=== PATIENT | female | born 1950 | race Hispanic/Latino ===

== ENCOUNTER 2020-03-22 08:12 | Outpatient (CLI) | payer OTHER, MEDICAID, SELFPAY ==
[2020-03-22 09:02] LABS: Hemoglobin A1C 8.2 % (<5.7)
[2020-03-22 09:06] LABS: Alanine Aminotransferase 18 U/L (4-35); Albumin Level 3.9 g/dL (3.5-5.1); Alkaline Phosphatase 81 U/L (38-126); Aspartate Amino Transferase 25 U/L (14-36); Bilirubin,Total 0.3 mg/dL (0.2-1.3); Blood Urea Nitrogen 9 mg/dL (7-17); Calcium 8.8 mg/dL (8.4-10.2); Carbon Dioxide 24 mmol/L (22-30); Chloride 108 mmol/L (98-107); Cholesterol 118 mg/dL (0-200); Estimated Glomerular Filt Rate > 60; Glucose 117 mg/dL (65-105); HDL Direct 48 mg/dL; Sodium 141 mmol/L (137-145); Triglycerides 69 mg/dL (<150)
[2020-03-22 09:17] LABS: LDL Cholesterol Direct 53 mg/dL
== END 2020-03-22 08:13 | disposition home or self-care (01) ==
PROVIDERS: PCP Emergency Medicine; Visit Provider Emergency Medicine
DX: E78.5 Hyperlipidemia, unspecified (principal); E11.9 Type 2 diabetes mellitus without complications
CPT/HCPCS: 36415; 80053; 80061; 83036

== ENCOUNTER 2020-07-01 09:06 | Outpatient (CLI) | payer OTHER, MEDICAID, SELFPAY ==
[2020-07-01 09:33] LABS: Alanine Aminotransferase 19 U/L (4-35); Alkaline Phosphatase 77 U/L (38-126); Anion Gap 5 mmol/L (8-16); Aspartate Amino Transferase 29 U/L (14-36); Bilirubin,Total 0.5 mg/dL (0.2-1.3); Blood Urea Nitrogen 14 mg/dL (7-17); Calcium 9.2 mg/dL (8.4-10.2); Carbon Dioxide 27 mmol/L (22-30); Chloride 107 mmol/L (98-107); Cholesterol 148 mg/dL (0-200); Estimated Glomerular Filt Rate > 60; Glucose 167 mg/dL (65-105); HDL Direct 56 mg/dL; Potassium 4.5 mmol/L (3.4-5.0); Sodium 139 mmol/L (137-145); Triglycerides 112 mg/dL (<150)
[2020-07-01 09:36] LABS: Hemoglobin A1C 7.4 % (<5.7)
[2020-07-01 09:44] LABS: LDL Cholesterol Direct 73 mg/dL
== END 2020-07-01 09:07 | disposition home or self-care (01) ==
LOC: ANHLAB 09:07
PROVIDERS: PCP Emergency Medicine; Visit Provider Emergency Medicine
DX: E11.9 Type 2 diabetes mellitus without complications (principal); E78.5 Hyperlipidemia, unspecified
CPT/HCPCS: 36415; 80053; 80061; 83036

== ENCOUNTER 2020-09-14 10:05 | Outpatient (CLI) | payer OTHER, MEDICAID, SELFPAY ==
--- NOTE | ~2020-09-14 | MM_ITS ---
EXAMINATION: MM screening [facility] BI w michelle HISTORY: Screening mammogram TECHNIQUE: Craniocaudal and mediolateral oblique 3-D tomosynthesis images were obtained and synthetic 2-D images were generated. Bilateral rotated lateral CC views. CAD analysis was submitted and interp reted. COMPARISON: 09/22/2019, 09/12/2018, 09/09/2017 bilateral digital screening mammogram examinations BREAST PARENCHYMAL COMPOSITION: There are scattered areas of fibroglandular density. FINDINGS: There is no evidence of suspicious mass, calcification, or architectural distortion to sugg est malignancy in either breast. There has been no suspicious interval change. IMPRESSION: 1. No mammographic evidence of malignancy. 2. Recommend routine screening mammography in one year. BI-RADS Category 1: Negative Reviewed, dictated and finalized at location A. CH REBUILDER
== END 2020-09-14 10:06 | disposition home or self-care (01) ==
LOC: ANHIMG 10:09
PROVIDERS: PCP Emergency Medicine; Visit Provider Emergency Medicine
DX: Z12.31 Encounter for screening mammogram for malignant neoplasm of breast (principal)
CPT/HCPCS: 77063; 77067

== ENCOUNTER 2020-10-11 08:44 | Outpatient (CLI) | payer OTHER, MEDICAID, SELFPAY ==
[2020-10-11 09:28] LABS: Alanine Aminotransferase 16 U/L (4-35); Alkaline Phosphatase 80 U/L (38-126); Anion Gap 7 mmol/L (8-16); Aspartate Amino Transferase 28 U/L (14-36); Bilirubin,Total 0.7 mg/dL (0.2-1.3); Blood Urea Nitrogen 12 mg/dL (7-17); Carbon Dioxide 26 mmol/L (22-30); Chloride 109 mmol/L (98-107); Cholesterol 152 mg/dL (0-200); Estimated Glomerular Filt Rate > 60; Glucose 106 mg/dL (65-105); HDL Direct 54 mg/dL; Potassium 3.9 mmol/L (3.4-5.0); Sodium 142 mmol/L (137-145); Triglycerides 117 mg/dL (<150)
[2020-10-11 09:39] LABS: LDL Cholesterol Direct 71 mg/dL
[2020-10-11 09:40] LABS: Hemoglobin A1C 7.7 % (<5.7)
[2020-10-11 09:50] LABS: Creatinine Urine 195.8 mg/dL
[2020-10-11 09:54] LABS: MALB Creatinine Ratio 10.2 mg/g (0-30)
== END 2020-10-11 08:45 | disposition home or self-care (01) ==
PROVIDERS: PCP Emergency Medicine; Visit Provider Emergency Medicine
DX: E78.5 Hyperlipidemia, unspecified (principal); E11.40 Type 2 diabetes mellitus with diabetic neuropathy, unspecified; Z79.4 Long term (current) use of insulin
CPT/HCPCS: 36415; 80053; 80061; 82043; 83036

== ENCOUNTER 2020-12-07 11:49 | Emergency (ER) | payer OTHER, MEDICAID, SELFPAY ==
--- NOTE | ~2020-12-07 | XR_ITS ---
XR chest 1V DATE: 12/07/2020 13:15 INDICATION: Chest pain TECHNIQUE: AP view COMPARISON: 03/23/2019 AP and lateral chest FINDINGS: Cardiomegaly. Mild aortic unfolding. No hilar or mediastinal enlargement is evident. No pulmonary infiltrate or consolidation, pleural effusion or pulmonary vascular congestion or pneumo thorax. Diffuse osteopenia. There is mild scoliosis of the thoracic spine as well as degenerative spurring. IMPRESSION: Cardiomegaly No active pulmonary disease Reviewed, dictated and finalized at location A. CTOR OF GOLF
--- NOTE | ~2020-12-07 | US_ITS ---
US right upper quadrant DATE: 12/07/2020 15:36 INDICATION: Right upper quadrant abdominal pain TECHNIQUE: Real-time imaging of liver, pancreas, gallbladder areas COMPARISON: 06/20/2012 CT abdomen pelvis FINDINGS: No gallstones or gallbladder wall thickening or pericholecystic fluid collection. Negative sonographic Kyle's sign. Normal hepatopedal portal venous flow direction. No hepatic space-occupying mass lesion is evident. The pancreas is partially obscured. IMPRESSION: Limited visualization of the pancreas Negative gallbladder Reviewed, dictated and finalized at Location A. Reviewed, dictated and finalized at location A. HER OF THE VISUALLY IMPAIRED
--- NOTE | ~2020-12-07 | XR_ITS ---
EXAMINATION: XR thoracic spine 3V DATE: 12/07/2020 13:15 INDICATION: Right-sided back pain TECHNIQUE: AP, lateral and lateral swimmer's views of the thoracic spine were obtained. COMPARISON: None. FINDINGS: Bone alignment is normal. There is no fracture. There is moderate loss of intervertebral di sc space height throughout the thoracic spine. Small degenerative osteophytes project from the anteri or endplates of multiple vertebral bodies. The vertebral body heights are maintained. IMPRESSION: 1. Moderate thoracic spondylosis without acute findings. Reviewed, dictated and finalized at location A. D WELFARE SPECIALIST
[2020-12-07 11:56] VITALS: BP 140/64; PULSE 62; RESP 18; TEMP 37.1; O2SAT 98
[2020-12-07 12:14] LABS: Basophils Percent Auto 0.4 % (0.2-1.2); Eosinophils Absolute Auto 0.1 K/mm3 (0-0.3); Eosinophils Percent Auto 0.8 % (0-4.4); Hematocrit 39.2 % (37.0-47.0); Hemoglobin 12.9 g/dL (12.0-15.0); Immature Granulocyte Absolute 0.03 K/mm3 (0.00-0.031); Immature Granulocyte Percent A 0.3 % (0-0.5); Lymphocytes Absolute Auto 2.88 K/mm3 (0.9-3.2); Lymphocytes Percent Auto 27.6 % (18.3-44.2); Mean Corpuscular HGB Conc 32.9 g/dl (32-36); Mean Corpuscular Hemoglobin 28.7 pg (26-34); Mean Corpuscular Volume 87.3 fl (80-100); Mean Platelet Volume 12.3 fl (7.4-10.4); Monocytes Absolute Auto 0.8 K/mm3 (0.1-0.6); Neutrophils Absolute Auto 6.6 K/mm3 (1.3-6.7); Neutrophils Percent Auto 62.9 % (45.5-73.1); Platelet Count Result 225 k/mm3 (150-375); Red Blood Count 4.49 M/mm3 (4.2-5.4); Red Cell Distribution Width 13.2 % (11.5-14.5); White Blood Count 10.4 K/mm3 (4.5-10.0)
[2020-12-07 12:26] LABS: Alanine Aminotransferase 18 U/L (4-35); Albumin Level 4.2 g/dL (3.5-5.1); Alkaline Phosphatase 85 U/L (38-126); Anion Gap 5 mmol/L (8-16); Aspartate Amino Transferase 28 U/L (14-36); Bilirubin,Total 0.8 mg/dL (0.2-1.3); Blood Urea Nitrogen 9 mg/dL (7-17); Carbon Dioxide 29 mmol/L (22-30); Chloride 102 mmol/L (98-107); Estimated Glomerular Filt Rate > 60; Glucose 186 mg/dL (65-105); Lipase 27 U/L (23-300); Potassium 3.9 mmol/L (3.4-5.0); Sodium 136 mmol/L (137-145)
--- NOTE | 2020-12-07 12:48 | ECG_ITS ---
Measurements Intervals [place] Rate: 48 P: 60 [place]: 148 QRS: 13 QRSD: 83 T: 198 QT: 506 QTc: 456 Interpretive Statements SINUS BRADYCARDIA RSR' IN V1 OR V2, CONSIDER RIGHT VENTRICULAR HYPERTROPHY OR RIGHT VCD LEFT VENTRICULAR HYPERTROPHY AND ST-T CHANGE T WAVE ABNORMALITY IN DIFFUSE LEADS- CONSIDER ISCHEMIA BASELINE ARTIFACT- I, III, AVR, AVL, V2 ABNORMAL ECG Electronically Signed On 12-07-2020 13:35:16 AUDIOPROSTHOLOGIST by Clem Peters D.O.
--- NOTE | 2020-12-07 13:03 | PC.NURSE ---
1303 - Patient to imaging.
[2020-12-07 13:04] LABS: Add Urine Microscopic? YES; Appearance Urine Cloudy (Clear); Bacteria Urine Trace /hpf; Bilirubin Urine Negative (Negative); Blood Urine 1+ (Negative); Color Urine Yellow (Yellow); Glucose Urine UA Negative (Negative); Ketones Urine Negative (Negative); Leukocyte Esterase Ur Trace LEU/UL (Negative); Mucus Urine Few /lpf; Nitrate Urine Negative (Negative); Protein Urine 1+ mg/dL (Negative); Specific Grav Ur 1.011 (1.001-1.035); Squamous Epithelial Cell Urine Many /hpf (Few); Urobilinogen Urine Negative mg/dL (<2.0)
[2020-12-07 13:15] VITALS: BP 142/63; PULSE 51; RESP 16; O2SAT 94
--- NOTE | 2020-12-07 14:10 | ED.ABDPAIN ---
HPI - Abdominal Pain General Chief Complaint: Abdominal Pain Stated Complaint: Right Rib Pain Time Seen by Provider: 12/07/20 12:12 Source: patient and family Mode of arrival: ambulatory Limitations: no limitations History of Present Illness HPI narrative: 70-year-old female She has a history of diabetes and a remote history of stent placement She complains of pain in the area of the right upper quadrant/right flank/right lower chest/right back since yesterday afternoon She reports that yesterday after a started she vomited once and it felt a little bit better but never fully resolved, kept her up most of the night, and got worse again today She cannot really say anything that makes it feel better or worse, she does not think that eating makes it worse, it seems that the bedside like moving around may aggravate it and it may possibly be more painful when she is supine She denies cough or shortness of breath, diarrhea or constipation, or any urinary symptoms She has chronic back pain, takes ibuprofen prn, not every day MD elicited complaint: abdominal pain and flank pain Related Data Home Medications Medication Instructions Recorded Confirmed insulin glargine 100 unit/mL See Rx Instructions .ROUTE 10/18/20 10/18/20 subcutaneous solution .COMPLEX ml Allergies Allergy/AdvReac Type Severity Reaction Status Date / Time No Known Drug Allergies Allergy Unknown Verified 03/16/18 18:50 Review of Systems Review of Systems: All systems reviewed & are unremarkable except as noted in HPI and below Constitutional: Constitutional: Denies chills, Denies fatigue, Denies fever(s), Denies headache(s) and Denies weakness Eyes: Eyes: Reports no additional eye complaints and Denies change in vision ENT: Denies headache(s), Denies epistaxis, Denies nasal congestion and Denies sore throat Cardiovascular: Cardiovascular: Reports chest pain, Denies leg edema, Denies radiating jaw, neck or arm pain, Denies palpitations and Denies dyspnea Respiratory: Respiratory: Denies cough, Denies dyspnea and Denies wheezing Gastrointestinal: Gastrointestinal: Reports abdominal pain, Denies bloating, Denies diarrhea, Reports nausea and Reports vomiting Genitourinary: Genitourinary: Denies hematuria, Denies urinary frequency and Denies dysuria Musculoskeletal: Musculoskeletal: Denies deformity, Denies arthralgias, Denies joint swelling, Denies muscle weakness and Denies numbness Integumentary/Breasts: Skin/Breast: Denies rash and Denies wounds Neurologic: Denies headache(s), Denies focal weakness, Denies numbness and Denies weakness Psychiatric: Psychiatric: Reports no additional psychiatric complaints Endocrine: Endocrine: Denies fatigue and Denies palpitations Hematologic/Lymphatic: Hematologic/Lymphatic: Denies easy bleeding and Denies easy bruising Allergic/Immunologic: Allergic/Immunologic: Denies wheezing PMFSH Past Medical History Medical History (Updated 12/07/20 @ 16:53 by Kervin Song MD) HLD (hyperlipidemia) HTN (hypertension) Other screening mammogram Family History Family History Sibling Diabetes mellitus Father Cerebrovascular accident, Onset Age: 72 Social History Social History Smoking status: Former smoker Smoking end date: 10/14/15 Alcohol intake: never Exam Const: General: no acute distress, well developed and awake Nutritional Appearance: well nourished Orientation/consciousness: patient oriented x3 (alert) HENMT: Head: normocephalic and atraumatic Ears: external ears normal General nose exam: No nasal discharge present and no epistaxis Face and sinus: face symmetric Eyes: Conjunctivae: conjunctivae normal Sclera: sclerae normal EOM: EOMs intact bilaterally Neck: Neck: normal visual inspection, supple and no JVD Chest: Chest palpation & inspection: deferred a
[2020-12-07 15:41] LABS: Troponin I 0.017 ng/mL (0.000-0.034)
--- NOTE | 2020-12-07 15:42 | PC.NURSE ---
1542 - Lab adding baseline troponin level to initial blood work done at noon today.
[2020-12-07 16:04] LABS: Troponin I 0.017 ng/mL (0.000-0.034)
== END 2020-12-07 17:42 | disposition home or self-care (01) ==
PROVIDERS: Emergency Provider Emergency Medicine; PCP Emergency Medicine
DX: S29.019A Strain of muscle and tendon of unspecified wall of thorax, initial encounter (principal); E78.5 Hyperlipidemia, unspecified; I10 Essential (primary) hypertension; X58.XXXA Exposure to other specified factors, initial encounter
CPT/HCPCS: 36415; 71045; 72072; 76705; 80053; 81001; 83690; 84484; 85025; 93005; 99284

== ENCOUNTER 2020-12-29 10:12 | Outpatient (CLI) | payer OTHER, MEDICARE, MEDICAID, SELFPAY | END 2020-12-29 10:13 | disposition home or self-care (01) | LOC: ANHCOVIDVC 10:12 | PROVIDERS: PCP Emergency Medicine | DX: Z23 Encounter for immunization (principal) | CPT/HCPCS: 0001A; 91300 ==

== ENCOUNTER 2021-01-10 10:42 | Outpatient (CLI) | payer OTHER, MEDICAID, SELFPAY ==
[2021-01-10 11:47] LABS: Alanine Aminotransferase 15 U/L (4-35); Albumin Level 3.9 g/dL (3.5-5.1); Alkaline Phosphatase 84 U/L (38-126); Anion Gap 5 mmol/L (8-16); Aspartate Amino Transferase 25 U/L (14-36); Bilirubin,Total 0.3 mg/dL (0.2-1.3); Blood Urea Nitrogen 12 mg/dL (7-17); Calcium 8.8 mg/dL (8.4-10.2); Carbon Dioxide 26 mmol/L (22-30); Chloride 110 mmol/L (98-107); Cholesterol 149 mg/dL (0-200); Estimated Glomerular Filt Rate > 60; Glucose 124 mg/dL (65-105); HDL Direct 50 mg/dL; Potassium 4.2 mmol/L (3.4-5.0); Sodium 141 mmol/L (137-145); Triglycerides 97 mg/dL (<150)
[2021-01-10 11:59] LABS: LDL Cholesterol Direct 76 mg/dL
[2021-01-10 12:04] LABS: Creatinine Urine 186.2 mg/dL
[2021-01-10 12:08] LABS: Hemoglobin A1C 7.1 % (<5.7)
== END 2021-01-10 10:43 | disposition home or self-care (01) ==
PROVIDERS: PCP Emergency Medicine; Visit Provider Emergency Medicine
DX: E11.40 Type 2 diabetes mellitus with diabetic neuropathy, unspecified (principal); E78.5 Hyperlipidemia, unspecified; Z79.4 Long term (current) use of insulin
CPT/HCPCS: 36415; 80053; 80061; 82043; 83036

== ENCOUNTER 2021-01-19 10:17 | Outpatient (CLI) | payer OTHER, MEDICARE, MEDICAID, SELFPAY | END 2021-01-19 10:18 | disposition home or self-care (01) | LOC: ANHCOVIDVC 10:17 | PROVIDERS: PCP Emergency Medicine | DX: Z23 Encounter for immunization (principal) | CPT/HCPCS: 0002A; 91300 ==

== ENCOUNTER 2021-05-31 08:56 | Outpatient (CLI) | payer OTHER, SELFPAY ==
[2021-05-31 09:42] LABS: Alanine Aminotransferase 19 U/L (4-35); Albumin Level 4.1 g/dL (3.5-5.1); Alkaline Phosphatase 83 U/L (38-126); Anion Gap 4 mmol/L (8-16); Aspartate Amino Transferase 28 U/L (14-36); Bilirubin,Total 0.6 mg/dL (0.2-1.3); Blood Urea Nitrogen 9 mg/dL (7-17); Calcium 9.2 mg/dL (8.4-10.2); Carbon Dioxide 26 mmol/L (22-30); Chloride 110 mmol/L (98-107); Cholesterol 161 mg/dL (0-200); Estimated Glomerular Filt Rate > 60; Glucose 114 mg/dL (65-110); HDL Direct 54 mg/dL; Potassium 4.2 mmol/L (3.4-5.0); Sodium 140 mmol/L (137-145); Triglycerides 99 mg/dL (<150)
[2021-05-31 09:54] LABS: LDL Cholesterol Direct 73 mg/dL
[2021-05-31 10:35] LABS: Hemoglobin A1C 7.9 % (<5.7)
== END 2021-05-31 08:57 | disposition home or self-care (01) ==
LOC: ANHLAB 09:01
PROVIDERS: PCP Emergency Medicine; Visit Provider Emergency Medicine
DX: E78.2 Mixed hyperlipidemia (principal); I10 Essential (primary) hypertension; E11.40 Type 2 diabetes mellitus with diabetic neuropathy, unspecified; Z79.4 Long term (current) use of insulin
CPT/HCPCS: 36415; 80053; 80061; 83036

== ENCOUNTER 2021-08-31 08:21 | Outpatient (CLI) | payer OTHER, SELFPAY ==
[2021-08-31 08:59] LABS: Alanine Aminotransferase 16 U/L (4-35); Albumin Level 4.1 g/dL (3.5-5.1); Alkaline Phosphatase 84 U/L (38-126); Anion Gap 7 mmol/L (8-16); Aspartate Amino Transferase 22 U/L (14-36); Bilirubin,Total 0.5 mg/dL (0.2-1.3); Blood Urea Nitrogen 6 mg/dL (7-17); Calcium 9.1 mg/dL (8.4-10.2); Carbon Dioxide 25 mmol/L (22-30); Chloride 106 mmol/L (98-107); Cholesterol 133 mg/dL (0-200); Estimated Glomerular Filt Rate > 60; Glucose 151 mg/dL (65-110); HDL Direct 48 mg/dL; Hemoglobin A1C 7.1 % (<5.7); Potassium 4.2 mmol/L (3.4-5.0); Sodium 138 mmol/L (137-145); Triglycerides 92 mg/dL (<150)
[2021-08-31 09:10] LABS: LDL Cholesterol Direct 62 mg/dL
== END 2021-08-31 08:22 | disposition home or self-care (01) ==
PROVIDERS: PCP Emergency Medicine; Visit Provider Emergency Medicine
DX: E11.40 Type 2 diabetes mellitus with diabetic neuropathy, unspecified (principal); Z51.81 Encounter for therapeutic drug level monitoring; Z79.4 Long term (current) use of insulin; E78.2 Mixed hyperlipidemia; I10 Essential (primary) hypertension
CPT/HCPCS: 36415; 80053; 80061; 83036

== ENCOUNTER 2021-10-23 08:45 | Outpatient (CLI) | payer OTHER, SELFPAY ==
--- NOTE | ~2021-10-23 | MM_ITS ---
EXAMINATION: MM screening [facility] BI w michelle HISTORY: Screening TECHNIQUE: Craniocaudal and mediolateral oblique 3-D tomosynthesis images were obtained and synthetic 2-D images were generated. CAD analysis was submitted and interpreted. COMPARISON: Comparison to multiple prior studies sequentially, with oldest reviewed study dated 08/14. BREAST PARENCHYMAL COMPOSITION: Breast composed of scattered areas of fibroglandular density. FINDINGS: There is no evidence of suspicious mass, calcification, or architectural distortion to sugg est malignancy in either breast. There has been no suspicious interval change. IMPRESSION: 1. No mammographic evidence of malignancy. 2. Recommend routine screening mammography in one year. BI-RADS Category 1: Negative Reviewed, dictated and finalized at location A. ING STRATEGIST
== END 2021-10-23 08:46 | disposition home or self-care (01) ==
LOC: ANHIMG 08:46
PROVIDERS: PCP Emergency Medicine; Visit Provider Emergency Medicine
DX: Z12.31 Encounter for screening mammogram for malignant neoplasm of breast (principal)
CPT/HCPCS: 77063; 77067

== ENCOUNTER 2021-11-28 09:09 | Outpatient (CLI) | payer OTHER, SELFPAY ==
[2021-11-28 09:51] LABS: Alanine Aminotransferase 16 U/L (4-35); Albumin Level 4.2 g/dL (3.5-5.1); Alkaline Phosphatase 99 U/L (38-126); Anion Gap 7 mmol/L (8-16); Aspartate Amino Transferase 27 U/L (14-36); Bilirubin,Total 0.7 mg/dL (0.2-1.3); Blood Urea Nitrogen 13 mg/dL (7-17); Calcium 8.7 mg/dL (8.4-10.2); Carbon Dioxide 25 mmol/L (22-30); Chloride 107 mmol/L (98-107); Cholesterol 149 mg/dL (0-200); Estimated Glomerular Filt Rate > 60; Glucose 129 mg/dL (65-110); HDL Direct 48 mg/dL; Potassium 4.3 mmol/L (3.4-5.0); Sodium 139 mmol/L (137-145); Triglycerides 105 mg/dL (<150)
[2021-11-28 10:01] LABS: LDL Cholesterol Direct 78 mg/dL
[2021-11-28 10:13] LABS: Hemoglobin A1C 7.1 % (<5.7)
[2021-11-28 10:37] LABS: Creatinine Urine 208.6 mg/dL
[2021-11-28 10:42] LABS: MALB Creatinine Ratio 14.4 mg/g (0-30); Microalbumin Urine Random 30.1 mg/L (0-16.7)
== END 2021-11-28 09:10 | disposition home or self-care (01) ==
PROVIDERS: PCP Emergency Medicine; Visit Provider Emergency Medicine
DX: E11.40 Type 2 diabetes mellitus with diabetic neuropathy, unspecified (principal); Z79.4 Long term (current) use of insulin; E78.2 Mixed hyperlipidemia
CPT/HCPCS: 36415; 80053; 80061; 82043; 83036

== ENCOUNTER 2022-03-01 08:11 | Outpatient (CLI) | payer OTHER, MEDICAID, SELFPAY ==
[2022-03-01 09:24] LABS: Alanine Aminotransferase 15 U/L (6-35); Albumin Level 3.9 g/dL (3.5-5.1); Alkaline Phosphatase 80 U/L (38-126); Anion Gap 9 mmol/L (8-16); Aspartate Amino Transferase 26 U/L (14-36); Bilirubin,Total 0.4 mg/dL (0.2-1.3); Blood Urea Nitrogen 7 mg/dL (7-17); Calcium 8.8 mg/dL (8.4-10.2); Carbon Dioxide 27 mmol/L (22-30); Chloride 107 mmol/L (98-107); Cholesterol 139 mg/dL (0-200); Estimated Glomerular Filt Rate > 60; Glucose 110 mg/dL (65-110); HDL Direct 47 mg/dL; Sodium 143 mmol/L (137-145); Triglycerides 73 mg/dL (<150)
[2022-03-01 09:36] LABS: LDL Cholesterol Direct 61 mg/dL
[2022-03-01 10:03] LABS: Hemoglobin A1C 6.9 % (<5.7)
[2022-03-01 20:35] LABS: Creatinine Urine 150.5 mg/dL
[2022-03-01 20:41] LABS: MALB Creatinine Ratio 10.4 mg/g (0-30); Microalbumin Urine Random 15.6 mg/L (0-16.7)
== END 2022-03-01 08:12 | disposition home or self-care (01) ==
LOC: ANHLAB 08:14
PROVIDERS: PCP Emergency Medicine; Visit Provider Emergency Medicine
DX: E11.40 Type 2 diabetes mellitus with diabetic neuropathy, unspecified (principal); Z79.4 Long term (current) use of insulin; I10 Essential (primary) hypertension; E78.2 Mixed hyperlipidemia
CPT/HCPCS: 36415; 80053; 80061; 82043; 83036

== ENCOUNTER 2022-03-10 20:33 | Emergency (ER) | payer OTHER, MEDICAID, SELFPAY ==
--- NOTE | ~2022-03-10 | XR_ITS ---
XR shoulder LT min 2V DATE: 03/10/2022 22:30 INDICATION: Left shoulder pain for 3 days. No injury. TECHNIQUE: 5 views COMPARISON: 08/02/2016 left shoulder FINDINGS: There is some soft tissue calcifications adjacent to the greater tuberosity of the proximal left humerus which may be due to calcific tendinitis. Osteopenia. There is mild degenerative change of the left acromioclavicular joint. No fracture, dislocation, periosteal reaction or bone destruction. IMPRESSION: Soft tissue calcification near greater tuberosity, possibly related to calcific tendiniti s Osteopenia Mild degenerative change at left acromioclavicular joint Reviewed, dictated and finalized at location A. IMPRESSION: Soft tissue calcification near greater tuberosity, possibly related to calcific tendinitis Osteopenia Mild degenerative change at left acromioclavicular joint
[2022-03-10 20:53] VITALS: BP 141/59; PULSE 69; RESP 16; TEMP 36.6; O2SAT 98
[2022-03-10 22:04] VITALS: BP 143/74; PULSE 66; RESP 17; O2SAT 98
--- NOTE | 2022-03-10 22:08 | ECG_ITS ---
Measurements Intervals [place] Rate: 61 P: 69 [place]: 166 QRS: -6 QRSD: 78 T: 174 QT: 431 QTc: 436 Interpretive Statements SINUS RHYTHM LEFT VENTRICULAR HYPERTROPHY AND ST-T CHANGE T WAVE ABNORMALITY IN ANTEROLAT/HIGH LAT LEADS- CONSIDER ISCHEMIA ABNORMAL ECG Electronically Signed On 03-11-2022 7:12:05 CDT by Clem Peters D.O.
--- NOTE | 2022-03-10 22:13 | ED.UPPEXIN ---
HPI - Extremity Injury (Upper) General Chief Complaint: Extremity Injury, Upper Stated Complaint: cant move left arm Time Seen by Provider: 03/10/22 21:58 History of Present Illness HPI narrative: 72-year-old female presents to the emergency room for evaluation of a cute onset of left shoulder pain. Patient states the pain abruptly began 3 days ago upon awakening. Patient states that she has limited range of motion in the left shoulder joint. Patient denies any radicular pain, injury or trauma. Patient states that she took tramadol, Flexeril and ibuprofen without any relief of symptoms. Patient denies any radiating pain, shortness of breath. Related Data Allergies Allergy/AdvReac Type Severity Reaction Status Date / Time No Known Drug Allergies Allergy Unknown unknown Verified 03/10/22 22:06 Review of Systems Review of Systems: CONSTITUTIONAL: Denies fever, chills, or sweats. EYES: Denies visual changes, redness, or discharge. ENT: Denies rhinorrhea, congestion, sore throat, or otalgia. CARDIOVASCULAR: Denies chest pain, palpitations, or edema. RESPIRATORY: Denies cough or dyspnea. GASTROINTESTINAL: Denies abdominal pain, nausea, vomiting, or diarrhea. GENITOURINARY: Denies dysuria or hematuria. SKIN: Denies rash or itching. MUSCULOSKELETAL: Reports left shoulder pain NEUROLOGIC: Denies headache, numbness, dizziness, or weakness. PSYCHIATRIC: Denies anxiety or depression. [facility] Past Medical History Medical History Acute left-sided low back pain with left-sided sciatica Age-related osteoporosis without current pathological fracture ASHD (arteriosclerotic heart disease) Back pain at L4-L5 level Body mass index [BMI] 25.0-25.9, adult (09/27/15) Body mass index [BMI] 26.0-26.9, adult (03/21/17) Chronic left shoulder pain History of colon polyps HLD (hyperlipidemia) HTN (hypertension) Left hip pain Other screening mammogram Vertigo Family History Family History Sibling Diabetes mellitus Father Cerebrovascular accident, Onset Age: 72 Social History Social History Smoking status: Former smoker Smoking end date: 10/14/15 Alcohol intake: never Exam Narrative: GENERAL: Well-appearing, well-nourished, and in no acute distress. HEAD: Normocephalic, atraumatic. EYES: PERRLA and EOMI. CHEST: Clear to auscultation. No respiratory distress. No wheezes rales or rhonchi HEART: Regular rate and rhythm. No murmur heard. Normal peripheral pulses. EXTREMITIES: Left shoulder: Tenderness to the glenohumeral joint, no bony abnormality, significant reduction in active and passive range of motion due to pain, neurovascular is distally intact SKIN: Warm, dry, no rash. NEURO: No focal deficits. Alert and oriented x3. PSYCH: Normal mood and affect. Course Vital Signs Vital signs: Vital Signs Temperature 36.6 C 03/10/22 20:53 Pulse Rate 69 03/10/22 20:53 Respiratory Rate 16 03/10/22 20:53 Blood Pressure 141/59 H 03/10/22 20:53 Pulse Oximetry 98 03/10/22 20:53 Oxygen Delivery Room Air 03/10/22 20:53 Temperature 36.6 C 03/10/22 20:53 Pulse Rate 66 03/10/22 22:04 Respiratory Rate 17 03/10/22 22:04 Blood Pressure 143/74 H 03/10/22 22:04 Pulse Oximetry 98 03/10/22 22:04 Oxygen Delivery Room Air 03/10/22 20:53 MDM - Extremity Injury (Upper) MDM Narrative Medical decision making narrative: 72-year-old female presented to the emergency room for evaluation of a cute onset of left shoulder pain. Patient states that pain is worse when she attempted to move it. States the pain is in the glenohumeral joint. Patient reports limited active and passive range of motion. Patient denied any injury or trauma. EKG showed no acute changes. Left shoulder x-ray showed some degenerative changes otherwise no acute bony abnor
--- NOTE | 2022-03-10 22:17 | PC.NURSE ---
Patient in xray at this time.
== END 2022-03-10 22:56 | disposition home or self-care (01) ==
PROVIDERS: Emergency Provider Nurse Practitioner Family; PCP Emergency Medicine
DX: M75.02 Adhesive capsulitis of left shoulder (principal); I25.10 Atherosclerotic heart disease of native coronary artery without angina pectoris; E78.5 Hyperlipidemia, unspecified; I10 Essential (primary) hypertension; M81.0 Age-related osteoporosis without current pathological fracture; Z86.010 Personal history of colon polyps; Z87.891 Personal history of nicotine dependence; R94.31 Abnormal electrocardiogram [ECG] [EKG]; I51.7 Cardiomegaly
CPT/HCPCS: 73030; 93005; 99283

== ENCOUNTER 2022-03-15 11:17 | Outpatient (CLI) | payer OTHER, MEDICAID, SELFPAY ==
--- NOTE | ~2022-03-15 | XR_ITS ---
XR_CERV2-3V_CR DATE: 03/15/2022 11:33 INDICATION: Right shoulder pain radiating to neck for one week. No injury. TECHNIQUE: AP, open-mouth, lateral views COMPARISON: None FINDINGS: There is dextroscoliosis of the cervical spine. C1 and C2 are normally aligned and the odontoid process is intact. There is moderately severe degenerative disc disease and prominent uncovertebral joint spurring with posterior spurring at C4-5, C5-6 and C6-7. There is approximately 2 mm anterolisthesis at C7-T1. IMPRESSION: Prominent cervical spondylosis; no fracture or dislocation Reviewed, dictated and finalized at Location A. Reviewed, dictated and finalized at location A.
--- NOTE | ~2022-03-15 | XR_ITS ---
EXAMINATION: XR shoulder RT min 2V DATE: 03/15/2022 11:33 INDICATION: Right shoulder pain radiating into the neck TECHNIQUE: AP internally and externally rotated, AP oblique externally rotated and transscapular Y vi ews of the right shoulder were obtained. COMPARISON: None FINDINGS: Normal alignment. No fracture. Glenohumeral joint is normal. Mild acromioclavicular osteoarthritis. Mild hypertrophic change along the superior facet of the greater tuberosity. Visualized portions of t he lungs are clear. Soft tissues are unremarkable. IMPRESSION: Mild right acromioclavicular osteoarthritis and mild hypertrophic change along the greater tuberosity which can be seen with chronic rotator cuff disease. Reviewed, dictated and finalized at location B.
== END 2022-03-15 11:18 | disposition home or self-care (01) ==
LOC: ANHIMG 11:21
PROVIDERS: PCP Emergency Medicine; Visit Provider Emergency Medicine
DX: M47.812 Spondylosis without myelopathy or radiculopathy, cervical region (principal); M19.011 Primary osteoarthritis, right shoulder
CPT/HCPCS: 72040; 73030

== ENCOUNTER 2022-04-25 11:00 | Outpatient (RCR) | payer OTHER, MEDICAID, SELFPAY ==
[2022-03-30 13:15] VITALS: BP_SYST 150
--- NOTE | 2022-03-30 14:20 | PTOPEVAL ---
PHYSICAL THERAPY EVALUATION AND PLAN OF CARE 03-30-22 Thank you for referring Mayte Mercado to [facility], for the diagnosis of shoulder pain. She is scheduled to be seen for therapy? 2 x/week for 4 weeks. Her treatment plan includes treatment to her cervical area. Please review, sign, date and return this plan of care LETHA. I agree with and certify that the following plan of care is medically necessary. Referring Physician Date Attending Provider: Pernell Pratt MD Past Medical History Source of Past Medical History Patient Neurological History Hx Other Neurological Disorders Yes: vertigo Cardiovascular History Hx Hypertension Yes: meds Respiratory History Hx Respiratory Disorders No Significant History Gastrointestinal History Hx Gastrointestinal Disorders No Significant History Musculoskeletal History Hx Back Pain Yes: chronic back pain Hx Orthopedic Surgery Yes: B carpal tunnel surgery Hx Other Musculoskeletal Disorders Yes: neck pain; B shoulder pain Endocrine History Hx Diabetes Yes: meds-- blood sugar varies HEENT History Hx Ear Surgery Yes: surgery on both ears- 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; Evaluation Information Diagnosis pain in shoulder Onset Mid February 2022 Subjective Information to ER March 10 due to L shoulder Query Text:As Reported By Patient/ pain; had xrays and steroid Family pills- helped pain; Diagnostic Tests X-Rays For This Problem Yes: R sh:mild A-C OA; hypertrophic changes greater tuberosity Other Tests For This Problem Yes: cervical xray:mod-severe DDD, spur C 4-5-6-7' anteriolisthesis C7-T1 Prior Level of Function Activity Level (Last 3 Months) Occupation retired Hand Dominance Right Activity of Daily Living Ability Independent Indoor/Home Mobility Independent Community Mobility Independent Stairs Ability Independent Functional Cognition (Planning, Shopping Independent , Taking Medications) Cooking Yes Cleaning Yes Laundry Yes Shopping Yes Driving Yes Home Setting Living Situation Alone Comments Additional Prior Level of Function does all home and self care Comments tasks, slower and more pain in shoulders; also have back pain that limits her movements; Pain Assessment Pain Scale Pain Scale Used Numeric (1 - 10) Self Report Pain Assessment Right Shoulder(s) Report
--- NOTE | 2022-04-25 11:42 | PTOPEVAL ---
PHYSICAL THERAPY DISCHARGE 04-25-22 Refer to the clinical summary below, for her status today, compared to the initial evaluation. The goals were partially achieved---her ROM and strength improved, but continues to have pain. Thank you for referring Mayte Mercado to [facility].? Please review, sign, date and return this Discharge report LETHA. I agree with and certify that the following plan of care is medically necessary. Referring Physician Date Attending Provider: Pernell Pratt MD Subjective Information Mayte reports: can use arm Query Text:As Reported By Patient/ better now and not hurt as Family much; can get dressed and hook bra behind my back now; shoulder is better; Pain Assessment Pain Scale Pain Scale Used Numeric (1 - 10) Self Report Pain Assessment Right Shoulder(s) Reported Pain Level 0 Pain Description Aching,Soreness Pain Frequency Chronic,Intermittent Lowest Pain Intensity 0 Greatest Pain Intensity 6 Pain Aggravating Factors Exercise/Activity Other Pain Aggravating Factors cleaning side of house and scrubbing 1 hour Left Shoulder(s) Reported Pain Level 0 Interventions Used Interventions Used By Clinicians Education,Exercise Cervical ROM Comments sitting: cervical rotation R 55'/ L 50'; side bend to L 30 '- no pain with cervical ROM Upper Extremity Range of Motion Right Shoulder Flexion - Active 140 Shoulder Abduction - Active 140 Shoulder Medial Rotation - Active fingers to distal edge scapula Query Text:Reach Behind the Back Scapular/Shoulder Range of Motion stand with back to wall: Comments distance mid GH joint to wall: R 5 and L 5 ; to back of head 2.5 Gross Upper Extremity Strength Comments functional strength testing R UE: in standing R shoulder - flexion to 140' x 20 reps; - abduction to 140' x 10 reps; -IR reach behind back, fingers to lower edge scapula x 10 reps verbal review of HEP and importance of balance activity /rest; added doorway IR stretch and upper traps stretch with arm behind body Rehab Teaching Teaching Topic Rehab Teaching Topic Components Body Mechanics,Exercise,Pain Management,Positioning As
== END 2022-04-26 09:15 | disposition home or self-care (01) ==
LOC: ANHPT 11:00
PROVIDERS: PCP Emergency Medicine; Visit Provider Emergency Medicine
DX: M25.511 Pain in right shoulder (principal)
CPT/HCPCS: 97110; 97112; 97140; 97161

== ENCOUNTER 2022-06-06 08:02 | Outpatient (CLI) | payer OTHER, MEDICAID, SELFPAY ==
[2022-06-06 09:46] LABS: LDL Cholesterol Direct 61 mg/dL
[2022-06-06 09:59] LABS: Creatinine Urine 191.7 mg/dL
[2022-06-06 10:00] LABS: Hemoglobin A1C 7.3 % (<5.7)
[2022-06-06 10:02] LABS: Alanine Aminotransferase 18 U/L (6-35); Alkaline Phosphatase 75 U/L (38-126); Anion Gap 9 mmol/L (8-16); Aspartate Amino Transferase 28 U/L (14-36); Bilirubin,Total 0.5 mg/dL (0.2-1.3); Blood Urea Nitrogen 11 mg/dL (7-17); Calcium 9.2 mg/dL (8.4-10.2); Carbon Dioxide 27 mmol/L (22-30); Chloride 104 mmol/L (98-107); Cholesterol 137 mg/dL (0-200); Estimated Glomerular Filt Rate > 60; Glucose 46 mg/dL (65-110); HDL Direct 46 mg/dL; Potassium 3.8 mmol/L (3.4-5.0); Sodium 140 mmol/L (137-145); Triglycerides 98 mg/dL (<150)
[2022-06-06 10:03] LABS: MALB Creatinine Ratio 11.7 mg/g (0-30); Microalbumin Urine Random 22.5 mg/L (0-16.7)
== END 2022-06-06 08:03 | disposition home or self-care (01) ==
LOC: ANHLAB 08:05
PROVIDERS: PCP Emergency Medicine; Visit Provider Emergency Medicine
DX: E11.40 Type 2 diabetes mellitus with diabetic neuropathy, unspecified (principal); E78.5 Hyperlipidemia, unspecified; I10 Essential (primary) hypertension
CPT/HCPCS: 36415; 80053; 80061; 82043; 83036

== ENCOUNTER 2022-06-27 14:19 | Emergency (ER) | payer OTHER, MEDICAID, SELFPAY ==
[2022-06-27 14:39] VITALS: BP 149/74; PULSE 59; RESP 16; TEMP 36.7; O2SAT 100
--- NOTE | 2022-06-27 18:53 | PC.NURSE ---
pt to desk stating, cancel my registration. I don't want to be seen . pt amb with steady gait out of ED.
== END 2022-06-27 18:53 | disposition left against medical advice (07) ==
LOC: ANHED 19:06
PROVIDERS: PCP Emergency Medicine
DX: M25.512 Pain in left shoulder (principal)
CPT/HCPCS: 99199

== ENCOUNTER 2022-06-28 10:34 | Emergency (ER) | payer OTHER, MEDICAID, SELFPAY ==
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
[2022-06-28 10:45] VITALS: BP 154/82; PULSE 71; RESP 16; TEMP 36.2; O2SAT 99
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
== END 2022-06-28 12:00 | disposition home or self-care (01) ==
PROVIDERS: Emergency Provider Nurse Practitioner Family; PCP Emergency Medicine
DX: M79.622 Pain in left upper arm (principal); Z04.1 Encounter for examination and observation following transport accident; E78.5 Hyperlipidemia, unspecified; I10 Essential (primary) hypertension; I25.10 Atherosclerotic heart disease of native coronary artery without angina pectoris; M81.0 Age-related osteoporosis without current pathological fracture
CPT/HCPCS: 73060; 99213; G0463

== ENCOUNTER 2022-07-09 11:36 | Outpatient (CLI) | payer OTHER, SELFPAY ==
--- NOTE | ~2022-07-09 | XR_ITS ---
EXAMINATION: XR hip LT min 2V DATE: 07/09/2022 12:12 INDICATION: Left hip pain. TECHNIQUE: 2 views of left hip were obtained. COMPARISON: Left hip radiographs 08/02/2016 FINDINGS: Bone alignment is normal. No fracture. There is mild left hip osteoarthritis. IMPRESSION: 1. Mild left hip osteoarthritis. Reviewed, dictated and finalized at location A.
== END 2022-07-09 11:37 | disposition home or self-care (01) ==
PROVIDERS: PCP Emergency Medicine; Visit Provider Emergency Medicine
DX: M16.12 Unilateral primary osteoarthritis, left hip (principal)
CPT/HCPCS: 73502

== ENCOUNTER 2022-08-15 11:00 | Outpatient (RCR) | payer OTHER, MEDICAID, SELFPAY ==
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
--- NOTE | 2022-08-21 10:41 | PCPTNOTE ---
pt called and canceled all appointments remaining, due to having to go to [place] for family emergency. She will call when returns to country.
--- NOTE | 2022-10-01 10:53 | PCPTNOTE ---
PHYSICAL THERAPY DISCHARGE 10-01-22 Attending Provider: Pernell Pratt MD Patient:Mayte Mercado Date of :1950 Ms. Mercado has received 4 PT sessions, from July 31 to August 15, for the diagnosis of L hip pain. She called and canceled her appointments on August 21, due to having to return to [place] for an emergency. No further contact has been made from pt. Therefore, she will be discharged from PT services. The goals were not addressed. Thank you for referring this patient to [facility].
== END 2022-10-01 13:29 | disposition home or self-care (01) ==
LOC: ANHPT 11:00
PROVIDERS: PCP Emergency Medicine; Visit Provider Emergency Medicine
DX: M25.552 Pain in left hip (principal)
CPT/HCPCS: 97014; 97110; 97140; 97161; 97530; G0283

== ENCOUNTER 2022-11-27 09:02 | Outpatient (CLI) | payer OTHER, MEDICAID, SELFPAY ==
[2022-11-27 09:57] LABS: Alanine Aminotransferase 20 U/L (6-35); Alkaline Phosphatase 81 U/L (38-126); Anion Gap 4 mmol/L (8-16); Aspartate Amino Transferase 29 U/L (14-36); Bilirubin,Total 0.6 mg/dL (0.2-1.3); Blood Urea Nitrogen 16 mg/dL (7-17); Calcium 8.6 mg/dL (8.4-10.2); Carbon Dioxide 28 mmol/L (22-30); Chloride 105 mmol/L (98-107); Cholesterol 138 mg/dL (0-200); Estimated Glomerular Filt Rate > 60; Glucose 125 mg/dL (65-110); HDL Direct 44 mg/dL; Potassium 4.2 mmol/L (3.4-5.0); Sodium 137 mmol/L (137-145); Triglycerides 85 mg/dL (<150)
[2022-11-27 09:58] LABS: Hemoglobin A1C 7.3 % (<5.7)
[2022-11-27 10:08] LABS: LDL Cholesterol Direct 64 mg/dL
== END 2022-11-27 09:03 | disposition home or self-care (01) ==
PROVIDERS: PCP Emergency Medicine; Visit Provider Emergency Medicine
DX: E78.5 Hyperlipidemia, unspecified (principal); E11.40 Type 2 diabetes mellitus with diabetic neuropathy, unspecified; Z79.4 Long term (current) use of insulin
CPT/HCPCS: 36415; 80053; 80061; 83036

== ENCOUNTER 2023-01-22 08:14 | Outpatient (CLI) | payer OTHER, MEDICAID, SELFPAY ==
--- NOTE | ~2023-01-22 | MM_ITS ---
EXAMINATION: MM screening cuate BI w michelle HISTORY: Screening mammogram TECHNIQUE: Craniocaudal and mediolateral oblique 3-D tomosynthesis images were obtained and synthetic 2-D images were generated. CAD analysis was submitted and interpreted. COMPARISON: 10/23/2021, 09/14/2020, 09/22/2019 BREAST PARENCHYMAL COMPOSITION:There are scattered areas of fibroglandular density. FINDINGS: No suspicious mass, calcification, or architectural distortion are identified in either puma ast to suggest malignancy. There has been no suspicious interval change. IMPRESSION: No mammographic evidence of malignancy. Recommend routine screening mammography in one year. BI-RADS Category 1: Negative Reviewed, dictated and finalized at location .
== END 2023-01-22 08:15 | disposition home or self-care (01) ==
PROVIDERS: PCP Emergency Medicine; Visit Provider Emergency Medicine
DX: Z12.31 Encounter for screening mammogram for malignant neoplasm of breast (principal)
CPT/HCPCS: 77063; 77067

== ENCOUNTER 2023-02-11 08:44 | Outpatient (CLI) | payer OTHER, MEDICAID, SELFPAY ==
[2023-02-11 09:46] LABS: Creatinine Urine 208.6 mg/dL
[2023-02-11 09:50] LABS: MALB Creatinine Ratio 40.7 mg/g (0-30)
== END 2023-02-11 08:45 | disposition home or self-care (01) ==
PROVIDERS: PCP Emergency Medicine; Visit Provider Emergency Medicine
DX: E11.40 Type 2 diabetes mellitus with diabetic neuropathy, unspecified (principal); Z79.4 Long term (current) use of insulin
CPT/HCPCS: 82043

== ENCOUNTER 2023-03-20 12:56 | Outpatient (CLI) | payer OTHER, MEDICAID, SELFPAY ==
--- NOTE | ~2023-03-20 | XR_ITS ---
Left foot Technique: AP and lateral views were obtained. Clinical History: Pain Findings: No acute fracture or dislocation is seen. Osseous alignment is anatomic. Joint spaces are p reserved without erosive or degenerative change. Soft tissues are unremarkable. Impression: Unremarkable left foot radiographs. Reviewed, dictated and finalized at [facility]. Impression: Unremarkable left foot radiographs.
[2023-03-20 13:27] LABS: Hematocrit 39.4 % (37.0-47.0); Hemoglobin 12.8 g/dL (12.0-15.0); Mean Corpuscular HGB Conc 32.5 g/dl (32-36); Mean Corpuscular Hemoglobin 28.5 pg (26-34); Mean Corpuscular Volume 87.8 fl (80-100); Mean Platelet Volume 11.6 fl (7.4-10.4); Platelet Count Result 228 k/mm3 (150-375); Red Blood Count 4.49 M/mm3 (4.2-5.4); Red Cell Distribution Width 13.8 % (11.5-14.5); White Blood Count 7.2 K/mm3 (4.5-10.0)
--- NOTE | 2023-03-20 13:51 | ECG_ITS ---
Measurements Intervals [place] Rate: 57 P: 62 ID: 166 QRS: 0 QRSD: 85 T: 192 QT: 465 QTc: 455 Interpretive Statements SINUS BRADYCARDIA WITH OCCASIONAL SUPRAVENTRICULAR PREMATURE COMPLEXES LEFT VENTRICULAR HYPERTROPHY AND ST-T CHANGE [VOLTAGE CRITERIA PLUS ST/T ABNORMALITY] COMPARED TO ECG 03/10/2022 22:15:12 SINUS BRADYCARDIA NOW PRESENT Electronically Signed On 03-21-2023 10:39:29 CDT by Ginny Negron M.D.
[2023-03-20 14:00] LABS: Alanine Aminotransferase 23 U/L (6-35); Albumin Level 4.1 g/dL (3.5-5.1); Alkaline Phosphatase 85 U/L (38-126); Anion Gap 6 mmol/L (8-16); Aspartate Amino Transferase 31 U/L (14-36); Bilirubin,Total 0.7 mg/dL (0.2-1.3); Blood Urea Nitrogen 13 mg/dL (7-17); Calcium 8.6 mg/dL (8.4-10.2); Carbon Dioxide 28 mmol/L (22-30); Chloride 105 mmol/L (98-107); Estimated Glomerular Filt Rate > 60; Glucose 156 mg/dL (65-110); Sodium 139 mmol/L (137-145)
== END 2023-03-20 12:57 | disposition home or self-care (01) ==
PROVIDERS: PCP Emergency Medicine; Visit Provider Emergency Medicine
DX: E78.5 Hyperlipidemia, unspecified (principal); R55 Syncope and collapse; M79.672 Pain in left foot; R94.31 Abnormal electrocardiogram [ECG] [EKG]
CPT/HCPCS: 36415; 73620; 80053; 85027; 93005

== ENCOUNTER 2023-03-25 16:20 | Outpatient (CLI) | payer OTHER, MEDICAID, SELFPAY ==
--- NOTE | ~2023-03-25 | CT_ITS ---
EXAMINATION: CT BRAIN W/O DATE: 03/25/2023 16:37 INDICATION: Syncope. TECHNIQUE: Computed tomography (CT) of the head was performed without intravenous contrast. The dose- length product was 605.33 mGy-cm. Automated exposure control and iterative reconstruction technique w ere employed. COMPARISON: CT dated 03/23/2019 FINDINGS: Normal brain parenchymal volume for age. Normal childress-white differentiation. No acute intrac ranial hemorrhage, infarction, mass or mass effect. No ventriculomegaly or midline shift. Midline sagittal images demonstrate a normal corpus callosum, c raniovertebral junction and sella turcica. Basilar cisterns are patent. Paranasal sinuses are pneumatized. No depressed skull fractures. There are changes of bilateral masto idectomy. IMPRESSION: 1. No acute intracranial abnormality. Reviewed, dictated and finalized at location []
--- NOTE | ~2023-03-25 | US_ITS ---
EXAMINATION: US carotid duplex BI DATE: 03/25/2023 16:53 INDICATION: Carotid stenosis. Loss of consciousness. TECHNIQUE: Grayscale, color Doppler, and pulsed Doppler images of the cervical carotid arteries were obtained. The degree of vessel stenosis is placed in one of the following categories: normal, <50%, 5 0-69%, >=70% but less than near-occlusion, near-occlusion, or total occlusion. Note that percent sten osis relative to normal distal artery lumen diameter is indirectly measured from velocity measurement s as described by Cong, et al. Radiology 2003; 229:340-346. Notes: Normal: Peak systolic velocity <125 centimeters/sec and no plaque <50%. Peak systolic velocity <125 ( EDV <40; ICA/CCA PSV ratio <2.0; used these factors only a tandem lesions or low cardiac output or co ntralateral disease) 50-69 %: PSV 125-230 (EDV 40-100; ratio 2-4) >= 70% but less than near occlusion: PSV greater than 230 (EDV > 100; ratio> 4.0) Near Occlusion: PSV that is variable; markedly narrowed lumen Occlusion: Absent flow on color/spectral Doppler and no lumen on childress scale. COMPARISON: None. FINDINGS: RIGHT: The right common carotid artery (CCA) peak systolic velocity (PSV) is 53 cm/s. The right internal car otid artery (ICA) PSV is 53 cm/s. The right ICA end-diastolic velocity (EDV) is 14 cm/s. The right IC A/CCA PSV ratio is 1.0. The external carotid artery (ECA) PSV is 45 cm/s. There is antegrade flow in the right vertebral artery. LEFT: The left CCA PSV is 64 cm/s. The left ICA PSV is 55 cm/s. The left ICA EDV is 15 cm/s. The left ICA/C CA PSV ratio is 0.9. The ECA PSV is 62 cm/s. There is antegrade flow in the left vertebral artery. IMPRESSION: 1. Less than 50% stenosis in the right internal carotid artery by sonographic criteria. 2. Less than 50% stenosis in the left internal carotid artery by sonographic criteria. Reviewed, dictated and finalized at location L. IMPRESSION: 1. Less than 50% stenosis in the right internal carotid artery by sonographic c jasmeeteria. 2. Less than 50% stenosis in the left internal carotid artery by sonographic cr randa.
== END 2023-03-25 16:21 | disposition home or self-care (01) ==
LOC: ANHIMG 16:22
PROVIDERS: PCP Emergency Medicine; Visit Provider Emergency Medicine
DX: R09.89 Other specified symptoms and signs involving the circulatory and respiratory systems (principal); R55 Syncope and collapse; I65.23 Occlusion and stenosis of bilateral carotid arteries
CPT/HCPCS: 70450; 93880

== ENCOUNTER 2023-05-27 09:40 | Outpatient (CLI) | payer OTHER, MEDICAID, SELFPAY ==
[2023-05-27 10:19] LABS: Alanine Aminotransferase 20 U/L (6-35); Albumin Level 3.8 g/dL (3.5-5.1); Alkaline Phosphatase 79 U/L (38-126); Anion Gap 4 mmol/L (8-16); Aspartate Amino Transferase 28 U/L (14-36); Bilirubin,Total 0.7 mg/dL (0.2-1.3); Blood Urea Nitrogen 9 mg/dL (7-17); Calcium 8.8 mg/dL (8.4-10.2); Carbon Dioxide 27 mmol/L (22-30); Chloride 106 mmol/L (98-107); Cholesterol 152 mg/dL (0-200); Estimated Glomerular Filt Rate > 60; Glucose 88 mg/dL (65-110); HDL Direct 50 mg/dL; Potassium 3.8 mmol/L (3.4-5.0); Sodium 137 mmol/L (137-145); Triglycerides 101 mg/dL (<150)
[2023-05-27 10:30] LABS: LDL Cholesterol Direct 78 mg/dL
[2023-05-27 10:48] LABS: Creatinine Urine 87.7 mg/dL
[2023-05-27 10:50] LABS: Hemoglobin A1C 7.1 % (<5.7)
[2023-05-27 10:52] LABS: MALB Creatinine Ratio 9.5 mg/g (0-30); Microalbumin Urine Random 8.3 mg/L (0-16.7)
[2023-05-30 09:54] LABS: Vitamin D 1,25 (OH)2 Total 38 pg/mL (18-72); Vitamin D2 1,25 (OH)2 <8 pg/mL; Vitamin D3 1,25 (OH)2 38 pg/mL
== END 2023-05-27 09:41 | disposition home or self-care (01) ==
PROVIDERS: PCP Emergency Medicine; Visit Provider Emergency Medicine
DX: E11.9 Type 2 diabetes mellitus without complications (principal); E78.5 Hyperlipidemia, unspecified; E55.9 Vitamin D deficiency, unspecified
CPT/HCPCS: 36415; 80053; 80061; 82043; 82652; 83036

== ENCOUNTER 2023-08-21 09:08 | Outpatient (CLI) | payer OTHER, MEDICAID, SELFPAY ==
[2023-08-21 10:05] LABS: Alanine Aminotransferase 19 U/L (6-35); Albumin Level 3.9 g/dL (3.5-5.1); Alkaline Phosphatase 73 U/L (38-126); Anion Gap 5 mmol/L (8-16); Aspartate Amino Transferase 29 U/L (14-36); Bilirubin,Total 0.6 mg/dL (0.2-1.3); Blood Urea Nitrogen 11 mg/dL (7-17); Carbon Dioxide 26 mmol/L (22-30); Chloride 108 mmol/L (98-107); Cholesterol 151 mg/dL (0-200); Estimated Glomerular Filt Rate > 60; Glucose 82 mg/dL (65-110); HDL Direct 52 mg/dL; Potassium 4.1 mmol/L (3.4-5.0); Sodium 139 mmol/L (137-145); Triglycerides 70 mg/dL (<150)
[2023-08-21 10:06] LABS: Hemoglobin A1C 7.2 % (<5.7)
[2023-08-21 10:16] LABS: LDL Cholesterol Direct 76 mg/dL
[2023-08-21 10:32] LABS: Vitamin D 25 Hydroxy 42.4 ng/mL
== END 2023-08-21 09:09 | disposition home or self-care (01) ==
PROVIDERS: PCP Emergency Medicine; Visit Provider Emergency Medicine
DX: E78.5 Hyperlipidemia, unspecified (principal); E11.40 Type 2 diabetes mellitus with diabetic neuropathy, unspecified; E55.9 Vitamin D deficiency, unspecified; I10 Essential (primary) hypertension
CPT/HCPCS: 36415; 80053; 80061; 82306; 83036

== ENCOUNTER 2023-12-02 09:02 | Outpatient (CLI) | payer OTHER, MEDICAID, SELFPAY ==
[2023-12-02 09:41] LABS: Alanine Aminotransferase 20 U/L (6-35); Alkaline Phosphatase 76 U/L (38-126); Anion Gap 1 mmol/L (8-16); Aspartate Amino Transferase 30 U/L (14-36); Bilirubin,Total 0.8 mg/dL (0.2-1.3); Blood Urea Nitrogen 10 mg/dL (7-17); Calcium 9.2 mg/dL (8.4-10.2); Carbon Dioxide 30 mmol/L (22-30); Chloride 107 mmol/L (98-107); Cholesterol 154 mg/dL (0-200); Estimated Glomerular Filt Rate > 60; Glucose 110 mg/dL (65-110); HDL Direct 51 mg/dL; Sodium 138 mmol/L (137-145); Triglycerides 111 mg/dL (<150)
[2023-12-02 09:42] LABS: Hemoglobin A1C 7.6 % (<5.7)
[2023-12-02 10:08] LABS: Creatinine Urine 187.1 mg/dL
[2023-12-02 10:09] LABS: LDL Cholesterol Direct 84 mg/dL
[2023-12-02 10:10] LABS: MALB Creatinine Ratio 17.3 mg/g (0-30); Microalbumin Urine Random 32.3 mg/L (0-16.7)
[2023-12-02 10:22] LABS: Vitamin D 25 Hydroxy 57.6 ng/mL
== END 2023-12-02 09:03 | disposition home or self-care (01) ==
LOC: ANHLAB 09:07
PROVIDERS: PCP Emergency Medicine; Visit Provider Emergency Medicine
DX: E11.40 Type 2 diabetes mellitus with diabetic neuropathy, unspecified (principal); E78.5 Hyperlipidemia, unspecified; E55.9 Vitamin D deficiency, unspecified
CPT/HCPCS: 36415; 80053; 80061; 82043; 82306; 83036

== ENCOUNTER 2023-12-24 19:16 | Inpatient (IN) | payer OTHER, MEDICAID, SELFPAY ==
[2023-12-24] VITALS (17 sets, daily range): BP systolic 116–138; BP diastolic 67–74; PULSE 62–73; RESP 14–19; TEMP 36.3; O2SAT 95–99
--- NOTE | ~2023-12-24 | XR_ITS ---
EXAMINATION: XR chest 2V Exam Date/Time: 12/24/2023 19:41 CDT HISTORY: chest pain Comparison: X-ray chest and thoracic spine 12/07/2020, x-ray chest 03/23/2019. RESULT: Lines, tubes, and devices: None. Lungs and pleura: Mild diffuse reticular opacities. No focal consolidation, pleural effusion, or pne umothorax. Cardiomediastinal silhouette: Stable. Other: No acute upper abdominal finding. Multilevel grade 1 listheses at the thoracolumbar junction likely on a degenerative basis IMPRESSION: Mild interstitial edema. Reviewed, dictated and finalized at location K. IMPRESSION: Mild interstitial edema.
--- NOTE | 2023-12-24 19:27 | ECG_ITS ---
Measurements Intervals [place] Rate: 71 P: 66 [place]: 162 QRS: -4 QRSD: 84 T: 170 QT: 436 QTc: 475 Interpretive Statements SINUS RHYTHM ATRIAL PREMATURE COMPLEXES LEFT VENTRICULAR HYPERTROPHY AND ST-T CHANGE T WAVE ABNORMALITY IN ANTERIOR LEADS- CONSIDER ISCHEMIA BASELINE ARTIFACT- I, II, AVR, AVL, AVF ABNORMAL ECG COMPARED TO ECG 03/20/2023 13:57:50 SINUS RHYTHM NOW PRESENT Electronically Signed On 12-24-2023 20:29:03 CDT by Clem Peters D.O.
--- NOTE | 2023-12-24 19:32 | ECG_ITS ---
Measurements Intervals [place] Rate: 69 P: 64 [place]: 159 QRS: -3 QRSD: 88 T: 172 QT: 441 QTc: 473 Interpretive Statements SINUS RHYTHM ATRIAL PREMATURE COMPLEXES LEFT VENTRICULAR HYPERTROPHY AND ST-T CHANGE T WAVE ABNORMALITY IN ANTERIOR LEADS- CONSIDER ISCHEMIA ABNORMAL ECG COMPARED TO ECG 12/24/2023 19:30:28 NO SIGNIFICANT CHANGES Electronically Signed On 12-24-2023 20:30:16 CDT by Clem Peters D.O.
[2023-12-24 19:40] LABS: Basophils Absolute Auto 0.1 K/mm3 (0.0-0.1); Basophils Percent Auto 0.6 % (0.2-1.2); Eosinophils Absolute Auto 0.2 K/mm3 (0-0.3); Hematocrit 39.7 % (37.0-47.0); Hemoglobin 13.2 g/dL (12.0-15.0); Immature Granulocyte Absolute 0.01 K/mm3 (0.00-0.031); Immature Granulocyte Percent A 0.1 % (0-0.5); Lymphocytes Absolute Auto 2.21 K/mm3 (0.9-3.2); Lymphocytes Percent Auto 28.2 % (18.3-44.2); Mean Corpuscular HGB Conc 33.2 g/dl (32-36); Mean Corpuscular Hemoglobin 28.8 pg (26-34); Mean Corpuscular Volume 86.5 fl (80-100); Mean Platelet Volume 11.1 fl (7.4-10.4); Monocytes Absolute Auto 0.8 K/mm3 (0.1-0.6); Monocytes Percent Auto 9.7 % (2.6-8.5); Neutrophils Absolute Auto 4.7 K/mm3 (1.3-6.7); Neutrophils Percent Auto 59.4 % (45.5-73.1); Platelet Count Result 250 k/mm3 (150-375); Red Blood Count 4.59 M/mm3 (4.2-5.4); Red Cell Distribution Width 13.6 % (11.5-14.5); White Blood Count 7.8 K/mm3 (4.5-10.0)
[2023-12-24 19:53] LABS: Partial Thromboplastin Time 28.6 Seconds (22.3-36.8)
[2023-12-24 19:57] LABS: Alanine Aminotransferase 20 U/L (6-35); Alkaline Phosphatase 92 U/L (38-126); Anion Gap 10 mmol/L (8-16); Aspartate Amino Transferase 30 U/L (14-36); Bilirubin,Total 0.7 mg/dL (0.2-1.3); Blood Urea Nitrogen 16 mg/dL (7-17); Calcium 9.3 mg/dL (8.4-10.2); Carbon Dioxide 22 mmol/L (22-30); Chloride 105 mmol/L (98-107); Estimated CRCL calculation 52 ml/min; Estimated Glomerular Filt Rate > 60; Glucose 210 mg/dL (65-110); Lipase 32 U/L (23-300); Potassium 3.9 mmol/L (3.4-5.0); Sodium 137 mmol/L (137-145)
[2023-12-24 20:09] LABS: Troponin I 0.028 ng/mL (0.000-0.034)
--- NOTE | 2023-12-24 22:01 | ECG_ITS ---
Measurements Intervals [place] Rate: 62 P: 59 [place]: 156 QRS: -4 QRSD: 87 T: 163 QT: 462 QTc: 473 Interpretive Statements SINUS RHYTHM WITH MARKED SINUS ARRHYTHMIA ATRIAL PREMATURE COMPLEXES LEFT VENTRICULAR HYPERTROPHY AND ST-T CHANGE T WAVE ABNORMALITY IN ANTEROLATERAL LEADS- CONSIDER ISCHEMIA ABNORMAL ECG COMPARED TO ECG 12/24/2023 19:36:50 SINUS ARRHYTHMIA NOW PRESENT Electronically Signed On 12-25-2023 6:30:58 CDT by Clem Peters D.O.
[2023-12-24 22:41] LABS: Troponin I 0.087 ng/mL (0.000-0.034)
--- NOTE | 2023-12-24 22:41 | ED.GENADULT ---
HPI - General Adult General Chief complaint: Chest Pain Stated complaint: chest pain Time Seen by Provider: 12/24/23 19:35 History of Present Illness HPI narrative: Patient 73-year-old female who presents emergency department with chief complaint of chest pain. Patient reports that she has some substernal chest pain that radiated to her left shoulder and felt short of breath. The patient received a sublingual nitro prior to arrival and reports that her pain is now currently resolved. Related Data Home Medications Medication Instructions Recorded Confirmed multivitamin 1 tablet PO DAILY 06/03/23 12/04/23 Allergies Allergy/AdvReac Type Severity Reaction Status Date / Time No Known Allergies Allergy Verified 12/04/23 10:02 Review of Systems Review of Systems: A 10 system review of systems was completed on the patient and is negative except for what is stated in the HPI. Nursing and ancillary documentation was reviewed. [facility] Past Medical History Medical History Acute left-sided low back pain with left-sided sciatica Age-related osteoporosis without current pathological fracture ASHD (arteriosclerotic heart disease) Back pain at L4-L5 level Body mass index [BMI] 25.0-25.9, adult (09/27/15) Body mass index [BMI] 26.0-26.9, adult (03/21/17) Chronic left shoulder pain History of colon polyps HLD (hyperlipidemia) HTN (hypertension) Left hip pain Other screening mammogram Vertigo Family History Family History Sibling Diabetes mellitus Father Cerebrovascular accident, Onset Age: 72 Social History Social History Smoking status: Former smoker Smoking end date: 10/14/15 Alcohol intake: never Current Housing: Decline to Answer Concerned About Future Housing: Decline to Answer Difficulty Paying Gas/Electric Bills: Decline to Answer Difficulty Paying for Meds: Decline to Answer Currently Unemployed: Decline to Answer Education: Decline to Answer Difficulty w/ Childcare or Family Care: Decline to Answer Exam Narrative: GENERAL: Well-appearing, well-nourished, and in no acute distress. HEAD: Normocephalic, atraumatic. EYES: PERRLA and EOMI. ENT: Nares clear, no rhinorrhea or epistaxis. Mucous membranes moist. NECK: Supple. CHEST: Clear to auscultation. No respiratory distress. HEART: Regular rate and rhythm. No murmur heard. Normal peripheral pulses. ABDOMEN: Soft, nontender, nondistended, normal active bowel sounds. EXTREMITIES: Normal range of motion. No edema. SKIN: Warm, dry, no rash. NEURO: No focal deficits. Alert and oriented x3. PSYCH: Normal mood and affect. Course Vital Signs Vital signs: Vital Signs Temperature 36.3 C L 12/24/23 19:19 Pulse Rate 73 12/24/23 19:19 Respiratory Rate 18 12/24/23 19:19 Blood Pressure 126/67 12/24/23 19:19 Pulse Oximetry 98 12/24/23 19:19 Oxygen Delivery Room Air 12/24/23 19:19 Temperature 36.3 C L 12/24/23 19:19 Pulse Rate 62 12/24/23 21:47 Respiratory Rate 16 12/24/23 21:47 Blood Pressure 116/69 12/24/23 20:47 Pulse Oximetry 96 12/24/23 21:47 Oxygen Delivery Room Air 12/24/23 19:19 Medical Decision Making MDM Narrative Medical decision making narrative: Differential diagnosis includes ACS, atypical chest pain, noncardiac chest pain, Laboratory studies were obtained on the patient initial troponin was negative at 0.028. Repeat troponin is 0.087. EKG showed no acute ischemic changes Renal function is normal chest x-ray showed no focal infiltrates. This was discussed with the hospitalist the patient be admitted for further care. Vital Signs Vital Signs: Vital Signs Temperature 36.3 C L 12/24/23 19:19 Pulse Rate 73 12/24/23 19:19 Respiratory Rate 18 12/24/23 19:19
[2023-12-24] MEDS: HEPARIN SODIUM 5,000 UNITS/ML VIAL 3500 UNITS IV PUSH (23:06)
[2023-12-24] MEDS: HEPARIN SOD/D5W 100 UNITS/ML 25,000 UNITS/250 ML BAG 7 UNITS IV CONT (23:07)
[2023-12-25] VITALS (42 sets, daily range): BP systolic 110–150; BP diastolic 48–92; PULSE 58–73; RESP 12–20; TEMP 35.8–36.4; O2SAT 91–98; BMI 27.3
[2023-12-25 00:15] LABS: Basophils Absolute Auto 0.1 K/mm3 (0.0-0.1); Basophils Percent Auto 0.7 % (0.2-1.2); Eosinophils Absolute Auto 0.2 K/mm3 (0-0.3); Eosinophils Percent Auto 2.7 % (0-4.4); Hematocrit 40.1 % (37.0-47.0); Hemoglobin 13.1 g/dL (12.0-15.0); Immature Granulocyte Absolute 0.02 K/mm3 (0.00-0.031); Immature Granulocyte Percent A 0.2 % (0-0.5); Lymphocytes Percent Auto 29.7 % (18.3-44.2); Mean Corpuscular HGB Conc 32.7 g/dl (32-36); Mean Corpuscular Hemoglobin 28.5 pg (26-34); Mean Corpuscular Volume 87.2 fl (80-100); Mean Platelet Volume 11.6 fl (7.4-10.4); Monocytes Absolute Auto 0.9 K/mm3 (0.1-0.6); Monocytes Percent Auto 11.6 % (2.6-8.5); Neutrophils Absolute Auto 4.5 K/mm3 (1.3-6.7); Neutrophils Percent Auto 55.1 % (45.5-73.1); Platelet Count Result 237 k/mm3 (150-375); Red Cell Distribution Width 13.8 % (11.5-14.5); White Blood Count 8.1 K/mm3 (4.5-10.0)
[2023-12-25 00:18] LABS: Glucose Point of Care 130 mg/dl (65-105)
[2023-12-25 00:26] LABS: Prothrombin Time 13.7 Seconds (11.1-14.7)
[2023-12-25 00:27] LABS: Partial Thromboplastin Time 24.7 Seconds (22.3-36.8)
--- NOTE | 2023-12-25 00:35 | ECG_ITS ---
Measurements Intervals [place] Rate: 59 P: 60 [place]: 145 QRS: -7 QRSD: 83 T: 162 QT: 472 QTc: 470 Interpretive Statements SINUS BRADYCARDIA ATRIAL PREMATURE COMPLEXES LEFT VENTRICULAR HYPERTROPHY AND ST-T CHANGE T WAVE ABNORMALITY IN ANTEROLATERAL LEADS- CONSIDER ISCHEMIA ABNORMAL ECG COMPARED TO ECG 12/24/2023 22:10:20 SINUS BRADYCARDIA NOW PRESENT Electronically Signed On 12-25-2023 6:35:42 CDT by Clem Peters D.O.
[2023-12-25 00:45] LABS: Anion Gap 7 mmol/L (8-16); Blood Urea Nitrogen 17 mg/dL (7-17); Calcium 9.3 mg/dL (8.4-10.2); Carbon Dioxide 23 mmol/L (22-30); Chloride 107 mmol/L (98-107); Estimated CRCL calculation 52 ml/min; Estimated Glomerular Filt Rate > 60; Glucose 129 mg/dL (65-110); Sodium 137 mmol/L (137-145)
--- NOTE | 2023-12-25 01:36 | PM.IMHP ---
H&P: HPI History of Present Illness Date/Time: 12/25/23 01:36 Chief Complaint: Chest pain. This is a 73-year-old female patient with a past medical history of hypertension hyperlipidemia chronic left shoulder pain atherosclerotic heart disease who came to the emergency room complaining of chest pain. Patient reported the pain was substernal and radiated to her left shoulder and she also felt shortness of breath. Patient received a sublingual nitroglycerin prior to arrival and reported that the pain is currently resolved. Patient is awake alert not in acute distress. Denies any fever chills dizziness lightheadedness no blurry vision no chest pain shortness for breath no cough no nausea no vomiting no diarrhea no dysuria no muscle and joint pains. Vital signs in the emergency room was stable. Cbc and CMP were mainly in range. Troponin 1st set was 0.028. Repeat troponin was 0.087. Lipase was 32. Chest x-ray showed mild interstitial edema. EKG showed sinus rhythm. Atrial premature complexes. Next ventricular hypertrophy. Patient was started on IV heparin in the emergency room. Cardiology consultation was called from the emergency room. Review of Systems Review of Systems: A 12 point review of system is done and is only positive what is dictated in the history of present illness. [facility] Past Medical History Medical History Acute left-sided low back pain with left-sided sciatica Age-related osteoporosis without current pathological fracture ASHD (arteriosclerotic heart disease) Back pain at L4-L5 level Body mass index [BMI] 25.0-25.9, adult (09/27/15) Body mass index [BMI] 26.0-26.9, adult (03/21/17) Chronic left shoulder pain History of colon polyps HLD (hyperlipidemia) HTN (hypertension) Left hip pain Other screening mammogram Vertigo Family History Family History Sibling Diabetes mellitus Father Cerebrovascular accident, Onset Age: 72 Social History Social History Smoking status: Former smoker Smoking end date: 10/14/15 Alcohol intake: never Current Housing: Decline to Answer Concerned About Future Housing: Decline to Answer Difficulty Paying Gas/Electric Bills: Decline to Answer Difficulty Paying for Meds: Decline to Answer Currently Unemployed: Decline to Answer Education: Decline to Answer Difficulty w/ Childcare or Family Care: Decline to Answer Meds Home Medications and Allergies Home Medications Medication Instructions Recorded Confirmed Type aspirin 81 mg chewable tablet 81 mg PO DAILY #90 tabs 04/01/20 12/25/23 Rx cholecalciferol (vitamin D3) 25 1,000 unit PO .Every week #4 tabs 04/01/20 12/04/23 Rx mcg (1,000 unit) tablet (Vitamin D3) ibuprofen 800 mg tablet 800 mg PO .TID with Food #270 tabs 07/10/21 12/04/23 Rx diclofenac sodium 1 % topical gel 4 g topical QID #100 grams 02/23/22 12/04/23 Rx pen needle, diabetic 31 gauge x #100 ea 12/06/22 12/04/23 Rx 5/16 (BD Ultra-Fine Short Pen Needle) insulin regular human 100 unit/mL See Rx Instructions .Route 02/18/23 12/04/23 Rx injection solution (Novolin R .COMPLEX #30 mL Regular U-100 Insulin) alendronate 70 mg tablet See Rx Instructions .Route 03/19/23 12/04/23 Rx .COMPLEX #12 tabs insulin syringe-needle U-100 0.3 #400 ea 03/25/23 12/04/23 Rx mL 31 gauge x 1/4 (UltiCare Insulin Syringe) lancets (Microlet Lancet) #300 ea 05/06/23 12/04/23 Rx albuterol sulfate 90 mcg/actuation 1 puff inhalation Q4-6H PRN 06/03/23 12/04/23 Rx aerosol inhaler shortness of breath or wheezing #8.5 grams multivitamin 1 tablet PO DAILY 06/03/23 12/04/23 History blood sugar diagnostic (Contour #300 strips 10/28/23 12/04/23 Rx Next Test Strips) insulin glargine U-300 conc 300 32 unit (0.1067 mL) subcut QAM #30
[2023-12-25] MEDS: FUROSEMIDE INJ 40 MG/4 ML VIAL IV PUSH (02:00)
[2023-12-25] MEDS: ACETAMINOPHEN 325 MG TABLET 650 MG PO (02:01)
[2023-12-25 03:43] LABS: Troponin I 0.176 ng/mL (0.000-0.034)
[2023-12-25 03:53] LABS: Glucose Point of Care 126 mg/dl (65-105)
--- NOTE | 2023-12-25 03:59 | ECG_ITS ---
Measurements Intervals [place] Rate: 66 P: [place]: 0 QRS: 15 QRSD: 80 T: 189 QT: 464 QTc: 489 Interpretive Statements SINUS RHYTHM ATRIAL COUPLET AND ATRIAL PREMATURE COMPLEXES LEFT VENTRICULAR HYPERTROPHY WITH ST-T CHANGE T WAVE ABNORMALITY IN ANTEROLAT/INF LEADS- CONSIDER ISCHEMIA ABNORMAL ECG COMPARED TO ECG 12/25/2023 00:40:03 SINUS RHYTHM NOW PRESENT Electronically Signed On 12-25-2023 6:42:10 CDT by Clem Peters D.O.
--- NOTE | 2023-12-25 04:02 | PC.NURSE ---
Pt diaphoretic and reports new onset of dizziness. Order for new EKG put in at this time. Hospitalist made aware of pts condition
[2023-12-25 04:41] LABS: Glucose Point of Care 131 mg/dl (65-105)
--- NOTE | 2023-12-25 04:42 | ADMGEN ---
This patient, Mayte Mercado, was admitted to IMU Room 205-02. Patient/family oriented to hospital policies and general routines including ID bracelet, bed and alarms, visiting hours, pain management, procedures, bathroom and other care routines, personal items, smoking policy, room service/diet, and visiting hours. Information on how to activate the Rapid Response Team has been discussed. Patient/Family are encouraged to report perceived risks to care and to ask questions if they do not understand what they are told or what they should do.
--- NOTE | 2023-12-25 04:42 | PC.NURSE ---
ASCVD not done due to Lipids needing to be drawn. Added to morning labs per protocol.
[2023-12-25 04:57] LABS: Basophils Absolute Auto 0.1 K/mm3 (0.0-0.1); Basophils Percent Auto 0.8 % (0.2-1.2); Eosinophils Absolute Auto 0.2 K/mm3 (0-0.3); Eosinophils Percent Auto 2.9 % (0-4.4); Hematocrit 40.9 % (37.0-47.0); Hemoglobin 13.3 g/dL (12.0-15.0); Immature Granulocyte Absolute 0.02 K/mm3 (0.00-0.031); Immature Granulocyte Percent A 0.3 % (0-0.5); Lymphocytes Absolute Auto 2.77 K/mm3 (0.9-3.2); Lymphocytes Percent Auto 35.3 % (18.3-44.2); Mean Corpuscular HGB Conc 32.5 g/dl (32-36); Mean Corpuscular Hemoglobin 28.4 pg (26-34); Mean Corpuscular Volume 87.2 fl (80-100); Mean Platelet Volume 11.1 fl (7.4-10.4); Monocytes Absolute Auto 0.8 K/mm3 (0.1-0.6); Monocytes Percent Auto 10.3 % (2.6-8.5); Neutrophils Percent Auto 50.4 % (45.5-73.1); Platelet Count Result 244 k/mm3 (150-375); Red Blood Count 4.69 M/mm3 (4.2-5.4); Red Cell Distribution Width 13.8 % (11.5-14.5); White Blood Count 7.8 K/mm3 (4.5-10.0)
[2023-12-25 05:09] LABS: Partial Thromboplastin Time 91.8 Seconds (22.3-36.8)
[2023-12-25 08:26] LABS: Glucose Point of Care 126 mg/dl (65-105)
[2023-12-25 08:49] LABS: Cholesterol 167 mg/dL (0-200); HDL Direct 50 mg/dL; Triglycerides 96 mg/dL (<150)
[2023-12-25 09:00] LABS: LDL Cholesterol Direct 95 mg/dL
[2023-12-25] MEDS: METOPROLOL SUCCINATE EXT REL 50 MG TABCR 100 MG PO (09:13)
[2023-12-25] MEDS: MULTIVITAMINS THERAPEUTIC TAB (*BKC) 1 TABLET PO (09:14)
[2023-12-25] MEDS: LOSARTAN POTASSIUM 50 MG TABLET PO (09:14)
[2023-12-25] MEDS: ASPIRIN 81 MG CHEWABLE TABLET PO (09:14)
[2023-12-25 11:44] LABS: Partial Thromboplastin Time 75.9 Seconds (22.3-36.8)
[2023-12-25 12:40] LABS: Glucose Point of Care 125 mg/dl (65-105)
--- NOTE | 2023-12-25 12:52 | PM.CNCAR ---
Assessment and Plan Assessment and plan (1) NSTEMI (non-ST elevated myocardial infarction): Code(s): I21.4 - Non-ST elevation (NSTEMI) myocardial infarction Status: Acute Assessment and Plan: Recommended cardiac catheterization. Discussed the procedure with the patient, including indication for procedure, procedure details, risks vs benefits, alternative management options. Patient agreeable to proceed. Will plan for cath this afternoon. Further recommendations and plan pending results of cardiac catheterization. (2) Hypertrophic cardiomyopathy: Code(s): I42.2 - Other hypertrophic cardiomyopathy Status: Acute Assessment and Plan: Has known apical hypertrophy variant of hypertrophic cardiomyopathy. Continue Metoprolol. (3) HTN (hypertension): Qualifiers: Hypertension type: essential hypertension Qualified Code(s): I10 - Essential (primary) hypertension Code(s): I10 - Essential (primary) hypertension Status: Acute Assessment and Plan: Stable. Continue home antihypertensive regimen. (4) HLD (hyperlipidemia): Qualifiers: Hyperlipidemia type: mixed hyperlipidemia Qualified Code(s): E78.2 - Mixed hyperlipidemia Code(s): E78.5 - Hyperlipidemia, unspecified Status: Acute Assessment and Plan: Continue statin (5) Type 2 diabetes mellitus with diabetic neuropathy, unspecified: Qualifiers: Diabetes mellitus ad terminal makeup operator insulin use: with ad terminal makeup operator use Qualified Code(s): E11.40 - Type 2 diabetes mellitus with diabetic neuropathy, unspecified; Z79.4 - terminal clerk (current) use of insulin Code(s): E11.40 - Type 2 diabetes mellitus with diabetic neuropathy, unspecified Status: Acute Assessment and Plan: Management as per primary team. History of Present Illness History of Present Illness Consult date/time: 12/25/23 12:52 Requesting physician: Jean Sheets MD Consult reason: chest pain Reason For Visit: Chest pain, Elevated troponin Narrative: We are consulted for chest pain, elevated troponin. This is a 73 year old patient of Dr. Durant's with the apical hypertrophy variant of hypertrophic cardiomyopathy who presented to [place] [facility] for chest pain. Has substernal chest pressure that radiated to her left chest that lasted for about 3-3.5 hours. Occurred while she was driving. She had a similar episode about a month ago. She is currently chest pain free now. Her initial troponin was negative, however, repeat was positive at 0.087 and the third troponin al to 0.176. CXR with mild interstitial edema. EKGs with sinus rhythm, PACs, LVH with secondary repolarization changes. EKGs are similar to her previous ones. She was started on Heparin drip for NSTEMI. Review of Systems Review of Systems: All systems reviewed & are unremarkable except as noted in HPI and below (HPI) [facility] Past Medical History Medical History Acute left-sided low back pain with left-sided sciatica Age-related osteoporosis without current pathological fracture ASHD (arteriosclerotic heart disease) Back pain at L4-L5 level Body mass index [BMI] 25.0-25.9, adult (09/27/15) Body mass index [BMI] 26.0-26.9, adult (03/21/17) Chronic left shoulder pain History of colon polyps HLD (hyperlipidemia) HTN (hypertension) Left hip pain Other screening mammogram Vertigo Family History Family History Sibling Diabetes mellitus Father Cerebrovascular accident, Onset Age: 72 Diabetes mellitus Social History Social History Smoking packs per day: 0.25 Smoking cigarettes per day: 5.0 Years smoked: 50 Smoking pack-years: 12.50 Smoking status: Former smoker Tobacco type: cigarettes Smoking end date: 10/14/15 Alcohol intake: never Substance use: never Do You Feel Safe
--- NOTE | 2023-12-25 13:00 | WPDMODSED ---
Moderate Sedation Note-Pt Data Patient Data Diagnosis: NSTEMI Present Complaint: NSTEMI Procedure to be performed/Plan: Coronary angiography, left heart cath, +/- PCI Allergies Allergy/AdvReac Type Severity Reaction Status Date / Time No Known Allergies Allergy Verified 12/04/23 10:02 Home Medications Medication Instructions Recorded Confirmed Type aspirin 81 mg chewable tablet 81 mg PO DAILY #90 tabs 04/01/20 12/25/23 Rx albuterol sulfate 90 mcg/actuation 1 puff inhalation Q4-6H PRN 06/03/23 12/25/23 Rx aerosol inhaler shortness of breath or wheezing #8.5 grams multivitamin 1 tablet PO DAILY 06/03/23 12/25/23 History insulin glargine U-300 conc 300 32 unit (0.1067 mL) subcut QAM #30 12/05/23 12/25/23 Rx unit/mL (3 mL) subcutaneous pen mL (Toujeo Max U-300 SoloStar) alendronate 70 mg tablet 70 mg PO WEEKLY 12/25/23 12/25/23 History atorvastatin 40 mg tablet 40 mg PO HS 12/25/23 12/25/23 History cholecalciferol (vitamin D3) 25 1,000 unit PO HS 12/25/23 12/25/23 History mcg (1,000 unit) tablet (Vitamin D3) diclofenac sodium 1 % topical gel 4 g topical QID PRN Back or 12/25/23 12/25/23 History shoulder Pain ibuprofen 800 mg tablet 800 mg PO TIDWMEAL PRN Back Pain 12/25/23 12/25/23 History insulin regular human 100 unit/mL 1 sliding scale dose subcut TIDWM 12/25/23 12/25/23 History injection solution (Novolin R Regular U-100 Insulin) losartan 50 mg tablet 50 mg PO DAILY 12/25/23 12/25/23 History metoprolol succinate 50 mg 100 mg PO DAILY 12/25/23 12/25/23 History tablet,extended release 24 hr Current Medications: Active Medications Acetaminophen (Acetaminophen 325 Mg Tablet) 650 mg PO Q4H PRN PRN Reason: Mild Pain (1-3) or Fever Last Admin: 12/25/23 02:01 Dose: 650 mg Albuterol (Albuterol Sulfate (*Sp) Aerosol 1 Puff) 1 puff INHALATION Q4-6H PRN PRN Reason: shortness of breath or wheezing Aspirin (Aspirin 81 Mg Chewable Tablet) 81 mg PO DAILY [facility] Last Admin: 12/25/23 09:14 Dose: 81 mg Atorvastatin Calcium (Atorvastatin 40 Mg Tablet) 40 mg PO HS RA Bisacodyl (Bisacodyl 5 Mg Tablet Ec) 5 mg PO DAILY PRN PRN Reason: Constipation Dextrose (Dextrose 50% 25 Gm/50 Ml Syringe) 12.5 gm IV PUSH PRN PRN; Protocol PRN Reason: Hypoglycemia Glucagon (Glucagon For Inj 1 Mg Vial) 1 mg IM PRN PRN; Protocol PRN Reason: Hypoglycemia Glucose (Glucose Oral Gel 15 Gm Of Glucse In 37.5 Gm Tube) 15 gm PO PRN PRN; Protocol PRN Reason: Hypoglycemia Heparin Sodium (Porcine) (Heparin Sodium 5,000 Units/Ml Vial) 4,000 units IV PUSH PRN PRN PRN Reason: aPTT less than 55 seconds Heparin Sodium (Porcine) (Heparin Sodium 5,000 Units/Ml Vial) 2,500 units IV PUSH PRN PRN PRN Reason: aPTT 55 - 70 seconds Heparin Sodium/Dextrose (Heparin Sodium/D5w 100 Units/Ml) 25,000 units in 250 mls @ 7 mls/hr IV CONT .Q24H RA; Protocol Last Titration: 12/25/23 05:14 Dose: 700 units/hr, 7 mls/hr Dextrose (Dextrose 5% 1,000 Ml) 1,000 mls @ 100 mls/hr IVPB PRN PRN; Protocol PRN Reason: Hypoglycemia Insulin Aspart (Insulin Aspart (*Bkc) 100 Units/Ml) 2 - 5 units SUB-Q TIDWM RA; Protocol Last Admin: 12/25/23 08:54 Dose: Not Given Insulin Aspart (Insulin Aspart (*Bkc) 100 Units/Ml) 1 - 2 units SUB-Q HS RA; Protocol Losartan Potassium (Losartan Potassium 50 Mg Tablet) 50 mg PO DAILY [facility] Last Admin: 12/25/23 09:14 Dose: 50 mg Metoprolol Succinate (Metoprolol Succinate Ext Rel 50 Mg Tabcr) 100 mg PO DAILY [facility] Last Admin: 12/25/23 09:13 Dose: 100 mg Multivitamins Therapeutic (Multivitamins Therapeutic Tab (*Bkc)) 1 tablet PO DAILY [facility] Last Admin: 12/25/23 09:14 Dose: 1 tablet Ondansetron HCl (Ondansetron Inj 4 Mg/2 Ml Vial) 4 mg IV PUSH Q6H PRN PRN Reason: Nausea And Vomiting Vitamin D (Cholecalciferol 1,000 Units Tablet) 1,000 units PO HS [facility] Sedation/Anesthesia: No previous sedation/anesthesia problems (including family history). PMFSH Past Medical History Medical History
--- NOTE | 2023-12-25 14:03 | PC.NURSE ---
Patient left at 1327 to go to label printer.
--- NOTE | 2023-12-25 14:11 | WPDCARDPROC ---
Cardiac Cath Procedure Note Date of procedure:: 12/25/23 Performing physician:: CATHETERIZATION LABORATORY REPORT Procedure Date: 12/24/2022 Slab Tripper: Ginny Negron M.D., [facility]? Referring Physician: Ginny Negron M.D. ? Anesthesia: Versed and Fentanyl were ordered and given in my presence at 13:42, procedure ended at 14:04. Supervision of nurse monitored moderate sedation with Versed and Fentanyl was provided for 22 minutes. Total of Versed 1mg and Fentanyl 25mcg were administered by the Conflict Resolution Professional RN Colleen Collins. Pre-op Diagnosis: NSTEMI Post-op Diagnosis: 1. Non-obstructive coronary arteries, angiographically normal appearing coronary arteries 2. Left ventricular end-diastolic pressure of 10mmHg Procedure(s): 1. Moderate sedation 2. Ultrasound-guided access of the right common femoral artery 3. Coronary angiography 4. Left heart catheterization 5. Left ventricular angiogram 6. Angioseal closure of the right common femoral artery Access Site: Right common femoral artery Brief History and Clinical Indications: Patient is a 73 year old female with the apical hypertrophy variant of hypertrophic cardiomyopathy, hypertension, hyperlipidemia who is referred for [facility] for NSTEMI. All risks, benefits and alternatives to left heart catheterization with or without percutaneous coronary intervention was discussed at length with the patient. Risk of complications including but not limited to bleeding, infection, arrhythmia, stroke, worsening kidney function, blood loss, groin hematoma, limb loss, emergency coronary artery bypass grafting, and even were discussed with the patient and all questions were answered. The patient understood and wished to proceed. Time out called, patient name, date of , medical record number, allergies, procedure performed, identify Slab Tripper, patient and staff member concurred with accurate data, procedure carried on. Findings: LEFT HEART CATHETERIZATION FINDINGS: 1. Left main: The left main coronary artery is widely patent without any significant obstructive disease. 2. Left anterior descending: The LAD and the diagonal branches have mild luminal irregularities without any significant obstructive angiographic disease. 3. Left circumflex: The left circumflex artery and the main marginal branches have mild luminal irregularities without any significant obstructive angiographic disease. 4. Right coronary artery: The RCA has mild luminal irregularities without any significant obstructive angiographic disease. The RCA is the dominant vessel. 5. Left ventricle: A. End-diastolic pressure 10 mmHg. B. LV gram: LV angiogram shows normal motion of the basal ruffin, however, the mid LV ruffin and the apex are not well visualized. C. No significant gradient across aortic valve on catheter pullback. Description of Procedure: Informed consent signed and placed in the chart. Patient transferred to earth science laboratory technician room. Prepped and draped in usual sterile fashion. 2% lidocaine in right groin area. Micropuncture needle used to access right common femoral artery with Seldinger technique under fluoroscopic and ultrasound guidance. J wire advanced, micropuncture cannula placed. Right iliofemoral angiogram performed, access confirmed and micropuncture cannula exchanged for 5-FR sheath. 5F FL 4 diagnostic catheter engaged Left Main Coronary Artery. 5F FR 4 diagnostic catheter engaged Right Coronary Artery. Multiple orthogonal angiogram obtained and reviewed 5F Pigtail diagnostic catheter crossed aortic valve to obtain LVEDP, LV angiogram obtained. Hemostasis was achieved by 6F Angioseal. Post Operative Condition: Stable No significant blood loss Disposition: Floor Plan: Continue aggressive medical therapy and risk factor modification. See consult note for additional recommendations and plan. ? Ginny Negron M.D. Interventional Cardiology
--- NOTE | 2023-12-25 14:17 | ECHO_ITS ---
Patient Info Name: Mayte Mercado Age: 73 years : 1950 Gender: Female Ht: 58 in Wt: 130 lbs BSA: 1.57 m2 HR: 78 bpm BP: 150 / 70 mmHg Heart Rhythm: Sinus Rhythm Technical Quality: Fair Exam Date: 12/25/2023 3:56 PM Exam Location: Echo Lab Exam Room: [facility] Patient Status: Inpatient Admit Date: 12/25/2023 Staff Ordering Physician: Ginny Negron MD (maria luz/juliette) Dry Wall Finisher: Nadira Villarreal RDCS Attending Provider: Zander Butt MD Referring Physician: Jamil ASIF; Exam Type: CA echo dop color flow w con Study Info Indications - HYPERTROPHIC CARDIOMYOPATHY Complete two-dimensional, color flow and Doppler transthoracic echocardiogram is performed with contrast to opacify the left ventricle and to improve the deliniation of the left ventricle endocardial borders. Contrast/Agitated Saline Contrast/Ag. Saline: Definity Amount: --- ml Administered By: Nadira Villarreal RUST Existing IV Access: Yes IV Access Condition: patent with no signs of infiltration Summary 1. Left ventricular chamber dimension is normal. 2. Left ventricular systolic function is normal, estimated at 60-65%. 3. There is moderately increased left ventricular wall thickness. 4. Known history of apical variant of hypertrophic cardiomyopathy. LVOT gradient of 50mmHg. The apex appears aneurysmal. 5. The left ventricular diastolic function is grade I diastolic dysfunction. 6. Right ventricular systolic function is normal. 7. Left atrial chamber dimension is severely enlarged. 8. There is mild mitral valve regurgitation. 9. There is mild tricuspid valve regurgitation. Left Ventricle Known history of apical variant of hypertrophic cardiomyopathy. LVOT gradient of 50mmHg. The apex appears aneurysmal. Left ventricular chamber dimension is normal. Left ventricular systolic function is normal, estimated at 60-65%. There is moderately increased left ventricular wall thickness. The left ventricular diastolic function is grade I diastolic dysfunction. Right Ventricle Right ventricular chamber dimension is normal. Right ventricular systolic function is normal. Left Atria Left atrial chamber dimension is severely enlarged. Right Atria Right atrial chamber dimension is normal. Atrial Septum Intact interatrial septum visualized by color flow imaging. Aortic Valve The aortic valve is probable trileaflet. There is no aortic valve stenosis. There is no aortic valve regurgitation. There is mild aortic valve calcification. Pulmonic Valve The pulmonic valve is not well visualized. There is trace pulmonic regurgitation. Mitral Valve There is mild mitral valve regurgitation. Tricuspid Valve There is mild tricuspid valve regurgitation. Pericardium/Pleural There is trivial anterior pericardial effusion. Inferior Vena Cava Normal inferior vena cava with >50% collapse upon inspiration consistent with normal right atrial pressure, 3 mmHg. Aorta The aortic root size at the sinus of Valsalva is normal. Left Ventricular Outflow Tract Name Value Normal LVOT 2D LVOT Diameter 1.97 cm LVOT Doppler LVOT Peak Gradient 4 mmHg LVOT Mean Gradient
[2023-12-25] MEDS: SODIUM CHLORIDE 0.9% IV 1,000 ML 125 ML IV CONT (15:43)
[2023-12-25] MEDS: PERFLUTREN LIPID MICROSPHERES 1.5 ML VIAL DILUTED TO 10 ML TOTAL VOLUME IV PUSH (16:20)
--- NOTE | 2023-12-25 16:49 | IVDEFINITY ---
Prior to administration of IV Definity the patient was educated on the risks and benefits of the imaging enhancing agent including potential adverse side effects. The patient verbalized understanding. Allergies were verified. No exclusion criteria were identified and at least one of the following inclusion criteria were met: 1) physician request, 2) patient technically difficult to image (per the [place] [employer] guidelines of two or more segments not discernable within the apical view), or 3) questionable left ventricular function. ?
--- NOTE | 2023-12-25 16:58 | PM.IMPN ---
Progress Note: A&P Assessment and Plan (1) Hypertrophic cardiomyopathy: Code(s): I42.2 - Other hypertrophic cardiomyopathy Status: Acute (2) NSTEMI (non-ST elevated myocardial infarction): Code(s): I21.4 - Non-ST elevation (NSTEMI) myocardial infarction Status: Acute (3) Chest pain: Code(s): R07.9 - Chest pain, unspecified Status: Acute (4) Elevated troponin: Code(s): R79.89 - Other specified abnormal findings of blood chemistry Status: Acute (5) Osteoarthritis of acromioclavicular joint: Code(s): M19.019 - Primary osteoarthritis, unspecified shoulder Status: Acute (6) Neck pain: Code(s): M54.2 - Cervicalgia Status: Acute (7) Long-term insulin use: Code(s): Z79.4 - rn long term care (current) use of insulin Status: Acute (8) Depression: Code(s): F32.9 - Major depressive disorder, single episode, unspecified Status: Acute (9) Vitamin D deficiency disease: Code(s): E55.9 - Vitamin D deficiency, unspecified Status: Acute (10) Type 2 diabetes mellitus with diabetic neuropathy, unspecified: Qualifiers: Diabetes mellitus rn long term care insulin use: with snf use Qualified Code(s): E11.40 - Type 2 diabetes mellitus with diabetic neuropathy, unspecified; Z79.4 - rn long term care (current) use of insulin Code(s): E11.40 - Type 2 diabetes mellitus with diabetic neuropathy, unspecified Status: Acute (11) HLD (hyperlipidemia): Qualifiers: Hyperlipidemia type: mixed hyperlipidemia Qualified Code(s): E78.2 - Mixed hyperlipidemia Code(s): E78.5 - Hyperlipidemia, unspecified Status: Acute (12) HTN (hypertension): Qualifiers: Hypertension type: essential hypertension Qualified Code(s): I10 - Essential (primary) hypertension Code(s): I10 - Essential (primary) hypertension Status: Acute Plan Admit patient to IMU under full inpatient status Continuous cardiac tele-monitoring Patient given Aspirin in the ER Initial EKG was done which nonspecific ST-T wave changes 1st set of cardiac enzymes was normal the later two were elevated at 0.087 and 0.176 Cardiology consulted by ED provider for evaluation, further treatment recommendations and work up Cardiology advised patient to be started on IV heparin drip as per ACS protocol Patient will cardiac catheterization today Full 2-D echo with color-flow and doppler ordered to evaluate cardiac structure and function Further management recommendations and DC planning as per Cardiology ? Patient seen and examined at bedside during my morning rounds ? Collaborated with patient's nurse at the bedside in detail and addressed all concerns ? Labs, electrolytes, radiology, investigations and test results reviewed ? Consult/Nursing/Ancilliary notes on the chart reviewed and appreciated ? Spoke with patient/family at the bedside and answered all the questions that they had Repeat labs in a.m. Electrolyte replacement as per protocol. Patient will be monitored very closely on the floor. Further recommendations as per the hospital course. Time Spent With Patient Time with patient: 15 - 25 minutes Subjective Date/time seen: 12/25/23 16:58 Interval history: Patient feeling better today. Chest Pain is controlled on meds. Currently on IV heparin drip during my morning rounds awaiting cardiac catheterization. Review of Systems Review of Systems: 14 systems were reviewed with pertinent positives and negatives per HPI. Except as documented in the HPI/progress notes, all other systems were reviewed and are negative. All systems reviewed & are unremarkable except as noted in HPI and below Exam Narrative: PHYSICAL EXAMINATION: Vital signs: Please see the chart General physical exam: Patient lying in bed, pleasant and cooperative physical, appears in no acute distress Head/eyes: Atraumatic, EOMI, PERRLA ENT: Moist mucous membr
[2023-12-25 18:44] LABS: Glucose Point of Care 89 mg/dl (65-105)
[2023-12-25 20:43] LABS: Glucose Point of Care 213 mg/dl (65-105)
[2023-12-25] MEDS: INSULIN ASPART (*BKC) 100 UNITS/ML SUB-Q (20:45)
[2023-12-25] MEDS: ATORVASTATIN 40 MG TABLET PO (20:47)
[2023-12-25] MEDS: CHOLECALCIFEROL 1,000 UNITS TABLET 1000 UNITS PO (20:48)
[2023-12-26] VITALS (8 sets, daily range): BP systolic 129–146; BP diastolic 78–86; PULSE 62–81; RESP 16–18; TEMP 36.1–36.6; O2SAT 93
[2023-12-26 08:00] LABS: Glucose Point of Care 122 mg/dl (65-105)
[2023-12-26] MEDS: ASPIRIN 81 MG CHEWABLE TABLET PO (09:02)
[2023-12-26] MEDS: METOPROLOL SUCCINATE EXT REL 50 MG TABCR 100 MG PO (09:02)
[2023-12-26] MEDS: LOSARTAN POTASSIUM 50 MG TABLET PO (09:02)
[2023-12-26] MEDS: MULTIVITAMINS THERAPEUTIC TAB (*BKC) 1 TABLET PO (09:02)
--- NOTE | 2023-12-26 10:43 | PM.PNCARD ---
Progress Note: A&P Assessment and Plan (1) NSTEMI (non-ST elevated myocardial infarction): Code(s): I21.4 - Non-ST elevation (NSTEMI) myocardial infarction Status: Acute Assessment and Plan: Presented with chest pain and elevated troponins of peak of 0.176. Cardiac catheterization shows no obstructive coronary artery disease, the coronary arteries appear angiographically normal. LVEDP is 10mmHg. Her chest pain and elevated troponins could be from coronary spasm vs microvascular disease, etc. Continue ASA, statin, Metoprolol. Okay to discharge patient home, will arrange for follow up with Dr. Durant. (2) Hypertrophic cardiomyopathy: Code(s): I42.2 - Other hypertrophic cardiomyopathy Status: Acute Assessment and Plan: Has known apical hypertrophy variant of hypertrophic cardiomyopathy. Continue Metoprolol. Echocardiogram 12/24 shows LVEF 60-65%, moderately increased LV wall thickness, LVOT gradient of 50mmHg, the apex appears aneurysmal. Outpatient follow up with Dr. Durant. (3) HTN (hypertension): Qualifiers: Hypertension type: essential hypertension Qualified Code(s): I10 - Essential (primary) hypertension Code(s): I10 - Essential (primary) hypertension Status: Acute Assessment and Plan: Stable. Continue home antihypertensive regimen. (4) HLD (hyperlipidemia): Qualifiers: Hyperlipidemia type: mixed hyperlipidemia Qualified Code(s): E78.2 - Mixed hyperlipidemia Code(s): E78.5 - Hyperlipidemia, unspecified Status: Acute Assessment and Plan: Continue statin (5) Type 2 diabetes mellitus with diabetic neuropathy, unspecified: Qualifiers: Diabetes mellitus fdc insulin use: with fdc use Qualified Code(s): E11.40 - Type 2 diabetes mellitus with diabetic neuropathy, unspecified; Z79.4 - senior living (current) use of insulin Code(s): E11.40 - Type 2 diabetes mellitus with diabetic neuropathy, unspecified Status: Acute Assessment and Plan: Management as per primary team. Subjective Date/time seen: 12/26/23 10:43 Interval history: Reason for visit: NSTEMI HPI: We are consulted for chest pain, elevated troponin. This is a 73 year old patient of Dr. Durant's with the apical hypertrophy variant of hypertrophic cardiomyopathy who presented to [place] ER for chest pain. Has substernal chest pressure that radiated to her left chest that lasted for about 3-3.5 hours. Occurred while she was driving. She had a similar episode about a month ago. She is currently chest pain free now. Her initial troponin was negative, however, repeat was positive at 0.087 and the third troponin al to 0.176. CXR with mild interstitial edema. EKGs with sinus rhythm, PACs, LVH with secondary repolarization changes. EKGs are similar to her previous ones. She was started on Heparin drip for NSTEMI. Date of service 12/25: Feeling well today. Review of Systems Review of Systems: All systems reviewed & are unremarkable except as noted in HPI and below (HPI) Exam Const: General: comfortable and no acute distress HENMT: Mouth: Yes moist mucous membranes Eyes: General: appearance normal, both eyes and all related structures Sclera: sclerae normal Resp: Effort & Inspection: normal respiratory effort Cardio: Rate: regular rate Rhythm: regular rhythm Skin: General skin exam: normal color Neuro: Speech: normal speech Psych: Mental Status: mental status grossly normal Affect: normal affect Objective Data Vital Signs Vital Signs: Vital Signs - 24 hr 12/25/23 12:06 12/25/23 12:00 12/25/23 12:00 Temperature 36.4 C Pulse Rate 63 63 Respiratory Rate 16 Blood Pressure 150/70 H Pulse Oximetry 94 Oxygen Delivery Room Air 12/25/23 14:30 12/25/23 14:45 12/25/23 15:00 Temperature Pulse Rate 62 58 L 58 L Respiratory Rate 16 14 16 Blood Pressure 117/65 131/74 131/59 L Pulse Oximet
--- NOTE | 2023-12-26 11:28 | PM.DS ---
DS: Admitting Diagnosis Discharge Date 12/26/2023: Admitting Diagnosis (1) Chest pain: ?Code(s): R07.9 - Chest pain, unspecified ?Status:?Acute ?Assessment and Plan: Non STEMI.? Continue IV heparin drip.? Cardiology consultation was called from the emergency room.? Continue aspirin. Hyperlipidemia.? Continue statins. Type 2 diabetes mellitus.? Sliding scale insulin correction. Chronic hypertension.? Resume home medications. DS: Discharge Diagnosis Discharge Diagnosis (1) Hypertrophic cardiomyopathy: Code(s): I42.2 - Other hypertrophic cardiomyopathy Status: Acute (2) NSTEMI (non-ST elevated myocardial infarction): Code(s): I21.4 - Non-ST elevation (NSTEMI) myocardial infarction Status: Acute (3) Chest pain: Code(s): R07.9 - Chest pain, unspecified Status: Acute (4) Elevated troponin: Code(s): R79.89 - Other specified abnormal findings of blood chemistry Status: Acute (5) Syncope and collapse: Code(s): R55 - Syncope and collapse Status: Acute (6) Osteoarthritis of acromioclavicular joint: Code(s): M19.019 - Primary osteoarthritis, unspecified shoulder Status: Acute (7) Long-term insulin use: Code(s): Z79.4 - terminal operator (current) use of insulin Status: Acute (8) Other chronic pain: Code(s): G89.29 - Other chronic pain Status: Acute (9) Postmenopausal: Code(s): Z78.0 - Asymptomatic menopausal state Status: Acute (10) Osteoarthritis of lumbar spine: Code(s): M47.816 - Spondylosis without myelopathy or radiculopathy, lumbar region Status: Acute (11) Depression: Code(s): F32.9 - Major depressive disorder, single episode, unspecified Status: Acute (12) Vitamin D deficiency disease: Code(s): E55.9 - Vitamin D deficiency, unspecified Status: Acute (13) Type 2 diabetes mellitus with diabetic neuropathy, unspecified: Qualifiers: Diabetes mellitus watermelon inspector insulin use: with watermelon inspector use Qualified Code(s): E11.40 - Type 2 diabetes mellitus with diabetic neuropathy, unspecified; Z79.4 - terminal operator (current) use of insulin Code(s): E11.40 - Type 2 diabetes mellitus with diabetic neuropathy, unspecified Status: Acute (14) HLD (hyperlipidemia): Qualifiers: Hyperlipidemia type: mixed hyperlipidemia Qualified Code(s): E78.2 - Mixed hyperlipidemia Code(s): E78.5 - Hyperlipidemia, unspecified Status: Acute (15) HTN (hypertension): Qualifiers: Hypertension type: essential hypertension Qualified Code(s): I10 - Essential (primary) hypertension Code(s): I10 - Essential (primary) hypertension Status: Acute DS: Summary Hospital Course Reason for hospitalization: Patient admitted with chest pain Hospital Course: H&P: HPI History of Present Illness Date/Time: 12/25/23? 01:36 Chief Complaint: Chest pain. This is a 73-year-old female patient with a past medical history of hypertension hyperlipidemia chronic left shoulder pain atherosclerotic heart disease who came to the emergency room complaining of chest pain.? Patient reported the pain was substernal and radiated to her left shoulder and she also felt shortness of breath.? Patient received a sublingual nitroglycerin prior to arrival and reported that the pain is currently resolved.? Patient is awake alert not in acute distress.? Denies any fever chills dizziness lightheadedness no blurry vision no chest pain shortness for breath no cough no nausea no vomiting no diarrhea no dysuria no muscle and joint pains.? Vital signs in the emergency room was stable.? Cbc and CMP were mainly in range.? Troponin 1st set was 0.028.? Repeat troponin was 0.087.? Lipase was 32.? Chest x-ray showed mild interstitial edema.? EKG showed sinus rhythm.? Atrial premature complexes.? Next ventricular hypertrophy.? Patient was started on IV heparin in the emergency room.?
--- NOTE | 2023-12-27 12:18 | PCCDE ---
12/27/23 Courtesy call placed post discharge. Patient denies any current questions re: DM. Is still interested in Outpatient DSMT/MNT. I will follow up regarding status. Pt has number to call if she doesn't hear regarding outpatient in a week. FJ
== END 2023-12-26 13:07 | disposition home or self-care (01) | DRG 287 ==
LOC: ANHED 22:44 → ANHIMU 23:24
PROVIDERS: Internal Medicine; Admitting Provider Internal Medicine Infectious Disease; Emergency Provider Emergency Medicine; PCP Emergency Medicine; Visit Provider Family Medicine
PROC: 4A023N7 Measurement of Cardiac Sampling and Pressure, Left Heart, Percutaneous Approach (ICD-10-PCS; CPT 93452; principal; 2023-12-25 13:00)
PROC: 4A023N7 Measurement of Cardiac Sampling and Pressure, Left Heart, Percutaneous Approach (ICD-10-PCS; 2023-12-25 13:00)
DX: I20.1 Angina pectoris with documented spasm (principal); I42.2 Other hypertrophic cardiomyopathy; I20.81 Angina pectoris with coronary microvascular dysfunction; I10 Essential (primary) hypertension; E55.9 Vitamin D deficiency, unspecified; E11.40 Type 2 diabetes mellitus with diabetic neuropathy, unspecified; E78.5 Hyperlipidemia, unspecified; M81.0 Age-related osteoporosis without current pathological fracture; M47.816 Spondylosis without myelopathy or radiculopathy, lumbar region; M19.019 Primary osteoarthritis, unspecified shoulder; F32.9 Major depressive disorder, single episode, unspecified; Z79.82 Long term (current) use of aspirin; Z79.4 Long term (current) use of insulin
CPT/HCPCS: 36415; 71046; 80048; 80053; 80061; 82948; 83690; 84484; 85025; 85610; 85730; 93005; 93458; 96365; 96375; 99285; A9270; C1760; C1887; C1894; C8929; G0269; G0378; J1644; J1815; J1940; J2250; J3010; J7030; J7040; Q9957

== ENCOUNTER 2024-01-07 12:11 | Observation (INO) | payer OTHER, MEDICAID, SELFPAY ==
[2024-01-07] VITALS (16 sets, daily range): BP systolic 116–157; BP diastolic 46–92; PULSE 47–138; RESP 13–20; TEMP 36.4–36.6; O2SAT 95–98; BMI 27.1
--- NOTE | ~2024-01-07 | XR_ITS ---
XR chest 2V 01/07/2024 12:36 Indication: Chest pain and shortness of breath Procedure: 2 view chest Comparison: Comparison to multiple prior studies sequentially, with oldest reviewed study dated 12/2017. Findings: Heart size normal. No focal air space disease, pulmonary edema, pleural effusion or suspect ed pneumothorax. There are calcified pleural plaques on the right. No acute osseous abnormality. Impression: 1: No acute cardiopulmonary disease. Reviewed, dictated and finalized at location L. Impression: 1: No acute cardiopulmonary disease.
--- NOTE | 2024-01-07 12:17 | ECG_ITS ---
Measurements Intervals [place] Rate: 137 P: PA: 0 QRS: 1 QRSD: 85 T: 169 QT: 341 QTc: 515 Interpretive Statements ATRIAL FIBRILLATION WITH RAPID VENTRICULAR RESPONSE LEFT VENTRICULAR HYPERTROPHY WITH ST-T CHANGE T WAVE ABNORMALITY IN ANTEROLATERAL LEADS- CONSIDER ISCHEMIA BASELINE ARTIFACT- I, II ABNORMAL ECG COMPARED TO ECG 12/25/2023 04:02:53 ATRIAL FIBRILLATION NOW PRESENT Electronically Signed On 01-07-2024 16:04:50 CDT by Clem Peters D.O.
[2024-01-07 12:28] LABS: Basophils Percent Auto 0.6 % (0.2-1.2); Eosinophils Absolute Auto 0.2 K/mm3 (0-0.3); Hematocrit 41.8 % (37.0-47.0); Hemoglobin 13.6 g/dL (12.0-15.0); Immature Granulocyte Absolute 0.02 K/mm3 (0.00-0.031); Immature Granulocyte Percent A 0.3 % (0-0.5); Lymphocytes Absolute Auto 1.85 K/mm3 (0.9-3.2); Lymphocytes Percent Auto 29.1 % (18.3-44.2); Mean Corpuscular HGB Conc 32.5 g/dl (32-36); Mean Corpuscular Hemoglobin 28.4 pg (26-34); Mean Corpuscular Volume 87.3 fl (80-100); Mean Platelet Volume 11.5 fl (7.4-10.4); Monocytes Absolute Auto 0.5 K/mm3 (0.1-0.6); Neutrophils Absolute Auto 3.7 K/mm3 (1.3-6.7); Platelet Count Result 229 k/mm3 (150-375); Red Blood Count 4.79 M/mm3 (4.2-5.4); Red Cell Distribution Width 13.4 % (11.5-14.5); White Blood Count 6.4 K/mm3 (4.5-10.0)
[2024-01-07 12:34] LABS: Alanine Aminotransferase 21 U/L (6-35); Albumin Level 4.1 g/dL (3.5-5.1); Alkaline Phosphatase 106 U/L (38-126); Anion Gap 9 mmol/L (4-12); Aspartate Amino Transferase 32 U/L (14-36); Bilirubin,Total 0.8 mg/dL (0.2-1.3); Blood Urea Nitrogen 12 mg/dL (7-17); Calcium 9.4 mg/dL (8.4-10.2); Carbon Dioxide 23 mmol/L (22-30); Chloride 106 mmol/L (98-107); Estimated Glomerular Filt Rate > 60; Glucose 244 mg/dL (65-110); Lipase 38 U/L (23-300); Potassium 3.9 mmol/L (3.4-5.0); Sodium 138 mmol/L (137-145)
[2024-01-07 12:35] LABS: Prothrombin Time 13.4 Seconds (11.1-14.7)
[2024-01-07 12:36] LABS: Partial Thromboplastin Time 29.8 Seconds (22.3-36.8)
[2024-01-07 12:45] LABS: Troponin I 0.022 ng/mL (0.000-0.034)
--- NOTE | 2024-01-07 13:37 | ED.CHESTPAIN ---
HPI - Chest Pain General Chief Complaint: Chest Pain Stated Complaint: CP Time Seen by Provider: 01/07/24 12:32 History of Present Illness HPI narrative: 73-year-old female present to the emergency department for evaluation of left-sided chest pain. Patient was seen in the emergency department last week for similar chest pain and patient did have a cardiac catheterization that was negative. Patient did have an elevated troponin that time was thought to be due to potential vaso spasm. Patient states that she did have low blood pressure sugar yesterday and have follow-up with her primary care physician and her blood pressure medications were decreased. Patient woke up this morning with a headache and the left-sided chest pain that radiates to the neck. Patient states this is similar to her chest pain that she had last week. Related Data Home Medications Medication Instructions Recorded Confirmed multivitamin 1 tablet PO DAILY 06/03/23 01/07/24 alendronate 70 mg tablet 70 mg PO WEEKLY 12/25/23 01/07/24 atorvastatin 40 mg tablet 40 mg PO HS 12/25/23 01/07/24 cholecalciferol (vitamin D3) 25 1,000 unit PO DAILY 12/25/23 01/07/24 mcg (1,000 unit) tablet (Vitamin D3) diclofenac sodium 1 % topical gel 4 g topical QID PRN Back or 12/25/23 01/07/24 shoulder Pain ibuprofen 800 mg tablet 800 mg PO TIDWMEAL PRN Back Pain 12/25/23 01/07/24 losartan 50 mg tablet 50 mg PO DAILY 12/25/23 01/07/24 metoprolol succinate 50 mg 25 mg PO DAILY 01/06/24 01/07/24 tablet,extended release 24 hr Allergies Allergy/AdvReac Type Severity Reaction Status Date / Time No Known Allergies Allergy Verified 01/07/24 12:15 Review of Systems Review of Systems: All systems reviewed & are unremarkable except as noted in HPI and below PMFSH Past Medical History Medical History (Updated 01/07/24 @ 18:11 by Mckayla Vitale PA-C) Age-related osteoporosis without current pathological fracture Apical variant hypertrophic cardiomyopathy Chronic left shoulder pain History of colon polyps Hyperlipidemia Hypertension Insulin dependent type 2 diabetes mellitus Non-ST elevation myocardial infarction (NSTEMI) Osteoporosis Surgical History Surgical History (Updated 01/07/24 @ 18:15 by Mckayla G Gerling, PA-C) History of bilateral carpal tunnel release History of cardiac catheterization (12/25/23) No obstructive coronary disease. History of colonoscopy with polypectomy Family History Family History Sibling Diabetes mellitus Father Cerebrovascular accident, Onset Age: 72 Diabetes mellitus Social History Social History (Updated 01/07/24 @ 18:16 by Mckayla Vitale PA-C) Social History: Surrogate medical decision maker: Shu Mercado, daughter. Code status: Full code. Smoking packs per day: 6 Smoking cigarettes per day: 120.0 Years smoked: 50 Smoking pack-years: 300.00 Smoking status: Former smoker Tobacco type: cigarettes Additional smoking assessment comments: quit May 2023 Alcohol intake: never Substance use: never Do You Feel Safe in your Home?: Yes Lack of Transportation: No Lack of Food: Never True Current Housing: I Have Housing Concerned About Future Housing: No Difficulty Paying Gas/Electric Bills: No Difficulty Paying for Meds: No Currently Unemployed: No Education: High School Diploma/GED Difficulty w/ Childcare or Family Care: No Spiritual care concerns: No Exam Narrative: APPEARANCE: Well appearing, no pain, no distress, well-nourished. HEAD: normocephalic, atraumatic. EYES: PERRLA/EOMI, conjunctivae clear. NOSE: Normal no drainage EARS:TMS clear with good light reflex. THROAT: Pharynx clear, no exudate. NECK: Supple. No adenopathy, no masses. RESPIRATORY: Airway patent, respirations nonlabored. Clear to auscultation bilaterally, no rales, rhonchi, wheezing. CARDIOVASCULAR: left-sided chest wal
--- NOTE | 2024-01-07 15:19 | ECG_ITS ---
Measurements Intervals [place] Rate: 60 P: 63 ID: 161 QRS: -6 QRSD: 89 T: 177 QT: 463 QTc: 465 Interpretive Statements SINUS RHYTHM ATRIAL PREMATURE COMPLEX LEFT VENTRICULAR HYPERTROPHY AND ST-T CHANGE T WAVE ABNORMALIT IN ANTEROLATERAL LEADS- CONSIDER ISCHEMIA ABNORMAL ECG COMPARED TO ECG 01/07/2024 12:12:54 SINUS RHYTHM NOW PRESENT Electronically Signed On 01-07-2024 16:10:01 CDT by Clem Peters D.O.
[2024-01-07] MEDS: METOPROLOL SUCCINATE EXT REL 25 MG TABCR PO (17:30)
--- NOTE | 2024-01-07 17:58 | ECG_ITS ---
Measurements Intervals [place] Rate: 61 P: 66 OR: 158 QRS: -9 QRSD: 85 T: 162 QT: 462 QTc: 466 Interpretive Statements SINUS RHYTHM WITH ATRIAL PREMATURE COMPLEXES LEFT VENTRICULAR HYPERTROPHY AND ST-T CHANGE T WAVE ABNORMALITY IN ANTEROLATERAL LEADS- CONSIDER ISCHEMIA ABNORMAL ECG COMPARED TO ECG 01/07/2024 15:26:13 NO SIGNIFICANT CHANGES Electronically Signed On 01-08-2024 6:22:41 CDT by Clem Peters D.O.
--- NOTE | 2024-01-07 18:04 | ADMGEN ---
This patient, Mayte Mercado, was admitted to IMU Room 214-01. Patient/family oriented to hospital policies and general routines including ID bracelet, bed and alarms, visiting hours, pain management, procedures, bathroom and other care routines, personal items, smoking policy, room service/diet, and visiting hours. Information on how to activate the Rapid Response Team has been discussed. Patient/Family are encouraged to report perceived risks to care and to ask questions if they do not understand what they are told or what they should do.
--- NOTE | 2024-01-07 18:07 | PM.IMHP ---
H&P: HPI History of Present Illness Date/Time: 01/07/24 18:30 Chief Complaint: Chest pain. Narrative: This is a 73-year-old female with history of apical hypertrophy variant of hypertrophic cardiomyopathy, hypertension, hyperlipidemia, insulin-dependent type 2 diabetes mellitus, and recent cardiac catheterization for evaluation of chest pain in the setting of elevated troponins which showed nonobstructive disease with concerns for coronary vasospasm versus microvascular disease who presented to the emergency department via private vehicle for evaluation of chest pain. The patient provides the following history. She had a follow-up appointment with her doctor yesterday at which time her metoprolol dose was cut in half as she was having symptomatic, soft blood pressures. This morning she awoke with a headache and left-sided chest pain radiating through to the neck associated with shortness of breath and some nausea. She also reports feeling her heart racing for brief period of time but goes on to say that has been happening intermittently for quite some time. She denies syncope, near syncope, pleuritic pain, cough, vomiting, lower extremity edema, and calf pain. In the ED: She was afebrile on arrival with stable blood pressures. Initial heart rate was 138 she was in atrial fibrillation with rapid ventricular response though she converted to a normal sinus rhythm without intervention shortly thereafter. Baseline troponin was 0.0 to 2 however her 3 hour troponin jumped to 0.170. She was given aspirin 324 mg, metoprolol tartrate 25 mg, sublingual nitroglycerin, and a therapeutic dose of enoxaparin and she is being admitted for further evaluation and Cardiology consultation. Review of Systems Review of Systems: Twelve systems were reviewed and are negative except for as per HPI. [facility] Past Medical History Medical History (Updated 01/07/24 @ 18:11 by Mckayla Vitale PA-C) Age-related osteoporosis without current pathological fracture Apical variant hypertrophic cardiomyopathy Chronic left shoulder pain History of colon polyps Hyperlipidemia Hypertension Insulin dependent type 2 diabetes mellitus Non-ST elevation myocardial infarction (NSTEMI) Osteoporosis Surgical History Surgical History (Updated 01/07/24 @ 18:15 by Mckayla Vitale PA-C) History of bilateral carpal tunnel release History of cardiac catheterization (12/25/23) No obstructive coronary disease. History of colonoscopy with polypectomy Family History Family History Sibling Diabetes mellitus Father Cerebrovascular accident, Onset Age: 72 Diabetes mellitus Social History Social History (Updated 01/07/24 @ 18:16 by Mckayla Vitale PA-C) Social History: Surrogate medical decision maker: Shu Mercado, daughter. Code status: Full code. Smoking packs per day: 6 Smoking cigarettes per day: 120.0 Years smoked: 50 Smoking pack-years: 300.00 Smoking status: Former smoker Tobacco type: cigarettes Additional smoking assessment comments: quit May 2023 Alcohol intake: never Substance use: never Do You Feel Safe in your Home?: Yes Lack of Transportation: No Lack of Food: Never True Current Housing: I Have Housing Concerned About Future Housing: No Difficulty Paying Gas/Electric Bills: No Difficulty Paying for Meds: No Currently Unemployed: No Education: High School Diploma/GED Difficulty w/ Childcare or Family Care: No Spiritual care concerns: No Meds Home Medications and Allergies Home Medications Medication Instructions Recorded Confirmed Type aspirin 81 mg chewable tablet 81 mg PO DAILY #90 tabs 04/01/20 01/07/24 Rx albuterol sulfate 90 mcg/actuation 1 puff inhalation Q4-6H PRN 06/03/23 01/07/24 Rx aerosol inhaler shortness of breath or wheezing #8.5 grams multivitamin 1 tablet PO DAILY 06/03/23 01/07/24 History alendronate
[2024-01-07 20:03] LABS: Thyroid Stimulating Hormone Reflex 0.905 uIU/mL (0.465-4.68)
[2024-01-07 20:33] LABS: Glucose Point of Care 210 mg/dl (65-105)
[2024-01-07] MEDS: ATORVASTATIN 40 MG TABLET PO (21:04)
[2024-01-07] MEDS: ENOXAPARIN 80 MG/0.8 ML SYRINGE 62 MG SUB-Q (21:05)
[2024-01-07] MEDS: INSULIN ASPART (*BKC) 100 UNITS/ML SUB-Q (21:05)
[2024-01-08] VITALS (11 sets, daily range): BP systolic 129–132; BP diastolic 45–57; PULSE 48–94; RESP 16–18; TEMP 36.2–36.5; O2SAT 95–98
[2024-01-08 05:12] LABS: Anion Gap 3 mmol/L (4-12); Blood Urea Nitrogen 13 mg/dL (7-17); Calcium 8.8 mg/dL (8.4-10.2); Carbon Dioxide 27 mmol/L (22-30); Chloride 107 mmol/L (98-107); Estimated Glomerular Filt Rate > 60; Glucose 94 mg/dL (65-110); Magnesium 1.9 mg/dL (1.6-2.3); Potassium 3.7 mmol/L (3.4-5.0); Sodium 137 mmol/L (137-145)
[2024-01-08 07:40] LABS: Glucose Point of Care 98 mg/dl (65-105)
[2024-01-08] MEDS: INSULIN GLARGINE (*BKC) 100 UNITS/ML 28 UNITS SUB-Q (08:44)
[2024-01-08] MEDS: ASPIRIN 81 MG CHEWABLE TABLET PO (08:44)
[2024-01-08] MEDS: METOPROLOL SUCCINATE EXT REL 25 MG TABCR PO (08:44)
[2024-01-08] MEDS: LOSARTAN POTASSIUM 50 MG TABLET PO (08:44)
[2024-01-08] MEDS: MULTIVITAMINS THERAPEUTIC TAB (*BKC) 1 TABLET PO (08:44)
[2024-01-08] MEDS: ENOXAPARIN 80 MG/0.8 ML SYRINGE 62 MG SUB-Q (08:45)
[2024-01-08] MEDS: CHOLECALCIFEROL 1,000 UNITS TABLET 1000 UNITS PO (08:45)
--- NOTE | 2024-01-08 09:35 | PM.CNCAR ---
Assessment and Plan Assessment and plan (1) Atrial fibrillation with rapid ventricular response: Code(s): I48.91 - Unspecified atrial fibrillation Status: Acute Assessment and Plan: New diagnosis of atrial fibrillation. Recent TSH level was normal. Recent echocardiogram with preserved LVEF. Patient now back in sinus rhythm, continue Toprol. She has been started on therapeutic Lovenox. [id number] VASC is 4, therefore, recommend long-term anticoagulation for stroke prophylaxis. Discussed the indications for anticoagulation with the patient, risks vs benefits, etc. Patient states she would prefer to defer this decision to her daughter. I tried to call the daughter this morning, but no answer. Will try again later. If daughter is agreeable for patient to be on anticoagulation, will stop the Lovenox and start NOAC. (2) Elevated troponin: Code(s): R79.89 - Other specified abnormal findings of blood chemistry Status: Acute Assessment and Plan: Recent cardiac cath with no significant CAD. Elevated troponin likely from demand ischemia from AFIB with RVR. (3) Apical variant hypertrophic cardiomyopathy: Code(s): I42.2 - Other hypertrophic cardiomyopathy Status: Acute Assessment and Plan: Continue Toprol. (4) Insulin dependent type 2 diabetes mellitus: Code(s): E11.9 - Type 2 diabetes mellitus without complications; Z79.4 - [facility] (current) use of insulin Status: Acute Assessment and Plan: Management as per primary team. (5) Hypertension: Code(s): I10 - Essential (primary) hypertension Status: Acute Assessment and Plan: Continue Losartan, Metoprolol. (6) Hyperlipidemia: Code(s): E78.5 - Hyperlipidemia, unspecified Status: Acute Assessment and Plan: Continue statin. History of Present Illness History of Present Illness Consult date/time: 01/08/24 09:35 Requesting physician: Mckayla Vitale PA-C Consult reason: chest pain and atrial fibrillation Reason For Visit: proximal afib with rvr,elevated troponin Narrative: We are consulted for AFIB, chest pain, elevated troponin. This is a 73 year old patient of Dr. Durant's with the apical hypertrophy variant of hypertrophic cardiomyopathy who was recently admitted here 2 weeks ago for chest pain and elevated troponins. Cardiac catheterization done 12/24 showed no obstructive coronary artery disease, the coronary arteries appear angiographically normal. LVEDP is 10mmHg. Her chest pain and elevated troponins could be from coronary spasm vs microvascular disease, etc. She was treated medically and did well and was discharged home on 12/25. Patient had followed up with her PCP on 01/05. Her heart rate was on the lower side of the 50s, therefore, her Metoprolol was reduced to 25mg once daily. She reports that yesterday she had chest pain and palpitations. In the ER, EKG showed atrial fibrillation with RVR. Patient converted spontaneously back into normal rhythm. Her troponin levels are 0.022 / 0.170 / 0.390. She is currently feeling well this morning. Remains in sinus rhythm. Review of Systems Review of Systems: All systems reviewed & are unremarkable except as noted in HPI and below (HPI) [facility] Past Medical History Medical History Age-related osteoporosis without current pathological fracture Apical variant hypertrophic cardiomyopathy Chronic left shoulder pain History of colon polyps Hyperlipidemia Hypertension Insulin dependent type 2 diabetes mellitus Non-ST elevation myocardial infarction (NSTEMI) Osteoporosis Surgical History Surgical History History of bilateral carpal tunnel release History of cardiac catheterization (12/25/23) No obstructive coronary disease. History of colonoscopy with polypectomy Family History Family History (Reviewed 01/08/24 @ 09:39 by Ailin
[2024-01-08 11:39] LABS: Glucose Point of Care 114 mg/dl (65-105)
--- NOTE | 2024-01-08 15:47 | PM.DS ---
DS: Admitting Diagnosis Discharge Date 01/08/2024 Admitting Diagnosis Atrial fibrillation with rapid ventricular response, elevated troponin, hypertension, hyperlipidemia, insulin-dependent type 2 diabetes mellitus, chest pain DS: Discharge Diagnosis Discharge Diagnosis (1) Atrial fibrillation with rapid ventricular response: Code(s): I48.91 - Unspecified atrial fibrillation Status: Acute (2) Elevated troponin: Code(s): R79.89 - Other specified abnormal findings of blood chemistry Status: Acute (3) Hypertension: Code(s): I10 - Essential (primary) hypertension Status: Acute (4) Hyperlipidemia: Code(s): E78.5 - Hyperlipidemia, unspecified Status: Acute (5) Insulin dependent type 2 diabetes mellitus: Code(s): E11.9 - Type 2 diabetes mellitus without complications; Z79.4 - ocean transportation intermediary (current) use of insulin Status: Acute (6) Chest pain: Code(s): R07.9 - Chest pain, unspecified Status: Acute DS: Summary Hospital Course Reason for hospitalization: Patient was admitted with chest pain found to be in atrial fibrillation RVR that improved with metoprolol. Troponins rising. Hospital Course: Patient developed chest pain at found to be in atrial fibrillation RVR which improved after metoprolol. It is patient had spontaneous conversion to sinus rhythm. Today she was seen by Cardiology who recommended NOAC the patient did not want to agree to this until speaking with her daughter. Patient has been symptom free since admission. Cardiology saw the patient and felt like the rising troponin was due to demand ischemia related to RVR. Patient recently had a clean cardiac catheterization. Patient has also had lower blood pressures at home and was recently told to decrease her metoprolol from 50 mg daily to 25 mg daily. Patient was on 25 mg here the and heart rate has maintain in the 50s. Stable pressure. Sinus rhythm. Discussed the risks verses benefits of NOAC therapy. Cautioned about bleeding potential. Discussed with Cardiology and patient can discontinue aspirin and only take Eliquis. Patient will receive a 30 day free prescription coupon and further prescriptions should be $4.60 per care coordination. Patient has follow-up with Cardiology scheduled in February. Eliquis prescription sent to preferred pharmacy with 1 refill to get through until cardiology appointment. Status at Discharge Cognitive/behavioral status at discharge: Awake alert oriented and pleasant Functional status at discharge: independent ambulation Overall status at discharge: patient is back to baseline Time Spent with Patient Time attestation: Total time spent providing and/or coordinating discharge services: 40 minutes Time spent: Greater than 30 minutes Exam Narrative: General: Well-developed, nontoxic-appearing female sitting up in bed in no distress. HEENT: Normocephalic, atraumatic. PERRL, EOMI. Sclera anicteric. Oral mucosa moist. Oropharynx clear. Neck: Supple. No JVD. Respiratory: Respirations are nonlabored and lungs are clear to auscultation. Cardiovascular: Regular rate and rhythm with S1-S2. Gastrointestinal: Abdomen is soft, nontender, and nondistended with positive bowel sounds. Skin: Warm and dry. No rash or lesions on limited exam. Extremities: No cyanosis, clubbing, or edema. Radial and pedal pulses intact. Neurological: Alert. Cranial nerves 2-12 are grossly intact. No gross focal deficits to casual conversation. Psychiatric: Pleasant and cooperative with normal mood and affect. Judgment and insight intact. DS: Data Data Completed and Pending Labs on day of discharge: Labs from last 24 hours 01/08/24 01/08/24 01/08/24 11:32 07:35 04:23 Sodium 137 Potassium 3.7 Chloride 107 Carbon Dioxide 27 Anion Gap 3 L BUN 13 Creatinine 0.60 L Estim Creat Clear Calc Not Reportable Estimated GFR > 60 Glucose 94 POC Capillary Glucose
[2024-01-08 15:57] LABS: Glucose Point of Care 154 mg/dl (65-105)
== END 2024-01-08 17:57 | disposition home or self-care (01) ==
LOC: ANHED 16:15 → ANHIMU 17:18
PROVIDERS: Family Medicine; Physician Assistant; Admitting Provider Family Medicine; Emergency Provider Emergency Medicine; PCP Emergency Medicine; Visit Provider Family Medicine
DX: I48.91 Unspecified atrial fibrillation (principal); I42.2 Other hypertrophic cardiomyopathy; R79.89 Other specified abnormal findings of blood chemistry; I10 Essential (primary) hypertension; R94.31 Abnormal electrocardiogram [ECG] [EKG]; M81.0 Age-related osteoporosis without current pathological fracture; E78.5 Hyperlipidemia, unspecified; I25.2 Old myocardial infarction; E11.9 Type 2 diabetes mellitus without complications; Z87.891 Personal history of nicotine dependence; Z79.4 Long term (current) use of insulin; Z79.1 Long term (current) use of non-steroidal anti-inflammatories (NSAID); Z79.82 Long term (current) use of aspirin; Z79.51 Long term (current) use of inhaled steroids; Z79.899 Other long term (current) drug therapy
CPT/HCPCS: 36415; 71046; 80048; 80053; 82948; 83690; 83735; 84443; 84484; 85025; 85610; 85730; 93005; 96372; 99285; A9270; G0378; J1650; J1815

== ENCOUNTER 2024-01-11 10:59 | Emergency (ER) | payer OTHER, MEDICAID, SELFPAY ==
--- NOTE | ~2024-01-11 | XR_ITS ---
XR chest 2V DATE: 01/11/2024 11:35 INDICATION: Chest pain TECHNIQUE: AP and lateral views COMPARISON: 01/07/2024 AP and lateral chest FINDINGS: Borderline heart size. Aortic calcification and mild unfolding. No hilar or mediastinal enl argement. No pulmonary infiltrate or consolidation, pleural effusion or pulmonary vascular congestion or pneumo thorax is detected. Osteopenia. Mild thoracolumbar levoscoliosis and degenerative spurring IMPRESSION: No active pulmonary disease Borderline heart size Aortic atherosclerosis Osteopenia Reviewed, dictated and finalized at location A.
--- NOTE | 2024-01-11 11:00 | ECG_ITS ---
Measurements Intervals [place] Rate: 65 P: 60 CT: 151 QRS: -5 QRSD: 92 T: 168 QT: 460 QTc: 478 Interpretive Statements SINUS RHYTHM LEFT VENTRICULAR HYPERTROPHY AND ST-T CHANGE T WAVE ABNORMALITY IN ANTEROLATERAL LEADS- CONSIDER ISCHEMIA BASELINE ARTIFACT- I, II, AVR, AVL, AVF, V1-V6 ABNORMAL ECG COMPARED TO ECG 01/07/2024 18:14:19 NO SIGNIFICANT CHANGES Electronically Signed On 01-11-2024 16:44:00 CDT by Clem Peters D.O.
[2024-01-11 11:16] VITALS: BP 120/46; PULSE 67; RESP 18; TEMP 36.6; O2SAT 97
--- NOTE | 2024-01-11 11:18 | ED.CHESTPAIN ---
HPI - Chest Pain General Chief Complaint: Chest Pain Stated Complaint: chest pain Time Seen by Provider: 01/11/24 11:18 History of Present Illness HPI narrative: Patient presents with chest pain while she was in the kitchen, started below her throat and went down to her left chest. She had had this chest pain a few days ago also when she was admitted to the hospital, today was not as bad, and it did resolve completely by the time he arrived here. She no longer has any complaints or symptoms. No focal numbness or weakness. Related Data Home Medications Medication Instructions Recorded Confirmed multivitamin 1 tablet PO DAILY 06/03/23 01/07/24 alendronate 70 mg tablet 70 mg PO WEEKLY 12/25/23 01/07/24 atorvastatin 40 mg tablet 40 mg PO HS 12/25/23 01/07/24 cholecalciferol (vitamin D3) 25 1,000 unit PO DAILY 12/25/23 01/07/24 mcg (1,000 unit) tablet (Vitamin D3) diclofenac sodium 1 % topical gel 4 g topical QID PRN Back or 12/25/23 01/07/24 shoulder Pain losartan 50 mg tablet 50 mg PO DAILY 12/25/23 01/07/24 metoprolol succinate 50 mg 25 mg PO DAILY 01/06/24 01/07/24 tablet,extended release 24 hr Allergies Allergy/AdvReac Type Severity Reaction Status Date / Time No Known Allergies Allergy Verified 01/10/24 11:04 Review of Systems Review of Systems: All systems reviewed & are unremarkable except as noted in HPI and below PMFSH Past Medical History Medical History Age-related osteoporosis without current pathological fracture Apical variant hypertrophic cardiomyopathy Chronic left shoulder pain History of colon polyps Hyperlipidemia Hypertension Insulin dependent type 2 diabetes mellitus Non-ST elevation myocardial infarction (NSTEMI) Osteoporosis Surgical History Surgical History History of bilateral carpal tunnel release History of cardiac catheterization (12/25/23) No obstructive coronary disease. History of colonoscopy with polypectomy Family History Family History Sibling Diabetes mellitus Father Cerebrovascular accident, Onset Age: 72 Diabetes mellitus Social History Social History Social History: Surrogate medical decision maker: Shu Mercado, daughter. Code status: Full code. Smoking packs per day: 6 Smoking cigarettes per day: 120.0 Years smoked: 50 Smoking pack-years: 300.00 Smoking status: Former smoker Tobacco type: cigarettes Additional smoking assessment comments: quit May 2023 Alcohol intake: never Substance use: never Do You Feel Safe in your Home?: Yes Lack of Transportation: No Lack of Food: Never True Current Housing: I Have Housing Concerned About Future Housing: No Difficulty Paying Gas/Electric Bills: No Difficulty Paying for Meds: No Currently Unemployed: No Education: High School Diploma/GED Difficulty w/ Childcare or Family Care: No Spiritual care concerns: No Exam Narrative: EXAMINATION OF ORGAN SYSTEMS/BODY AREAS: Constitutional: Vital signs per nursing GENERAL:[No acute distress, non-toxic appearing.] HEAD: Normal with no signs of head trauma. EYES: EOMI, conjunctiva normal ENT: Hearing grossly intact LUNGS: Nonlabored breathing. HEART: [Regular rate and rhythm] ABD: [Soft], [nontender to palpation] EXT: Normal range of motion SKIN: [No rashes or lesions.] NEURO: [Alert and oriented x 3. No gross focal sensory or strength deficits.] PSYCH: Normal affect Course Vital Signs Vital signs: Vital Signs Temperature 98 F 01/11/24 11:16 Pulse Rate 67 01/11/24 11:16 Respiratory Rate 18 01/11/24 11:16 Blood Pressure 120/46 L 01/11/24 11:16 Pulse Oximetry 97 01/11/24 11:16 Oxygen Delivery Room Air 01/11/24 11:16 Temperature 98 F 01/11/24 14:02 Puls
[2024-01-11 11:20] VITALS: O2SAT 96
[2024-01-11 11:29] LABS: Basophils Percent Auto 0.6 % (0.2-1.2); Eosinophils Absolute Auto 0.2 K/mm3 (0-0.3); Eosinophils Percent Auto 3.3 % (0-4.4); Hemoglobin 12.7 g/dL (12.0-15.0); Immature Granulocyte Absolute 0.01 K/mm3 (0.00-0.031); Immature Granulocyte Percent A 0.2 % (0-0.5); Lymphocytes Absolute Auto 2.36 K/mm3 (0.9-3.2); Lymphocytes Percent Auto 35.8 % (18.3-44.2); Mean Corpuscular HGB Conc 32.6 g/dl (32-36); Mean Corpuscular Hemoglobin 28.3 pg (26-34); Mean Corpuscular Volume 86.9 fl (80-100); Mean Platelet Volume 11.5 fl (7.4-10.4); Monocytes Absolute Auto 0.7 K/mm3 (0.1-0.6); Monocytes Percent Auto 10.9 % (2.6-8.5); Neutrophils Absolute Auto 3.2 K/mm3 (1.3-6.7); Neutrophils Percent Auto 49.2 % (45.5-73.1); Platelet Count Result 226 k/mm3 (150-375); Red Blood Count 4.49 M/mm3 (4.2-5.4); Red Cell Distribution Width 13.9 % (11.5-14.5); White Blood Count 6.6 K/mm3 (4.5-10.0)
[2024-01-11 11:41] LABS: Alanine Aminotransferase 26 U/L (6-35); Alkaline Phosphatase 99 U/L (38-126); Anion Gap 9 mmol/L (4-12); Aspartate Amino Transferase 38 U/L (14-36); Blood Urea Nitrogen 13 mg/dL (7-17); Calcium 9.2 mg/dL (8.4-10.2); Carbon Dioxide 21 mmol/L (22-30); Chloride 107 mmol/L (98-107); Estimated Glomerular Filt Rate > 60; Glucose 164 mg/dL (65-110); Lipase 35 U/L (23-300); Potassium 3.9 mmol/L (3.4-5.0); Sodium 137 mmol/L (137-145)
[2024-01-11 11:43] LABS: INR 1.3; Prothrombin Time 16.8 Seconds (11.1-14.7)
[2024-01-11 11:44] LABS: Partial Thromboplastin Time 36.9 Seconds (22.3-36.8)
[2024-01-11 11:55] LABS: Troponin I 0.059 ng/mL (0.000-0.034)
--- NOTE | 2024-01-11 13:48 | ECG_ITS ---
Measurements Intervals [place] Rate: 62 P: 66 ND: 152 QRS: -9 QRSD: 93 T: 173 QT: 454 QTc: 465 Interpretive Statements SINUS RHYTHM ATRIAL PREMATURE COMPLEX LEFT VENTRICULAR HYPERTROPHY AND ST-T CHANGE T WAVE ABNORMALITY IN ANTEROLATERAL LEADS- CONSIDER ISCHEMIA ABNORMAL ECG COMPARED TO ECG 01/11/2024 11:11:30 NO SIGNIFICANT CHANGES Electronically Signed On 01-11-2024 17:01:29 CDT by Clem Peters D.O.
[2024-01-11 14:02] VITALS: BP 121/44; PULSE 61; RESP 17; TEMP 36.6; O2SAT 94
[2024-01-11 14:33] LABS: Troponin I 0.058 ng/mL (0.000-0.034)
[2024-01-11 14:44] VITALS: BP 120/54; PULSE 69; RESP 19; TEMP 36.6; O2SAT 94
== END 2024-01-11 14:50 | disposition home or self-care (01) ==
PROVIDERS: Emergency Provider Emergency Medicine; PCP Emergency Medicine
DX: R07.9 Chest pain, unspecified (principal); I10 Essential (primary) hypertension; E11.9 Type 2 diabetes mellitus without complications; E78.5 Hyperlipidemia, unspecified; I25.10 Atherosclerotic heart disease of native coronary artery without angina pectoris; I25.2 Old myocardial infarction; M81.0 Age-related osteoporosis without current pathological fracture; Z87.891 Personal history of nicotine dependence; Z79.51 Long term (current) use of inhaled steroids; Z79.1 Long term (current) use of non-steroidal anti-inflammatories (NSAID); Z79.01 Long term (current) use of anticoagulants
CPT/HCPCS: 36415; 71046; 80053; 83690; 84484; 85025; 85610; 85730; 93005; 99284

== ENCOUNTER 2024-01-15 12:45 | Emergency (ER) | payer OTHER, MEDICAID, SELFPAY ==
[2024-01-15] VITALS (18 sets, daily range): BP systolic 103–142; BP diastolic 62–87; PULSE 95–107; RESP 7–21; TEMP 36.6; O2SAT 94–100
--- NOTE | ~2024-01-15 | XR_ITS ---
EXAMINATION: XR chest 2V DATE: 01/15/2024 13:29 INDICATION: Chest pain. TECHNIQUE: Frontal and lateral views of the chest were obtained. COMPARISON: Chest 2 views 01/11/2024 FINDINGS: There is mild atelectasis in right middle lower lung zones. No pleural effusion or pneumoth orax. The heart size is normal. IMPRESSION: 1. Mild atelectasis in right middle lower lung zones. Reviewed, dictated and finalized at location A.
--- NOTE | 2024-01-15 12:54 | ECG_ITS ---
Measurements Intervals [place] Rate: 96 P: 247 MO: 173 QRS: -13 QRSD: 88 T: 176 QT: 377 QTc: 478 Interpretive Statements SINUS RHYTHM LEFT VENTRICULAR HYPERTROPHY AND ST-T CHANGE [VOLTAGE CRITERIA PLUS ST/T ABNORMALITY] CONSIDER MYOCARDIAL ISCHEMIA OR REPOLARIZATION ABNORMALITY ABNORMAL ECG COMPARED TO ECG 01/11/2024 13:59:59 NO SIGNIFICANT CHANGES Electronically Signed On 01-15-2024 14:51:51 CDT by Ean Lopez M.D.
[2024-01-15 13:21] LABS: INR 1.4; Prothrombin Time 17.7 Seconds (11.1-14.7)
[2024-01-15 13:21] LABS: Alanine Aminotransferase 20 U/L (6-35); Albumin Level 3.9 g/dL (3.5-5.1); Alkaline Phosphatase 92 U/L (38-126); Anion Gap 6 mmol/L (4-12); Aspartate Amino Transferase 32 U/L (14-36); Bilirubin,Total 0.8 mg/dL (0.2-1.3); Blood Urea Nitrogen 10 mg/dL (7-17); Calcium 9.5 mg/dL (8.4-10.2); Carbon Dioxide 23 mmol/L (22-30); Chloride 109 mmol/L (98-107); Estimated Glomerular Filt Rate > 60; Glucose 126 mg/dL (65-110); Lipase 22 U/L (23-300); Potassium 3.8 mmol/L (3.4-5.0); Sodium 138 mmol/L (137-145)
[2024-01-15 13:25] LABS: Basophils Absolute Auto 0.1 K/mm3 (0.0-0.1); Basophils Percent Auto 0.8 % (0.2-1.2); Eosinophils Absolute Auto 0.1 K/mm3 (0-0.3); Hematocrit 39.4 % (37.0-47.0); Immature Granulocyte Absolute 0.01 K/mm3 (0.00-0.031); Immature Granulocyte Percent A 0.2 % (0-0.5); Lymphocytes Absolute Auto 1.84 K/mm3 (0.9-3.2); Lymphocytes Percent Auto 27.8 % (18.3-44.2); Mean Corpuscular Hemoglobin 28.7 pg (26-34); Mean Platelet Volume 11.6 fl (7.4-10.4); Monocytes Absolute Auto 0.6 K/mm3 (0.1-0.6); Monocytes Percent Auto 8.9 % (2.6-8.5); Neutrophils Percent Auto 60.3 % (45.5-73.1); Platelet Count Result 243 k/mm3 (150-375); Red Blood Count 4.53 M/mm3 (4.2-5.4); Red Cell Distribution Width 13.8 % (11.5-14.5); White Blood Count 6.6 K/mm3 (4.5-10.0)
[2024-01-15 13:33] LABS: Troponin I 0.025 ng/mL (0.000-0.034)
--- NOTE | 2024-01-15 13:48 | ED.ARRPALP ---
HPI - Arrhythmia/Palpitations General Chief Complaint: Arrhythmia/Palpitations Stated Complaint: CP Time Seen by Provider: 01/15/24 12:47 History of Present Illness HPI narrative: patient is a 74-year-old female who presents ER with some discomfort to her left jaw on chest. Sudden onset today around 10:00 a.m.. It lasted for approximately 15 minutes and resolved when EMS arrived. Patient recently had a non ST elevation [place] in the last month. She underwent a cardiac catheterization that showed no disease. Patient does have atrial fibrillation. She is on Eliquis. Patient did have some palpitations today as well. She is scheduled for follow-up with Cardiology on 01/30/2024. She reports compliance with home medications. Related Data Home Medications Medication Instructions Recorded Confirmed multivitamin 1 tablet PO DAILY 06/03/23 01/07/24 alendronate 70 mg tablet 70 mg PO WEEKLY 12/25/23 01/07/24 atorvastatin 40 mg tablet 40 mg PO HS 12/25/23 01/07/24 cholecalciferol (vitamin D3) 25 1,000 unit PO DAILY 12/25/23 01/07/24 mcg (1,000 unit) tablet (Vitamin D3) diclofenac sodium 1 % topical gel 4 g topical QID PRN Back or 12/25/23 01/07/24 shoulder Pain losartan 50 mg tablet 50 mg PO DAILY 12/25/23 01/07/24 metoprolol succinate 50 mg 25 mg PO DAILY 01/06/24 01/07/24 tablet,extended release 24 hr Allergies Allergy/AdvReac Type Severity Reaction Status Date / Time No Known Allergies Allergy Verified 01/10/24 11:04 Review of Systems Review of Systems: All systems reviewed & are unremarkable except as noted in HPI and below Constitutional: Constitutional: Reports no additional constitutional complaints ENT: Reports system reviewed and no additional complaints, except as documented Cardiovascular: Cardiovascular: Reports chest pain, Reports rapid heart rate, Reports radiating jaw, neck or arm pain and Denies slow heart rate Respiratory: Respiratory: Reports no additional respiratory complaints Gastrointestinal: Gastrointestinal: Reports no additional gastrointestinal complaints Musculoskeletal: Musculoskeletal: Reports no additional musculoskeletal complaints [facility] Past Medical History Medical History Age-related osteoporosis without current pathological fracture Apical variant hypertrophic cardiomyopathy Chronic left shoulder pain History of colon polyps Hyperlipidemia Hypertension Insulin dependent type 2 diabetes mellitus Non-ST elevation myocardial infarction (NSTEMI) Osteoporosis Surgical History Surgical History History of bilateral carpal tunnel release History of cardiac catheterization (12/25/23) No obstructive coronary disease. History of colonoscopy with polypectomy Family History Family History Sibling Diabetes mellitus Father Cerebrovascular accident, Onset Age: 72 Diabetes mellitus Social History Social History Social History: Surrogate medical decision maker: Shu Mercado, daughter. Code status: Full code. Smoking packs per day: 6 Smoking cigarettes per day: 120.0 Years smoked: 50 Smoking pack-years: 300.00 Smoking status: Former smoker Tobacco type: cigarettes Additional smoking assessment comments: quit May 2023 Alcohol intake: never Substance use: never Do You Feel Safe in your Home?: Yes Lack of Transportation: No Lack of Food: Never True Current Housing: I Have Housing Concerned About Future Housing: No Difficulty Paying Gas/Electric Bills: No Difficulty Paying for Meds: No Currently Unemployed: No Education: High School Diploma/GED Difficulty w/ Childcare or Family Care: No Spiritual care concerns: No Exam Narrative: GENERAL: Well-appearing, well-nourished, and in no acute distress. HEAD: Normoc
--- NOTE | 2024-01-15 16:19 | PC.NURSE ---
heart healthy dinner tray ordered
[2024-01-15 16:39] LABS: Troponin I 0.031 ng/mL (0.000-0.034)
== END 2024-01-15 17:35 | disposition home or self-care (01) ==
PROVIDERS: Emergency Provider Emergency Medicine; PCP Emergency Medicine
DX: R07.9 Chest pain, unspecified (principal); I48.91 Unspecified atrial fibrillation; E78.5 Hyperlipidemia, unspecified; I10 Essential (primary) hypertension; E11.9 Type 2 diabetes mellitus without complications; Z79.4 Long term (current) use of insulin; Z87.891 Personal history of nicotine dependence
CPT/HCPCS: 36415; 71046; 80053; 83690; 84484; 85025; 85610; 85730; 93005; 99284

== ENCOUNTER 2024-02-27 07:10 | Outpatient (CLI) | payer OTHER, MEDICAID, SELFPAY ==
[2024-02-27 09:26] LABS: Alanine Aminotransferase 16 U/L (6-35); Alkaline Phosphatase 69 U/L (38-126); Anion Gap 4 mmol/L (4-12); Aspartate Amino Transferase 26 U/L (14-36); Bilirubin,Total 0.6 mg/dL (0.2-1.3); Blood Urea Nitrogen 11 mg/dL (7-17); Calcium 9.1 mg/dL (8.4-10.2); Carbon Dioxide 26 mmol/L (22-30); Chloride 110 mmol/L (98-107); Cholesterol 168 mg/dL (0-200); Estimated Glomerular Filt Rate > 60; Glucose 111 mg/dL (65-110); HDL Direct 51 mg/dL; Potassium 3.9 mmol/L (3.4-5.0); Sodium 140 mmol/L (137-145); Triglycerides 105 mg/dL (<150)
[2024-02-27 09:37] LABS: LDL Cholesterol Direct 97 mg/dL
[2024-02-27 09:43] LABS: Creatinine Urine 65.4 mg/dL
[2024-02-27 09:48] LABS: MALB Creatinine Ratio 16.5 mg/g (0-30); Microalbumin Urine Random 10.8 mg/L (0-16.7)
[2024-02-27 09:51] LABS: Hemoglobin A1C 7.1 % (<5.7); Vitamin D 25 Hydroxy 56.9 ng/mL
== END 2024-02-27 07:11 | disposition home or self-care (01) ==
PROVIDERS: PCP Emergency Medicine; Visit Provider Emergency Medicine
DX: E78.5 Hyperlipidemia, unspecified (principal); E11.9 Type 2 diabetes mellitus without complications; E55.9 Vitamin D deficiency, unspecified
CPT/HCPCS: 36415; 80053; 80061; 82043; 82306; 83036

== ENCOUNTER 2024-03-31 10:30 | Outpatient (RCR) | payer OTHER, MEDICAID, SELFPAY ==
[2024-01-14 10:34] VITALS: BMI 27.8
[2024-03-17 10:33] VITALS: BMI 27.8
[2024-03-17 14:35] VITALS: BMI 27.8
== END 2024-03-31 14:06 | disposition home or self-care (01) ==
LOC: ANHDMC 10:30
PROVIDERS: PCP Emergency Medicine; Visit Provider Emergency Medicine
DX: E11.40 Type 2 diabetes mellitus with diabetic neuropathy, unspecified (principal); Z79.4 Long term (current) use of insulin; Z71.89 Other specified counseling; Z71.3 Dietary counseling and surveillance
CPT/HCPCS: 95249; 97802; 97803; G0108

== ENCOUNTER 2024-05-06 07:40 | Observation (INO) | payer OTHER, MEDICAID, SELFPAY ==
[2024-05-06] VITALS (17 sets, daily range): BP systolic 103–132; BP diastolic 56–85; PULSE 43–156; RESP 15–21; TEMP 36.4–36.6; O2SAT 96–99; BMI 27.1
--- NOTE | ~2024-05-06 | CT_ITS ---
CTA chest PE protocol Ordering provider: Lori Townsend III, DO History: 74 years Female with . cp/sob . Comparison: August 15, 2018 Technique: CT angiogram chest was performed following timed intravenous injection of contrast. Thin s lice axial images and reformatted coronal images were obtained. Three dimensional reformatted images of the chest were also obtained using a [employer] workstation. . Automated exposure control and iterati ve reconstruction technique were employed. The dose-length product was 456.73 mGy-cm. 100 ML Omnipaqu e 350 was given IV. Findings: PULMONARY ARTERIES: No pulmonary embolus. VISUALIZED THORACIC INLET: Normal. MEDIASTINUM: Aorta/coronary arteries: Mild atheromatous disease. Heart/other: The heart is not enlarged. Lymph nodes: No mediastinal or hilar adenopathy. LUNGS: Bilateral lung groundglass appearing areas which may indicate atypical infection. Edema cannot be exc luded although less likely. No pulmonary nodules or masses. No effusions. No pneumothorax. VISUALIZED UPPER ABDOMEN: the visualized upper abdomen is normal. MUSCULOSKELETAL: Soft tissues: The superficial soft tissues are normal. Bones: Age appropriate degenerative changes of the spine. IMPRESSION: 1. No pulmonary embolism. 2. Bilateral groundglass appearing areas in both upper and lower lobe suggestive of atypical or seun l pneumonia. Pulmonary edema cannot be excluded. Clinical correlation advised. Reviewed, dictated and finalized at location A. IMPRESSION: 1. No pulmonary embolism. 2. Bilateral groundglass appearing areas in both upper and lower lobe suggesti ve of atypical or viral pneumonia. Pulmonary edema cannot be excluded. Clinical correlation advised.
--- NOTE | ~2024-05-06 | XR_ITS ---
XR wrist LT min 3V Ordering provider: Lori Townsend III, DO History: . pain and swelling x 3 days, NKI . Comparison: None. FINDINGS: BONES: No acute fracture or dislocation. No definite scaphoid fracture. JOINT SPACES: Cystic changes seen in the scaphoid and lunate which may indicate osteoarthritic change s. SOFT TISSUES: Normal. IMPRESSION: No acute osseous abnormality left wrist. Reviewed, dictated and finalized at location A.
--- NOTE | 2024-05-06 07:42 | ECG_ITS ---
Test Date: 2024-05-06 07:42:28 Measurements Intervals [place] Rate: 152 P: -12 AL: 122 QRS: -1 QRSD: 83 T: 177 QT: 323 QTc: 515 Interpretive Statements ATRIAL FLUTTER/TACHYCARDIA WITH RAPID VENTRICULAR RESPONSE LEFT VENTRICULAR HYPERTROPHY AND ST-T CHANGE ST-T WAVE ABNORMALITY IN ANTEROLATERAL LEADS- CONSIDER ISCHEMIA BASELINE ARTIFACT- II, III, AVR, AVF, V1 ABNORMAL ECG No previous ECG available for comparison Electronically Signed On 05-06-2024 08:12:09 CDT by Clem Peters D.O.
--- NOTE | 2024-05-06 07:47 | ED.CHESTPAIN ---
HPI - Chest Pain General Chief Complaint: Chest Pain Stated Complaint: chest pain History of Present Illness HPI narrative: Pt awoke two hours ago with anterior CP and SOB. Pt says it did not go away. Pt denies injury. Pt has been seen before for CP and has had a cardiac cath unsure of results. Pt denies calf pain. Pt denies recent surgery or trips. Pt is on a blood thinner. Rates pain 8-9/10. Related Data Home Medications Medication Instructions Recorded Confirmed atorvastatin 40 mg tablet 40 mg PO HS 12/25/23 05/06/24 diclofenac sodium 1 % topical gel 4 g topical QID PRN Back or 12/25/23 05/06/24 shoulder Pain cholecalciferol (vitamin D3) 125 125 mcg PO DAILY 05/06/24 05/06/24 mcg (5,000 unit) tablet (Vitamin D3) insulin glargine U-300 conc 300 28 unit subcut DAILY 05/06/24 05/06/24 unit/mL (3 mL) subcutaneous pen (Toujeo Max U-300 SoloStar) sotalol 80 mg tablet 40 mg PO Q12H 05/06/24 05/06/24 Allergies Allergy/AdvReac Type Severity Reaction Status Date / Time No Known Allergies Allergy Verified 05/06/24 07:43 Review of Systems Review of Systems: All systems reviewed & are unremarkable except as noted in HPI and below PMFSH Past Medical History Medical History (Updated 05/06/24 @ 14:12 by Mckayla Vitale PA-C) Apical variant hypertrophic cardiomyopathy Colon polyps Hyperlipidemia Hypertension Insulin dependent type 2 diabetes mellitus Non-ST elevation myocardial infarction (NSTEMI) Osteoporosis Surgical History Surgical History History of bilateral carpal tunnel release History of cardiac catheterization (12/25/23) No obstructive coronary disease. History of colonoscopy with polypectomy Family History Family History Sibling Diabetes mellitus Father Cerebrovascular accident, Onset Age: 72 Diabetes mellitus Social History Social History Social History: Surrogate medical decision maker: Shu Mercado, daughter. Code status: Full code. Smoking packs per day: 10 Smoking cigarettes per day: 200.0 Years smoked: 50 Smoking pack-years: 500.00 Smoking status: Former smoker Tobacco type: cigarettes Smoking end date: 05/17/23 Additional smoking assessment comments: quit May 2023 Alcohol intake: never Substance use: never Substance use type: does not use Do You Feel Safe in your Home?: Yes Lack of Transportation: No Lack of Food: Never True Current Housing: I Have Housing Concerned About Future Housing: No Difficulty Paying Gas/Electric Bills: No Difficulty Paying for Meds: No Currently Unemployed: No Education: High School Diploma/GED Difficulty w/ Childcare or Family Care: No Spiritual care concerns: No Exam Const: General: healthy appearing and no acute distress Nutritional Appearance: well nourished Orientation/consciousness: patient oriented x3 Limitations: no limitations Chest: Chest palpation & inspection: normal inspection of the chest Resp: Effort & Inspection: normal respiratory effort Auscultation: clear to auscultation bilaterally Cardio: Rate: tachycardic Rhythm: regular rhythm GI: GI Palp: Yes Soft to palpation and No Tenderness to palpation present (GI) Auscultation: normal bowel sounds Skin: General skin exam: normal color Rashes: no rashes Wounds: no wounds Neuro: General: patient oriented x3, moves all extremities, no meningeal signs and no focal motor deficits Cranial nerves: Yes Nystagmus not present Speech: normal speech Extrem: General: normal to inspection and no clubbing, cyanosis or edema Other: no calf tenderness Psych: Mental Status: mental status grossly normal Affect: normal affect Attitude: cooperative Course Vital Signs Vital signs: Vital Signs Temperature 97.9 F 05/06/ 0
[2024-05-06] MEDS: MORPHINE SULFATE (*CRX) 2 MG/ML INJ IV PUSH (08:06)
[2024-05-06 08:10] LABS: Alanine Aminotransferase 17 U/L (6-35); Albumin Level 3.7 g/dL (3.5-5.1); Alkaline Phosphatase 71 U/L (38-126); Anion Gap 12 mmol/L (4-12); Aspartate Amino Transferase 26 U/L (14-36); Bilirubin,Total 0.4 mg/dL (0.2-1.3); Blood Urea Nitrogen 14 mg/dL (7-17); Calcium 8.6 mg/dL (8.4-10.2); Carbon Dioxide 18 mmol/L (22-30); Chloride 108 mmol/L (98-107); Estimated Glomerular Filt Rate > 60; Glucose 147 mg/dL (65-110); Lipase 56 U/L (23-300); Sodium 138 mmol/L (137-145)
--- NOTE | 2024-05-06 08:13 | ECG_ITS ---
Test Date: 2024-05-06 08:14:39 Measurements Intervals [place] Rate: 62 P: 65 GA: 165 QRS: -6 QRSD: 92 T: 167 QT: 494 QTc: 502 Interpretive Statements SINUS RHYTHM WITH OCCASIONAL SUPRAVENTRICULAR PREMATURE COMPLEXES LEFT VENTRICULAR HYPERTROPHY AND ST-T CHANGE ST-T WAVE ABNORMALITY IN ANTEROLATERAL LEADS- CONSIDER ISCHEMIA BASELINE ARTIFACT- I, II, III, AVR, AVL, AVF ABNORMAL ECG Compared to ECG 05/06/2024 07:42:28 Atrial flutter no longer present Electronically Signed On 05-06-2024 09:02:01 CDT by Clem Peters D.O.
[2024-05-06 08:18] LABS: Basophils Absolute Auto 0.1 K/mm3 (0.0-0.1); Basophils Percent Auto 0.8 % (0.2-1.2); Eosinophils Absolute Auto 0.2 K/mm3 (0-0.3); Eosinophils Percent Auto 2.8 % (0-4.4); Hematocrit 39.6 % (37.0-47.0); Immature Granulocyte Absolute 0.01 K/mm3 (0.00-0.031); Immature Granulocyte Percent A 0.2 % (0-0.5); Lymphocytes Percent Auto 41.5 % (18.3-44.2); Mean Corpuscular HGB Conc 32.8 g/dl (32-36); Mean Corpuscular Hemoglobin 28.6 pg (26-34); Mean Platelet Volume 11.7 fl (7.4-10.4); Monocytes Absolute Auto 0.7 K/mm3 (0.1-0.6); Monocytes Percent Auto 11.1 % (2.6-8.5); Neutrophils Absolute Auto 2.6 K/mm3 (1.3-6.7); Neutrophils Percent Auto 43.6 % (45.5-73.1); Platelet Count Result 234 k/mm3 (150-375); Red Blood Count 4.55 M/mm3 (4.2-5.4); Red Cell Distribution Width 13.9 % (11.5-14.5)
[2024-05-06 08:21] LABS: Troponin I 0.022 ng/mL (0.000-0.034)
[2024-05-06 08:24] LABS: INR 1.3; Prothrombin Time 16.3 Seconds (11.1-14.7)
[2024-05-06 08:25] LABS: Partial Thromboplastin Time 32.3 Seconds (22.3-36.8)
[2024-05-06 08:37] LABS: D Dimer 3.22 ug/mL (<0.48)
[2024-05-06] MEDS: ASPIRIN 81 MG CHEWABLE TABLET 324 MG PO (08:52)
--- NOTE | 2024-05-06 12:36 | ADMGEN ---
This patient, Mayte Mercado, was admitted to IMU Room 206-01 @ 1209. Patient oriented to hospital policies and general routines including ID bracelet, bed and alarms, visiting hours, pain management, procedures, bathroom and other care routines, personal items, smoking policy, room service/diet, and visiting hours. Information on how to activate the Rapid Response Team has been discussed. Patient/Family are encouraged to report perceived risks to care and to ask questions if they do not understand what they are told or what they should do.
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
[2024-05-06] MEDS: SOTALOL HCL 80 MG TABLET PO ×2 (13:37→20:07)
[2024-05-06] MEDS: APIXABAN 5 MG TABLET PO ×2 (13:37→20:07)
--- NOTE | 2024-05-06 14:02 | PM.IMHP ---
H&P: HPI History of Present Illness Date/Time: 05/06/24 14:00 Chief Complaint: Chest pain. Narrative: This is a 73-year-old female with history of apical hypertrophy variant of hypertrophic cardiomyopathy, hypertension, hyperlipidemia, insulin-dependent type 2 diabetes mellitus, and recent cardiac catheterization for evaluation of chest pain in the setting of elevated troponins which showed nonobstructive disease with concerns for coronary vasospasm versus microvascular disease who presented to the emergency department via EMS from home for evaluation of chest pain. The patient provides the following history. She went to bed in her usual state of health and was awakened from sleep at about 05:30 with palpitations, mild shortness of breath, and mid chest discomfort. Her discontinued throughout in the morning and she eventually came in for evaluation. She denies syncope, near syncope, pleuritic pain, orthopnea, lower extremity edema, paroxysmal nocturnal dyspnea, nausea, and vomiting. At the time my evaluation the patient feels fine and has no complaints. In the ED: She was in atrial flutter with rapid ventricular response with rates in the 150s on arrival. She spontaneously converted to a normal sinus rhythm. Blood pressures have been stable. Chest CTA was negative for pulmonary embolism. Troponins trend thus far: 0.022 --> 3.550 --> 6.070. Cardiology was consulted and they recommend increasing her sotalol dose from 40 mg b.i.d. to 80 mg b.i.d. and she is being admitted in this setting for close monitoring. Review of Systems Review of Systems: 12 systems were reviewed and are negative except for as per HPI. [facility] Past Medical History Medical History Apical variant hypertrophic cardiomyopathy Colon polyps Hyperlipidemia Hypertension Insulin dependent type 2 diabetes mellitus Non-ST elevation myocardial infarction (NSTEMI) Osteoporosis Surgical History Surgical History History of bilateral carpal tunnel release History of cardiac catheterization (12/25/23) No obstructive coronary disease. History of colonoscopy with polypectomy Family History Family History Sibling Diabetes mellitus Father Cerebrovascular accident, Onset Age: 72 Diabetes mellitus Social History Social History Social History: Surrogate medical decision maker: Shu Mercado, daughter. Code status: Full code. Smoking packs per day: 10 Smoking cigarettes per day: 200.0 Years smoked: 50 Smoking pack-years: 500.00 Smoking status: Former smoker Tobacco type: cigarettes Smoking end date: 05/17/23 Additional smoking assessment comments: quit May 2023 Alcohol intake: never Substance use: never Substance use type: does not use Do You Feel Safe in your Home?: Yes Lack of Transportation: No Lack of Food: Never True Current Housing: I Have Housing Concerned About Future Housing: No Difficulty Paying Gas/Electric Bills: No Difficulty Paying for Meds: No Currently Unemployed: No Education: High School Diploma/GED Difficulty w/ Childcare or Family Care: No Spiritual care concerns: No Meds Home Medications and Allergies Home Medications Medication Instructions Recorded Confirmed Type atorvastatin 40 mg tablet 40 mg PO HS 12/25/23 05/06/24 History diclofenac sodium 1 % topical gel 4 g topical QID PRN Back or 12/25/23 05/06/24 History shoulder Pain blood-glucose meter,continuous #1 ea 01/06/24 05/06/24 Rx ([employer] 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
[2024-05-06] MEDS: EMPAGLIFLOZIN 10 MG TABLET PO (15:41)
[2024-05-06] MEDS: CHOLECALCIFEROL 1,000 UNITS TABLET 5000 UNITS PO (15:41)
[2024-05-06] MEDS: LOSARTAN POTASSIUM 50 MG TABLET PO (15:41)
[2024-05-06] MEDS: DICLOFENAC SODIUM 1% 100 GM GEL (*BKC) 1 APPLIC TOPICAL (15:46)
[2024-05-06 16:30] LABS: Glucose Point of Care 186 mg/dl (65-105)
[2024-05-06] MEDS: ATORVASTATIN 40 MG TABLET PO (20:07)
[2024-05-06 20:10] LABS: Glucose Point of Care 175 mg/dl (65-105)
[2024-05-07] VITALS (12 sets, daily range): BP systolic 119–134; BP diastolic 52–66; PULSE 48–96; RESP 16–18; TEMP 36.1–36.6; O2SAT 93–97
[2024-05-07 05:07] LABS: Hematocrit 38.9 % (37.0-47.0); Hemoglobin 12.6 g/dL (12.0-15.0); Mean Corpuscular HGB Conc 32.4 g/dl (32-36); Mean Corpuscular Hemoglobin 28.8 pg (26-34); Mean Platelet Volume 11.4 fl (7.4-10.4); Platelet Count Result 209 k/mm3 (150-375); Red Blood Count 4.37 M/mm3 (4.2-5.4); White Blood Count 6.4 K/mm3 (4.5-10.0)
[2024-05-07 05:16] LABS: Anion Gap 6 mmol/L (4-12); Blood Urea Nitrogen 18 mg/dL (7-17); Calcium 8.9 mg/dL (8.4-10.2); Carbon Dioxide 27 mmol/L (22-30); Chloride 105 mmol/L (98-107); Estimated Glomerular Filt Rate > 60; Glucose 152 mg/dL (65-110); Magnesium 2.1 mg/dL (1.6-2.3); Potassium 4.5 mmol/L (3.4-5.0); Sodium 138 mmol/L (137-145)
[2024-05-07 05:27] LABS: Glucose Point of Care 167 mg/dl (65-105)
[2024-05-07] MEDS: INSULIN GLARGINE (*BKC) 100 UNITS/ML 23 UNITS SUB-Q (08:04)
[2024-05-07] MEDS: LOSARTAN POTASSIUM 50 MG TABLET PO (08:07)
[2024-05-07] MEDS: EMPAGLIFLOZIN 10 MG TABLET PO (08:08)
[2024-05-07] MEDS: APIXABAN 5 MG TABLET PO (08:08)
[2024-05-07] MEDS: CHOLECALCIFEROL 1,000 UNITS TABLET 5000 UNITS PO (08:08)
[2024-05-07] MEDS: SOTALOL HCL 80 MG TABLET PO (08:08)
--- NOTE | 2024-05-07 09:17 | PM.PNCARD ---
Progress Note: A&P Assessment and Plan (1) Atrial flutter with rapid ventricular response: Code(s): I48.92 - Unspecified atrial flutter Status: Acute Assessment and Plan: Increased her Sotalol dose from 40mg BID to 80mg BID. Continue to monitor on tele. Continue home Eliquis 5mg BID. (2) Elevated troponin: Code(s): R79.89 - Other specified abnormal findings of blood chemistry Status: Acute Assessment and Plan: Likely due to demand ischemia for atrial flutter with RVR. Cardiac catheterization in December 2023 showed angiographically normal appearing coronary arteries. Does not need repeat ischemic evaluation at this time. 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 (4) Hypertension: Code(s): I10 - Essential (primary) hypertension Status: Acute Assessment and Plan: Stable. Continue home Losartan. (5) Hyperlipidemia: Code(s): E78.5 - Hyperlipidemia, unspecified Status: Acute Assessment and Plan: Continue statin (6) Apical variant hypertrophic cardiomyopathy: Code(s): I42.2 - Other hypertrophic cardiomyopathy Status: Acute Assessment and Plan: Outpatient follow up with Dr. Durant. Plan Okay for discharge home. Will arrange outpatient follow up in our office. Recommendations and plan discussed with Hospitalist. Subjective Date/time seen: 05/07/24 09:17 Interval history: Reason for visit: Atrial flutter with RVR HPI: We are consulted for atrial flutter with RVR. This is a 74 year old female with apical hypertrophic cardiomyopathy, hypertension, hyperlipidemia, type 2 diabetes mellitus who presented to [place] [facility] with chest pain, palpitations, shortness of breath. Began at 5:30 AM. In the ER, EKG showed atrial flutter with RVR with heart rates in the 150s. She spontaneously converted on her own in the ED. ER workup showed elevated D-dimer. CTA was obtained, which was negative for PE. Initial troponin negative, however, repeat at 3.550. Her symptoms resolved when she returned to normal sinus rhythm. Remains in sinus rhythm upon my evaluation. Reports lightheadedness from not eating anything all day, but is otherwise feeling well. Date of service 05/07: Feeling well today. Tele with sinus rhythm. Episode of NSVT noted overnight. Review of Systems Review of Systems: All systems reviewed & are unremarkable except as noted in HPI and below (HPI) Exam Const: General: comfortable and no acute distress HENMT: Mouth: Yes moist mucous membranes Eyes: General: appearance normal, both eyes and all related structures Sclera: sclerae normal Resp: Effort & Inspection: normal respiratory effort Cardio: Rate: regular rate Rhythm: regular rhythm Skin: General skin exam: normal color Neuro: Speech: normal speech Psych: Mental Status: mental status grossly normal Affect: normal affect Objective Data Vital Signs Vital Signs: Vital Signs - 24 hr 05/06/24 09:55 05/06/24 10:26 05/06/24 10:32 Temperature Pulse Rate 54 L 55 L 63 Respiratory Rate 15 18 21 H Blood Pressure 114/85 120/66 116/80 Pulse Oximetry 97 97 97 Oxygen Delivery 05/06/24 11:15 05/06/24 12:05 05/06/24 13:37 Temperature 36.4 C Pulse Rate 52 L 50 L 57 L Respiratory Rate 16 16 Blood Pressure 119/69 130/64 Pulse Oximetry 98 96 Oxygen Delivery 05/06/24 16:00 05/06/24 14:25 05/06/24 12:30 Temperature 36.4 C L Pulse Rate 43 L 65 60 Respiratory Rate 16 Blood Pressure 107/66 Pulse Oximetry 96 Oxygen Delivery 05/06/24 16:00 05/06/24 18:00 05/06/24 20:07 Temperature Pulse Rate 53 L 52 L 58 L Respiratory Rate Blood Pressure Pulse Oximetry Oxygen Delivery 05/06/24 20:00 05/06/24 20:00 05/06/24 20:00
[2024-05-07 11:40] LABS: Glucose Point of Care 140 mg/dl (65-105)
--- NOTE | 2024-05-07 13:21 | PM.DS ---
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 Labs, imaging, EKG, and all reports were personally reviewed. She was in rapid atrial flutter with rates in the 150s on arrival but self converted to a sinus rhythm. Her symptoms resolved thereafter and it is likely that her chest pain and shortness of breath were related to the rapid heart rate. Troponins have progressively increased though that is felt to be related to demand ischemia from the rapid heart rate as cardiac catheterization in December 2023 showed angiographically normal appearing coronary arteries. No plans to repeat ischemic evaluation at this time. Sotalol is being increased to 80 mg b.i.d. and she will be monitored closely overnight. Blood pressures were reviewed and they are stable. Continue basal insulin. Initiate sliding scale insulin, Accu-Cheks, and hypoglycemic protocol. Her home medications will be reviewed and resumed as appropriate. Findings and treatment plan were discussed with the patient and 2 daughters at bedside. Questions were solicited and answered to satisfaction. The patient's medical management will be taken over by the hospitalist team in a.m. DS: Summary Hospital Course Hospital Course: Patient is a 73-year-old female with a past medical history of cardiomyopathy, hypertension, hyperlipidemia, insulin diabetes, cardiac catheterization, chest pain you presented to the ED with complaints of AFib RVR. Troponin was elevated to 2, 3.550, 6.070. Cardiology was consulted and her sotalol was increased to 80 mg twice a day. CTA of the chest was negative for PE. On arrival heart rate was in the 150s however is better at 50s. Patient did convert to normal sinus rhythm spontaneously. Currently patient is doing well. She denies any chest pain, shortness a breath common nausea, vomiting, diarrhea constipation. Status at Discharge Functional status at discharge: independent ambulation Overall status at discharge: patient is progressing back to baseline Time Spent with Patient Time attestation: Total time spent providing and/or coordinating discharge services: 41 minutes Time spent: Greater than 30 minutes Specific discharge activities: Diagnostic testing, chart review, developing a treatment plan, education, care coordination documentation, physical exam, result review Exam Narrative: General: Well-developed female sitting up in bed in no distress. Weight: 58.8 kg. BMI: 27.1. HEENT: PERRL, EOMI. Sclera anicteric. Oral mucosa moist. Neck: Supple. No JVD. Respiratory: Lungs are clear to auscultation bilaterally. Cardiovascular: Regular rate and rhythm with S1-S2. Gastrointestinal: Abdomen is soft, nontender, and nondistended with positive bowel sounds. Skin: Warm and dry. No rash or lesions on limited exam. Extremities: No cyanosis, clubbing, or edema. Radial and pedal pulses intact. Neurological: Alert. Cranial nerves 2-12 are grossly intact. No gross focal deficits to casual conversation. Psychiatric: Pleasant and cooperative with normal mood and affect. Judgment and insight intact. DS: Data Data Completed and Pending Labs on day of discharge: Labs from last 24 h
== END 2024-05-07 17:52 | disposition home or self-care (01) ==
LOC: ANHED 10:34 → ANH3MED 11:19 → ANHIMU 12:07
PROVIDERS: Physician Assistant; Admitting Provider Family Medicine; Emergency Provider Emergency Medicine; PCP Emergency Medicine; Visit Provider Internal Medicine
DX: I21.4 Non-ST elevation (NSTEMI) myocardial infarction (principal); I48.92 Unspecified atrial flutter; R79.89 Other specified abnormal findings of blood chemistry; I42.2 Other hypertrophic cardiomyopathy; M25.532 Pain in left wrist; I10 Essential (primary) hypertension; E78.5 Hyperlipidemia, unspecified; E11.9 Type 2 diabetes mellitus without complications; I25.2 Old myocardial infarction; M81.0 Age-related osteoporosis without current pathological fracture; Z79.4 Long term (current) use of insulin; Z87.891 Personal history of nicotine dependence; Z79.01 Long term (current) use of anticoagulants; Z79.84 Long term (current) use of oral hypoglycemic drugs
CPT/HCPCS: 36415; 71275; 73110; 80048; 80053; 82948; 83690; 83735; 84443; 84484; 85025; 85027; 85380; 85610; 85730; 93005; 96374; 99285; A9270; G0378; J1815; J2270; Q9967

== ENCOUNTER 2024-05-18 08:43 | Outpatient (CLI) | payer OTHER, MEDICAID, SELFPAY ==
--- NOTE | ~2024-05-18 | MM_ITS ---
EXAMINATION: MM screening cuate BI w michelle HISTORY: Screening TECHNIQUE: Craniocaudal and mediolateral oblique 3-D tomosynthesis images were obtained and synthetic 2-D images were generated. CAD analysis was submitted and interpreted. COMPARISON: Comparison to multiple prior studies sequentially, with oldest reviewed study dated 08/15. BREAST PARENCHYMAL COMPOSITION: There are scattered areas of fibroglandular density. FINDINGS: There is no evidence of suspicious mass, calcification, or architectural distortion to sugg est malignancy in either breast. There has been no suspicious interval change. IMPRESSION: 1. No mammographic evidence of malignancy. 2. Recommend routine screening mammography in one year. BI-RADS Category 1: Negative Reviewed, dictated and finalized at location B.
--- NOTE | ~2024-05-18 | DEXA_ITS ---
Bone Density Report Name: SHANDA BRUNSON Age: 74 Sex: Female Ethnicity: Date of : 1950 Indication: osteopenia; height loss; secondary osteoporosis; Referring Provider: JOURDAN CARIAS Study: Bone densitometry was performed. Exam Date: May 18, 2024 Accession number: [id number] Bone Density: Region BMD T-score Z-score Classification AP Spine(L1-L4) 0.919 -1.2 1.1 Osteopenia Femoral Neck (Left) 0.573 -2.5 -0.6 Osteoporosis Total Hip (Left) 0.942 0.0 1.5 Normal Femoral Neck (Right) 0.705 -1.3 0.5 Osteopenia Total Hip (Right) 0.913 -0.2 1.3 Normal Total Hip Mean 0.928 -0.1 1.4 Normal World Health Organization criteria for BMD impression classify patients as: Normal (T-score at or above -1.0), Osteopenia (T-score between -1.0 and -2.5), or Osteoporosis (T-score at or below -2.5). 10-year Fracture Risk: FRAX not reported because: Some T-score for Spine Total or Hip Total or Femoral Neck at or below -2.5 Previous Exams: Region Exam Age BMD T-score BMD Change BMD Change Date g/cm2 vs Baseline vs Previous AP Spine (L1-L4) 05/18/2024 74 0.919 -1.2 0.085 (10.2%)* 0.034 (3.8%)* 09/22/2019 69 0.885 -1.5 0.051 (6.1%)* 0.051 (6.1%)* 07/01/2017 67 0.834 -1.9 Total Hip(Left) 05/18/2024 74 0.942 0.0 0.091 (10.7%)* 0.072 (8.2%)* 09/22/2019 69 0.871 -0.6 0.020 (2.3%) 0.020 (2.3%) 07/01/2017 67 0.851 -0.7 Total Hip(Right) 05/18/2024 74 0.913 -0.2 0.133 (17.1%)* 0.105 (12.9%)* 09/22/2019 69 0.809 -1.1 0.029 (3.7%)* 0.029 (3.7%)* 07/01/2017 67 0.780 -1.3 *Denotes significance at 95% confidence level, LSC for AP Spine = 0.022 g/cm2, LSC for Total Hip = 0.027 g/cm2 Clinical Information Provided by Patient: Has secondary osteoporosis Has used the following medications: Vitamin D, Calcium Patient maximum height was 62.0 No regular weight bearing exercise Drinks caffeinated beverages Onset of menses at age 14 Number of children 4 Missed period for more than 6 months in a row Impression: The patient has osteoporosis, based on the Left Femoral Neck T-score. No significant bone loss was observed. Discussion: INCREASED RISK OF FRACTURE. BONE DENSITY IS UNDESIRABLY LOW AT ONE OR MORE SKELETAL SITES, CONSISTENT WITH POSTMENOPAUSAL OSTEOPOROSIS. This patient's lowest T-score meets the World Health Organization's (WHO) criteria for osteoporosis at one or more sites (T-score -2.5 o
== END 2024-05-18 08:44 | disposition home or self-care (01) ==
LOC: ANHIMG 08:43
PROVIDERS: PCP Emergency Medicine; Visit Provider Emergency Medicine
DX: Z12.31 Encounter for screening mammogram for malignant neoplasm of breast (principal); M81.0 Age-related osteoporosis without current pathological fracture; Z78.0 Asymptomatic menopausal state
CPT/HCPCS: 77063; 77067; 77080

== ENCOUNTER 2024-06-03 08:33 | Outpatient (CLI) | payer OTHER, MEDICAID, SELFPAY ==
[2024-06-03 09:36] LABS: Alanine Aminotransferase 103 U/L (6-35); Albumin Level 4.2 g/dL (3.5-5.1); Alkaline Phosphatase 138 U/L (38-126); Anion Gap 10 mmol/L (4-12); Aspartate Amino Transferase 110 U/L (14-36); Bilirubin,Total 0.7 mg/dL (0.2-1.3); Blood Urea Nitrogen 22 mg/dL (7-17); Calcium 8.8 mg/dL (8.4-10.2); Carbon Dioxide 27 mmol/L (22-30); Chloride 104 mmol/L (98-107); Cholesterol 127 mg/dL (0-200); Estimated Glomerular Filt Rate > 60; Glucose 84 mg/dL (65-110); HDL Direct 47 mg/dL; Potassium 3.9 mmol/L (3.4-5.0); Sodium 141 mmol/L (137-145); Triglycerides 88 mg/dL (<150)
[2024-06-03 09:46] LABS: Creatinine Urine 94.9 mg/dL
[2024-06-03 09:47] LABS: LDL Cholesterol Direct 55 mg/dL
[2024-06-03 09:49] LABS: MALB Creatinine Ratio 54.2 mg/g (0-30); Microalbumin Urine Random 51.4 mg/L (0-16.7)
[2024-06-03 10:17] LABS: Vitamin D 25 Hydroxy 52.8 ng/mL
[2024-06-03 10:47] LABS: Hemoglobin A1C 7.2 % (<5.7)
== END 2024-06-03 08:34 | disposition home or self-care (01) ==
LOC: ANHLAB 08:38
PROVIDERS: PCP Emergency Medicine; Visit Provider Emergency Medicine
DX: E11.9 Type 2 diabetes mellitus without complications (principal); E55.9 Vitamin D deficiency, unspecified; E78.5 Hyperlipidemia, unspecified
CPT/HCPCS: 36415; 80053; 80061; 82043; 82306; 83036

== ENCOUNTER 2024-06-10 13:02 | Emergency (ER) | payer OTHER, MEDICAID, SELFPAY ==
[2024-06-10] VITALS (7 sets, daily range): BP systolic 97–116; BP diastolic 44–63; PULSE 45–52; RESP 13–22; TEMP 36.4–36.8; O2SAT 92–98
--- NOTE | ~2024-06-10 | CT_ITS ---
EXAMINATION: CT abdomen pelvis w con DATE: 06/10/2024 14:49 INDICATION: Abdominal pain. TECHNIQUE: Computed tomography (CT) of the abdomen and pelvis was performed with 100 mL Omnipaque 350 intravenous contrast. Automated exposure control and iterative reconstruction technique were employe d. The dose-length product was 268.24 mGy-cm. COMPARISON: CT abdomen and pelvis 06/20/12 FINDINGS: The visualized portions of the lung bases demonstrate mild atelectasis. No pleural effusion . Cardiomegaly is noted. No pericardial effusion. The liver, gallbladder, spleen, and adrenal glands are normal. There are calcifications in the pancreas, consistent with chronic pancreatitis. Right kid jose is normal. There is a 7 mm cyst in left kidney. There are no dilated loops of bowel. The appendix is normal. The periuterine veins and left ovarian vein are enlarged, consistent with pelvic venous i nsufficiency. There is calcified atherosclerosis of the aorta and many of the other arteries. There a re no pathologically enlarged lymph nodes. There is no ascites. There is severe thoracic spondylosis and mild lumbar spondylosis. IMPRESSION: 1. Pelvic venous insufficiency. Reviewed, dictated and finalized at location A.
--- NOTE | 2024-06-10 13:14 | ECG_ITS ---
Test Date: 2024-06-10 13:19:50 Measurements Intervals [place] Rate: 42 P: 0 DC: 0 QRS: -2 QRSD: 82 T: 165 QT: 513 QTc: 429 Interpretive Statements JUNCTIONAL RHYTHM WITH 1 PAC LEFT VENTRICULAR HYPERTROPHY WITH SECONDARY REPOLARIZATION ABNORMALITY ABNORMAL ECG Compared to ECG 05/06/2024 08:14:39 JUNCTIONAL RHYTHM REPLACES SINUS RHYTHM Electronically Signed On 06-11-2024 13:09:11 CDT by Pernell Durant M.D.
--- NOTE | 2024-06-10 13:21 | ED.GENADULT ---
HPI - General Adult General Chief complaint: GI Bleed Stated complaint: rectal bleeding Time Seen by Provider: 06/10/24 13:06 History of Present Illness HPI narrative: 74-year-old female presented to the emergency department for evaluation for bright red blood per rectum. Patient had bright red blood per rectum 3 times yesterday with every bowel movement. Patient states today she had right red blood per rectum without even having solid stool. Patient does take Eliquis and diltiazem for AFib with RVR. Patient does have a history of hemorrhoids but denies any prior history of GI bleed. Related Data Home Medications Medication Instructions Recorded Confirmed atorvastatin 40 mg tablet 40 mg PO HS 12/25/23 06/10/24 diclofenac sodium 1 % topical gel 4 g topical QID PRN Back or 12/25/23 06/10/24 shoulder Pain cholecalciferol (vitamin D3) 125 125 mcg PO DAILY 05/06/24 06/10/24 mcg (5,000 unit) tablet (Vitamin D3) insulin glargine U-300 conc 300 28 unit subcut DAILY 05/06/24 06/10/24 unit/mL (3 mL) subcutaneous pen (Toujeo Max U-300 SoloStar) diltiazem HCl 120 mg 120 mg PO DAILY 06/10/24 tablet,extended release 24 hr pantoprazole 40 mg tablet,delayed 40 mg PO DAILY 06/10/24 release Allergies Allergy/AdvReac Type Severity Reaction Status Date / Time No Known Allergies Allergy Verified 06/10/24 09:51 Review of Systems Review of Systems: All systems reviewed & are unremarkable except as noted in HPI and below PMFSH Past Medical History Medical History Apical variant hypertrophic cardiomyopathy Colon polyps Hyperlipidemia Hypertension Insulin dependent type 2 diabetes mellitus Non-ST elevation myocardial infarction (NSTEMI) Osteoporosis Surgical History Surgical History History of bilateral carpal tunnel release History of cardiac catheterization (12/25/23) No obstructive coronary disease. History of colonoscopy with polypectomy Family History Family History Sibling Diabetes mellitus Father Cerebrovascular accident, Onset Age: 72 Diabetes mellitus Social History Social History Social History: Surrogate medical decision maker: Shu Mercado, daughter. Code status: Full code. Smoking packs per day: 10 Smoking cigarettes per day: 200.0 Years smoked: 50 Smoking pack-years: 500.00 Smoking status: Former smoker Tobacco type: cigarettes Smoking end date: 05/17/23 Additional smoking assessment comments: quit May 2023 Alcohol intake: never Substance use: never Substance use type: does not use Do You Feel Safe in your Home?: Yes Lack of Transportation: No Lack of Food: Never True Current Housing: I Have Housing Concerned About Future Housing: No Difficulty Paying Gas/Electric Bills: No Difficulty Paying for Meds: No Currently Unemployed: No Education: High School Diploma/GED Difficulty w/ Childcare or Family Care: No Spiritual care concerns: No Exam Narrative: APPEARANCE: Well appearing, no pain, no distress, well-nourished. HEAD: normocephalic, atraumatic. EYES: PERRLA/EOMI, conjunctivae clear. NOSE: Normal no drainage EARS:TMS clear with good light reflex. THROAT: Pharynx clear, no exudate. NECK: Supple. No adenopathy, no masses. RESPIRATORY: Airway patent, respirations nonlabored. Clear to auscultation bilaterally, no rales, rhonchi, wheezing. CARDIOVASCULAR: Regular rate and rhythm without murmurs rubs or gallops. ABDOMINAL: Soft, nontender, nondistended, normal bowel sounds MUSCULOSKELETAL: Moves all extremities. Strength/ROM intact, No edema, No calf tenderness. NEURO: Alert. Cranial nerves II through XII intact. Good gait. Good coordination Rectal exam: Hemoccult negative on the digi
[2024-06-10 13:29] LABS: Basophils Absolute Auto 0.1 K/mm3 (0.0-0.1); Basophils Percent Auto 0.7 % (0.2-1.2); Eosinophils Absolute Auto 0.2 K/mm3 (0-0.3); Eosinophils Percent Auto 2.6 % (0-4.4); Hematocrit 38.9 % (37.0-47.0); Hemoglobin 12.8 g/dL (12.0-15.0); Immature Granulocyte Absolute 0.02 K/mm3 (0.00-0.031); Immature Granulocyte Percent A 0.2 % (0-0.5); Lymphocytes Absolute Auto 2.42 K/mm3 (0.9-3.2); Lymphocytes Percent Auto 28.6 % (18.3-44.2); Mean Corpuscular HGB Conc 32.9 g/dl (32-36); Mean Corpuscular Volume 88.2 fl (80-100); Mean Platelet Volume 11.5 fl (7.4-10.4); Monocytes Percent Auto 11.5 % (2.6-8.5); Neutrophils Absolute Auto 4.8 K/mm3 (1.3-6.7); Neutrophils Percent Auto 56.4 % (45.5-73.1); Platelet Count Result 250 k/mm3 (150-375); Red Blood Count 4.41 M/mm3 (4.2-5.4); White Blood Count 8.5 K/mm3 (4.5-10.0)
[2024-06-10 13:41] LABS: Alanine Aminotransferase 29 U/L (6-35); Albumin Level 4.2 g/dL (3.5-5.1); Alkaline Phosphatase 117 U/L (38-126); Anion Gap 12 mmol/L (4-12); Aspartate Amino Transferase 28 U/L (14-36); Bilirubin,Total 0.8 mg/dL (0.2-1.3); Blood Urea Nitrogen 16 mg/dL (7-17); Calcium 9.1 mg/dL (8.4-10.2); Carbon Dioxide 23 mmol/L (22-30); Chloride 105 mmol/L (98-107); Estimated Glomerular Filt Rate > 60; Glucose 141 mg/dL (65-110); Partial Thromboplastin Time 36.7 Seconds (22.3-36.8); Potassium 4.3 mmol/L (3.4-5.0); Sodium 140 mmol/L (137-145)
[2024-06-10 13:46] LABS: INR 1.5; Prothrombin Time 18.8 Seconds (11.1-14.7)
== END 2024-06-10 16:00 | disposition home or self-care (01) ==
PROVIDERS: Emergency Provider Emergency Medicine; PCP Emergency Medicine
DX: K62.5 Hemorrhage of anus and rectum (principal); I48.91 Unspecified atrial fibrillation; I42.2 Other hypertrophic cardiomyopathy; I10 Essential (primary) hypertension; I25.2 Old myocardial infarction; E78.5 Hyperlipidemia, unspecified; E11.9 Type 2 diabetes mellitus without complications; M81.0 Age-related osteoporosis without current pathological fracture; Z86.010 Personal history of colon polyps; Z87.891 Personal history of nicotine dependence; Z79.4 Long term (current) use of insulin; Z79.899 Other long term (current) drug therapy; Z79.84 Long term (current) use of oral hypoglycemic drugs; Z79.01 Long term (current) use of anticoagulants; I87.2 Venous insufficiency (chronic) (peripheral)
CPT/HCPCS: 36415; 74177; 80053; 85025; 85610; 85730; 86850; 86900; 86901; 93005; 99284; Q9967

== ENCOUNTER 2024-08-17 10:30 | Outpatient (RCR) | payer OTHER, MEDICAID, SELFPAY | END 2024-08-31 10:54 | disposition home or self-care (01) | LOC: ANHDMC 10:30 | PROVIDERS: PCP Emergency Medicine; Visit Provider Emergency Medicine | DX: E11.40 Type 2 diabetes mellitus with diabetic neuropathy, unspecified (principal); Z71.89 Other specified counseling; Z60.3 Acculturation difficulty | CPT/HCPCS: G0108 ==

== ENCOUNTER 2024-09-19 10:34 | Observation (INO) | payer OTHER, MEDICAID, SELFPAY ==
[2024-09-19] VITALS (8 sets, daily range): BP systolic 116–145; BP diastolic 46–75; PULSE 61–150; RESP 16–20; TEMP 36.4–36.6; O2SAT 96–100; BMI 26.7
--- NOTE | ~2024-09-19 | XR_ITS ---
EXAMINATION: XR chest 2V DATE: 09/19/2024 10:51 INDICATION: Chest pain. Shortness of breath. TECHNIQUE: Frontal and lateral views of the chest were obtained. COMPARISON: Chest 2 views 01/15/2024, CT abdomen and pelvis 06/10/2024 FINDINGS: There is mild atelectasis at right lung base. No pleural effusion or pneumothorax. Cardiome case is noted. IMPRESSION: 1. Mild atelectasis at right lung base. 2. Cardiomegaly. Reviewed, dictated and finalized at location [facility]. 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
--- NOTE | ~2024-09-19 | CT_ITS ---
EXAMINATION: CTA chest PE protocol DATE: 09/19/2024 15:54 INDICATION: Chest pain, shortness of breath. Elevated d-dimer. TECHNIQUE: Computed tomography angiography (CTA) of the chest was performed with 100 mL Omnipaque-350 intravenous contrast timed to evaluate the pulmonary arteries. Coronal maximum intensity projection 3D-reconstructions were created by the technologist. Automated exposure control and iterative reconst ruction technique were employed. Exam dose: 229.06 mGy-cm total exam DLP. COMPARISON: 09/19/2024 2 view chest FINDINGS: There is diagnostic contrast enhancement of the pulmonary arteries and no evidence of pulmo nary embolism. There is thoracic aortic and minimal descending thoracic aortic calcification. No thoracic aortic ane urysm. No hilar or mediastinal mass lesion or lymphadenopathy is evident. Mild hilar or mediastinal lymph no de prominence is likely reactive Cardiomegaly. No pericardial or pleural effusion. There are patchy groundglass infiltrates throughout both lungs which may be due to pneumonitis or sma ll airways disease. No pneumothorax. Normal morphology of the adrenal glands. There are multiple prostate calcifications suggesting chronic pancreatitis. IMPRESSION: No evidence of pulmonary embolism Patchy groundglass infiltrates scattered throughout both lungs, which may be due to pneumonia or smal l airways disease Cardiomegaly, aortic atherosclerosis Reviewed, dictated and finalized at [facility]. Reviewed, dictated and finalized at location [facility]. 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
--- NOTE | 2024-09-19 10:42 | ECG_ITS ---
Test Date: 2024-09-19 10:43:19 Measurements Intervals [place] Rate: 147 P: 0 NH: 0 QRS: -7 QRSD: 75 T: 161 QT: 334 QTc: 524 Interpretive Statements ATRIAL FLUTTER/TACHYCARDIA WITH RAPID VENTRICULAR RESPONSE LEFT VENTRICULAR HYPERTROPHY AND ST-T CHANGE [VOLTAGE CRITERIA PLUS ST/T ABNORMALITY] Compared to ECG 06/10/2024 13:19:50 atrial flutter has replaced junctional bradycardia Electronically Signed On 09-19-2024 14:42:43 FIRST AID OFFICER by Christiano Roper M.D.
--- NOTE | 2024-09-19 10:49 | PC.NURSE ---
Pt to x-ray. Stacy at bedside and updated.
[2024-09-19 11:07] LABS: Basophils Percent Auto 0.5 % (0.2-1.2); Eosinophils Absolute Auto 0.1 K/mm3 (0-0.3); Eosinophils Percent Auto 1.6 % (0-4.4); Hematocrit 45.1 % (37.0-47.0); Hemoglobin 14.9 g/dL (12.0-15.0); Immature Granulocyte Absolute 0.03 K/mm3 (0.00-0.031); Immature Granulocyte Percent A 0.4 % (0-0.5); Lymphocytes Absolute Auto 1.38 K/mm3 (0.9-3.2); Lymphocytes Percent Auto 18.4 % (18.3-44.2); Mean Corpuscular Hemoglobin 27.9 pg (26-34); Mean Corpuscular Volume 84.3 fl (80-100); Mean Platelet Volume 10.9 fl (7.4-10.4); Monocytes Absolute Auto 0.7 K/mm3 (0.1-0.6); Monocytes Percent Auto 9.6 % (2.6-8.5); Neutrophils Absolute Auto 5.2 K/mm3 (1.3-6.7); Neutrophils Percent Auto 69.5 % (45.5-73.1); Platelet Count Result 229 k/mm3 (150-375); Red Blood Count 5.35 M/mm3 (4.2-5.4); Red Cell Distribution Width 14.7 % (11.5-14.5); White Blood Count 7.5 K/mm3 (4.5-10.0)
[2024-09-19 11:17] LABS: Alanine Aminotransferase 20 U/L (6-35); Albumin Level 4.2 g/dL (3.5-5.1); Alkaline Phosphatase 106 U/L (38-126); Anion Gap 7 mmol/L (4-12); Aspartate Amino Transferase 31 U/L (14-36); Blood Urea Nitrogen 10 mg/dL (7-17); Calcium 9.1 mg/dL (8.4-10.2); Carbon Dioxide 24 mmol/L (22-30); Chloride 108 mmol/L (98-107); Estimated Glomerular Filt Rate > 60; Glucose 118 mg/dL (65-110); Lipase 26 U/L (23-300); Potassium 3.9 mmol/L (3.4-5.0); Sodium 139 mmol/L (137-145)
--- NOTE | 2024-09-19 11:24 | PC.NURSE ---
Pt not given ordered aspirin d/t pt. refusal. Pt. 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
[2024-09-19 11:29] LABS: Troponin I 0.024 ng/mL (0.000-0.034)
[2024-09-19 11:42] LABS: INR 1.1
[2024-09-19 11:43] LABS: Partial Thromboplastin Time 31.1 Seconds (22.3-36.8)
--- NOTE | 2024-09-19 13:46 | ECG_ITS ---
Test Date: 2024-09-19 14:00:21 Measurements Intervals [place] Rate: 62 P: 57 NE: 165 QRS: -12 QRSD: 90 T: 178 QT: 466 QTc: 476 Interpretive Statements SINUS RHYTHM WITH SINUS ARRHYTHMIA LEFT VENTRICULAR HYPERTROPHY AND ST-T CHANGE [VOLTAGE CRITERIA PLUS ST/T ABNORMALITY] Compared to ECG 09/19/2024 10:43:19 Atrial flutter no longer present Electronically Signed On 09-19-2024 14:42:56 TENANT SELECTOR by Christiano Roper M.D.
[2024-09-19 14:31] LABS: Alveolar/Arterial O2 Gradient 29.4 mmHg; Fractional Inspired Oxygen 21 %; HCO3 ABG 22.4 mEq/l (22.0-26.0); Oxygen Content ABG 19.8 %vol (16.0-22.0); Oxygen Saturation ABG 97.6 % (95.0-100.0); Oxyhemoglobin 96.4 % THb (90.0-100.0); PCO2 ABG 27.6 mmHg (35.0-45.0); PO2 ABG 87.3 mmHg (80.0-100.0); PO2 FiO2 Ratio Arterial Blood 4.16 %; Total Hemoglobin 14.6 g/dL (12.0-18.0)
[2024-09-19 14:32] LABS: Device ROOM AIR; Modified Allen's Test Pass; Site Drawn RIGHT BRACHIAL; pH ABG 7.528 (7.350-7.450)
[2024-09-19 14:44] LABS: Troponin I 0.662 ng/mL (0.000-0.034)
--- NOTE | 2024-09-19 14:57 | ED_ITS ---
HPI - Chest Pain General Chief Complaint: Chest Pain Stated Complaint: SOB with CP Time Seen by Provider: 09/19/24 12:25 Source: patient, family ( daughter and granddaughter) and RN notes reviewed Mode of arrival: EMS Limitations: other ( Thai is a 2nd language however patient has very good and comprehension and fluency in Thai language) History of Present Illness HPI narrative: patient presents with report of chest pain, shortness of breath with inspiration, and palpitations. This started at 8:30 a.m. this morning and woke her from her sleep. Per her son, she did not look well yesterday however carmita ent kept saying she felt fine in today she continues to states that yesterday she had no symptoms. During today's episode she was not diaphoretic. She was nauseated and tried to but has not actually vomited And her nausea is actually better now. She only had thick clear sputum in her mouth. Denies any fevers or chills. her chest pain was left-sided. She felt dizzy during this. She checked her blood sugar at home was 98 mg/dL. Per EMS, she was found to be saturating 89% on room air and 2 L nasal cannula was applied. Her heart rate was noted to be 144. History of apical hypertrophic cardiomyopathy.. She states she is on a rate controlling medication for her AFib as well as anticoagulation. She has not been diagnosed with hypertension but has been keeping a log as requested given her primary care physician is monitoring this. She does have a history of hyperlipidemia and is on a statin. She has type 2 diabetes mellitus and is on both insulin as well as oral medication. She quit smoking last year. She has a history of an NSTEMI. No TIA or CVA history. No family history of a myocardial infarction in first-degree relative before the age of 65. She has been taking her medications as prescribed. She had a cardiac catheterization performed in December or January and was noted to not have any blockages. She does not have a cardiac stent. She follows with quiller machine fixer Dr. Chaparro and has an appointment on Saturday to discuss possible referral to [facility] for a possible procedure although she has not though the details. Related Data Home Medications Medication Instructions Recorded Confirmed cholecalciferol (vitamin D3) 125 125 mcg PO DAILY 05/06/24 09/19/24 mcg (5,000 unit) tablet (Vitamin D3) insulin glargine U-300 conc 300 28 unit subcut DAILY 05/06/24 09/19/24 unit/mL (3 mL) subcutaneous pen (Toujeo Max U-300 SoloStar) diltiazem HCl 120 mg 120 mg PO DAILY 06/10/24 09/19/24 tablet,extended release 24 hr alendronate 70 mg tablet 70 mg PO WEEKLY 09/19/24 09/19/24 apixaban 5 mg tablet (Eliquis) 5 mg PO Q12H 09/19/24 09/19/24 atorvastatin 40 mg tablet 40 mg PO HS 09/19/24 09/19/24 empagliflozin 10 mg tablet 10 mg PO DAILY 09/19/24 09/19/24 (Jardiance) sotalol 80 mg tablet 80 mg PO Q12H 09/19/24 09/19/24 Allergies Allergy/AdvReac Type Severity Reaction Status Date / Time No Known Allergies Allergy Verified 09/16/24 10:41 [facility] Past Medical History Medical History Apical variant hypertrophic cardiomyopathy Atrial fibrillation with rapid ventricular response Atrial flutter Bradycardia Colon polyps Hyperlipidemia Hypertension Insulin dependent type 2 diabetes mellitus Non-ST elevation myocardial infarction (NSTEMI) Osteoporosis Rectal bleeding Surgical History Surgical History History of bilateral carpal tunnel release History of cardiac catheterization (12/25/23) No obstructive coronary disease. History of colonoscopy with polypectomy Family History Family History Sibling Diabetes mellitus Father Cerebrovascular accident, Onset Age: 72 Diabetes mellitus Social History Social History Social History: Surrogate medical decision maker: Shu Mercado, daughter. Code status: Full code. Smoking packs per day: 10 Smoking cigarettes per day: 200.0 Years smoked: 50 Smoking pack-years: 500.00 Smoking status: Former smoker Additional smoking assessment comments: quit May 2023 Alcohol intake: never Substance use: never Substance use type: does not use Do You Feel Safe in your Home?: Yes Lack of Transportation: No Lack of Food: Never True Current Housing: I Have Housing Concerned About Future Housing: No Difficulty Paying Gas/Electric Bills: No Difficulty Paying for Meds: No Currently Unemployed: No Education: High School Diploma/GED Difficulty w/ Childcare or Family Care: No Spiritual care concerns: No Exam Narrative: GENERAL: Well-appearing, well-nourished, and in no acute distress. HEAD: Normocephalic, atraumatic. EYES: Non injected, non icteric ENT: Nares clear, no rhinorrhea or epistaxis. NECK: Supple. CHEST: Speaking in full sentences. No respiratory distress. lungs clear to auscultation bilaterally without wheezes or crackles HEART: rate controlled at the time of my assessment ABDOMEN: Soft, nondistended. EXTREMITIES: Normal range of motion. No lower extremity edema. SKIN: Warm, dry, no rash. NEURO: No focal deficits. Alert and oriented x3. PSYCH: Normal mood and affect. Course Vital Signs Vital signs: Vital Signs Temperature 97.8 F 09/19/24 10:43 Pulse Rate 150 H 09/19/24 10:43 Respiratory Rate 20 09/19/24 10:43 Blood Pressure 145/72 H 09/19/24 10:43 Pulse Oximetry 97 09/19/24 10:43 Oxygen Delivery Room Air 09/19/24 10:43 Temperature 98.0 F 09/21/24 11:37 Pulse Rate 64 09/21/24 14:00 Respiratory Rate 16 09/21/24 11:37 Blood Pressure 116/50 L 09/21/24 11:37 Pulse Oximetry 97 09/21/24 11:37 Oxygen Delivery Room Air 09/21/24 12:00 MDM - Chest Pain MDM Narrative Medical decision making narrative: Patient with a history of atrial fibrillation and apical Hypertrophic cardiomyopathy presents with an episode of chest pain, shortness of breath, palpitations. she is on reportedly on a rate controlling medication as well as anticoagulation. In the emergency department she is afebrile with vital signs notable for hypertension and tachycardia/elevated heart rate. Patient was initially in atrial flutter/fibrillation/tachycardia with rapid ventricular response of 147 beats per minute however she spontaneously converted. She was initially mildly hypertensive. Have been reported that she was hypoxic at 89% on room air by EMS for which she was placed on 2 L nasal cannula however she is not hypoxic in the emergency department this is subsequently removed without desaturation. HEART SCORE History 2 highly suspicious 1 moderately suspicious 0 slightly suspicious History score [address] depression/elevation not due to LBBB, LVH, or digoxin [address] depression but LBBB, LVH, nonspecific repolarization changes 0 normal ECG score 1 (chronic) Age 2 >/= 65 1 45-64 0 <45 Age score 2 Risk factors (HTN, hypercholesterolemia, DM, obesity with BMI >30, current smoker or cessation </=3mo), positive fam hx with parent or sibling with CVD before age 65, atherosclerotic disease (prior AR, PCI/CABG, CVA/TIA, or perip heral arterial disease) 2 >/= 3 risk factors or history of atherosclerotic dz 1 - 1-2 risk factors 0 no known risk factors Risk factor score 2 (HLD, DM, prior NSTEMI) Initial Troponin 2 >3 times normal limit 1 1-3 times normal limit 0 less than or equal to normal limit Troponin score 0 Total HEART Score 5. Patient's initial troponin is within normal limits although not negligible. Repeat (3 hour) is elevated, although lower than has previously been per review of the EMR. Discussed patient with on-call non coffee attendant Dr Mathew Valdez. We also discussed her previous cardiac catheterization her risk factors. Given the collective information, he does recommend admitting for continued monitoring. Discussed with patient and her family, amenable. Discussed with stone and plate preparer apprentice spitalist TOPHER Morley. Differential Diagnosis Differential diagnosis: Likely stable angina, unstable angina pectoris, atypical chest pain, st elevation myocardial infarction, chest pain and other (afib/RVR; palpitations; considered Vtach; PE) Medical Records Data Attestation: I reviewed the patient's medical records. Medical records narrative: Cardiac catheterization procedure note from December 2023 is reviewed which did not show any occlusion/stenosis/blockages although did show some luminal irregularities in several vessels Lab Data Attestation: I reviewed the patient's lab results. 09/21/24 03:57 09/21/24 03:57 Labs: Lab Results 09/19/24 09/19/24 09/19/24 Range/Units 11:00 11:01 13:18 WBC 7.5 (4.5-10.0) K/mm3 RBC 5.35 (4.2-5.4) M/mm3 Hgb 14.9 (12.0-15.0) g/dL Hct 45.1 (37.0-47.0) % MCV 84.3 (80-100) fl MCH 27.9 (26-34) pg MCHC 33.0 (32-36) g/dl RDW 14.7 H (11.5-14.5) % Plt Count 229 (150-375) k/mm3 MPV 10.9 H (7.4-10.4) fl Immature Gran % (Auto) 0.4 (0-0.5) % Neut % (Auto) 69.5 (45.5-73.1) % Lymph % (Auto) 18.4 (18.3-44.2) % Coffee % (Auto) 9.6 H (2.6-8.5) % Eos % (Auto) 1.6 (0-4.4) % Baso % (Auto) 0.5 (0.2-1.2) % Lymph # (Auto) 1.38 (0.9-3.2) K/mm3 Coffee # (Auto) 0.7 H (0.1-0.6) K/mm3 Eos # (Auto) 0.1 (0-0.3) K/mm3 Baso # (Auto) 0.0 (0.0-0.1) K/mm3 Abs Immat Gran (auto) 0.03 (0.00-0.031) K/mm3 Absolute Neuts (auto) 5.2 (1.3-6.7) K/mm3 Absolute Nucleated RBC 0.000 (0.0-0.012) K/mm3 Nucleated RBC % 0.0 (0.0-0.2) % PT 15.0 H (11.1-14.7) Seconds INR 1.1 APTT 31.1 (22.3-36.8) Seconds D-Dimer 1.56 H (<0.48) ug/mL Sodium 139 (137-145) mmol/L Potassium 3.9 (3.4-5.0) mmol/L Chloride 108 H (98-107) mmol/L Carbon Dioxide 24 (22-30) mmol/L Anion Gap 7 (4-12) mmol/L BUN 10 D (7-17) mg/dL Creatinine 0.60 L (0.7-1.0) mg/dL Estim Creat Clear Calc Not Reportable Estimated GFR > 60 (59 - ) Glucose 118 H (65-110) mg/dL POC Capillary Glucose 94 (65-105) mg/dl Calcium 9.1 (8.4-10.2) mg/dL Total Bilirubin 1.0 (0.2-1.3) mg/dL AST 31 (14-36) U/L ALT 20 (6-35) U/L Alkaline Phosphatase 106 (38-126) U/L Troponin I 0.024 (0.000-0.034) ng/mL NT-Pro-B Natriuret Pep (19.9-100) pg/mL Total Protein 7.0 (6.3-8.2) g/dL Albumin 4.2 (3.5-5.1) g/dL Lipase 26 (23-300) U/L Influenza A (RT-PCR) (Negative) Influenza B (RT-PCR) (Negative) RSV (RT-PCR) (Negative) SARS-CoV-2 RNA (RT-PCR) (Negative) 09/19/24 09/19/24 09/19/24 Range/Units 14:01 14:34 16:52 WBC (4.5-10.0) K/mm3 RBC (4.2-5.4) M/mm3 Hgb (12.0-15.0) g/dL Hct (37.0-47.0) % MCV (80-100) fl MCH (26-34) pg MCHC (32-36) g/dl RDW (11.5-14.5) % Plt Count (150-375) k/mm3 MPV (7.4-10.4) fl Immature Gran % (Auto) (0-0.5) % Neut % (Auto) (45.5-73.1) % Lymph % (Auto) (18.3-44.2) % Coffee % (Auto) (2.6-8.5) % Eos % (Auto) (0-4.4) % Baso % (Auto) (0.2-1.2) % Lymph # (Auto) (0.9-3.2) K/mm3 Coffee # (Auto) (0.1-0.6) K/mm3 Eos # (Auto) (0-0.3) K/mm3 Baso # (Auto) (0.0-0.1) K/mm3 Abs Immat Gran (auto) (0.00-0.031) K/mm3 Absolute Neuts (auto) (1.3-6.7) K/mm3 Absolute Nucleated RBC (0.0-0.012) K/mm3 Nucleated RBC % (0.0-0.2) % PT (11.1-14.7) Seconds INR APTT (22.3-36.8) Seconds D-Dimer (<0.48) ug/mL Sodium (137-145) mmol/L Potassium (3.4-5.0) mmol/L Chloride (98-107) mmol/L Carbon Dioxide (22-30) mmol/L Anion Gap (4-12) mmol/L BUN (7-17) mg/dL Creatinine (0.7-1.0) mg/dL Estim Creat Clear Calc Estimated GFR (59 - ) Glucose (65-110) mg/dL POC Capillary Glucose (65-105) mg/dl Calcium (8.4-10.2) mg/dL Total Bilirubin (0.2-1.3) mg/dL AST (14-36) U/L ALT (6-35) U/L Alkaline Phosphatase (38-126) U/L Troponin I 0.662 H* D 1.790 H* D (0.000-0.034) ng/mL NT-Pro-B Natriuret Pep 2360 H (19.9-100) pg/mL Total Protein (6.3-8.2) g/dL Albumin (3.5-5.1) g/dL Lipase (23-300) U/L Influenza A (RT-PCR) Negative (Negative) Influenza B (RT-PCR) Negative (Negative) RSV (RT-PCR) Negative (Negative) SARS-CoV-2 RNA (RT-PCR) Negative (Negative) ABG Data ABG results: 09/19/24 14:22 Puncture Site Right brachial ABG pH 7.528 H* ABG pCO2 27.6 L ABG pO2 87.3 ABG PO2/FiO2 Ratio 4.16 ABG HCO3 22.4 ABG O2 Saturation 97.6 ABG O2 Content 19.8 ABG Base Excess 1.0 A-a Gradient 29.4 Oxyhemoglobin 96.4 Total Hemoglobin 14.6 O2 Delivery Device Room air O2 Liters/Min Not Reportable FiO2 21 Imaging Data Radiologist's impression: IMPRESSION: 1. Mild atelectasis at right lung base. 2. Cardiomegaly. IMPRESSION: No evidence of pulmonary embolism Patchy groundglass infiltrates scattered throughout both lungs, which may be due to pneumonia or small airways disease Cardiomegaly, aortic atherosclerosis ECG Data EKG #1: Attestation: I personally reviewed and interpreted this ECG as follows: ECG completion date: 09/19/24 ECG completion time: 10:43 Prior ECG tracings: available for review (May 2024 showed a junctional rhythm) Interpretation: Atrial flutter/fibrillation/tachycardia with rapid ventricular response of 147 beats per minute. QRS 75. QT/QTC 334/418. Pre populated algorithm suggests left ventricular hypertrophy ; S wave depth in V1 + tallest R wave height in V5- 6 is <35mm but R wave in lead I + S wave in lead III is >25mm. There are T-wave inversions in lead 2 but otherwise upright in contiguous inferior leads 3 and AVF. Patient also has T-wave inversions throughout the precordial leads V2 through V6. EKG dated May 06, 2024 this showed T-wave inversions in II as well as V2- V6. EKG #2: Attestation: I personally reviewed and interpreted this ECG as follows: ECG completion date: 09/19/24 ECG completion time: 14:00 Prior ECG tracings: available for review Interpretation: Normal sinus rhythm at a rate of 62 beats per minute. MA interval 165. QRS 90. QT/QTC 466/472. There is some R to R variation consistent with a sinus arrhyt hmia and likely due to respiratory variation. Pre populated algorithm suggests left ventricular hypertrophy ; S wave depth in V1 + tallest R wave height in V5- 6 is <35mm but R wave in lead I + S wave in lead III is >25mm. Patient has T- wave inversions in lead 2 but upright in contiguous inferior leads 3 and AVF. She continues to have T-wave inversions that are deep throughout V2 through V6. Good R-wave progression across the precordial leads. EKG dated May 06, 2024 this showed T-wave inversions in II as well as V2- V6. EKG #3: Attestation: I personally reviewed and interpreted this ECG as follows: ECG completion date: 09/19/24 ECG completion time: 17:05 Prior ECG tracings: available for review Interpretation: Normal sinus rhythm at a rate of 60 beats per minute. There is R to R variation consistent with sinus arrhythmia. Good R-wave progression across precordial leads. T-wave inversions persist in precordial leads V2 through V6. T-wave inversions persistently 2 but upright and normal in contiguous inferior leads 3 and AVF. Discharge Plan Discharge Clinical Impression: Atrial fib/flutter, transient, Cardiomegaly, Subsequent non-ST elevation (NSTEMI) myocardial infarction, Aortic atherosclerosis Patient Disposition: Still a Patient Condition: Stable
[2024-09-19 15:03] LABS: D Dimer 1.56 ug/mL (<0.48)
[2024-09-19 15:04] LABS: NT Pro B Type Natriuretic Pept 2360 pg/mL (19.9-100)
[2024-09-19 15:22] LABS: Influenza A QL RT-PCR Negative (Negative); Influenza B QL RT-PCR Negative (Negative); RSV RNA, RT-PCR Negative (Negative); SARS-CoV-2 RNA PCR Negative (Negative)
[2024-09-19 15:53] LABS: Glucose Point of Care 94 mg/dl (65-105)
--- NOTE | 2024-09-19 16:18 | ECG_ITS ---
Test Date: 2024-09-19 17:05:06 Measurements Intervals [place] Rate: 60 P: 65 LA: 170 QRS: -12 QRSD: 89 T: 171 QT: 473 QTc: 476 Interpretive Statements SINUS RHYTHM WITH SINUS ARRHYTHMIA LEFT VENTRICULAR HYPERTROPHY AND ST-T CHANGE [VOLTAGE CRITERIA PLUS ST/T ABNORMALITY] Compared to ECG 09/19/2024 14:00:21 No significant changes Electronically Signed On 09-20-2024 14:47:28 [employer]ED [employer]UIT [employer] by Christiano Roper M.D.
--- NOTE | 2024-09-19 17:25 | PM.IMHP ---
H&P: HPI History of Present Illness Date/Time: 09/19/24 17:25 Chief Complaint: Shortness of Breath Narrative: 74 y/o F presents here with shortness of breath, chest pain, and hypoxia with PMH of apical variant hypertrophic cardiomyopathy, hyperlipidemia, hypertension, type 2 diabetes, NSTEMI and osteoporosis. The patient presents here with left-sided chest pain, shortness a breath, and hypoxia from home via EMS. The patient reports acute onset of chest pain and shortness of breath with associated hypoxia, dizziness, weakness, and nausea starting around 08:30 a.m. while she was sleeping which woke her from her sleep. Initially concerned her sugar was low, checked a spot glucose at home which was 98. She describes the chest discomfort as left-sided, initially started at the base of her throat, nonradiating, constant, no aggravating factors, and alleviated by supplemental oxygen. Per EMS report, upon their arrival the patient was 89% on room air and was placed on supplemental O2. After supplemental O2 was applied, the patient reported complete resolution of all of her symptoms. Initial vitals upon arrival to the emergency department showed a heart rate of 150 and 97% on RA. Initial EKG showed atrial flutter, patient is unsure if she has history of same. Patient had resolution of tachycardia without medical intervention. Repeat EKG showed yazidi of sinus rhythm with sinus arrhythmia. The patient is currently feeling well, no reoccurence of symptoms. Initial VS at presentation: 97.8? F, HR 150, RR 20, 145/72, and 97% on RA. ED workup showed: No leukocytosis, no anemia, INR 1.1, elevated D-dimer, ABG showed a pH of 7.528, CO2 27.6, and normal O2 saturation on room air. Creatinine was 0.6 with GFR >60, glucose 118, initial troponin 0.024 -> 0.662, BNP 2 360, and viral PCR negative. CXR showed mild atelectasis of the right lung base and cardiomegaly. Chest CTA showed no evidence of PE, patchy ground-glass infiltrates scattered throughout both lungs (pneumonia versus small airway disease), cardiomegaly, and aortic atherosclerosis. Review of Systems Review of Systems: All systems reviewed & are unremarkable except as noted in HPI and below PMFSH Past Medical History Medical History Apical variant hypertrophic cardiomyopathy Atrial fibrillation with rapid ventricular response Atrial flutter Bradycardia Colon polyps Hyperlipidemia Hypertension Insulin dependent type 2 diabetes mellitus Non-ST elevation myocardial infarction (NSTEMI) Osteoporosis Rectal bleeding Surgical History Surgical History History of bilateral carpal tunnel release History of cardiac catheterization (12/25/23) No obstructive coronary disease. History of colonoscopy with polypectomy Family History Family History Sibling Diabetes mellitus Father Cerebrovascular accident, Onset Age: 72 Diabetes mellitus Social History Social History Social History: Surrogate medical decision maker: Shu Mercado, daughter. Code status: Full code. Smoking packs per day: 10 Smoking cigarettes per day: 200.0 Years smoked: 50 Smoking pack-years: 500.00 Smoking status: Former smoker Additional smoking assessment comments: quit May 2023 Alcohol intake: never Substance use: never Substance use type: does not use Do You Feel Safe in your Home?: Yes Lack of Transportation: No Lack of Food: Never True Current Housing: I Have Housing Concerned About Future Housing: No Difficulty Paying Gas/Electric Bills: No Difficulty Paying for Meds: No Currently Unemployed: No Education: High School Diploma/GED Difficulty w/ Childcare or Family Care: No Spiritual care concerns: No Meds Home Medications and Allergies Home Medications Medication Instructions Recorded Confirmed Type alendronate 70 mg tablet See Rx Instructions .Route 02/10/24 09/16/24 Rx .COMPLEX #12 tabs insulin aspart U-100 100 unit/mL 1 sliding scale dose subcut 02/17/24 09/19/24 Rx (3 mL) subcutaneous pen (Novolog TIDWMEAL #15 mL FlexPen U-100 Insulin aspart) cholecalciferol (vitamin D3) 125 125 mcg PO DAILY 05/06/24 09/19/24 History mcg (5,000 unit) tablet (Vitamin D3) insulin glargine U-300 conc 300 28 unit subcut DAILY 05/06/24 09/19/24 History unit/mL (3 mL) subcutaneous pen (Toujeo Max U-300 SoloStar) diltiazem HCl 120 mg 120 mg PO DAILY 06/10/24 09/19/24 History tablet,extended release 24 hr pantoprazole 40 mg tablet,delayed 40 mg PO DAILY #90 tabs 06/22/24 09/19/24 Rx release pen needle, diabetic 32 gauge x #100 ea 08/25/24 09/19/24 Rx 5/32 (BD Shraddha 2nd Gen Pen Needle) alendronate 70 mg tablet 70 mg PO WEEKLY 09/19/24 09/19/24 History apixaban 5 mg tablet (Eliquis) 5 mg PO Q12H 09/19/24 09/19/24 History atorvastatin 40 mg tablet 40 mg PO HS 09/19/24 09/19/24 History empagliflozin 10 mg tablet 10 mg PO DAILY 09/19/24 09/19/24 History (Jardiance) sotalol 80 mg tablet 80 mg PO Q12H 09/19/24 09/19/24 History Allergies Allergy/AdvReac Type Severity Reaction Status Date / Time No Known Allergies Allergy Verified 09/16/24 10:41 Vital Signs Vital Signs - 24 hr 09/19/24 10:43 09/19/24 10:48 09/19/24 12:45 Temperature 97.8 F Pulse Rate 150 H 66 Respiratory Rate 20 16 Blood Pressure 145/72 H 116/75 Pulse Oximetry 97 100 Oxygen Delivery Room Air Room Air 09/19/24 14:59 09/19/24 17:07 Temperature Pulse Rate 61 61 Respiratory Rate 16 16 Blood Pressure 121/46 L 127/59 L Pulse Oximetry 96 97 Oxygen Delivery Exam Narrative: exam fine. no edema. H&P: Results Labs Labs: Short CBC 09/19/24 Range/Units 11:01 WBC 7.5 (4.5-10.0) K/mm3 Hgb 14.9 (12.0-15.0) g/dL Hct 45.1 (37.0-47.0) % Plt Count 229 (150-375) k/mm3 BMP 09/19/24 11:01 Sodium 139 Potassium 3.9 Chloride 108 H Carbon Dioxide 24 BUN 10 D Creatinine 0.60 L Glucose 118 H Calcium 9.1 Cardiac Enzymes 09/19/24 09/19/24 Range/Units 11:01 14:01 Troponin I 0.024 0.662 H* D (0.000-0.034) ng/mL Liver Function 09/19/24 Range/Units 11:01 Total Bilirubin 1.0 (0.2-1.3) mg/dL AST 31 (14-36) U/L ALT 20 (6-35) U/L Alkaline Phosphatase 106 (38-126) U/L Albumin 4.2 (3.5-5.1) g/dL Assessment and Plan Assessment and plan (1) Hypoxia: Code(s): R09.02 - Hypoxemia Status: Acute Assessment and Plan: - transient, resolution with resolution of tachycardia - no current supplemental O2 requirement - CXR: 1. Mild atelectasis at right lung base. 2. Cardiomegaly. - chest CTA: No evidence of pulmonary embolism Patchy groundglass infiltrates scattered throughout both lungs, which may be due to pneumonia or small airways disease Cardiomegaly, aortic atherosclerosis - chest CTA, previous (05/06/24) 1. No pulmonary embolism. 2. Bilateral groundglass appearing areas in both upper and lower lobe suggestive of atypical or viral pneumonia. Pulmonary edema cannot be excluded. Clinical correlation advised - given new patchy infiltrates scattered throughout both lungs, more so suspect pneumonia. Will start patient on cap treatment: Azithromycin, ceftriaxone, and supportive care. - viral PCR negative - Ddx: NSTEMI (see below), pneumonia, small airway disease (2) Non-ST elevation myocardial infarction (NSTEMI): Code(s): I21.4 - Non-ST elevation (NSTEMI) myocardial infarction Status: Acute Assessment and Plan: - EKG, initial: Atrial flutter/tachycardia with RVR, left ventricular hypertrophy and ST-T change. When compared to previous atrial flutter has replaced junctional bradycardia. - EKG, repeat (1): When compared to EKG done earlier today, atrial flutter no longer present. - EKG, repeat (2): When compared to EKG done earlier today, no significant changes. Awaiting formal read. 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 See report for details. - cardiac catheterization, previous (12/2023): Diffuse luminal irregularities in the LAD and diagonal branches, left circumflex artery and main marginal branches, and RCA without any significant obstructive disease. - telemetry monitoring and admission to IMU (3) Atrial flutter with rapid ventricular response: Code(s): I48.92 - Unspecified atrial flutter Status: Acute Assessment and Plan: - has history of same, seen here on 05/06/2024 for a flutter RVR during which her sotalol was increased from 40 mg b.i.d. to 80 mg b.i.d.. - continue home medications: sotalol 80 mg b.i.d. and diltiazem CD 120 mg daily. - transient, resolution without medical intervention beyond transient supplemental O2 administration - see EKG read out above - add TSH - telemetry monitoring (4) Insulin dependent type 2 diabetes mellitus: Code(s): E11.9 - Type 2 diabetes mellitus without complications; Z79.4 - terminal superintendent (current) use of insulin Status: Chronic Assessment and Plan: - hypoglycemia protocol - POC blood glucose ACHS - home medication: Continue Jardiance. Hold home sliding scale. Lantus u-300 at 28, converted to regular (reduction by 20%) = 22 u HS. - correct regimen ordered - low dose TIDWM, based off BMI (BMI 25) - A1C 7.2% on 06/03/2024, update (5) Hypertension: Qualifiers: Hypertension type: primary hypertension Qualified Code(s): I10 - Essential (primary) hypertension Code(s): I10 - Essential (primary) hypertension Status: Chronic Assessment and Plan: - chronic, currently 143/60 - continue home medications: diltiazem and sotalol, see dosing above - monitor Plan Diet: Heart healthy, NPO at midnight GI Prophylaxis: Not currently indicated DVT Prophylaxis: Continue Eliquis Lines: Peripheral Code Status: Full code Quality VTE Prophylaxis VTE prophylaxis: pharmacologic ordered Hospitalist MIPS Advance Care Plan I have confirmed that the patient's Advanced Care Plan is present, code status is documented, or surrogate decision maker is listed in patient medical record.: Yes Medication Reconciliation I have utilized all available resources to obtain, update and review the patients current medications (includes all prescriptions, OTC, herbals, cannabis, and nutritional supplements).: Yes
--- NOTE | 2024-09-19 17:49 | PC.NURSE ---
This RN received report from PAINTER CHASSISColleen.
--- NOTE | 2024-09-19 17:58 | ADMIMU ---
This patient, Mayte Mercado, was admitted to IMU status, and placed in IMU Room 203-01 @ 1758. Patient/family oriented to hospital policies and general routines including ID bracelet, bed and alarms, visiting hours, pain management, procedures, bathroom and other care routines, personal items, smoking policy, room service/diet, and visiting hours. Valuables list has been completed. Information on how to activate the Rapid Response Team has been discussed. Patient/Family are encouraged to report perceived risks to care and to ask questions if they do not understand what they are told or what they should do.
[2024-09-19 21:37] LABS: Glucose Point of Care 189 mg/dl (65-105)
[2024-09-20] VITALS (18 sets, daily range): BP systolic 90–128; BP diastolic 42–64; PULSE 48–70; RESP 12–18; TEMP 36.4–36.7; O2SAT 93–100
[2024-09-20] MEDS: APIXABAN 5 MG TABLET PO ×3 (01:09→19:59)
[2024-09-20] MEDS: SOTALOL HCL 80 MG TABLET PO ×3 (01:09→19:59)
[2024-09-20 04:58] LABS: Basophils Percent Auto 0.5 % (0.2-1.2); Eosinophils Absolute Auto 0.1 K/mm3 (0-0.3); Eosinophils Percent Auto 2.1 % (0-4.4); Hemoglobin 12.9 g/dL (12.0-15.0); Immature Granulocyte Absolute 0.01 K/mm3 (0.00-0.031); Immature Granulocyte Percent A 0.2 % (0-0.5); Lymphocytes Absolute Auto 1.93 K/mm3 (0.9-3.2); Lymphocytes Percent Auto 33.3 % (18.3-44.2); Mean Corpuscular HGB Conc 31.5 g/dl (32-36); Mean Platelet Volume 11.4 fl (7.4-10.4); Monocytes Absolute Auto 0.8 K/mm3 (0.1-0.6); Monocytes Percent Auto 13.8 % (2.6-8.5); Neutrophils Absolute Auto 2.9 K/mm3 (1.3-6.7); Neutrophils Percent Auto 50.1 % (45.5-73.1); Platelet Count Result 215 k/mm3 (150-375); Red Blood Count 4.77 M/mm3 (4.2-5.4); Red Cell Distribution Width 14.9 % (11.5-14.5); White Blood Count 5.8 K/mm3 (4.5-10.0)
[2024-09-20 05:10] LABS: Anion Gap 2 mmol/L (4-12); Blood Urea Nitrogen 18 mg/dL (7-17); Calcium 8.8 mg/dL (8.4-10.2); Carbon Dioxide 28 mmol/L (22-30); Chloride 106 mmol/L (98-107); Estimated Glomerular Filt Rate > 60; Glucose 162 mg/dL (65-110); Hemoglobin A1C 7.4 % (<5.7); Potassium 3.9 mmol/L (3.4-5.0); Sodium 136 mmol/L (137-145)
[2024-09-20 08:03] LABS: Glucose Point of Care 141 mg/dl (65-105)
[2024-09-20] MEDS: dilTIAZem HCL CD 120 MG CAP.24HR PO (08:57)
[2024-09-20] MEDS: PANTOPRAZOLE 40 MG TABLET PO (08:57)
[2024-09-20] MEDS: ALENDRONATE SODIUM 70 MG TABLET PO (08:57)
[2024-09-20] MEDS: CHOLECALCIFEROL 5,000 UNITS TABLET 5000 UNITS BY MOUTH (08:57)
[2024-09-20] MEDS: EMPAGLIFLOZIN 10 MG TABLET PO (08:58)
[2024-09-20 11:27] LABS: Glucose Point of Care 115 mg/dl (65-105)
--- NOTE | 2024-09-20 13:14 | P.PNIM_ITS ---
Progress Note: A&P Assessment and Plan (1) Hypoxia: Code(s): R09.02 - Hypoxemia Status: Acute Assessment and Plan: - transient, resolution with resolution of tachycardia - no current supplemental O2 requirement - CXR: 1. Mild atelectasis at right lung base. 2. Cardiomegaly. - chest CTA: No evidence of pulmonary embolism Patchy groundglass infiltrates scattered throughout both lungs, which may be due to pneumonia or small airways disease Cardiomegaly, aortic atherosclerosis - chest CTA, previous (05/06/24) 1. No pulmonary embolism. 2. Bilateral groundglass appearing areas in both upper and lower lobe suggestive of atypical or viral pneumonia. Pulmonary edema cannot be excluded. Clinical correlation advised - given new patchy infiltrates scattered throughout both lungs, more so suspect pneumonia. Will start patient on cap treatment: Azithromycin, ceftriaxone, and supportive care. - viral PCR negative - Ddx: NSTEMI (see below), pneumonia, small airway disease (2) Non-ST elevation myocardial infarction (NSTEMI): Code(s): I21.4 - Non-ST elevation (NSTEMI) myocardial infarction Status: Acute Assessment and Plan: - EKG, initial: Atrial flutter/tachycardia with RVR, left ventricular hypertrophy and ST-T change. When compared to previous atrial flutter has replaced junctional bradycardia. - EKG, repeat (1): When compared to EKG done earlier today, atrial flutter no longer present. - EKG, repeat (2): When compared to EKG done earlier today, no significant changes. Awaiting formal read. - Troponin: 0.024 -> 0.662, 6 hour pending - ASA 324 not given, patient refusal - SL nitro PRN - cardiology consulted, awaiting recs ED provider discussed case with on-call pattern grader, admit for continued monitoring, no other recs - continue atorvastatin 40 mg daily - echo, previous (12/2023): Normal systolic function, estimated EF 60-65%, moderately increased LV wall thickness, known history of apical variant of hypertrophic cardiomyopathy, apex appears aneurysmal, grade 1 diastolic dysfunction. See report for details. - cardiac catheterization, previous (12/2023): Diffuse luminal irregularities in the LAD and diagonal branches, left circumflex artery and main marginal branches, and RCA without any significant obstructive disease. - telemetry monitoring and admission to IMU (3) Atrial flutter with rapid ventricular response: Code(s): I48.92 - Unspecified atrial flutter Status: Acute Assessment and Plan: - has history of same, seen here on 05/06/2024 for a flutter RVR during which her sotalol was increased from 40 mg b.i.d. to 80 mg b.i.d.. - continue home medications: sotalol 80 mg b.i.d. and diltiazem CD 120 mg daily. - transient, resolution without medical intervention beyond transient supplemental O2 administration - see EKG read out above - add TSH - telemetry monitoring (4) Insulin dependent type 2 diabetes mellitus: Code(s): E11.9 - Type 2 diabetes mellitus without complications; Z79.4 - halfway (current) use of insulin Status: Chronic Assessment and Plan: - hypoglycemia protocol - POC blood glucose ACHS - home medication: Continue Jardiance. Hold home sliding scale. Lantus u-300 at 28, converted to regular (reduction by 20%) = 22 u HS. - correct regimen ordered - low dose TIDWM, based off BMI (BMI 25) - A1C 7.2% on 06/03/2024, update (5) Hypertension: Qualifiers: Hypertension type: primary hypertension Qualified Code(s): I10 - Essential (primary) hypertension Code(s): I10 - Essential (primary) hypertension Status: Chronic Assessment and Plan: - chronic, currently 143/60 - continue home medications: diltiazem and sotalol, see dosing above - monitor Plan Diet: Heart healthy, NPO at midnight GI Prophylaxis: Not currently indicated DVT Prophylaxis: Continue Eliquis Lines: Peripheral Code Status: Full code Subjective Date/time seen: 09/20/24 13:14 Interval history: Patient live by herself. Ambulates well without the use any cane or walker. Patient and he has diabetes managed with insulin, hyperlipidemia, hypertension. Patient was a previous smoker. He quit smoking approximately 1 year ago. Her repeat troponin was elevated. Patient was recently had cardiac catheterization in the month of December 2023 which shows no significant abnormalities. Review of Systems Review of Systems: All systems reviewed & are unremarkable except as noted in HPI and below Exam Narrative: exam fine. no edema. Objective Data Vital Signs Vital Signs: Vital Signs - 24 hr 09/19/24 14:59 12/07/24 17:07 09/19/24 18:06 Temperature 97.7 F Pulse Rate 61 61 61 Respiratory Rate 16 16 18 Blood Pressure 121/46 L 127/59 L 143/60 H Pulse Oximetry 96 97 97 Oxygen Delivery 09/19/24 18:37 09/19/24 18:50 09/19/24 20:00 Temperature 97.6 F Pulse Rate 62 Respiratory Rate 18 Blood Pressure 136/66 Pulse Oximetry 96 Oxygen Delivery Room Air 09/19/24 22:00 09/19/24 21:20 09/20/24 01:09 Temperature Pulse Rate 65 70 Respiratory Rate Blood Pressure Pulse Oximetry Oxygen Delivery Room Air 09/20/24 00:00 09/20/24 00:00 09/20/24 02:00 Temperature 97.9 F Pulse Rate 61 59 L 59 L Respiratory Rate 18 Blood Pressure 120/44 L Pulse Oximetry 100 Oxygen Delivery 09/20/24 00:10 09/20/24 04:00 09/20/24 04:00 Temperature Pulse Rate 53 L Respiratory Rate Blood Pressure Pulse Oximetry Oxygen Delivery Room Air Room Air 09/20/24 04:00 09/20/24 06:00 09/20/24 08:00 Temperature 97.5 F L 97.9 F Pulse Rate 55 L 55 L 63 Respiratory Rate 18 16 Blood Pressure 90/52 L 128/58 L Pulse Oximetry 98 94 Oxygen Delivery 09/20/24 08:57 09/20/24 10:47 09/20/24 08:00 Temperature Pulse Rate 63 56 L Respiratory Rate Blood Pressure Pulse Oximetry 96 Oxygen Delivery Room Air 09/20/24 10:00 09/20/24 12:00 09/20/24 08:00 Temperature 97.8 F Pulse Rate 63 54 L Respiratory Rate 16 Blood Pressure 114/62 Pulse Oximetry 93 Oxygen Delivery Room Air 09/20/24 12:00 09/20/24 12:00 Temperature Pulse Rate 57 L Respiratory Rate Blood Pressure Pulse Oximetry Oxygen Delivery Room Air Intake/Output Intake/Output: Intake & Output 09/17/24 09/18/24 09/19/24 09/20/24 23:59 23:59 23:59 23:59 Intake Total 690 Output Total 0 Balance 690 Meds/Results Medications: Active Medications Generic Name Dose Route Start Last Admin Trade Name Freq PRN Reason Stop Dose Admin Acetaminophen 650 mg 09/19/24 17:07 Acetaminophen 325 Mg Tablet PO Q4H PRN Mild Pain (1-3) or Fever Alendronate Sodium 70 mg 09/20/24 09:00 09/20/24 08:57 Alendronate Sodium 70 Mg Tablet PO 70 mg WEEKLY RA Administration Apixaban 5 mg 09/19/24 23:45 09/20/24 08:58 Apixaban 5 Mg Tablet PO 5 mg Q12HR RA Administration Atorvastatin Calcium 40 mg 09/20/24 21:00 Atorvastatin 40 Mg Tablet PO HS RA Dextrose 12.5 gm 09/19/24 17:42 Dextrose 50% 25 Gm/50 Ml Syringe IV PUSH PRN PRN Hypoglycemia Protocol Diltiazem HCl 120 mg 09/20/24 09:00 09/20/24 08:57 Diltiazem Hcl Cd 120 Mg Cap.24hr PO 120 mg DAILY RA Administration Empagliflozin 10 mg 09/20/24 09:00 09/20/24 08:58 Empagliflozin 10 Mg Tablet PO 10 mg DAILY RA Administration Glucagon 1 mg 09/19/24 17:42 Glucagon For Inj 1 Mg Vial IM PRN PRN Hypoglycemia Protocol Glucose 15 gm 09/19/24 17:42 Glucose Oral Gel 15 Gm Of Glucse In 37.5 Gm Tube PO PRN PRN Hypoglycemia Protocol Dextrose 1,000 mls @ 100 mls/hr 09/19/24 17:42 Dextrose 5% 1,000 Ml IVPB PRN PRN Hypoglycemia Protocol Insulin Aspart 2 - 5 units 09/20/24 08:00 09/20/24 11:37 Insulin Aspart (*Bkc) 100 Units/Ml SUB-Q Not Given TIDWM [facility] Protocol Insulin Glargine 22 units 09/20/24 21:00 Insulin Glargine (*Bkc) 100 Units/Ml SUB-Q HS [facility] Nitroglycerin 0.4 mg 09/19/24 17:07 Nitroglycerin Sl 0.4 Mg Tablet SUBLINGUAL Q5MIN PRN Chest Pain Ondansetron HCl 4 mg 09/19/24 17:07 Ondansetron Inj 4 Mg/2 Ml Vial IV PUSH Q4H PRN Nausea Pantoprazole Sodium 40 mg 09/20/24 09:00 09/20/24 08:57 Pantoprazole 40 Mg Tablet PO 40 mg DAILY RA Administration Sotalol HCl 80 mg 09/19/24 23:45 12/08/24 08:57 Sotalol Hcl 80 Mg Tablet PO 80 mg Q12HR RA Administration Vitamin D 5,000 units 09/20/24 09:00 09/20/24 08:57 Cholecalciferol 5,000 Units Tablet BY MOUTH 5,000 units DAILY RA Administration Radiology Results: ITS Impressions Chest X-Ray 09/19/24 10:58 IMPRESSION: 1. Mild atelectasis at right lung base. 2. Cardiomegaly. Chest CTA 09/19/24 16:14 IMPRESSION: No evidence of pulmonary embolism Patchy groundglass infiltrates scattered throughout both lungs, which may be due to pneumonia or small airways disease Cardiomegaly, aortic atherosclerosis Labs Labs: Laboratory Results - last 24 hr 09/19/24 09/19/24 09/19/24 11:00 13:18 14:01 WBC RBC Hgb Hct MCV MCH MCHC RDW Plt Count MPV Immature Gran % (Auto) Neut % (Auto) Lymph % (Auto) [place] % (Auto) Eos % (Auto) Baso % (Auto) Lymph # (Auto) [place] # (Auto) Eos # (Auto) Baso # (Auto) Abs Immat Gran (auto) Absolute Neuts (auto) Absolute Nucleated RBC Nucleated RBC % D-Dimer 1.56 H Puncture Site ABG pH ABG pCO2 ABG pO2 ABG PO2/FiO2 Ratio ABG HCO3 ABG O2 Saturation ABG O2 Content ABG Base Excess A-a Gradient Oxyhemoglobin Total Hemoglobin O2 Delivery Device O2 Liters/Min FiO2 Sodium Potassium Chloride Carbon Dioxide Anion Gap BUN Creatinine Estim Creat Clear Calc Estimated GFR Glucose POC Capillary Glucose 94 Hemoglobin A1c Calcium Troponin I 0.662 H* D NT-Pro-B Natriuret Pep 2360 H TSH (Reflex) Influenza A (RT-PCR) Influenza B (RT-PCR) RSV (RT-PCR) SARS-CoV-2 RNA (RT-PCR) 09/19/24 09/19/24 09/19/24 14:22 14:34 16:52 WBC RBC Hgb Hct MCV MCH MCHC RDW Plt Count MPV Immature Gran % (Auto) Neut % (Auto) Lymph % (Auto) [place] % (Auto) Eos % (Auto) Baso % (Auto) Lymph # (Auto) [place] # (Auto) Eos # (Auto) Baso # (Auto) Abs Immat Gran (auto) Absolute Neuts (auto) Absolute Nucleated RBC Nucleated RBC % D-Dimer Puncture Site Right brachial ABG pH 7.528 H* ABG pCO2 27.6 L ABG pO2 87.3 ABG PO2/FiO2 Ratio 4.16 ABG HCO3 22.4 ABG O2 Saturation 97.6 ABG O2 Content 19.8 ABG Base Excess 1.0 A-a Gradient 29.4 Oxyhemoglobin 96.4 Total Hemoglobin 14.6 O2 Delivery Device Room air O2 Liters/Min Not Reportable FiO2 21 Sodium Potassium Chloride Carbon Dioxide Anion Gap BUN Creatinine Estim Creat Clear Calc Estimated GFR Glucose POC Capillary Glucose Hemoglobin A1c Calcium Troponin I 1.790 H* D NT-Pro-B Natriuret Pep TSH (Reflex) Influenza A (RT-PCR) Negative Influenza B (RT-PCR) Negative RSV (RT-PCR) Negative SARS-CoV-2 RNA (RT-PCR) Negative 09/19/24 09/20/24 09/20/24 21:03 04:34 07:43 WBC 5.8 RBC 4.77 Hgb 12.9 Hct 41.0 MCV 86.0 MCH 27.0 MCHC 31.5 L RDW 14.9 H Plt Count 215 MPV 11.4 H Immature Gran % (Auto) 0.2 Neut % (Auto) 50.1 Lymph % (Auto) 33.3 [place] % (Auto) 13.8 H Eos % (Auto) 2.1 Baso % (Auto) 0.5 Lymph # (Auto) 1.93 [place] # (Auto) 0.8 H Eos # (Auto) 0.1 Baso # (Auto) 0.0 Abs Immat Gran (auto) 0.01 Absolute Neuts (auto) 2.9 Absolute Nucleated RBC 0.000 Nucleated RBC % 0.0 D-Dimer Puncture Site ABG pH ABG pCO2 ABG pO2 ABG PO2/FiO2 Ratio ABG HCO3 ABG O2 Saturation ABG O2 Content ABG Base Excess A-a Gradient Oxyhemoglobin Total Hemoglobin O2 Delivery Device O2 Liters/Min FiO2 Sodium 136 L Potassium 3.9 Chloride 106 Carbon Dioxide 28 Anion Gap 2 L BUN 18 H Creatinine 0.80 Estim Creat Clear Calc Not Reportable Estimated GFR > 60 Glucose 162 H POC Capillary Glucose 189 H 141 H Hemoglobin A1c 7.4 H Calcium 8.8 Troponin I NT-Pro-B Natriuret Pep TSH (Reflex) 1.030 Influenza A (RT-PCR) Influenza B (RT-PCR) RSV (RT-PCR) SARS-CoV-2 RNA (RT-PCR) 09/20/24 09/20/24 09:03 11:24 WBC RBC Hgb Hct MCV MCH MCHC RDW Plt Count MPV Immature Gran % (Auto) Neut % (Auto) Lymph % (Auto) [place] % (Auto) Eos % (Auto) Baso % (Auto) Lymph # (Auto) [place] # (Auto) Eos # (Auto) Baso # (Auto) Abs Immat Gran (auto) Absolute Neuts (auto) Absolute Nucleated RBC Nucleated RBC % D-Dimer Puncture Site ABG pH ABG pCO2 ABG pO2 ABG PO2/FiO2 Ratio ABG HCO3 ABG O2 Saturation ABG O2 Content ABG Base Excess A-a Gradient Oxyhemoglobin Total Hemoglobin O2 Delivery Device O2 Liters/Min FiO2 Sodium Potassium Chloride Carbon Dioxide Anion Gap BUN Creatinine Estim Creat Clear Calc Estimated GFR Glucose POC Capillary Glucose 115 H Hemoglobin A1c Calcium Troponin I 2.040 H* NT-Pro-B Natriuret Pep TSH (Reflex) Influenza A (RT-PCR) Influenza B (RT-PCR) RSV (RT-PCR) SARS-CoV-2 RNA (RT-PCR) Quality VTE Prophylaxis VTE prophylaxis: pharmacologic ordered Hospitalist MIPS Advance Care Plan I have confirmed that the patient's Advanced Care Plan is present, code status i s documented, or surrogate decision maker is listed in patient medical record.: Yes Medication Reconciliation I have utilized all available resources to obtain, update and review the patients current medications (includes all prescriptions, OTC, herbals, cannabis, and nutritional supplements).: Yes
--- NOTE | 2024-09-20 13:46 | PM.CNCAR ---
Assessment and Plan Assessment and plan (1) Atrial fib/flutter, transient: Code(s): I48.91 - Unspecified atrial fibrillation; I48.92 - Unspecified atrial flutter Status: Acute Plan Proximal atrial flutter recurrent episodes Mildly elevated troponin likely demand ischemia seen of atrial flutter Apical variant hypertrophic cardiomyopathy Diabetes mellitus type 2 Hypertension controlled Plan Patient to be referred for atrial flutter ablation with EP team Continue Eliquis 5 mg b.i.d. Resume home dose of sotalol 80 mg b.i.d. Continue diltiazem 120 mg daily Continue observation and repeat another troponin to check a down trend in her cardiac enzymes History of Present Illness History of Present Illness Consult date/time: 09/20/24 13:46 Reason For Visit: NSTEMI Narrative: 74-year-old female patient presents to the hospital with acute pain in the throat and left side of the chest. Pain was severe 9/10 with her from sleep lasted for 30-40 minute. Pain was sharp and aching. It was associated with palpitation rapid fast heartbeats. It was also associated with shortness of breath. Patient was noted to have AFib/flutter with RVR on presentation. She converted back to sinus rhythm. Patient was brought similar admission in April secondary to atrial flutter with RVR. She also prior admission in December with similar symptoms and had cardiac catheterization that revealed normal coronary angiogram. Review of Systems Review of Systems: All systems reviewed & are unremarkable except as noted in HPI and below PMFSH Past Medical History Medical History Apical variant hypertrophic cardiomyopathy Atrial fibrillation with rapid ventricular response Atrial flutter Bradycardia Colon polyps Hyperlipidemia Hypertension Insulin dependent type 2 diabetes mellitus Non-ST elevation myocardial infarction (NSTEMI) Osteoporosis Rectal bleeding Surgical History Surgical History History of bilateral carpal tunnel release History of cardiac catheterization (12/25/23) No obstructive coronary disease. History of colonoscopy with polypectomy Family History Family History Sibling Diabetes mellitus Father Cerebrovascular accident, Onset Age: 72 Diabetes mellitus Social History Social History Social History: Surrogate medical decision maker: Shu Mercado, daughter. Code status: Full code. Smoking packs per day: 10 Smoking cigarettes per day: 200.0 Years smoked: 50 Smoking pack-years: 500.00 Smoking status: Former smoker Additional smoking assessment comments: quit May 2023 Alcohol intake: never Substance use: never Substance use type: does not use Do You Feel Safe in your Home?: Yes Lack of Transportation: No Lack of Food: Never True Current Housing: I Have Housing Concerned About Future Housing: No Difficulty Paying Gas/Electric Bills: No Difficulty Paying for Meds: No Currently Unemployed: No Education: High School Diploma/GED Difficulty w/ Childcare or Family Care: No Spiritual care concerns: No Meds Home Medications and Allergies Home Medications Medication Instructions Recorded Confirmed Type alendronate 70 mg tablet See Rx Instructions .Route 02/10/24 09/16/24 Rx .COMPLEX #12 tabs insulin aspart U-100 100 unit/mL 1 sliding scale dose subcut 02/17/24 09/19/24 Rx (3 mL) subcutaneous pen (Novolog TIDWMEAL #15 mL FlexPen U-100 Insulin aspart) cholecalciferol (vitamin D3) 125 125 mcg PO DAILY 05/06/24 09/19/24 History mcg (5,000 unit) tablet (Vitamin D3) insulin glargine U-300 conc 300 28 unit subcut DAILY 05/06/24 09/19/24 History unit/mL (3 mL) subcutaneous pen (Toujeo Max U-300 SoloStar) diltiazem HCl 120 mg 120 mg PO DAILY 06/10/24 09/19/24 History tablet,extended release 24 hr pantoprazole 40 mg tablet,delayed 40 mg PO DAILY #90 tabs 06/22/24 09/19/24 Rx release pen needle, diabetic 32 gauge x #100 ea 08/25/24 09/19/24 Rx 5/32 (BD Shraddha 2nd Gen Pen Needle) alendronate 70 mg tablet 70 mg PO WEEKLY 09/19/24 09/19/24 History apixaban 5 mg tablet (Eliquis) 5 mg PO Q12H 09/19/24 09/19/24 History atorvastatin 40 mg tablet 40 mg PO HS 09/19/24 09/19/24 History empagliflozin 10 mg tablet 10 mg PO DAILY 09/19/24 09/19/24 History (Jardiance) sotalol 80 mg tablet 80 mg PO Q12H 09/19/24 09/19/24 History Allergies Allergy/AdvReac Type Severity Reaction Status Date / Time No Known Allergies Allergy Verified 09/16/24 10:41 Vital Signs Vital Signs - 24 hr 09/19/24 14:59 09/19/24 17:07 09/19/24 18:06 Temperature 36.5 C Pulse Rate 61 61 61 Respiratory Rate 16 16 18 Blood Pressure 121/46 L 127/59 L 143/60 H Pulse Oximetry 96 97 97 Oxygen Delivery 09/19/24 18:37 09/19/24 18:50 09/19/24 20:00 Temperature 36.4 C Pulse Rate 62 Respiratory Rate 18 Blood Pressure 136/66 Pulse Oximetry 96 Oxygen Delivery Room Air 09/19/24 22:00 09/19/24 21:20 09/20/24 01:09 Temperature Pulse Rate 65 70 Respiratory Rate Blood Pressure Pulse Oximetry Oxygen Delivery Room Air 09/20/24 00:00 09/20/24 00:00 09/20/24 02:00 Temperature 36.6 C Pulse Rate 61 59 L 59 L Respiratory Rate 18 Blood Pressure 120/44 L Pulse Oximetry 100 Oxygen Delivery 09/20/24 00:10 09/20/24 04:00 09/20/24 04:00 Temperature Pulse Rate 53 L Respiratory Rate Blood Pressure Pulse Oximetry Oxygen Delivery Room Air Room Air 09/20/24 04:00 09/20/24 06:00 09/20/24 08:00 Temperature 36.4 C L 36.6 C Pulse Rate 55 L 55 L 63 Respiratory Rate 18 16 Blood Pressure 90/52 L 128/58 L Pulse Oximetry 98 94 Oxygen Delivery 09/20/24 08:57 09/20/24 10:47 09/20/24 08:00 Temperature Pulse Rate 63 56 L Respiratory Rate Blood Pressure Pulse Oximetry 96 Oxygen Delivery Room Air 09/20/24 10:00 09/20/24 12:00 09/20/24 08:00 Temperature 36.6 C Pulse Rate 63 54 L Respiratory Rate 16 Blood Pressure 114/62 Pulse Oximetry 93 Oxygen Delivery Room Air 09/20/24 12:00 09/20/24 12:00 Temperature Pulse Rate 57 L Respiratory Rate Blood Pressure Pulse Oximetry Oxygen Delivery Room Air Exam Const: General: comfortable and no acute distress Other: Able to lie flat HENMT: Face/Nose/Sinus: Normal nares present and no epistaxis Mouth: Yes moist mucous membranes Eyes: Sclera: sclerae normal Pupils: Equal, round and reactive pupils present Neck: Neck: supple and no JVD Carotids: no bruits Resp: Auscultation: clear to auscultation bilaterally and crackles bilateral Other: No chest wall tenderness Cardio: Rate: regular rate Rhythm: regular rhythm Heart sounds: no gallops, no murmurs and no rubs GI: GI Palp: Yes Soft to palpation and No Tenderness to palpation present (GI) Auscultation: normal bowel sounds Skin: General skin exam: normal color, rashes and/or lesions noted and no erythema Other: Warm Neuro: Cranial nerves: Yes Equal, round and reactive pupils present Speech: normal speech Other: No obvious focal deficit or facial asymmetry Extrem: General: no edema Other: Normal capillary refills Intact distal pulses. Results Labs and Meds 09/20/24 04:34 09/20/24 04:34 Lab results: Cardiac Enzymes 09/19/24 09/19/24 09/20/24 Range/Units 14:01 16:52 09:03 Troponin I 0.662 H* D 1.790 H* D 2.040 H* (0.000-0.034) ng/mL CBC 09/20/24 Range/Units 04:34 WBC 5.8 (4.5-10.0) K/mm3 RBC 4.77 (4.2-5.4) M/mm3 Hgb 12.9 (12.0-15.0) g/dL Hct 41.0 (37.0-47.0) % Plt Count 215 (150-375) k/mm3 Lymph # (Auto) 1.93 (0.9-3.2) K/mm3 [place] # (Auto) 0.8 H (0.1-0.6) K/mm3 Eos # (Auto) 0.1 (0-0.3) K/mm3 Baso # (Auto) 0.0 (0.0-0.1) K/mm3 Comprehensive Metabolic Panel 09/20/24 Range/Units 04:34 Sodium 136 L (137-145) mmol/L Potassium 3.9 (3.4-5.0) mmol/L Chloride 106 (98-107) mmol/L Carbon Dioxide 28 (22-30) mmol/L BUN 18 H (7-17) mg/dL Creatinine 0.80 (0.7-1.0) mg/dL Glucose 162 H (65-110) mg/dL Calcium 8.8 (8.4-10.2) mg/dL Intake and Output 09/19/24 09/20/24 09/20/24 23:59 07:59 15:59 Intake Total 450 240 Output Total 0 Balance 450 240 Intake: Oral 450 240 Output: Urine 0 Patient Weight 09/20/24 23:59 Weight 57.2 kg
[2024-09-20 16:13] LABS: Glucose Point of Care 130 mg/dl (65-105)
[2024-09-20] MEDS: ATORVASTATIN 40 MG TABLET PO (19:59)
[2024-09-20] MEDS: INSULIN GLARGINE (*BKC) 100 UNITS/ML 22 UNITS SUB-Q (20:43)
[2024-09-20 20:52] LABS: Glucose Point of Care 165 mg/dl (65-105)
[2024-09-21] VITALS (12 sets, daily range): BP systolic 116–128; BP diastolic 50–63; PULSE 44–75; RESP 16; TEMP 36.2–36.7; O2SAT 94–99
[2024-09-21 04:47] LABS: Hematocrit 39.4 % (37.0-47.0); Hemoglobin 12.6 g/dL (12.0-15.0); Mean Corpuscular Hemoglobin 27.3 pg (26-34); Mean Corpuscular Volume 85.5 fl (80-100); Mean Platelet Volume 11.6 fl (7.4-10.4); Platelet Count Result 219 k/mm3 (150-375); Red Blood Count 4.61 M/mm3 (4.2-5.4); White Blood Count 5.4 K/mm3 (4.5-10.0)
[2024-09-21 05:05] LABS: Alanine Aminotransferase 17 U/L (6-35); Albumin Level 3.6 g/dL (3.5-5.1); Alkaline Phosphatase 80 U/L (38-126); Anion Gap 4 mmol/L (4-12); Aspartate Amino Transferase 43 U/L (14-36); Bilirubin,Total 0.8 mg/dL (0.2-1.3); Blood Urea Nitrogen 17 mg/dL (7-17); Calcium 8.7 mg/dL (8.4-10.2); Carbon Dioxide 26 mmol/L (22-30); Chloride 107 mmol/L (98-107); Estimated Glomerular Filt Rate > 60; Glucose 95 mg/dL (65-110); Potassium 3.6 mmol/L (3.4-5.0); Sodium 137 mmol/L (137-145)
--- NOTE | 2024-09-21 07:55 | PC.NURSE ---
DR MCKEON made aware of 3.8 second pause when breaking run of Afib/flutter last nite. Also aware of 5 beat run Vtach when getting up to bathroom this morning. Patient asymptomatic in both instances and currently sinu ani. No new orders at this time.
[2024-09-21 08:12] LABS: Glucose Point of Care 90 mg/dl (65-105)
--- NOTE | 2024-09-21 09:53 | PM.PNCARD ---
Progress Note: A&P Assessment and Plan (1) Atrial fib/flutter, transient: Code(s): I48.91 - Unspecified atrial fibrillation; I48.92 - Unspecified atrial flutter Status: Acute Plan Proximal atrial flutter recurrent episodes Mildly elevated troponin likely demand ischemia seen of atrial flutter Apical variant hypertrophic cardiomyopathy Diabetes mellitus type 2 Hypertension controlled Plan Patient to be referred for atrial flutter ablation with EP team Continue Eliquis 5 mg b.i.d. Resume home dose of sotalol 80 mg b.i.d. Continue diltiazem 120 mg daily She has follow up scheduled with Dr. Durant tomorrow OK for discharge from a cardiac perspective Subjective Date/time seen: 09/21/24 09:53 Interval history: Cardiology follow up visit Date of service 09/21/2024: She is feeling well this morning and has no specific complaints. Review of Systems Review of Systems: All systems reviewed & are unremarkable except as noted in HPI and below Exam Const: General: comfortable and no acute distress Other: Able to lie flat HENMT: Face/Nose/Sinus: Normal nares present and no epistaxis Mouth: Yes moist mucous membranes Eyes: Sclera: sclerae normal Pupils: Equal, round and reactive pupils present Neck: Neck: supple and no JVD Carotids: no bruits Resp: Auscultation: clear to auscultation bilaterally Other: No chest wall tenderness Cardio: Rate: regular rate Rhythm: regular rhythm Heart sounds: no gallops, no murmurs and no rubs GI: Auscultation: normal bowel sounds Skin: General skin exam: normal color, rashes and/or lesions noted and no erythema Other: Warm Neuro: Cranial nerves: Yes Equal, round and reactive pupils present Speech: normal speech Other: No obvious focal deficit or facial asymmetry Extrem: General: no edema Other: Normal capillary refills Intact distal pulses. Objective Data Vital Signs Vital Signs: Vital Signs - 24 hr 09/20/24 10:47 09/20/24 10:00 09/20/24 12:00 Temperature 36.6 C Pulse Rate 63 54 L Respiratory Rate 16 Blood Pressure 114/62 Pulse Oximetry 96 93 Oxygen Delivery Room Air 09/20/24 12:00 09/20/24 12:00 09/20/24 16:00 Temperature 36.7 C Pulse Rate 57 L 52 L Respiratory Rate 12 Blood Pressure 128/64 Pulse Oximetry 95 Oxygen Delivery Room Air 09/20/24 14:00 09/20/24 16:00 09/20/24 16:00 Temperature Pulse Rate 55 L 51 L Respiratory Rate Blood Pressure Pulse Oximetry Oxygen Delivery Room Air 09/20/24 18:00 09/20/24 19:57 09/20/24 19:59 Temperature 36.6 C Pulse Rate 57 L 59 L 56 L Respiratory Rate 16 Blood Pressure 109/42 L Pulse Oximetry 95 Oxygen Delivery 09/20/24 20:00 09/20/24 20:00 09/20/24 22:00 Temperature Pulse Rate 56 L 53 L Respiratory Rate Blood Pressure Pulse Oximetry Oxygen Delivery Room Air 09/20/24 23:40 09/21/24 00:00 09/21/24 00:00 Temperature 36.6 C Pulse Rate 48 L 49 L Respiratory Rate 16 Blood Pressure 110/49 L Pulse Oximetry 93 Oxygen Delivery Room Air 09/21/24 02:00 09/21/24 03:59 09/21/24 04:00 Temperature 36.5 C Pulse Rate 44 L 75 Respiratory Rate 16 Blood Pressure 124/63 Pulse Oximetry 94 Oxygen Delivery Room Air 09/21/24 04:00 09/21/24 06:00 09/21/24 07:49 Temperature 36.2 C L Pulse Rate 68 46 L 51 L Respiratory Rate 16 Blood Pressure 128/51 L Pulse Oximetry 99 Oxygen Delivery Intake/Output Intake/Output: Intake & Output 09/18/24 09/19/24 09/20/24 09/21/24 23:59 23:59 23:59 23:59 Intake Total 1180 790 Output Total 3 600 Balance 1177 190 Meds/Results Medications: Active Medications Generic Name Dose Route Start Last Admin Trade Name Freq PRN Reason Stop Dose Admin Acetaminophen 650 mg 09/19/24 17:07 Acetaminophen 325 Mg Tablet PO Q4H PRN Mild Pain (1-3) or Fever Alendronate Sodium 70 mg 09/20/24 09:00 09/20/24 08:57 Alendronate Sodium 70 Mg Tablet PO 70 mg WEEKLY RA Administration Apixaban 5 mg 09/19/24 23:45 09/20/24 19:59 Apixaban 5 Mg Tablet PO 5 mg Q12HR RA Administration Atorvastatin Calcium 40 mg 09/20/24 21:00 09/20/24 19:59 Atorvastatin 40 Mg Tablet PO 40 mg HS RA Administration Dextrose 12.5 gm 09/19/24 17:42 Dextrose 50% 25 Gm/50 Ml Syringe IV PUSH PRN PRN Hypoglycemia Protocol Diltiazem HCl 120 mg 09/20/24 09:00 09/21/24 09:50 Diltiazem Hcl Cd 120 Mg Cap.24hr PO Not Given DAILY RA Empagliflozin 10 mg 09/20/24 09:00 09/20/24 08:58 Empagliflozin 10 Mg Tablet PO 10 mg DAILY RA Administration Glucagon 1 mg 09/19/24 17:42 Glucagon For Inj 1 Mg Vial IM PRN PRN Hypoglycemia Protocol Glucose 15 gm 09/19/24 17:42 Glucose Oral Gel 15 Gm Of Glucse In 37.5 Gm Tube PO PRN PRN Hypoglycemia Protocol Dextrose 1,000 mls @ 100 mls/hr 09/19/24 17:42 Dextrose 5% 1,000 Ml IVPB PRN PRN Hypoglycemia Protocol Insulin Aspart 2 - 5 units 09/20/24 08:00 09/21/24 09:08 Insulin Aspart (*Bkc) 100 Units/Ml SUB-Q Not Given TIDWM RA Protocol Insulin Glargine 22 units 09/20/24 21:00 09/20/24 20:43 Insulin Glargine (*Bkc) 100 Units/Ml SUB-Q 22 units HS RA Administration Nitroglycerin 0.4 mg 09/19/24 17:07 Nitroglycerin Sl 0.4 Mg Tablet SUBLINGUAL Q5MIN PRN Chest Pain Ondansetron HCl 4 mg 09/19/24 17:07 Ondansetron Inj 4 Mg/2 Ml Vial IV PUSH Q4H PRN Nausea Pantoprazole Sodium 40 mg 09/20/24 09:00 09/20/24 08:57 Pantoprazole 40 Mg Tablet PO 40 mg DAILY RA Administration Sotalol HCl 80 mg 09/19/24 23:45 09/20/24 19:59 Sotalol Hcl 80 Mg Tablet PO 80 mg Q12HR RA Administration Vitamin D 5,000 units 09/20/24 09:00 09/20/24 08:57 Cholecalciferol 5,000 Units Tablet BY MOUTH 5,000 units DAILY RA Administration Radiology Results: ITS Impressions Chest X-Ray 09/19/24 10:58 IMPRESSION: 1. Mild atelectasis at right lung base. 2. Cardiomegaly. Chest CTA 09/19/24 16:14 IMPRESSION: No evidence of pulmonary embolism Patchy groundglass infiltrates scattered throughout both lungs, which may be due to pneumonia or small airways disease Cardiomegaly, aortic atherosclerosis Labs Labs: Laboratory Results - last 24 hr 09/20/24 09/20/24 09/20/24 11:24 13:29 15:25 WBC RBC Hgb Hct MCV MCH MCHC RDW Plt Count MPV Sodium Potassium Chloride Carbon Dioxide Anion Gap BUN Creatinine Estim Creat Clear Calc Estimated GFR Glucose POC Capillary Glucose 115 H 130 H Calcium Total Bilirubin AST ALT Alkaline Phosphatase Troponin I 1.680 H* Total Protein Albumin 09/20/24 09/20/24 09/21/24 16:40 20:06 03:57 WBC 5.4 RBC 4.61 Hgb 12.6 Hct 39.4 MCV 85.5 MCH 27.3 MCHC 32.0 RDW 15.0 H Plt Count 219 MPV 11.6 H Sodium 137 Potassium 3.6 Chloride 107 Carbon Dioxide 26 Anion Gap 4 BUN 17 Creatinine 0.70 Estim Creat Clear Calc Not Reportable Estimated GFR > 60 Glucose 95 POC Capillary Glucose 165 H Calcium 8.7 Total Bilirubin 0.8 AST 43 H ALT 17 Alkaline Phosphatase 80 Troponin I 1.530 H* Total Protein 6.0 L Albumin 3.6 09/21/24 07:49 WBC RBC Hgb Hct MCV MCH MCHC RDW Plt Count MPV Sodium Potassium Chloride Carbon Dioxide Anion Gap BUN Creatinine Estim Creat Clear Calc Estimated GFR Glucose POC Capillary Glucose 90 Calcium Total Bilirubin AST ALT Alkaline Phosphatase Troponin I Total Protein Albumin Quality VTE Prophylaxis VTE prophylaxis: pharmacologic ordered
[2024-09-21] MEDS: PANTOPRAZOLE 40 MG TABLET PO (09:54)
[2024-09-21] MEDS: EMPAGLIFLOZIN 10 MG TABLET PO (09:54)
[2024-09-21] MEDS: APIXABAN 5 MG TABLET PO (09:54)
[2024-09-21] MEDS: CHOLECALCIFEROL 5,000 UNITS TABLET 5000 UNITS BY MOUTH (09:54)
[2024-09-21] MEDS: SOTALOL HCL 80 MG TABLET PO (09:54)
[2024-09-21 11:44] LABS: Glucose Point of Care 164 mg/dl (65-105)
--- NOTE | 2024-09-21 13:51 | PM.IMPN ---
Subjective Date/time seen: 09/21/24 13:51 Objective Data Vital Signs Vital Signs: Vital Signs - 24 hr 09/20/24 16:00 09/20/24 14:00 09/20/24 16:00 Temperature 98.0 F Pulse Rate 52 L 55 L 51 L Respiratory Rate 12 Blood Pressure 128/64 Pulse Oximetry 95 Oxygen Delivery 09/20/24 16:00 09/20/24 18:00 09/20/24 19:57 Temperature 97.8 F Pulse Rate 57 L 59 L Respiratory Rate 16 Blood Pressure 109/42 L Pulse Oximetry 95 Oxygen Delivery Room Air 09/20/24 19:59 09/20/24 20:00 09/20/24 20:00 Temperature Pulse Rate 56 L 56 L Respiratory Rate Blood Pressure Pulse Oximetry Oxygen Delivery Room Air 09/20/24 22:00 09/20/24 23:40 09/21/24 00:00 Temperature 97.8 F Pulse Rate 53 L 48 L Respiratory Rate 16 Blood Pressure 110/49 L Pulse Oximetry 93 Oxygen Delivery Room Air 09/21/24 00:00 09/21/24 02:00 09/21/24 03:59 Temperature 97.7 F Pulse Rate 49 L 44 L 75 Respiratory Rate 16 Blood Pressure 124/63 Pulse Oximetry 94 Oxygen Delivery 09/21/24 04:00 09/21/24 04:00 09/21/24 06:00 Temperature Pulse Rate 68 46 L Respiratory Rate Blood Pressure Pulse Oximetry Oxygen Delivery Room Air 09/21/24 07:49 09/21/24 09:54 09/21/24 08:00 Temperature 97.2 F L Pulse Rate 51 L 54 L Respiratory Rate 16 Blood Pressure 128/51 L Pulse Oximetry 99 Oxygen Delivery Room Air 09/21/24 11:37 09/21/24 08:00 09/21/24 10:00 Temperature 98.0 F Pulse Rate 54 L 54 L 54 L Respiratory Rate 16 Blood Pressure 116/50 L Pulse Oximetry 97 Oxygen Delivery 09/21/24 12:00 09/21/24 12:00 Temperature Pulse Rate 58 L Respiratory Rate Blood Pressure Pulse Oximetry Oxygen Delivery Room Air Intake/Output Intake/Output: Intake & Output 09/18/24 09/19/24 09/20/24 09/21/24 23:59 23:59 23:59 23:59 Intake Total 1180 910 Output Total 3 600 Balance 1177 310 Meds/Results Medications: Active Medications Generic Name Dose Route Start Last Admin Trade Name Freq PRN Reason Stop Dose Admin Acetaminophen 650 mg 09/19/24 17:07 Acetaminophen 325 Mg Tablet PO Q4H PRN Mild Pain (1-3) or Fever Alendronate Sodium 70 mg 09/20/24 09:00 09/20/24 08:57 Alendronate Sodium 70 Mg Tablet PO 70 mg WEEKLY RA Administration Apixaban 5 mg 09/19/24 23:45 09/21/24 09:54 Apixaban 5 Mg Tablet PO 5 mg Q12HR RA Administration Atorvastatin Calcium 40 mg 09/20/24 21:00 09/20/24 19:59 Atorvastatin 40 Mg Tablet PO 40 mg HS RA Administration Dextrose 12.5 gm 09/19/24 17:42 Dextrose 50% 25 Gm/50 Ml Syringe IV PUSH PRN PRN Hypoglycemia Protocol Diltiazem HCl 120 mg 09/20/24 09:00 09/21/24 09:50 Diltiazem Hcl Cd 120 Mg Cap.24hr PO Not Given DAILY RA Empagliflozin 10 mg 09/20/24 09:00 09/21/24 09:54 Empagliflozin 10 Mg Tablet PO 10 mg DAILY RA Administration Glucagon 1 mg 09/19/24 17:42 Glucagon For Inj 1 Mg Vial IM PRN PRN Hypoglycemia Protocol Glucose 15 gm 09/19/24 17:42 Glucose Oral Gel 15 Gm Of Glucse In 37.5 Gm Tube PO PRN PRN Hypoglycemia Protocol Dextrose 1,000 mls @ 100 mls/hr 09/19/24 17:42 Dextrose 5% 1,000 Ml IVPB PRN PRN Hypoglycemia Protocol Insulin Aspart 2 - 5 units 09/20/24 08:00 09/21/24 12:33 Insulin Aspart (*Bkc) 100 Units/Ml SUB-Q Not Given TIDWM RA Protocol Insulin Glargine 22 units 09/20/24 21:00 09/20/24 20:43 Insulin Glargine (*Bkc) 100 Units/Ml SUB-Q 22 units HS RA Administration Nitroglycerin 0.4 mg 09/19/24 17:07 Nitroglycerin Sl 0.4 Mg Tablet SUBLINGUAL Q5MIN PRN Chest Pain Ondansetron HCl 4 mg 09/19/24 17:07 Ondansetron Inj 4 Mg/2 Ml Vial IV PUSH Q4H PRN Nausea Pantoprazole Sodium 40 mg 09/20/24 09:00 09/21/24 09:54 Pantoprazole 40 Mg Tablet PO 40 mg DAILY RA Administration Sotalol HCl 80 mg 09/19/24 23:45 09/21/24 09:54 Sotalol Hcl 80 Mg Tablet PO 80 mg Q12HR RA Administration Vitamin D 5,000 units 09/20/24 09:00 09/21/24 09:54 Cholecalciferol 5,000 Units Tablet BY MOUTH 5,000 units DAILY RA Administration Radiology Results: ITS Impressions Chest X-Ray 09/19/24 10:58 IMPRESSION: 1. Mild atelectasis at right lung base. 2. Cardiomegaly. Chest CTA 09/19/24 16:14 IMPRESSION: No evidence of pulmonary embolism Patchy groundglass infiltrates scattered throughout both lungs, which may be due to pneumonia or small airways disease Cardiomegaly, aortic atherosclerosis Labs Labs: Laboratory Results - last 24 hr 09/20/24 09/20/24 09/20/24 13:29 15:25 16:40 WBC RBC Hgb Hct MCV MCH MCHC RDW Plt Count MPV Sodium Potassium Chloride Carbon Dioxide Anion Gap BUN Creatinine Estim Creat Clear Calc Estimated GFR Glucose POC Capillary Glucose 130 H Calcium Total Bilirubin AST ALT Alkaline Phosphatase Troponin I 1.680 H* 1.530 H* Total Protein Albumin 09/20/24 09/21/24 09/21/24 20:06 03:57 07:49 WBC 5.4 RBC 4.61 Hgb 12.6 Hct 39.4 MCV 85.5 MCH 27.3 MCHC 32.0 RDW 15.0 H Plt Count 219 MPV 11.6 H Sodium 137 Potassium 3.6 Chloride 107 Carbon Dioxide 26 Anion Gap 4 BUN 17 Creatinine 0.70 Estim Creat Clear Calc Not Reportable Estimated GFR > 60 Glucose 95 POC Capillary Glucose 165 H 90 Calcium 8.7 Total Bilirubin 0.8 AST 43 H ALT 17 Alkaline Phosphatase 80 Troponin I Total Protein 6.0 L Albumin 3.6 09/21/24 11:36 WBC RBC Hgb Hct MCV MCH MCHC RDW Plt Count MPV Sodium Potassium Chloride Carbon Dioxide Anion Gap BUN Creatinine Estim Creat Clear Calc Estimated GFR Glucose POC Capillary Glucose 164 H Calcium Total Bilirubin AST ALT Alkaline Phosphatase Troponin I Total Protein Albumin
--- NOTE | 2024-09-21 14:03 | P.DS_ITS ---
DS: Admitting Diagnosis Discharge Date 09/21/2024 Admitting Diagnosis Shortness of breath DS: Discharge Diagnosis Discharge Diagnosis (1) Hypoxia: Code(s): R09.02 - Hypoxemia Status: Acute Assessment and Plan: Please refer to hospital course for brief summary - transient, resolution with resolution of tachycardia - no current supplemental O2 requirement - CXR: 1. Mild atelectasis at right lung base. 2. Cardiomegaly. - chest CTA: No evidence of pulmonary embolism Patchy groundglass infiltrates scattered throughout both lungs, which may be due to pneumonia or small airways disease Cardiomegaly, aortic atherosclerosis - chest CTA, previous (05/06/24) 1. No pulmonary embolism. 2. Bilateral groundglass appearing areas in both upper and lower lobe suggestive of atypical or viral pneumonia. Pulmonary edema cannot be excluded. Clinical correlation advised - given new patchy infiltrates scattered throughout both lungs, more so suspect pneumonia. Will start patient on cap treatment: Azithromycin, ceftriaxone, and supportive care. - viral PCR negative - Ddx: NSTEMI (see below), pneumonia, small airway disease (2) Non-ST elevation myocardial infarction (NSTEMI): Code(s): I21.4 - Non-ST elevation (NSTEMI) myocardial infarction Status: Acute Assessment and Plan: - EKG, initial: Atrial flutter/tachycardia with RVR, left ventricular hypertrophy and ST-T change. When compared to previous atrial flutter has replaced junctional bradycardia. - EKG, repeat (1): When compared to EKG done earlier today, atrial flutter no longer present. - EKG, repeat (2): When compared to EKG done earlier today, no significant changes. Awaiting formal read. - Troponin: 0.024 -> 0.662, 6 hour pending - ASA 324 not given, patient refusal - SL nitro PRN - cardiology consulted, awaiting recs ED provider discussed case with on-call diesel retrofit designer, admit for continued monitoring, no other recs - continue atorvastatin 40 mg daily - echo, previous (12/2023): Normal systolic function, estimated EF 60-65%, moderately increased LV wall thickness, known history of apical variant of hypertrophic cardiomyopathy, apex appears aneurysmal, grade 1 diastolic dysfunction. See report for details. - cardiac catheterization, previous (12/2023): Diffuse luminal irregularities in the LAD and diagonal branches, left circumflex artery and main marginal branches, and RCA without any significant obstructive disease. - telemetry monitoring and admission to IMU (3) Atrial flutter with rapid ventricular response: Code(s): I48.92 - Unspecified atrial flutter Status: Acute Assessment and Plan: - has history of same, seen here on 05/06/2024 for a flutter RVR during which her sotalol was increased from 40 mg b.i.d. to 80 mg b.i.d.. - continue home medications: sotalol 80 mg b.i.d. and diltiazem CD 120 mg daily. 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 Hold home sliding scale. Lantus u-300 at 28, converted to regular (reduction by 20%) = 22 u HS. - correct regimen ordered - low dose TIDWM, based off BMI (BMI 25) - A1C 7.2% on 06/03/2024, update (5) Hypertension: Qualifiers: Hypertension type: primary hypertension Qualified Code(s): I10 - Essential (primary) hypertension Code(s): I10 - Essential (primary) hypertension Status: Chronic Assessment and Plan: - chronic, currently 143/60 - continue home medications: diltiazem and sotalol, see dosing above - monitor DS: Summary Hospital Course Hospital Course: 74 y/o F presents here with shortness of breath, chest pain, and hypoxia with PMH of apical variant hypertrophic cardiomyopathy, hyperlipidemia, hypertension, type 2 diabetes, NSTEMI and osteoporosis. The patient presents here with left-sided chest pain, shortness a breath, and hypoxia from home via EMS. The patient reports acute onset of chest pain and shortness of breath with associated hypoxia, dizziness, weakness, and nausea starting around 08:30 a.m. while she was sleeping which woke her from her sleep. Initially concerned her sugar was low, checked a spot glucose at home which was 98. She describes the chest discomfort as left-sided, initially started at the base of her throat, nonradiating, constant, no aggravating factors, and alleviated by supplemental oxygen. Per EMS report, upon their arrival the patient was 89% on room air and was placed on supplemental O2. After supplemental O2 was applied, the patient reported complete resolution of all of her symptoms. Initial vitals upon arrival to the emergency department showed a heart rate of 150 and 97% on RA. Initial EKG showed atrial flutter, patient is unsure if she has history of same. Patient had resolution of tachycardia without medical intervention. Repeat EKG showed christianity of sinus rhythm with sinus arrhythmia. The patient is currently feeling well, no reoccurence of symptoms. Initial VS at presentation: 97.8? F, HR 150, RR 20, 145/72, and 97% on RA. ED workup showed: No leukocytosis, no anemia, INR 1.1, elevated D-dimer, ABG showed a pH of 7.528, CO2 27.6, and normal O2 saturation on room air. Creati nine was 0.6 with GFR >60, glucose 118, initial troponin 0.024 -> 0.662, BNP 2 360, and viral PCR negative. CXR showed mild atelectasis of the right lung base and cardiomegaly. Chest CTA showed no evidence of PE, patchy ground-glass infiltrates scattered throughout both lungs (pneumonia versus small airway disease), cardiomegaly, and aortic atherosclerosis. During the hospitalization patient was evaluated by the Cardiology and believes the rise in troponin possibly due to demand ischemia from atrial flutter. Patient also had episodes of bradycardia during sleep. Patient will be discharged today with diltiazem 120 mg p.o. q.d. and sotalol 80 mg b.i.d.. As per Cardiology patient needs EP referral and patient has a appointment with Dr. Durant tomorrow Status at Discharge Cognitive/behavioral status at discharge: Stable Time Spent with Patient Time attestation: Total time spent providing and/or coordinating discharge services: 45 minute Exam Narrative: exam fine. no edema. DS: Data Data Completed and Pending Labs on day of discharge: Labs from last 24 hours 09/21/24 09/21/24 09/21/24 11:36 07:49 03:57 WBC 5.4 RBC 4.61 Hgb 12.6 Hct 39.4 MCV 85.5 MCH 27.3 MCHC 32.0 RDW 15.0 H Plt Count 219 MPV 11.6 H Sodium 137 Potassium 3.6 Chloride 107 Carbon Dioxide 26 Anion Gap 4 BUN 17 Creatinine 0.70 Estim Creat Clear Calc Not Reportable Estimated GFR > 60 Glucose 95 POC Capillary Glucose 164 H 90 Calcium 8.7 Total Bilirubin 0.8 AST 43 H ALT 17 Alkaline Phosphatase 80 Troponin I Total Protein 6.0 L Albumin 3.6 09/20/24 09/20/24 09/20/24 20:06 16:40 15:25 WBC RBC Hgb Hct MCV MCH MCHC RDW Plt Count MPV Sodium Potassium Chloride Carbon Dioxide Anion Gap BUN Creatinine Estim Creat Clear Calc Estimated GFR Glucose POC Capillary Glucose 165 H 130 H Calcium Total Bilirubin AST ALT Alkaline Phosphatase Troponin I 1.530 H* Total Protein Albumin Discharge Plan Discharge Attending physician on discharge: Aleks Patel Consulting providers: Christiano Roper Discharging Clinician: Aleks Patel Anticipated Discharge Date/Time: 09/21/24 15:38 Patient Disposition: Home, Self-Care Activity: as tolerated Diet: heart healthy and diabetic Discharge Instructions: Patient need to follow up with lining cleaner. Follow up with Dr. Durant tomorrow Patient Instructions: Apixaban (By mouth) Stand Alone Forms: General Discharge Information Follow-up/Referrals: Christiano Roper MD [Physician] - 1 Week (Patient needs EP referral) Discharge Medications: New ketoconazole 2 % cream 1 applic topical BID Qty: 60 0RF Continued diltiazem HCl 120 mg tablet extended release 24 hr 120 mg PO DAILY cholecalciferol (vitamin D3) [Vitamin D3] 125 mcg (5,000 unit) Tablet 125 mcg PO DAILY insulin glargine U-300 conc [Toujeo Max U-300 SoloStar] 300 unit/mL (3 mL) insulin pen 28 unit subcut DAILY atorvastatin 40 mg tablet 40 mg PO HS Rx Instructions: TAKE 1 TABLET BY MOUTH EVERY DAY sotalol 80 mg tablet 80 mg PO Q12H alendronate 70 mg tablet 70 mg PO WEEKLY Rx Instructions: TAKE 1 TABLET BY MOUTH ONCE PER WEEK IN THE MORNING, AT LEAST 30 MINUTES BEFORE FIRST FOOD, BEVERAGE, OR MED OF THE DAY- TAKES ON SUNDAYS Eliquis 5 mg tablet 5 mg PO Q12H Rx Instructions: TAKE 1 TABLET BY MOUTH TWICE A DAY Jardiance 10 mg tablet 10 mg PO DAILY Rx Instructions: TAKE 1 TABLET BY MOUTH EVERY DAY alendronate 70 mg tablet See Rx Instructions .ROUTE .COMPLEX Qty: 12 2RF Dose Instruction: TAKE 1 TABLET BY MOUTH ONCE PER WEEK IN THE MORNING, AT LEAST 30 MINUTES BEFORE FIRST FOOD, BEVERAGE, OR MED OF THE DAY Rx Instructions: TAKE 1 TABLET BY MOUTH ONCE PER WEEK IN THE MORNING, AT LEAST 30 MINUTES BEFORE FIRST FOOD, BEVERAGE, OR MED OF THE DAY- TAKES ON SUNDAYS insulin aspart U-100 [Novolog FlexPen U-100 Insulin] 100 unit/mL (3 mL) insulin pen 1 sliding scale dose subcut TIDWMEAL Qty: 15 3RF Rx Instructions: 150-200 3 units 201-250 6 units 251-300 9 units 301-350 12 units 350-400 15 units pantoprazole 40 mg tablet,delayed release (DR/EC) 40 mg PO DAILY Qty: 90 3RF No Action (DME) pen needle, diabetic [BD Shraddha 2nd Gen Pen Needle] 32 gauge x 5/32 needle See Rx Instructions .ROUTE .COMPLEX Qty: 100 3RF Dose Instruction: DIRECTED TO INJECT WITH INSULIN 3 TIMES DAILY Rx Instructions: DIRECTED TO INJECT WITH INSULIN 3 TIMES DAILY Date of admission: 09/19/24 17:07 Primary Care Provider: Pernell Pratt Admitting Provider: Aleks Patel Attending physician on admission: Aleks Patel Condition: Stable
== END 2024-09-21 16:45 | disposition home or self-care (01) ==
LOC: ANHED 17:07 → ANHIMU 17:56
PROVIDERS: Internal Medicine Interventional Cardiology; Student in an Organized Health Care Education/Training Program; Admitting Provider General Practice; Emergency Provider Student in an Organized Health Care Education/Training Program; PCP Emergency Medicine; Visit Provider General Practice
DX: I21.4 Non-ST elevation (NSTEMI) myocardial infarction (principal); R06.02 Shortness of breath; I48.91 Unspecified atrial fibrillation; I48.92 Unspecified atrial flutter; I70.0 Atherosclerosis of aorta; R09.02 Hypoxemia; I42.2 Other hypertrophic cardiomyopathy; I10 Essential (primary) hypertension; E78.5 Hyperlipidemia, unspecified; I25.2 Old myocardial infarction; E11.9 Type 2 diabetes mellitus without complications; M81.0 Age-related osteoporosis without current pathological fracture; Z20.822 Contact with and (suspected) exposure to COVID-19; Z87.891 Personal history of nicotine dependence; Z79.4 Long term (current) use of insulin; Z79.84 Long term (current) use of oral hypoglycemic drugs; Z79.01 Long term (current) use of anticoagulants
CPT/HCPCS: 36415; 36600; 71046; 71275; 80048; 80053; 82805; 82948; 83036; 83690; 83880; 84443; 84484; 85018; 85025; 85027; 85380; 85610; 85730; 87637; 93005; 99285; A9270; G0378; J1815; Q9967

== ENCOUNTER 2024-10-12 08:52 | Outpatient (CLI) | payer OTHER, MEDICAID, SELFPAY ==
[2024-10-12 09:48] LABS: Alanine Aminotransferase 15 U/L (6-35); Albumin Level 4.1 g/dL (3.5-5.1); Alkaline Phosphatase 96 U/L (38-126); Anion Gap 4 mmol/L (4-12); Aspartate Amino Transferase 26 U/L (14-36); Bilirubin,Total 0.8 mg/dL (0.2-1.3); Blood Urea Nitrogen 11 mg/dL (7-17); Calcium 9.4 mg/dL (8.4-10.2); Carbon Dioxide 27 mmol/L (22-30); Chloride 109 mmol/L (98-107); Cholesterol 177 mg/dL (0-200); Estimated Glomerular Filt Rate > 60; Glucose 118 mg/dL (65-110); HDL Direct 66 mg/dL; Potassium 4.2 mmol/L (3.4-5.0); Sodium 140 mmol/L (137-145); Triglycerides 104 mg/dL (<150)
[2024-10-12 09:59] LABS: LDL Cholesterol Direct 72 mg/dL
[2024-10-12 10:01] LABS: Vitamin D 25 Hydroxy 46.9 ng/mL
[2024-10-12 10:13] LABS: MALB Creatinine Ratio 53.8 mg/g (0-30); Microalbumin Urine Random 90.3 mg/L (0-16.7)
[2024-10-12 10:21] LABS: Hemoglobin A1C 7.6 % (<5.7)
== END 2024-10-12 08:53 | disposition home or self-care (01) ==
LOC: ANHLAB 08:53
PROVIDERS: PCP Emergency Medicine; Visit Provider Emergency Medicine
DX: E78.5 Hyperlipidemia, unspecified (principal); E11.9 Type 2 diabetes mellitus without complications; E55.9 Vitamin D deficiency, unspecified
CPT/HCPCS: 36415; 80053; 80061; 82043; 82306; 83036

== ENCOUNTER 2024-11-30 21:57 | Observation (INO) | payer OTHER, MEDICAID, SELFPAY ==
--- NOTE | 2024-11-30 21:58 | ECG_ITS ---
Test Date: 2024-11-30 22:04:49 Measurements Intervals [place] Rate: 70 P: 70 CA: 167 QRS: 3 QRSD: 74 T: 140 QT: 439 QTc: 475 Interpretive Statements SINUS RHYTHM POSSIBLE RIGHT VENTRICULAR CONDUCTION DELAY [RSR (QR) IN V1/V2] LEFT VENTRICULAR HYPERTROPHY AND ST-T CHANGE T WAVE ABNORMALITY IN ANTEROLATERAL LEADS- CONSIDER ISCHEMIA BASELINE ARTIFACT- I, II, III, AVR, AVL, AVF ABNORMAL ECG Compared to ECG 09/19/2024 17:05:06 NO SIGNIFICANT CHANGE Electronically Signed On 12-01-2024 06:25:52 [facility] [employer] by Clem Peters D.O.
--- OUTSIDE RECORDS SUMMARY | 2024-11-30 22:00 | XMS_ITS | Patient Health Summary ---
Author Organization [facility] Address [address] [place] [address] Care Team Providers Care Credentials Specialist Name Role Phone Pernell Pratt MD Primary Care Provider + [phone] Note from [facility],non-owned Affiliates and Associated Physician Practices is amultiple site organization consisting of ambulatory clinics and hospital sitesin [place], [place], [place] and [place]. This disclosure is being madepursuant to the Care Everywhere program and may not contain all information available regarding this patient. Last updated 18.[facility] Snaps Allergies No known active allergies Medications * Be aware that medications may not be up to date on this document. Alwaysverify current medications with the patient. * sotalol (Betapace) 80 MG tablet Take 1 (one) tablet by mouth 2 times daily * apixaban (Eliquis) 5 MG tablet Take 1 (one) tablet by mouth 2 times daily * atorvastatin (Lipitor) 40 MG tablet Take 1 (one) tablet by mouth at bedtime * insulin glargine (Lantus/Semglee) 100 units/mL pen Inject 28 (twenty eight) Units subcutaneously every morning * losartan (Cozaar) 50 MG tablet Take 1 (one) tablet by mouth once daily * acetaminophen (Tylenol) 325 MG tablet(Started 05/21/2024) Take 2 (two) tablets by mouth every 6 hours as needed Maximum allowable Acetaminophen amount = 4 Grams (4000 mg) / 24 hours. * pantoprazole EC (Protonix) 40 MG tablet(Started 05/21/2024) TAKE ONE TABLET BY MOUTH ONCE DAILY * isosorbide mononitrate CR 24hr (Imdur) 30 MG tablet(Started 05/21/2024) TAKE ONE TABLET BY MOUTH ONCE DAILY Active Problems Problem Noted Date Diagnosed Date SOB (shortness of breath) 05/21/2024 T wave inversion in EKG 05/21/2024 Chest pain, unspecified type 05/21/2024 A-fib 05/21/2024 Primary hypertension 05/21/2024 Mixed hyperlipidemia 05/21/2024 Type 2 diabetes mellitus wit hout complication, with long-term current use of insulin 05/21/2024 Social History Tobacco Use Types Packs/Day Years Used Date Smoking Tobacco: Former Cigarettes Smokeless Tobacco: Former Tobacco Cessation:Counseling Given: Not Answered Alcohol Use Standard Drinks/Week Comments Never 0 (1 standard drink = 0.6 oz pur e alcohol) Sex and Gender Information Value Date Recorded Sex Assigned at Not on file Gender Identity Not on file Sexual Orientation Not on file Last Filed Vital Signs Vital Sign Reading Time Taken Comments Blood Pressure 126/65 05/21/2024 4:16 PM CDT Pulse 50 05/21/2024 4:16 PM CDT Temperature 36.8 C (98.2 F) 05/20/2024 10:54 PM CDT Respiratory Rate 16 05/21/2024 4:16 PM CDT Oxygen Saturation 94% 05/21/2024 5:53 AM CDT Inhaled Oxygen Concentration - - Weight 59.4 kg (131 lb) 05/20/2024 10:54 PM CDT Height 149.9 cm (4' 11 ) 05/20/2024 10:54 PM CDT Body Mass Index 26.46 05/20/2024 10:54 PM CDT Procedures * GLUCOSE - POINT OF CARE(Performed 05/21/2024) * GLUCOSE - POINT OF CARE(Performed 05/21/2024) * GLUCOSE - POINT OF CARE(Performed 05/21/2024) * GLUCOSE - POINT OF CARE(Performed 05/21/2024) * PHOSPHORUS BLOOD(Performed 05/21/2024) Performed for Chest pain, unspecified type * MAGNESIUM BLOOD(Performed 05/21/2024) Performed for Chest pain, unspecified type * CBC W/O DIFFERENTIAL(Performed 05/21/2024) Performed for Chest pain, unspecified type * BASIC METABOLIC PANEL (CALCIUM TOTAL)(Performed 05/21/2024) Performed for Chest pain, unspecified type * HEMOGLOBIN A1C(Performed 05/21/2024) Performed for Chest pain, unspecified type * EKG 12-LEAD(Performed 05/21/2024) Performed for Chest pain, unspecified type * TROPONIN-I HIGH SENSITIVE REFLEX 1HOUR(Performed 05/21/2024) * XR CHEST 1VW PORTABLE(Performed 05/21/2024) Performed for Chest pain, unspecified type * EKG 12-LEAD(Performed 05/21/2024) Performed for Chest pain, unspecified type * TROPONIN-I HIGH SENSITIVE BASELINE + 1HR(Performed 05/20/2024) * CBC W AUTO DIFFERENTIAL(Performed 05/20/2024) * COMPREHENSIVE METABOLIC PANEL(Performed 05/20/2024) Results * (ABNORMAL) GLUCOSE - POINT OF CARE (05/21/2024 12:52 PM CDT) Only the most recent of4 resultswithin the time period is included. [facility] Glucose WB/POC 120(H) 70 - 115 mg/dL 05/21/2024 12:59 PM CDT [facility] Specimen Type Cap Fingerstick 2023 12:59 PM CDT [facility] Blood BLOOD SPECIMEN / Unknown 05/21/2024 12:52 PM CDT 05/21/2024 12:59 PM CDT May Soto MD LAB - POINT OF CARE ORDERABLES [facility] [address] [place] [phone], [facility] [phone] * (ABNORMAL) HEMOGLOBIN A1C (05/21/2024 4:13 AM CDT) [facility] Hemoglobin A1c 7.2(H) <=5.6 % 05/21/2024 10:10 AM CDT [facility] Estimated Average Glucose 160 mg/dL 05/21/2024 10:10 AM CDT [facility] Comment: HbA1c Interpretation: Normal : < 5.7% Pre-diabetes: 5.7-6.4% Diabetes: Equal to or greater than 6.5% Test results diagnostic of diabetes should be repeated for confirmation. Treatment target values recommended by ADA and other clinical organizations should be used to evaluate metabolic control in patients. Reference: [place] [employer], Standards of Care in Diabetes -2020 In patients 70 years and older consider HbA1c target range of 7.0-7.5% (Reference: Cruz Braun et al. KAVITHA. 2012) The Sebia assay for the measurement of HbA1c is a National Glycohemoglobin Standardization Program (NGSP) certified method. Blood BLOOD SPECIMEN / Unknown Venipuncture / Unknown 05/21/2024 4:13 AM CDT 05/21/2024 4:23 AM CDT Richard Velazco PA-C LAB - CHEMISTRY O RDERABLES [address] [address], [facility] [phone] * (ABNORMAL) CBC W/O DIFFERENTIAL (05/21/2024 4:13 AM CDT) WBC 6.4 4.0 - 10.7 x10E9/L 05/21/2024 4:45 AM [facility] RBC Count 4.36 3.90 - 5.20 x10E12/L 05/21/2024 4:45 AM [facility] Hemoglobin 12.6 11.9 - 15.8 g/dL 05/21/2024 4:45 AM [facility] Hematocrit 38.3 34.8 - 46.1 % 05/21/2024 4:45 AM [facility] MCV 87.8 80.0 - 98.0 fL 05/21/2024 4:45 AM [facility] MCH 28.9 26.7 - 33.6 pg 05/21/2024 4:45 AM [facility] MCHC 32.9 31.7 - 36.3 g/dL 05/21/2024 4:45 AM [facility] RDW-CV 14.2 11.3 - 14.8 % 05/21/2024 4:45 AM [facility] Platelet Count 228 150 - 420 x10E9/L 05/21/2024 4:45 AM [facility] MPV 11.6(H) 7.8 - 11.4 fL 05/21/2024 4:45 AM [facility] Blood BLOOD SPECIMEN / Unknown Venipuncture / Unknown 05/21/2024 4:13 AM CDT 05/21/2024 4:29 AM CDT Richard Velazco PA-C LAB - HEMATOLOGY ORDERABLES [facility] [address] [place] [address], [facility] [phone] * (ABNORMAL) BASIC METABOLIC PANEL (CALCIUM TOTAL) (05/21/2024 4:13 AM CDT) BUN 12 7 - 26 mg/dL 05/21/2024 5:06 AM [facility] Creatinine 0.58 0.56 - 0.96 mg/dL 05/21/2024 5:06 AM [facility] Sodium 141 136 - 145 mmol/L 05/21/2024 5:06 AM [facility] Potassium 4.0 3.5 - 4.5 mmol/L 05/21/2024 5:06 AM [facility] Chloride 112(H) 98 - 107 mmol/L 05/21/2024 5:06 AM [facility] CO2 21(L) 22 - 29 mmol/L 05/21/2024 5:06 AM [facility] Glucose 80 70 - 115 mg/dL 05/21/2024 5:06 AM [facility] Calcium 9.4 8.4 - 10.2 mg/dL 05/21/2024 5:06 AM [facility] Anion Gap 8 6 - 16 05/21/2024 5:06 AM [facility] BUN/Creatinine Ratio 21 7 - 23 05/21/2024 5:06 AM [facility] Osmolality Calculated 291 275 - 295 mOsm/kg 05/21/2024 5:06 AM [facility] eGFR by CKD-EPI >90 >=90 mL/min/1.7 3 m2 05/21/2024 5:06 AM [facility] Blood BLOOD SPECIMEN / Unknown Venipuncture / Unknown 05/21/2024 4:13 AM CDT 05/21/2024 4:23 AM CDT Richard Velazco PA-C LAB - CHEMISTRY O RDERABLES Performing Organization Address [facility]/ZIP Co de Phone Number [address] [address], [facility] [phone] * PHOSPHORUS BLOOD (05/21/2024 4:13 AM CDT) Phosphorus 4.3 2.9 - 5.1 mg/dL 05/21/2024 5:06 AM CDT [facility] Blood BLOOD SPECIMEN / Unknown Venipuncture / Unknown 05/21/2024 4:13 AM CDT 05/21/2024 4:23 AM CDT Richard Velazco PA-C LAB - CHEMISTRY O RDERABLES Performing Organization Address [facility] Co de Phone Number [address] [address], [place] [phone] * MAGNESIUM BLOOD (05/21/2024 4:13 AM CDT) Magnesium 2.2 1.6 - 2.6 mg/dL 05/21/2024 5:06 AM CDT [facility] Blood BLOOD SPECIMEN / Unknown Venipuncture / Unknown 05/21/2024 4:13 AM CDT 05/21/2024 4:23 AM CDT Richard Velazco PA-C LAB - CHEMISTRY O RDERABLES Performing Organization Address [facility] Co de Phone Number [address] [address], [place] [phone] * EKG 12-LEAD (05/21/2024 1:36 AM CDT) Only the most recent of2 resultswithin the time period is included. Ventricular Rate 47 BPM [facility] MUSE Atrial Rate 47 BPM [facility] MUSE P-R Interval 172 ms [facility] MUSE QRS Duration ms 86 ms [facility] MUSE Q-T Interval ms 520 ms [facility] MUSE QTC Calculation (Bezet) 460 ms [facility] MUSE Calculated P Bedrock 56 degrees [facility] MUSE Calculated T Bedrock -171 degrees [facility] MUSE Interpretation EKG SINUS BRADYCARDIA WITH PREMATURE ATRIAL COMPLEXES LEFT VENTRICULAR HYPERTROPHY WITH REPOLARIZATION ABNORMALITY ( R in aVL , Romhilt-Arechiga ) ABNORMAL ECG WHEN COMPARED WITH ECG OF 05/21/24 00:03 NO SIGNIFICANT CHANGE WAS FOUND Confirmed by MICHELLE IBARRA, MOMOMORA ([id number]) on 05/26/2024 8:51:15 AM [facility] MUSE 05/21/2024 1:36 AM CDT 05/26/2024 8:51 AM CDT Marcelino Nye MD ECG ORDERABLES [facility] MUSE * TROPONIN-I HIGH SENSITIVE REFLEX 1HOUR (05/21/2024 1:26 AM CDT) Troponin I High Sensitive 11 <=14 ng/L 05/21/2024 2:04 AM CDT [facility] LAB[facility]ATORY [facility] Delta Troponin I HS 1 <6 ng/L 05/21/2024 2:04 AM CDT [facility] Blood BLOOD SPECIMEN / Unknown Venipuncture / Unknown 05/21/2024 1:26 AM CDT 05/21/2024 1:33 AM CDT Marcelino Nye MD LAB - CHEMISTRY [place] [facility] [address] [place] [address], [facility] [phone] * XR CHEST 1VW PORTABLE (05/21/2024 12:25 AM CDT) Anatomical Region Laterality Modality Chest Radiographic Elana ging 05/21/2024 1:12 AM CDT Impressions 05/21/2024 3:29 AM CDT IMPRESSION: No acute pulmonary process. > Dictated by Michell Yost MD I, Miguel Swift MD have personally reviewed and interpreted this examination/study. > Interpreting Provider: Miguel Swift MD on 05/21/2024 3:29 AM Narrative 05/21/2024 3:29 AM CDT PROCEDURE: XR CHEST 1VW PORTABLE, DATE/TIME OF EXAM: 05/21/2024 12:25 AM, LOCATION [facility] INDICATION: R07.9: Chest pain, unspecified type ADDITIONAL CLINICAL INFORMATION: Ordering Provider Reason For Exam: SOB Technologist Note: Additional: COMPARISON: None. FINDINGS: There is no focal consolidation, pleural effusion, or pneumothorax. Bilateral emphysematous changes. The cardiomediastinal silhouette is normal. The visible bony thorax is intact. Procedure Note Miguel Swift MD - 05/21/2024 PROCEDURE: XR CHEST 1VW PORTABLE, DATE/TIME OF EXAM: 05/21/2024 12:25AM, LOCATION [facility] INDICATION: R07.9: Chest pain, unspecified type ADDITIONAL CLINICAL INFORMATION: Ordering Provider Reason For Exam: SOB Technologist Note: Additional: COMPARISON: None. FINDINGS: There is no focal consolidation, pleural effusion, or pneumothorax. Bilateral emphysematous changes. The cardiomediastinal silhouette is normal. The visible bony thorax is intact. IMPRESSION: No acute pulmonary process. > Dictated by Michell Yost MD I, Miguel Swift MD have personally reviewed and interpreted this examination/study. > Interpreting Provider: Miguel Swift MD on 05/21/2024 3:29 AM Marcelino Nye MD DIAGNOSTIC IMAGING O RDERABLES * TROPONIN-I HIGH SENSITIVE BASELINE + 1HR (05/20/2024 11:59 PM CDT) Troponin I High Sensitive 10 <=14 ng/L 05/21/2024 12:51 AM CDT [facility] Blood BLOOD SPECIMEN / Unknown Venipuncture / Unknown 05/20/2024 11:59 PM CDT 05/21/2024 12:13 AM CDT Marcelino Nye MD LAB - CHEMISTRY [facility] [facility] Organization Address City/State/ZIP Co de Phone Number [facility] [address] [place] [address] [phone] * (ABNORMAL) CBC W AUTO DIFFERENTIAL (05/20/2024 11:59 PM T) WBC 6.6 4.0 - 10.7 x10E9/L 05/21/2024 12:28 AM [facility] RBC Count 4.79 3.90 - 5.20 x10E12/L 05/21/2024 12:28 AM [facility] Hemoglobin 13.8 11.9 - 15.8 g/dL 05/21/2024 12:28 AM [facility] Hematocrit 41.6 34.8 - 46.1 % 05/21/2024 12:28 AM [facility] MCV 86.8 80.0 - 98.0 fL 05/21/2024 12:28 AM [facility] MCH 28.8 26.7 - 33.6 pg 05/21/2024 12:28 AM [facility] MCHC 33.2 31.7 - 36.3 g/dL 05/21/2024 12:28 AM [facility] RDW-CV 14.2 11.3 - 14.8 % 05/21/2024 12:28 AM [facility] Platelet Count 253 150 - 420 x10E9/L 05/21/2024 12:28 AM [facility] MPV 11.8(H) 7.8 - 11.4 fL 05/21/2024 12:28 AM [facility] Neutrophil % 46.3 41.0 - 74.0 % 05/21/2024 12:28 AM [facility] Lymphocyte % 38.4 17.0 - 47.0 % 05/21/2024 12:28 AM [facility] Monocyte % 11.4(H) 3.0 - 11.0 % 05/21/2024 12:28 AM [facility] Eosinophil % 2.9 0.0 - 7.0 % 05/21/2024 12:28 AM [facility] Basophil % 0.8 0.0 - 1.6 % 05/21/2024 12:28 AM [facility] Immature Granulocytes % 0.2 0.0 - 1.0 % 05/21/2024 12:28 AM [facility] Neutrophil Absolute 3.06 1.60 - 7.50 x10E9/L 05/21/2024 12:28 AM [facility] Lymphocyte Absolute 2.53 1.00 - 4.40 x10E9/L 05/21/2024 12:28 AM [facility] Monocyte Absolute 0.75 0.15 - 1.00 x10E9/L 05/21/2024 12:28 AM [facility] Eosinophil Absolute 0.19 0.00 - 0.60 x10E9/L 05/21/2024 12:28 AM [facility] Basophil Absolute 0.05 0.00 - 0.13 x10E9/L 05/21/2024 12:28 AM [facility] Blood BLOOD SPECIMEN / Unknown Venipuncture / Unknown 05/20/2024 11:59 PM CDT 05/21/2024 12:13 AM T Marcelino Nye MD LAB - HEMATOLOGY ORD ERABLES [facility] [address] [place] [phone], [facility] [phone] * (ABNORMAL) COMPREHENSIVE METABOLIC PANEL (05/20/2024 11:59 PM CDT) BUN 14 7 - 26 mg/dL 05/21/2024 12:48 AM [facility] Creatinine 0.63 0.56 - 0.96 mg/dL 05/21/2024 12:48 AM [facility] Sodium 142 136 - 145 mmol/L 05/21/2024 12:48 AM [facility] Potassium 4.2 3.5 - 4.5 mmol/L 05/21/2024 12:48 AM [facility] Chloride 110(H) 98 - 107 mmol/L 05/21/2024 12:48 AM [facility] CO2 21(L) 22 - 29 mmol/L 05/21/2024 12:48 AM [facility] Glucose 97 70 - 115 mg/dL 05/21/2024 12:48 AM [facility] Calcium 10.1 8.4 - 10.2 mg/dL 05/21/2024 12:48 AM [facility] Protein Total 7.7 6.0 - 8.3 g/dL 05/21/2024 12:48 AM [facility] Albumin 3.9 3.4 - 5.0 g/dL 05/21/2024 12:48 AM [facility] Bilirubin Total 0.5 0.2 - 1.2 mg/dL 05/21/2024 12:48 AM [facility] Alkaline Phosphatase 78 40 - 150 U/L 05/21/2024 12:48 AM [facility] ALT 20 5 - 55 U/L 05/21/2024 12:48 AM [facility] AST 26 5 - 34 U/L 05/21/2024 12:48 AM [facility] Anion Gap 11 6 - 16 05/21/2024 12:48 AM [facility] BUN/Creatinine Ratio 22 7 - 23 05/21/2024 12:48 AM [facility] Osmolality Calculated 294 275 - 295 mOsm/kg 05/21/2024 12:48 AM [facility] Albumin/Globulin Ratio 1.0(L) 1.1 - 2.3 05/21/2024 12:48 AM [facility] eGFR by CKD-EPI >90 >=90 mL/min/1.7 3 m2 05/21/2024 12:48 AM [facility] Blood BLOOD SPECIMEN / Unknown Venipuncture / Unknown 05/20/2024 11:59 PM T 05/21/2024 12:13 AM [facility] Marcelino Nye MD LAB - CHEMISTRY [place] [facility] Organization Address City/State/ZIP Co de Phone Number [facility] [address] [place] [phone], [facility] [phone] Care Teams Credentials Specialist Relationship Specialty Start Date End Date Pernell Pratt MD [id number] [facility] [address] [place] [address] PCP - General Internal Medicine 05/21/24
--- OUTSIDE RECORDS SUMMARY | 2024-11-30 22:00 | XMS_ITS | Referral Summary ---
Author Organization [facility] [address] Address [address] [place] [address] Care Team Providers Care Systems Architect Name Role Phone Pernell Pratt MD Primary Care Provide r Encounters Date Type Department Care Team Description 11/29/2024 Results Follow-Up [facility] Cardiology [address] [place] [address] Advanced Medicine 8th [place] [address] [place] [address] Moe Zapata MD PhD 11/27/2024 11:45 AM IT CORPORATE RECRUITER - 11/27/2024 11:59 PM IT CORPORATE RECRUITER Hospital Encounter [facility] [address] [place] [address] oMe Zapata MD PhD Cardiomyopathy, hypertrophic (CMS/HCC) (HCC) Discharge Disposition: Discharge to home or self care 11/04/2024 2:00 PM IT CORPORATE RECRUITER Ancillary Procedure [facility] Cardiology [address] [place] [address] [place] [address] [place] [address] SVT (supraventricular tachycardia) (HCC) 11/04/2024 1:15 PM IT CORPORATE RECRUITER Office Visit [facility] Cardiology [address] [place] [address] [place] [address] [place] [address] Moe Zapata MD PhD Cardiomyopathy, hypertrophic (CMS/HCC) (HCC) (Primary Dx); Typical atrial flutter (CMS/HCC) (HCC); SVT (supraventricular tachycardia) (HCC) 11/03/2024 Telephone [facility] Cardiology [address] [place] [phone] Pernell Durant MD 10/05/2024 Orders Only [facility] Cardiology [address] [place] [phone] Enid Barboza NP 09/25/2024 Telephone [facility] Cardiology [address] [facility] 8th [place] [address] [place] [address] Alicia Holden 09/22/2024 Orders Only [facility] Cardiology [address] [place] [phone] Christiano Roper MD 09/22/2024 Telephone [facility] Cardiology [address] [place] [phone] Adelaida Ball NP 09/22/2024 1:00 PM IT CORPORATE RECRUITER Office Visit [facility] Cardiology [address] [place] [phone] Adelaida Ball NP Atrial flutter with rapid ventricular response (HCC) (Primary Dx); Encounter for monitoring sotalol therapy; Cardiomyopathy, hypertrophic (CMS/HCC) (HCC); Hospital discharge follow-up from Last 3 Months Allergies No known active allergies Medications atorvastatin (LIPITOR) 40 mg tablet Take 1 tablet (40 mg total) by mouth daily Active alendronate (FOSAMAX) 70 mg tablet Take 1 tablet (70 mg total) by mouth every 7 days Take in the morning with a full glass of water, on an empty stomach, and do not take anything else by mouth or lie down for the next 30 min. Active insulin glargine (LANTUS) 100 unit/mL injection Inject 12 Units under the skin nightly Active insulin lispro (HumaLOG) 100 unit/mL injection Inject under the skin 3 (three) times a day before meals Active Eliquis 5 mg tablet Take 1 tablet (5 mg total) by mouth 2 (two) times a day 01/08/20 24 Active insulin aspart (NovoLOG) 100 unit/mL vial for injection 01/27/20 24 Active Jardiance 10 mg tablet Take 1 tablet (10 mg total) by mouth daily 04/06/20 24 Active diclofenac sodium (VOLTAREN) 1 % gel Apply topically as needed Active cholecalcifero l, vitamin D3, (D3-5000 ORAL) Take by mouth A ctive TOUJEO MAX 300 unit/mL (3 mL) pen for injection INJECT 30 UNITS SUBCUTANEOUSLY EVERY MORNING 04/23/20 24 Active acetaminophen (TYLENOL) 325 mg tablet Take 2 tablets (650 mg total) by mouth every 6 (six) hours as needed for pain Active pantoprazole DR (PROTONIX) 40 mg EC tablet Take 1 tablet (40 mg total) by mouth daily 05/21/20 24 Active dilTIAZem CD/XR/XT (CARDIZEM CD,DILACOR XR) 120 mg 24 hr capsule Take 1 capsule (120 mg total) by mouth daily 90 capsule 2 05/28/20 24 025 Active Additional Information Patient not taking.Reported on 11/04/2024 sotaloL (BETAPACE) 80 mg tablet Take 1 tablet (80 mg total) by mouth 2 (two) times a day 180 tablet 2 11/03/19 25 Active Contour Next Test Strips strip TEST THREE TIMES DAILY NEEDED 07/29/20 24 Active ketoconazole (NIZORAL) 2 % cream Apply topically 2 (two) times a day 09/21/20 24 Active Microlet Lancet misc 3 (three) times a day 10/23/19 25 Active BD Shraddha 2nd Gen Pen Needle 32 gauge x 5/32 needle USE DIRECTED TO INJECT WITH INSULIN 3 TIMES DAILY 09/30/20 24 Active sotaloL (BETAPACE) 80 mg tablet TAKE 1/2 TABLET BY MOUTH TWICE DAILY 90 tablet 1 04/27/20 24 025 Discontin ued(Reord er) Active Problems Problem Noted Date Diagnosed Date SVT (supraventricular tachycardia) 11/04/2024 Typical atrial flutter (CMS/HCC) 05/28/2024 Encounter for monitoring sotalol therapy 024 Cardiomyopathy, hypertrophic (CMS/HCC) 7 Social History Tobacco Use Types Packs/Day Years Used Date Smoking Tobacco: Former Cigarettes Smokeless Tobacco: Never Tobacco Cessation:Counseling Given: Not Answered Comments:Smoking History Packs/day: 0.5 Packs Alcohol Use Standard Drinks/Week Comments No 0 (1 standard drink = 0.6 oz pur e alcohol) Comments Unknown Sex and Gender Information Value Date Recorded Sex Assigned at Not on file Legal Sex Female 1:58 AM IT CORPORATE RECRUITER Gender Identity Not on file Sexual Orientation Not on file Last Filed Vital Signs Vital Sign Reading Time Taken Comments Blood Pressure 142/83 11/04/2024 1:17 PM IT CORPORATE RECRUITER Pulse 59 11/04/2024 1:17 PM IT CORPORATE RECRUITER Temperature - - Respiratory Rate 16 03/27/2017 10:19 AM CDT Oxygen Saturation 99% 11/04/2024 1:17 PM IT CORPORATE RECRUITER Inhaled Oxygen Concentration - - Weight 56.2 kg (124 lb) 11/27/2024 12:05 PM IT CORPORATE RECRUITER Height 147.3 cm (4' 10 ) 11/27/2024 12:05 PM IT CORPORATE RECRUITER Body Mass Index 25.92 11/27/2024 12:05 PM IT CORPORATE RECRUITER Plan of Treatment Not on file Procedures Procedure Name Priority Date/Time Associated Diagnosis Comments MRI CARDIAC M&FUNC W WO CONTRAST Schedule Routine, Read Routine (OP Routine) 11/27/2024 2:48 PM IT CORPORATE RECRUITER Cardiomyopathy, hypertrophic (CMS/HCC) (HCC) ECG 12-LEAD Routine 11/04/2024 1:23 PM IT CORPORATE RECRUITER Typical atrial flutter (CMS/HCC) (HCC) CARDIOLOGY DOCUMENT SCAN Routine 09/21/2024 10:12 AM IT CORPORATE RECRUITER CARDIOLOGY DOCUMENT SCAN Routine 09/20/2024 5:47 PM IT CORPORATE RECRUITER POCT LIPID PANEL Routine 01/30/2024 1:10 PM CDT Lipid screening from Last 3 Months or Most Recently Relevant to Health Maintenance Results * MRI Cardiac M&F W WO Contrast (11/27/2024 2:48 PM IT CORPORATE RECRUITER) Anatomical Region Laterality Modality Body N/A Magnetic Resonan ce 11/27/2024 4:11 PM IT CORPORATE RECRUITER Impressions 11/27/2024 6:39 PM IT CORPORATE RECRUITER 1. 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 LVEF 63%. 2. 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 The LGE involves <10% of the left ventricle myocardium. Dictated by: Cooper Valencia MD The radiology attending physician has personally reviewed this study, and had reviewed and/or edited this written report and agrees with it. Electronically signed by: Perry Alex M.D. Narrative 11/27/2024 6:39 PM IT CORPORATE RECRUITER EXAM: Cardiac MRI Morphology and Function with Contrast, w/ Cardiac MRI Flow Quantification DATE OF EXAMINATION: 11/27/2024 12:30 PM COMPARISON: None TECHNIQUE: Multiplanar MR imaging of the heart utilizing HASTE and TRUEFISP imaging sequences was performed with the administration of 10 mL intravenous gadolinium contrast agent according to a custom monitored protocol. 3-D postprocessing was subsequently performed on a dedicated 3-D workstation. HISTORY: Hypertrophic cardiomyopathy Anatomy: description Left Ventricular (LV) Size and Function: No hypertrophy of the left ventricular base or midcavity. Hypertrophy of the left ventricle apex which measures up to 1.7 cm in end diastole. 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 Otherwise normal left ventricular function with normal ejection fraction. LV functional parameters: LVEF, 63%. LV end diastolic volume, 105 mL. LV end systolic volume, 38 mL. Stroke volume, 66 mL. Cardiac output, 3.5 L/min. Cardiac index, 2.3 L/min/meter2 ; BSA 1.5 meter2. Maximal LV wall measurements (diastole): 17 mm at the apical septal wall. LVEDV to end diastolic LV myocardial mass (LVEDM) ratio = 1.04 Right Ventricular Size and Function: Normal. RV functional parameters: RVEF, 52%. RV end diastolic volume, 99 mL. RV end systolic volume, 48 mL. Stroke volume, 51 mL. Cardiac output, 2.7 L/min. Cardiac index, 1.8 L/min/meter2. Myocardial T1 measurements: Normal Myocardial T2 measurements: Normal Late gadolinium enhancement (LGE): Focal LGE of the left ventricular apex aneurysm. Otherwise no late gadolinium enhancement. LGE percent of myocardial mass, less than 10% of the myocardium. Valves: Mitral valve no regurgitation or stenosis. Tricuspid valve no regurgitation or stenosis. Pulmonic valve mild regurgitation by flow quantification, no stenosis. Aortic valve no regurgitation or stenosis. Flow Quantification: Aorta above valve (HR 52 bpm) Peak velocity 130 m/sec Fwd 58 ml Rev 0 ml Net 58 ml Flow/CO 3 L/min MPA ( HR 52 bpm) Peak velocity 85 m/sec Fwd 54 ml Rev 3 ml Net 51 ml Flow/CO 2.6 L/min Procedure Note Perry Alex MD - 11/27/2024 EXAM: Cardiac MRI Morphology and Function with Contrast, w/ Cardiac MRI Flow Quantification DATE OF EXAMINATION: 11/27/2024 12:30 PM COMPARISON: None TECHNIQUE: Multiplanar MR imaging of the heart utilizing HASTE and TRUEFISP imaging sequences was performed with the administration of 10 mL intravenous gadolinium contrast agent according to a custom monitored protocol. 3-D postprocessing was subsequently performed on a dedicated 3-D workstation. HISTORY: Hypertrophic cardiomyopathy Anatomy: description Left Ventricular (LV) Size and Function: No hypertrophy of the left ventricular base or midcavity. Hypertrophy of the left ventricle apex which measures up to 1.7 cm in end diastole. 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 Otherwise normal left ventricular function with normal ejection fraction. LV functional parameters: LVEF, 63%. LV end diastolic volume, 105 mL. LV end systolic volume, 38 mL. Stroke volume, 66 mL. Cardiac output, 3.5 L/min. Cardiac index, 2.3 L/min/meter2 ; BSA 1.5 meter2. Maximal LV wall measurements (diastole): 17 mm at the apical septal wall. LVEDV to end diastolic LV myocardial mass (LVEDM) ratio = 1.04 Right Ventricular Size and Function: Normal. RV functional parameters: RVEF, 52%. RV end diastolic volume, 99 mL. RV end systolic volume, 48 mL. Stroke volume, 51 mL. Cardiac output, 2.7 L/min. Cardiac index, 1.8 L/min/meter2. Myocardial T1 measurements: Normal Myocardial T2 measurements: Normal Late gadolinium enhancement (LGE): Focal LGE of the left ventricular apex aneurysm. Otherwise no late gadolinium enhancement. LGE percent of myocardial mass, less than 10% of the myocardium. Valves: Mitral valve no regurgitation or stenosis. Tricuspid valve no regurgitation or stenosis. Pulmonic valve mild regurgitation by flow quantification, no stenosis. Aortic valve no regurgitation or stenosis. Flow Quantification: Aorta above valve (HR 52 bpm) Peak velocity 130 m/sec Fwd 58 ml Rev 0 ml Net 58 ml Flow/CO 3 L/min MPA ( HR 52 bpm) Peak velocity 85 m/sec Fwd 54 ml Rev 3 ml Net 51 ml Flow/CO 2.6 L/min IMPRESSION: 1. 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 LVEF 63%. 2. 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 The LGE involves <10% of the left ventricle myocardium. Dictated by: Cooper Valencia MD The radiology attending physician has personally reviewed this study, and had reviewed and/or edited this written report and agrees with it. Electronically signed by: Perry Alex M.D. Moe Zapata MD PhD IMG MRI PROCEDURES Final Result * ECG 12 lead (11/04/2024 1:23 PM IT CORPORATE RECRUITER) Moe Zapata MD PhD ECG ORDERABLES Cleve daron Result - Final * Cardiology Document Scan (09/21/2024 10:12 AM IT CORPORATE RECRUITER) Anatomical Region Laterality Modality Other Enid Barboza NP CV CARDIAC SERVICES PROCEDUR ES Final Result * Cardiology Document Scan (09/20/2024 5:47 PM IT CORPORATE RECRUITER) Anatomical Region Laterality Modality Other Result [facility] Christiano Roper MD CV CARDIAC SERVICES PROCEDU RES Final Result * POCT lipid panel (01/30/2024 1:10 PM CDT) Cholesterol, POC 120 mg/dL HDL, POC 43 mg/dL Triglycerides, POC 109 mg/dL LDL Cholesterol POC 55 mg/dL Chol/HDL Ratio, POC 1.3 Non-HDL Cholesterol, POC 77 mg/dL Cholesterol Total, POC 120 mg/dL Capillary blood 01/30/2024 1 :10 PM CDT Pernell Durant MD POINT OF CARE TEST ORDER LEAH Edited Result - Final from Last 3 Months or Most Recently Relevant to Health Maintenance Insurance [facility] Member Subscriber Plan / Payer (Ef fective 2011-Present) Name:Mayte Mercado Relation to Subscriber:Self Name:Mayte Mercado Payer ID:[id number] (NAIC) Type:MEDICARE RISK OTHER Address: [address] [place] [id number] [employer] Care Teams Systems Architect Relationship Specialty Start Date End Date Pernell Pratt MD [address] [place] [address] PCP - General 09/11/12
--- OUTSIDE RECORDS SUMMARY | 2024-11-30 22:00 | XMS_ITS | Referral Summary ---
Author Organization [facility] Address [address] [place] [address] Care Team Providers Care Grainer Machine Name Role Phone Pernell Pratt MD Primary Care Provider [phone] [facility] [employer],non-owned Affiliates and Associated Physician Practices is amultiple site organization consisting of ambulatory clinics and hospital sitesin [place], [place], [place] and [place]. This disclosure is being madepursuant to the Care Everywhere program and may not contain all information available regarding this patient. Last updated 18.[facility] [facility] Allergies No known active allergies Medications * Be aware that medications may not be up to date on this document. Alwaysverify current medications with the patient. Medication Sig Dispensed Refills Start Date End Date Status sotalol (Betapace) 80 MG tablet Take 1 (one) tablet by mouth 2 times daily Active apixaban (Eliquis) 5 MG tablet Take 1 (one) tablet by mouth 2 times daily Active atorvastatin (Lipitor) 40 MG tablet Take 1 (one) tablet by mouth at bedtime Active insulin glargine (Lantus/Semglee) 100 units/mL pen Inject 28 (twenty eight) Units subcutaneously every morning Active losartan (Cozaar) 50 MG tablet Take 1 (one) tablet by mouth once daily Active acetaminophen (Tylenol) 325 MG tabletIndications :Chest pain, unspecified type Take 2 (two) tablets by mouth every 6 hours as needed Maximum allowable Acetaminophen amount = 4 Grams (4000 mg) / 24 hours. 05/21/2024 Active pantoprazole EC (Protonix) 40 MG tablet TAKE ONE TABLET BY MOUTH ONCE DAILY 30 tablet 05/21/2024 05/21/2025 Active isosorbide mononitrate CR 24hr (Imdur) 30 MG tablet TAKE ONE TABLET BY MOUTH ONCE DAILY 30 tablet 05/21/2024 05/21/2025 Active Active Problems Problem Noted Date Diagnosed Date [...] Mass Index 26.46 05/20/2024 10:54 PM CDT Plan of Treatment Not on file Procedures Procedure Name Priority Date/Time Associated Diagnosis Comments BASIC METABOLIC PANEL (CALCIUM TOTAL) STAT 05/21/2024 4:13 AM CDT Chest pain, unspecified type HEMOGLOBIN A1C LETHA 05/21/2024 4:13 AM CDT Chest pain, unspecified type from Last 3 Months or Most Recently Relevant to Health Maintenance Results * (ABNORMAL) HEMOGLOBIN A1C (05/21/2024 4:13 AM CDT) Hemoglobin A1c 7.2(H) <=5.6 % 05/21/2024 10:10 AM [facility] Estimated Average Glucose 160 mg/dL 05/21/2024 10:10 AM [facility] Comment: HbA1c Interpretation: Normal : < 5.7% Pre-diabetes: 5.7-6.4% Diabetes: Equal to or greater than 6.5% Test results diagnostic of diabetes should be repeated for confirmation. Treatment target values recommended by ADA and other clinical organizations should be used to evaluate metabolic control in patients. Reference: [place] Diabetes Association, Standards of Care in Diabetes -2020 In patients 70 years and older consider HbA1c target range of 7.0-7.5% (Reference: Cruz Braun et al. JAMDA. 2012) The Sebia assay for the measurement of HbA1c is a National Glycohemoglobin Standardization Program (NGSP) certified method. Blood BLOOD SPECIMEN / Unknown Venipuncture / Unknown 05/21/2024 4:13 AM CDT 05/21/2024 4:23 AM CDT Richard Velazco PA-C LAB - CHEMISTRY O RDERABLES [facility] [address] [place] [address], [facility] [phone] * (ABNORMAL) BASIC METABOLIC PANEL (CALCIUM TOTAL) (05/21/2024 4:13 AM CDT) BUN 12 7 - 26 mg/dL 05/21/2024 5:06 AM [facility] Creatinine 0.58 0.56 - 0.96 mg/dL 05/21/2024 5:06 AM [facility] Sodium 141 136 - 145 mmol/L 05/21/2024 5:06 AM [facility] Potassium 4.0 3.5 - 4.5 mmol/L 05/21/2024 5:06 AM [facility] Chloride 112(H) 98 - 107 mmol/L 05/21/2024 5:06 AM [facility] CO2 21(L) 22 - 29 mmol/L 05/21/2024 5:06 AM [facility] Glucose 80 70 - 115 mg/dL 05/21/2024 5:06 AM [facility] Calcium 9.4 8.4 - 10.2 mg/dL 05/21/2024 5:06 AM [facility] Anion Gap 8 6 - 16 05/21/2024 5:06 AM [facility] BUN/Creatinine Ratio 21 7 - 23 05/21/2024 5:06 AM [facility] Osmolality Calculated 291 275 - 295 mOsm/kg 05/21/2024 5:06 AM [facility] eGFR by CKD-EPI >90 >=90 mL/min/1.7 3 m2 05/21/2024 5:06 AM [facility] Blood BLOOD SPECIMEN / Unknown Venipuncture / Unknown 05/21/2024 4:13 AM CDT 05/21/2024 4:23 AM CDT Richard Velazco PA-C LAB - CHEMISTRY O RDERABLES [facility] [address] [place] [address], [facility] [phone] from Last 3 Months or Most Recently Relevant to Health Maintenance Advance Directives * Full Code (Latest Code Status on File) Date Activated Date Inactivated Comments 05/21/2024 3:32 AM 05/21/2024 9:36 PM Care Teams Grainer Machine Relationship Specialty Start Date End Date Pernell Pratt MD [address] [address] PCP - General Internal Medicine 05/21/24
--- OUTSIDE RECORDS SUMMARY | 2024-11-30 22:00 | XMS_ITS | Clinical Summary ---
Author Organization [facility] Address [address] [place] [id number] Care Team Providers Care Coin Counter And Wrapper Name Role Phone Unavailable Primary Care Provider Unavailabl e Social History Tobacco Use Types Packs/Day Years Used Date Smoking Tobacco: Never Assessed Comments Unknown Sex and Gender Information Value Date Recorded Sex Assigned at Not on file Legal Sex Female 7:35 PM CDT Gender Identity Not on file Sexual Orientation Not on file Plan of Treatment Health Maintenance Due Date Last Done Comments Colorectal Cancer Screening Colonoscopy (10 Years) 1950 Hepatitis C 1969 DTaP, Tdap and Td Vaccines ( 1 - Tdap) 1970 Mammogram Screening 1991 Zoster Vaccines (1 of 2) 2001 Dexa Scan (General) 01/10/2016 Pneumococcal Vaccine: 65+ Ye ars (1 of 1 - PCV) 01/10/2016 COVID-19 Vaccine (2023-2 5 season) 2024 Influenza Adult (#1) 2024 RSV Immunization or 60+ Years (1 - 1-dose 75+ series) 2026 Meningococcal B Vaccine Aged Out No l onger eligible based on patient's age to complete this topic Meningococcal Vaccine Aged Out No mahi nathalie eligible based on patient's age to complete this topic RSV Immunizations Under 20 Months Aged Out No longer eligible based on patient's age to complete this topic
--- OUTSIDE RECORDS SUMMARY | 2024-11-30 22:00 | XMS_ITS | Clinical Summary ---
Author Organization [facility] [address] Address [address] [place] [address] Care Team Providers Care Homeland Security Program Specialist Name Role Phone Pernell Pratt MD Primary Care Provide r Allergies No known active allergies Medications atorvastatin [...] sotalol therapy 024 Cardiomyopathy, hypertrophic (CMS/HCC) 7 Encounters Date Type Department Care Team Description 11/29/2024 Results Follow-Up [facility] Cardiology [address] [place] [address] Advanced Medicine 8th [place] [address] [place] [address] Moe Zapata MD PhD 11/27/2024 11:45 AM MICROWAVE REMOTE SENSING SCIENTIST - 11/27/2024 11:59 PM MICROWAVE REMOTE SENSING SCIENTIST Hospital Encounter [facility] [address] [place] [address] Moe Zapata MD PhD Cardiomyopathy, hypertrophic (CMS/HCC) (HCC) Discharge Disposition: Discharge to home or self care 11/04/2024 2:00 PM MICROWAVE REMOTE SENSING SCIENTIST Ancillary Procedure [facility] Cardiology [address] [place] [address] 8th [place] [address] [place] [address] SVT (supraventricular tachycardia) (HCC) 11/04/2024 1:15 PM MICROWAVE REMOTE SENSING SCIENTIST Office Visit [facility] Cardiology [address] [place] [address] 8th [place] [address] [place] [address] Moe Zapata MD PhD Cardiomyopathy, hypertrophic (CMS/HCC) (HCC) (Primary Dx); Typical atrial flutter (CMS/HCC) (HCC); SVT (supraventricular tachycardia) (HCC) 11/03/2024 Telephone [facility] Cardiology [address] [place] [address] [place] [phone] Pernell Durant MD 10/05/2024 Orders Only [facility] Cardiology [address] [place] [address] [place] [phone] Enid Barboza NP 09/25/[address] 8th [place] [address] [place] [phone] Alicia Holden 09/22/2024 1:00 PM MICROWAVE REMOTE SENSING SCIENTIST Office Visit [facility] Cardiology [address] [place] [address] [place] [phone] Adelaida Ball NP Atrial flutter with rapid ventricular response (HCC) (Primary Dx); Encounter for monitoring sotalol therapy; Cardiomyopathy, hypertrophic (CMS/HCC) (HCC); Hospital discharge follow-up 09/22/2024 Orders Only [facility] Cardiology [address] [place] [address] [place] [phone] Christiano Roper MD 09/22/2024 Telephone [facility] Cardiology [address] [place] [address] [address] [place] [phone] Adelaida Ball NP from Last 3 Months Medical History Medical History Date Comments Depression Depression Family History Medical History Relation Name Comments Cardiomyopathy Mother 2 Cardiomyopath y; Relation Name Status Comments Mother 1 Alive Mother 2 Social History Tobacco Use Types Packs/Day Years Used Date Smoking Tobacco: Former Cigarettes Smokeless Tobacco: Never Tobacco Cessation:Counseling Given: Not Answered Comments:Smoking History Packs/day: 0.5 Packs Alcohol Use Standard Drinks/Week Comments No 0 (1 standard drink = 0.6 oz pur e alcohol) Comments Unknown Sex and Gender Information Value Date Recorded Sex Assigned at Not on file Legal Sex Female 1:58 AM MICROWAVE REMOTE SENSING SCIENTIST Gender Identity Not on file Sexual Orientation Not on file Obstetrics History Last Filed Vital Signs Vital Sign Reading Time Taken Comments Blood Pressure 142/83 11/04/2024 1:17 PM MICROWAVE REMOTE SENSING SCIENTIST Pulse 59 11/04/2024 1:17 PM MICROWAVE REMOTE SENSING SCIENTIST Temperature - - Respiratory Rate 16 03/27/2017 10:19 AM CDT Oxygen Saturation 99% 11/04/2024 1:17 PM MICROWAVE REMOTE SENSING SCIENTIST Inhaled Oxygen Concentration - - Weight 56.2 kg (124 lb) 11/27/2024 12:05 PM MICROWAVE REMOTE SENSING SCIENTIST Height 147.3 cm (4' 10 ) 11/27/2024 12:05 PM MICROWAVE REMOTE SENSING SCIENTIST Body Mass Index 25.92 11/27/2024 12:05 PM MICROWAVE REMOTE SENSING SCIENTIST Plan of Treatment Health Maintenance Due Date Last Done Comments Albumin Creatinine Ratio, Urine 1950 Breast Cancer Screening-Mammogram 1951 Colon Cancer Screening-Colonoscopy 1951 Depression Screening 1951 Fall Risk Assessment 1951 Hemoglobin A1C 1951 Hepatitis C Screening 1951 Osteoporosis Screening-Bone Density Scan 1951 eGFR 1951 Dilated Eye Exam 1951 Foot Exam 1951 DTaP/Tdap/Td Vaccine (1 - Tdap) 1962 Hepatitis B Screening 1969 Pneumococcal vaccine 65+ (1 of 2 - PCV) 1970 Zoster Vaccine (1 of 2) 2001 Well Visit 65+ 01/10/2016 Covid-19 Vaccine (3 - 2023-2 5 season) 2024 01/19/2021, 12/29/2020 Influenza Vaccine (#1) 2024 Lipid Panel 01/29/2025 01/30/2024, 04/0 03/2023, 05/31/2021, Additional history exists Procedures Procedure Name Priority Date/Time Associated Diagnosis Comments MRI CARDIAC M&FUNC W WO CONTRAST Schedule Routine, Read Routine (OP Routine) 11/27/2024 2:48 PM MICROWAVE REMOTE SENSING SCIENTIST Cardiomyopathy, hypertrophic (CMS/HCC) (HCC) ECG 12-LEAD Routine 11/04/2024 1:23 PM MICROWAVE REMOTE SENSING SCIENTIST Typical atrial flutter (CMS/HCC) (HCC) CARDIOLOGY DOCUMENT SCAN Routine 09/21/2024 10:12 AM MICROWAVE REMOTE SENSING SCIENTIST CARDIOLOGY DOCUMENT SCAN Routine 09/20/2024 5:47 PM MICROWAVE REMOTE SENSING SCIENTIST POCT LIPID PANEL Routine 01/30/2024 1:10 PM CDT Lipid screening from Last 3 Months or Most Recently Relevant to Health Maintenance Results * MRI Cardiac M&F W WO Contrast (11/27/2024 2:48 PM MICROWAVE REMOTE SENSING SCIENTIST) Anatomical Region Laterality Modality Body N/A Magnetic Resonan ce 11/27/2024 4:11 PM MICROWAVE REMOTE SENSING SCIENTIST Impressions 11/27/2024 6:39 PM MICROWAVE REMOTE SENSING SCIENTIST 1. Findings consistent with apical variant hypertrophic [...] Perry Alex M.D. Narrative 11/27/2024 6:39 PM MICROWAVE REMOTE SENSING SCIENTIST EXAM: Cardiac MRI Morphology and Function with [...] * ECG 12 lead (11/04/2024 1:23 PM MICROWAVE REMOTE SENSING SCIENTIST) Moe Zapata MD PhD ECG ORDERABLES Cleve daron Result - Final * Cardiology Document Scan (09/21/2024 10:12 AM MICROWAVE REMOTE SENSING SCIENTIST) Anatomical Region Laterality Modality Other us Enid Barboza NP CV CARDIAC SERVICES PROCEDUR ES Final Result * Cardiology Document Scan (09/20/2024 5:47 PM MICROWAVE REMOTE SENSING SCIENTIST) Anatomical Region Laterality Modality Other Christiano Roper MD CV CARDIAC SERVICES PROCEDU [...] Most Recently Relevant to Health Maintenance Insurance [address] [place] [address] [facility] Member Subscriber Plan / Payer ( fective 2011-Present) Name:Mayte Mercado Relation to Subscriber:Self Name:Mayte Mercado Payer ID:[id number] (NAIC) Type:MEDICARE RISK OTHER Address: [address] [facility] Care Teams Homeland Security Program Specialist Relationship Specialty Start Date End Date Pernell Pratt MD [address] [place] [address] PCP - General 09/11/12
--- OUTSIDE RECORDS SUMMARY | 2024-11-30 22:00 | XMS_ITS | Encounter Summary ---
Author Organization [facility] Address [address] [place] [address] Care Team Providers Care Graphic Technician Name Role Phone Pernell Pratt MD Primary Care Provide r Encounter Details Date Type Department Care Team (Late st Contact Info) Description 01/07/2024 Orders Only [facility] Health Information Management [address] [place] [address] Farshad Dupree MD 1 [facility] 1 [place] [address] Social History Tobacco Use Types Packs/Day Years Used Date Smoking Tobacco: Former Cigarettes Smokeless Tobacco: Never Comments:Smoking History Pac ks/day: 0.5 Packs Alcohol Use Standard Drinks/Week Comments No 0 (1 standard drink = 0.6 oz pur e alcohol) Comments Unknown Sex and Gender Information Value Date Recorded Sex Assigned at Not on file Legal Sex Female 1:58 AM CONVENTION SERVICES DIRECTOR Gender Identity Not on file Sexual Orientation Not on file documented as of this encounter Plan of Treatment Not on file documented as of this encounter Procedures Procedure Name Priority Date/Time Associated Diagnosis Comments SCAN - RADIOLOGY/IMAGING 01/07/2024 SCAN - LABS 01/07/2024 documented in this encounter Results * SCAN - LABS (01/07/2024) us Provider Scanning Final Result * SCAN - RADIOLOGY/IMAGING (01/07/2024) Anatomical Region Laterality Modality Other us Farshad Dupree MD Final Result documented in this encounter Visit Diagnoses Not on filedocumented in this encounter Care Teams Graphic Technician Relationship Specialty Start Date End Date Pernell Pratt MD [address] [place] [address] PCP - General 09/11/12 documented as of this encounter
--- OUTSIDE RECORDS SUMMARY | 2024-11-30 22:00 | XMS_ITS | Clinical Summary ---
Author Organization [facility] Address [address] [place] [address] Care Team Providers Care Adjunct Faculty For Medical Terminology Name Role Phone Pernell Pratt MD Primary Care Provider [phone] Source Comments [facility],non-owned Affiliates and Associated Physician Practices is amultiple site organization consisting of ambulatory clinics and hospital sitesin [place], [place], [place] and [place]. This disclosure is being madepursuant to the Care Everywhere program and may not contain all information available regarding this patient. Last updated 18.[facility] Allergies No known active allergies Medications * [...] 05/20/2024 10:54 PM CDT Plan of Treatment Health Maintenance Due Date Last Done Comments BONE DENSITY TESTING 1950 COLOGUARD (AGES 45-75) - COL ON CA SCREENING 1951 COLON MONITORING 1951 COLONOSCOPY - COLON CA SCREENING 1951 CT COLONOGRAPHY - COLON CA SCREENING 1951 Colorectal Cancer Screening 1951 FIT - COLON CA SCREENING 1951 FLEX SIG - COLON CA SCREENING 1951 MAMMOGRAM 1951 HEPATITIS C SCREENING 01/04/1969 DTAP/TDAP/TD VACCINES (1 - Tdap) 1970 PNEUMOCOCCAL VACCINE 50+ (1 of 2 - PCV) 1970 ZOSTER VACCINE (1 of 2) 2001 Respiratory Syncytial Virus (RSV) Vaccine Pt: or over 60 yrs (1 - Risk 60-74 years 1-dose series) 2011 DIABETES RETINOPATHY SCREENING 05/21/2024 DIABETES-FOOT EXAM WITH MONOFILAMENT 05/21/2024 COVID-19 VACCINE (1 - 2023-2 5 season) 2024 INFLUENZA VACCINE (#1) 2024 DEPRESSION SCREENING 10/14/2024 DIABETES - URINE PROTEIN SCREENING 10/14/2024 MEDICARE AWV CALENDAR YEAR 2024 DIABETES-HGB A1C 11/21/2024 05/21/2024 DIABETES-SERUM CREATININE 05/21/20252023, 05/20/2024 HEPATITIS B VACCINE Aged Out No longe r eligible based on patient's age to complete this topic HIB VACCINE Aged Out No longer eligi ble based on patient's age to complete this topic HPV VACCINE Aged Out No longer eligi ble based on patient's age to complete this topic MENINGOCOCCAL (Group B) VACCINE Aged Out No longer eligible b ased on patient's age to complete this topic MENINGOCOCCAL VACCINE Aged Out No mahi nathalie eligible based on patient's age to complete this topic Procedures Procedure Name Priority Date/Time Associated Diagnosis Comments BASIC METABOLIC PANEL (CALCIUM TOTAL) STAT 05/21/2024 4:13 AM CDT Chest pain, unspecified type HEMOGLOBIN A1C LETHA 05/21/2024 4:13 AM CDT Chest pain, unspecified type from Last 3 Months or Most Recently Relevant to Health Maintenance Results * (ABNORMAL) HEMOGLOBIN A1C (05/21/2024 4:13 AM CDT) Hemoglobin A1c 7.2(H) <=5.6 % 05/21/2024 10:10 AM CDT [facility] Estimated Average Glucose 160 mg/dL 05/21/2024 10:10 AM CDT [facility] Comment: HbA1c Interpretation: Normal : < 5.7% Pre-diabetes: 5.7-6.4% Diabetes: Equal to or greater than 6.5% Test results diagnostic of diabetes should be repeated for confirmation. Treatment target values recommended by ADA and other clinical organizations should be used to evaluate metabolic control in patients. Reference: [place] Diabetes Association, Standards of Care in Diabetes -2020 In patients 70 years and older consider HbA1c target range of 7.0-7.5% (Reference: Cruz Braun et al. LADANDA. 2012) The Sebia assay for the measurement of HbA1c is a National Glycohemoglobin Standardization Program (NGSP) certified method. Blood BLOOD SPECIMEN / Unknown Venipuncture / Unknown 05/21/2024 4:13 AM CDT 05/21/2024 4:23 AM CDT Richard Velazco PA-C LAB - CHEMISTRY O RDERABLES [facility] [address] [place] [address], [facility] [phone] * (ABNORMAL) BASIC METABOLIC PANEL (CALCIUM TOTAL) (05/21/2024 4:13 AM CDT) BUN 12 7 - 26 mg/dL 05/21/2024 5:06 AM [facility] Creatinine 0.58 0.56 - 0.96 mg/dL 05/21/2024 5:06 AM [facility] Sodium 141 136 - 145 mmol/L 05/21/2024 5:06 AM [facility] Potassium 4.0 3.5 - 4.5 mmol/L 05/21/2024 5:06 AM [facility] Chloride 112(H) 98 - 107 mmol/L 05/21/2024 5:06 AM [facility] CO2 21(L) 22 - 29 mmol/L 05/21/2024 5:06 AM [facility] Glucose 80 70 - 115 mg/dL 05/21/2024 5:06 AM [facility] Calcium 9.4 8.4 - 10.2 mg/dL 05/21/2024 5:06 AM [facility] Anion Gap 8 6 - 16 05/21/2024 5:06 AM [facility] BUN/Creatinine Ratio 21 7 - 23 05/21/2024 5:06 AM CDT [facility] Osmolality Calculated 291 275 - 295 mOsm/kg 05/21/2024 5:06 AM CDT [facility] eGFR by CKD-EPI >90 >=90 mL/min/1.7 3 m2 05/21/2024 5:06 AM T [facility] Blood BLOOD SPECIMEN / Unknown Venipuncture / Unknown 05/21/2024 4:13 AM CDT 05/21/2024 4:23 AM CDT Richard Velazco PA-C LAB - CHEMISTRY O RDERABLES [facility] [address] [place] [address], [facility] [phone] from Last 3 Months or Most Recently Relevant to Health Maintenance Advance Directives * Full Code (Latest Code Status on File) Date Activated Date Inactivated Comments 05/21/2024 3:32 AM 05/21/2024 9:36 PM Care Teams Adjunct Faculty For Medical Terminology Relationship Specialty Start Date End Date Pernell Pratt MD [address] [place] [address] PCP - General Internal Medicine 05/21/24
--- OUTSIDE RECORDS SUMMARY | 2024-11-30 22:00 | XMS_ITS | Encounter Summary ---
Author Organization [facility] Address [address] [place] [address] Phone Care Team Providers Care Special Education Supervisor Name Role Phone Pernell Pratt MD Primary Care Provide r Encounter Details Date Type Department Care Team (Late st Contact Info) Description 11/29/2024 Results Follow-Up [facility] Cardiology [address] [facility] Advanced Medicine 8th [place] [address] [place] [address] Moe Zapata MD PhD [address] [facility] [address] [place] [address] Social History Tobacco Use Types Packs/Day Years Used Date Smoking Tobacco: Former Cigarettes Smokeless Tobacco: Never Comments:Smoking History Pac ks/day: 0.5 Packs Alcohol Use Standard Drinks/Week Comments No 0 (1 standard drink = 0.6 oz pur e alcohol) Comments Unknown Sex and Gender Information Value Date Recorded Sex Assigned at Not on file Legal Sex Female 1:58 AM INSTRUMENT LENS GENERATOR Gender Identity Not on file Sexual Orientation Not on file documented as of this encounter Plan of Treatment Not on file documented as of this encounter Visit Diagnoses Not on filedocumented in this encounter Care Teams Special Education Supervisor Relationship Specialty Start Date End Date Pernell Pratt MD [address] [place] [address] PCP - General 09/11/12 documented as of this encounter
[2024-11-30 22:03] VITALS: BP 95/56; PULSE 70; RESP 15; TEMP 37; O2SAT 100
[2024-11-30 22:27] LABS: Basophils Percent Auto 0.5 % (0.2-1.2); Eosinophils Percent Auto 0.1 % (0-4.4); Hematocrit 42.6 % (37.0-47.0); Hemoglobin 14.1 g/dL (12.0-15.0); Immature Granulocyte Absolute 0.02 K/mm3 (0.00-0.031); Immature Granulocyte Percent A 0.3 % (0-0.5); Lymphocytes Absolute Auto 0.79 K/mm3 (0.9-3.2); Lymphocytes Percent Auto 10.6 % (18.3-44.2); Mean Corpuscular HGB Conc 33.1 g/dl (32-36); Mean Corpuscular Hemoglobin 27.9 pg (26-34); Mean Corpuscular Volume 84.2 fl (80-100); Mean Platelet Volume 11.5 fl (7.4-10.4); Monocytes Absolute Auto 0.6 K/mm3 (0.1-0.6); Monocytes Percent Auto 7.5 % (2.6-8.5); Platelet Count Result 232 k/mm3 (150-375); Red Blood Count 5.06 M/mm3 (4.2-5.4); Red Cell Distribution Width 14.7 % (11.5-14.5); White Blood Count 7.4 K/mm3 (4.5-10.0)
[2024-11-30 22:38] LABS: Alanine Aminotransferase 17 U/L (6-35); Albumin Level 4.4 g/dL (3.5-5.1); Alkaline Phosphatase 97 U/L (38-126); Anion Gap 15 mmol/L (4-12); Aspartate Amino Transferase 26 U/L (14-36); Bilirubin,Total 1.3 mg/dL (0.2-1.3); Blood Urea Nitrogen 21 mg/dL (7-17); Calcium 9.7 mg/dL (8.4-10.2); Carbon Dioxide 20 mmol/L (22-30); Chloride 101 mmol/L (98-107); Estimated Glomerular Filt Rate > 60; Glucose 160 mg/dL (65-110); Lipase 22 U/L (23-300); Potassium 4.2 mmol/L (3.4-5.0); Sodium 136 mmol/L (137-145)
[2024-12-01] VITALS (13 sets, daily range): BP systolic 98–115; BP diastolic 44–54; PULSE 63–76; RESP 14–20; TEMP 36.4–36.8; O2SAT 92–98; BMI 25.1
[2024-12-01 02:31] LABS: Glucose Point of Care 134 mg/dl (65-105)
--- OUTSIDE RECORDS SUMMARY | 2024-12-01 03:11 | XMS_ITS | Clinical Summary ---
Author Organization [facility] Address [address] [place] [address] Care Team Providers Care Cosmetic Assembler Name Role Phone Pernell Pratt MD Primary Care Provider [phone] Source Comments [facility],non-owned Affiliates and Associated Physician Practices is amultiple site organization consisting of ambulatory clinics and hospital sitesin [place], [place], [place] and [place]. This disclosure is being madepursuant to the Care Everywhere program and may not contain all information available regarding this patient. Last updated 18.[facility] Allergies No known active allergies Medications * [...] 7.2(H) <=5.6 % 05/21/2024 10:10 AM CDT [facility] Estimated Average Glucose 160 mg/dL 05/21/2024 10:10 AM CDT [facility] Comment: HbA1c Interpretation: Normal : < 5.7% Pre-diabetes: 5.7-6.4% Diabetes: Equal to or greater than 6.5% Test results diagnostic of diabetes should be repeated for confirmation. Treatment target values recommended by ADA and other clinical organizations should be used to evaluate metabolic control in patients. Reference: [place] Diabetes Association, Standards of Care in Diabetes [...] Velazco PA-C LAB - CHEMISTRY O RDERABLES [facility] [address] [place] [address], [facility] [phone] * (ABNORMAL) BASIC METABOLIC PANEL (CALCIUM TOTAL) (05/21/2024 4:13 AM CDT) BUN 12 7 - 26 mg/dL 05/21/2024 5:[address] [facility] Creatinine 0.58 0.56 - 0.96 mg/dL [...] 7 - 23 05/21/2024 5:06 AM CDT [facility] Osmolality Calculated 291 275 - 295 mOsm/kg 05/21/2024 5:06 AM CDT [facility] eGFR by CKD-EPI >90 >=90 mL/min/1.7 3 m2 05/21/2024 5:06 AM T [facility] Blood BLOOD SPECIMEN / Unknown Venipuncture / Unknown 05/21/2024 4:13 AM CDT 05/21/2024 4:23 AM CDT Richard Velazco PA-C LAB - CHEMISTRY O RDERABLES [facility] [address] [place] [address], [facility] [phone] from Last 3 Months or Most Recently Relevant to Health Maintenance Advance Directives * Full Code (Latest Code Status on File) Date Activated Date Inactivated Comments 05/21/2024 3:32 AM 05/21/2024 9:36 PM Care Teams Cosmetic Assembler Relationship Specialty Start Date End Date Pernell Pratt MD [address] [place] [address] PCP - General Internal Medicine 05/21/24
--- OUTSIDE RECORDS SUMMARY | 2024-12-01 03:12 | XMS_ITS | Encounter Summary ---
Author Organization [facility] Address [address] [place] [address] Phone Care Team Providers Care Aws Architect Name Role Phone Pernell Pratt MD Primary Care Provide r Encounter Details Date Type Department Care Team (Late st Contact Info) Description 11/29/2024 Results Follow-Up [facility] Cardiology [address] [facility] Advanced Medicine 8th [place] [address] [place] [address] Moe Zapata MD PhD [address] [facility] [address] [place] [address] Social History Tobacco Use Types Packs/Day Years Used Date Smoking Tobacco: Former Cigarettes Smokeless Tobacco: Never Comments:Smoking History Pac ks/day: 0.5 Packs Alcohol Use Standard Drinks/Week Comments No 0 (1 standard drink = 0.6 oz pur e alcohol) Comments Unknown Sex and Gender Information Value Date Recorded Sex Assigned at Not on file Legal Sex Female 1:58 AM EYEWEAR MANUFACTURING SUPERVISOR Gender Identity Not on file Sexual Orientation Not on file documented as of this encounter Plan of Treatment Not on file documented as of this encounter Visit Diagnoses Not on filedocumented in this encounter Care Teams Aws Architect Relationship Specialty Start Date End Date Pernell Pratt MD [address] [place] [address] PCP - General 09/11/12 documented as of this encounter
--- OUTSIDE RECORDS SUMMARY | 2024-12-01 03:12 | XMS_ITS | Referral Summary ---
Author Organization [facility] [address] Address [address] [place] [address] Care Team Providers Care Stitchdowns Toe Former Name Role Phone Pernell Pratt MD Primary Care Provide r Encounters Date Type Department Care Team Description 11/29/2024 Results Follow-Up [facility]iology [address] [place] [address] Advanced Medicine 8th [place] [address] [place] [address] Moe Zapata MD PhD 11/27/2024 11:45 AM ERGONOMICS CONSULTANT - 11/27/2024 11:59 PM ERGONOMICS CONSULTANT Hospital Encounter [facility] [address] [place] [address] Moe Zapata MD PhD Cardiomyopathy, hypertrophic (CMS/HCC) (HCC) Discharge Disposition: Discharge to home or self care 11/04/2024 2:00 PM ERGONOMICS CONSULTANT Ancillary Procedure [facility] [address] [place] [address] [place] [address] [place] [address] SVT (supraventricular tachycardia) (HCC) 11/04/2024 1:15 PM ERGONOMICS CONSULTANT Office Visit [facility] [address] [place] [address] [place] [address] [place] [address] Moe Zapata MD PhD Cardiomyopathy, hypertrophic (CMS/HCC) (HCC) (Primary Dx); Typical atrial flutter (CMS/HCC) (HCC); SVT (supraventricular tachycardia) (HCC) 11/03/2024 Telephone [facility] Cardiology [address] [place] [phone] Pernell Durant MD 10/05/2024 Orders Only [facility] Cardiology [address] [place] [phone] Enid Barboza NP 09/25/2024 Telephone [facility] [address] [facility] 8th [place] [address] [place] [address] Alicia Holden 09/22/2024 Orders Only [facility] Cardiology [address] [place] [phone] Christiano Roper MD 09/22/2024 Telephone [facility]iology [address] [place] [phone] Adelaida Ball NP 09/22/2024 1:00 PM ERGONOMICS CONSULTANT Office Visit [facility]iology [address] [place] [phone] Adelaida Ball NP Atrial flutter with [...] on file Legal Sex Female 1:58 AM ERGONOMICS CONSULTANT Gender Identity Not on file Sexual Orientation Not on file Last Filed Vital Signs Vital Sign Reading Time Taken Comments Blood Pressure 142/83 11/04/2024 1:17 PM ERGONOMICS CONSULTANT Pulse 59 11/04/2024 1:17 PM ERGONOMICS CONSULTANT Temperature - - Respiratory Rate 16 03/27/2017 10:19 AM CDT Oxygen Saturation 99% 11/04/2024 1:17 PM ERGONOMICS CONSULTANT Inhaled Oxygen Concentration - - Weight 56.2 kg (124 lb) 11/27/2024 12:05 PM ERGONOMICS CONSULTANT Height 147.3 cm (4' 10 ) 11/27/2024 12:05 PM ERGONOMICS CONSULTANT Body Mass Index 25.92 11/27/2024 12:05 PM ERGONOMICS CONSULTANT Plan of Treatment Not on file Procedures Procedure Name Priority Date/Time Associated Diagnosis Comments MRI CARDIAC M&FUNC W WO CONTRAST Schedule Routine, Read Routine (OP Routine) 11/27/2024 2:48 PM ERGONOMICS CONSULTANT Cardiomyopathy, hypertrophic (CMS/HCC) (HCC) ECG 12-LEAD Routine 11/04/2024 1:23 PM ERGONOMICS CONSULTANT Typical atrial flutter (CMS/HCC) (HCC) CARDIOLOGY DOCUMENT SCAN Routine 09/21/2024 10:12 AM ERGONOMICS CONSULTANT CARDIOLOGY DOCUMENT SCAN Routine 09/20/2024 5:47 PM ERGONOMICS CONSULTANT POCT LIPID PANEL Routine 01/30/2024 1:10 PM CDT Lipid screening from Last 3 Months or Most Recently Relevant to Health Maintenance Results * MRI Cardiac M&F W WO Contrast (11/27/2024 2:48 PM ERGONOMICS CONSULTANT) Anatomical Region Laterality Modality Body N/A Magnetic Resonan ce 11/27/2024 4:11 PM ERGONOMICS CONSULTANT Impressions 11/27/2024 6:39 PM ERGONOMICS CONSULTANT 1. Findings consistent with apical variant hypertrophic [...] Perry Alex M.D. Narrative 11/27/2024 6:39 PM ERGONOMICS CONSULTANT EXAM: Cardiac MRI Morphology and Function with [...] * ECG 12 lead (11/04/2024 1:23 PM ERGONOMICS CONSULTANT) Moe Zapata MD PhD ECG ORDERABLES Cleve daron Result - Final * Cardiology Document Scan (09/21/2024 10:12 AM ERGONOMICS CONSULTANT) Anatomical Region Laterality Modality Other Enid Barboza NP CV CARDIAC SERVICES PROCEDUR ES Final Result * Cardiology Document Scan (09/20/2024 5:47 PM ERGONOMICS CONSULTANT) Anatomical Region Laterality Modality Other Result [facility] Christiano Roper MD CV CARDIAC SERVICES [...] Most Recently Relevant to Health Maintenance Insurance [facility] Member Subscriber Plan / Payer (Ef fective 2011-Present) Name:Mayte Mercado Relation to Subscriber:Self Name:Mayte Mercado Payer ID:[id number] (NAIC) Type:MEDICARE RISK OTHER Address: [address] [place] [id number] [place] Care Teams Stitchdowns Toe Former Relationship Specialty Start Date End Date Pernell Pratt MD [address] [place] [address] PCP - General 09/11/12
--- OUTSIDE RECORDS SUMMARY | 2024-12-01 03:12 | XMS_ITS | Encounter Summary ---
Author Organization [facility] Address [address] [place] [address] Care Team Providers Care Assembler Dc Field Yoke Name Role Phone Pernell Pratt MD Primary Care Provide r Encounter Details Date Type Department Care Team (Late st Contact Info) Description 01/07/2024 Orders Only [facility] [place] Health Information Management [address] [place] [phone] Farshad Dupree MD 1 [facility] [address] [place] [address] Social History Tobacco Use Types Packs/Day Years Used Date Smoking Tobacco: Former Cigarettes Smokeless Tobacco: Never Comments:Smoking History Pac ks/day: 0.5 Packs Alcohol Use Standard Drinks/Week Comments No 0 (1 standard drink = 0.6 oz pur e alcohol) Comments Unknown Sex and Gender Information Value Date Recorded Sex Assigned at Not on file Legal Sex Female 1:58 AM SUPERVISOR FILLING AND PACKING Gender Identity Not on file Sexual Orientation [...] on filedocumented in this encounter Care Teams Assembler Dc Field Yoke Relationship Specialty Start Date End Date Pernell Pratt MD [address] [place] [address] PCP - General 09/11/12 documented as of this encounter
--- OUTSIDE RECORDS SUMMARY | 2024-12-01 03:12 | XMS_ITS | Clinical Summary ---
Author Organization [facility] [address] Address [address] [place] [address] Care Team Providers Care Director Global Strategic Publisher Sales Name Role Phone Pernell Pratt MD Primary [...] Department Care Team Description 11/29/2024 Results Follow-Up [facility] Cardiology [address] [place] [address] Advanced Medicine 8th [place] [address] [place] [address] Moe Zapata MD PhD 11/27/2024 11:45 AM FIELD SUPPORT TECHNICIAN - 11/27/2024 11:59 PM FIELD SUPPORT TECHNICIAN Hospital Encounter [facility] [address] [place] [address] Moe Zapata MD PhD Cardiomyopathy, hypertrophic (CMS/HCC) (HCC) Discharge Disposition: Discharge to home or self care 11/04/2024 2:00 PM FIELD SUPPORT TECHNICIAN Ancillary Procedure [facility] Cardiology [address] [place] [address] 8th [place] [address] [place] [address] SVT (supraventricular tachycardia) (HCC) 11/04/2024 1:15 PM FIELD SUPPORT TECHNICIAN Office Visit [facility]iology [address] [place] [address] 8th [place] [address] [place] [address] Moe Zapata MD PhD Cardiomyopathy, hypertrophic (CMS/HCC) (HCC) (Primary Dx); Typical atrial flutter (CMS/HCC) (HCC); SVT (supraventricular tachycardia) (HCC) 11/03/2024 Telephone [facility] Cardiology [address] [place] [address] [place] [phone] Pernell Durant MD 10/05/2024 Orders Only [facility] [address] [place] [address] [place] [phone] Enid Barboza NP 09/25/[address] 8th [place] [address] [place] [phone] Alicia Holden 09/22/2024 1:00 PM FIELD SUPPORT TECHNICIAN Office Visit [facility] [address] [place] [address] [place] [phone] Adelaida Ball NP Atrial flutter with rapid ventricular response (HCC) (Primary Dx); Encounter for monitoring sotalol therapy; Cardiomyopathy, hypertrophic (CMS/HCC) (HCC); Hospital discharge follow-up 09/22/2024 Orders Only [facility] Cardiology [address] [place] [address] [place] [phone] Christiano Roper MD 09/22/2024 Telephone [facility]iology [address] [place] [address] [address] [place] [phone] Adelaida Ball NP from Last 3 [...] on file Legal Sex Female 1:58 AM FIELD SUPPORT TECHNICIAN Gender Identity Not on file Sexual Orientation Not on file Obstetrics History Last Filed Vital Signs Vital Sign Reading Time Taken Comments Blood Pressure 142/83 11/04/2024 1:17 PM FIELD SUPPORT TECHNICIAN Pulse 59 11/04/2024 1:17 PM FIELD SUPPORT TECHNICIAN Temperature - - Respiratory Rate 16 03/27/2017 10:19 AM CDT Oxygen Saturation 99% 11/04/2024 1:17 PM FIELD SUPPORT TECHNICIAN Inhaled Oxygen Concentration - - Weight 56.2 kg (124 lb) 11/27/2024 12:05 PM FIELD SUPPORT TECHNICIAN Height 147.3 cm (4' 10 ) 11/27/2024 12:05 PM FIELD SUPPORT TECHNICIAN Body Mass Index 25.92 11/27/2024 12:05 PM FIELD SUPPORT TECHNICIAN Plan of Treatment Health Maintenance Due Date [...] Read Routine (OP Routine) 11/27/2024 2:48 PM FIELD SUPPORT TECHNICIAN Cardiomyopathy, hypertrophic (CMS/HCC) (HCC) ECG 12-LEAD Routine 11/04/2024 1:23 PM FIELD SUPPORT TECHNICIAN Typical atrial flutter (CMS/HCC) (HCC) CARDIOLOGY DOCUMENT SCAN Routine 09/21/2024 10:12 AM FIELD SUPPORT TECHNICIAN CARDIOLOGY DOCUMENT SCAN Routine 09/20/2024 5:47 PM FIELD SUPPORT TECHNICIAN POCT LIPID PANEL Routine 01/30/2024 1:10 PM CDT Lipid screening from Last 3 Months or Most Recently Relevant to Health Maintenance Results * MRI Cardiac M&F W WO Contrast (11/27/2024 2:48 PM FIELD SUPPORT TECHNICIAN) Anatomical Region Laterality Modality Body N/A Magnetic Resonan ce 11/27/2024 4:11 PM FIELD SUPPORT TECHNICIAN Impressions 11/27/2024 6:39 PM FIELD SUPPORT TECHNICIAN 1. Findings consistent with apical variant hypertrophic [...] Perry Alex M.D. Narrative 11/27/2024 6:39 PM FIELD SUPPORT TECHNICIAN EXAM: Cardiac MRI Morphology and Function with [...] * ECG 12 lead (11/04/2024 1:23 PM FIELD SUPPORT TECHNICIAN) Moe Zapata MD PhD ECG ORDERABLES Cleve daron Result - Final * Cardiology Document Scan (09/21/2024 10:12 AM FIELD SUPPORT TECHNICIAN) Anatomical Region Laterality Modality Other us Enid Barboza NP CV CARDIAC SERVICES PROCEDUR ES Final Result * Cardiology Document Scan (09/20/2024 5:47 PM FIELD SUPPORT TECHNICIAN) Anatomical Region Laterality Modality Other Christiano Roper [...] Relevant to Health Maintenance Insurance [address] [place] [address] [facility] Member Subscriber Plan / Payer ( fective 2011-Present) Name:Mayte Mercado Relation to Subscriber:Self Name:Mayte Mercado Payer ID:[id number] (NAIC) Type:MEDICARE RISK OTHER Address: [address] [facility] Care Teams Director Global Strategic Publisher Sales Relationship Specialty Start Date End Date Pernell Pratt MD [address] [place] [address] PCP - General 09/11/12
--- OUTSIDE RECORDS SUMMARY | 2024-12-01 03:12 | XMS_ITS | Clinical Summary ---
Author Organization [facility] Address [address] [place] [address] Care Team Providers Care Construction Carpenters Helper Name Role Phone Unavailable Primary Care Provider [...]
--- OUTSIDE RECORDS SUMMARY | 2024-12-01 03:12 | XMS_ITS | Referral Summary ---
Author Organization [facility] Address [address] [place] [address] Care Team Providers Care Manager Of Hospital Name Role Phone Pernell Pratt MD Primary Care Provider [phone] Source Comments [facility],non-owned Affiliates and Associated Physician Practices is amultiple site organization consisting of ambulatory clinics and hospital sitesin [place], [place], [place] and [place]. This disclosure is being madepursuant to the Care Everywhere program and may not contain all information available regarding this patient. Last updated 18.[facility] Allergies No known active allergies Medications * [...] A1c 7.2(H) <=5.6 % 05/21/2024 10:10 AM [facility] Estimated Average Glucose 160 mg/dL 05/21/2024 10:10 AM [facility] Comment: HbA1c Interpretation: Normal : < 5.7% Pre-diabetes: 5.7-6.4% Diabetes: Equal to or greater than 6.5% Test results diagnostic of diabetes should be repeated for confirmation. Treatment target values recommended by ADA and other clinical organizations should be used to evaluate metabolic control in patients. Reference: [place] Diabetes Association, Standards of Care in Diabetes [...] Velazco PA-C LAB - CHEMISTRY O RDERABLES [facility] [address] [place] [address], [facility] [phone] * (ABNORMAL) BASIC METABOLIC PANEL (CALCIUM TOTAL) (05/21/2024 4:13 AM CDT) BUN 12 7 - 26 mg/dL 05/21/2024 5:06 AM [facility] Creatinine 0.58 0.56 - 0.96 mg/dL 05/21/2024 5:06 AM [facility] Sodium 141 136 - 145 mmol/L 05/21/2024 5:06 AM [facility] Potassium 4.0 3.5 - 4.5 mmol/L 05/21/2024 5:06 AM [facility] Chloride 112(H) 98 - 107 mmol/L 05/21/2024 5:06 AM [facility] CO2 21(L) 22 - 29 mmol/L 05/21/2024 5:06 AM [facility] Glucose 80 70 - 115 mg/dL 05/21/2024 5:06 AM [facility] Calcium 9.4 8.4 - 10.2 mg/dL 05/21/2024 5:06 AM [facility] Anion Gap 8 6 - 16 05/21/2024 5:06 AM [facility] BUN/Creatinine Ratio 21 7 - 23 05/21/2024 5:06 AM [facility] Osmolality Calculated 291 275 - 295 mOsm/kg 05/21/2024 5:06 AM [facility] eGFR by CKD-EPI >90 >=90 mL/min/1.7 3 m2 05/21/2024 5:06 AM [facility] Blood BLOOD SPECIMEN / Unknown Venipuncture / Unknown 05/21/2024 4:13 AM CDT 05/21/2024 4:23 AM CDT Richard Velazco PA-C LAB - CHEMISTRY O RDERABLES [facility] [address] [place] [address], [facility] [phone] from Last 3 Months or Most Recently Relevant to Health Maintenance Advance Directives * Full Code (Latest Code Status on File) Date Activated Date Inactivated Comments 05/21/2024 3:32 AM 05/21/2024 9:36 PM Care Teams Manager Of Hospital Relationship Specialty Start Date End Date Pernell Pratt MD [address] [address] PCP - General Internal Medicine 05/21/24
--- OUTSIDE RECORDS SUMMARY | 2024-12-01 03:12 | XMS_ITS | Patient Health Summary ---
Author Organization [facility] Address [address] [facility] [place] [address] Care Team Providers Care Leaf Stripper Name Role Phone Pernell Pratt MD Primary Care Provider [phone] Note from [facility],non-owned Affiliates and Associated Physician Practices is amultiple site organization consisting of ambulatory clinics and hospital sitesin [place], [place], [place] and [place]. This disclosure is being madepursuant to the Care Everywhere program and may not contain all information available regarding this patient. Last updated 18.[facility] Allergies No known active allergies Medications * [...] of4 resultswithin the time period is included. [facility] Glucose WB/POC 120(H) 70 - 115 mg/dL 05/21/2024 12:59 PM CDT [facility] Specimen Type Cap Fingerstick 2023 12:59 PM CDT [facility] Blood BLOOD SPECIMEN / Unknown 05/21/2024 12:52 PM CDT 05/21/2024 12:59 PM CDT May Soto MD LAB - POINT OF CARE ORDERABLES [facility] [address] [place] [address], [facility] [phone] * (ABNORMAL) HEMOGLOBIN A1C (05/21/2024 4:13 AM CDT) [facility] Hemoglobin A1c 7.2(H) <=5.6 % 05/21/2024 10:10 AM CDT [facility] Estimated Average Glucose 160 mg/dL 05/21/2024 10:10 AM CDT [facility] Comment: HbA1c Interpretation: Normal : < 5.7% Pre-diabetes: 5.7-6.4% Diabetes: Equal to or greater than 6.5% Test results diagnostic of diabetes should be repeated for confirmation. Treatment target values recommended by ADA and other clinical organizations should be used to evaluate metabolic control in patients. Reference: [place] Diabetes Association, Standards of Care in Diabetes [...] Velazco PA-C LAB - CHEMISTRY O RDERABLES [address] [address], [facility] [phone] * (ABNORMAL) CBC W/O DIFFERENTIAL (05/21/2024 4:13 [...] Richard Velazco PA-C LAB - HEMATOLOGY ORDERABLES [facility] [address] [place] [address], [facility] [phone] * (ABNORMAL) BASIC METABOLIC PANEL (CALCIUM TOTAL) [...] O RDERABLES Performing Organization Address [facility]/ZIP Co de Phone Number [address] [address], [facility] [phone] * PHOSPHORUS BLOOD (05/21/2024 4:13 AM CDT) Phosphorus 4.3 2.9 - 5.1 mg/dL 05/21/2024 5:06 AM CDT [facility] Blood BLOOD SPECIMEN / Unknown Venipuncture / Unknown 05/21/2024 4:13 AM CDT 05/21/2024 4:23 AM CDT Richard Velazco PA-C LAB - CHEMISTRY O RDERABLES Performing Organization Address [facility] Co de Phone Number [address] [address], [facility] [phone] * MAGNESIUM BLOOD (05/21/2024 4:13 AM CDT) Magnesium 2.2 1.6 - 2.6 mg/dL 05/21/2024 5:06 AM CDT [facility] Blood BLOOD SPECIMEN / Unknown Venipuncture / Unknown 05/21/2024 4:13 AM CDT 05/21/2024 4:23 AM CDT Richard Velazco PA-C LAB - CHEMISTRY O RDERABLES Performing Organization Address [facility] Co de Phone Number [address] [address], [facility] [phone] * EKG 12-LEAD (05/21/2024 1:36 AM CDT) Only the most recent of2 resultswithin the time period is included. Ventricular Rate 47 BPM [facility] Atrial Rate 47 BPM [facility] P-R Interval 172 ms [facility] QRS Duration ms 86 ms [facility] Q-T Interval ms 520 ms [facility] QTC Calculation (Bezet) 460 ms [facility] Calculated P [place] 56 degrees [facility] Calculated T [place] -171 degrees [facility] Interpretation EKG SINUS BRADYCARDIA WITH PREMATURE ATRIAL COMPLEXES LEFT VENTRICULAR HYPERTROPHY WITH REPOLARIZATION ABNORMALITY ( R in aVL , Romhilt-Arechiga ) ABNORMAL ECG WHEN COMPARED WITH ECG OF 05/21/24 00:03 NO SIGNIFICANT CHANGE WAS FOUND Confirmed by MICHELLE IBARRA, MOMOMORA ([id number]) on 05/26/2024 8:51:15 AM [facility] 05/21/2024 1:36 AM CDT 05/26/2024 8:51 AM CDT Marcelino Nye MD ECG ORDERABLES [facility] * TROPONIN-I HIGH SENSITIVE REFLEX 1HOUR (05/21/2024 1:26 AM CDT) Troponin I High Sensitive 11 <=14 ng/L 05/21/2024 2:04 AM CDT [facility] Delta Troponin I HS 1 <6 ng/L 05/21/2024 2:04 AM CDT [facility] Blood BLOOD SPECIMEN / Unknown Venipuncture / Unknown 05/21/2024 1:26 AM CDT 05/21/2024 1:33 AM CDT Marcelino Nye MD LAB - CHEMISTRY LINNETTE MAN [facility] [address] [place] [address], [facility] [phone] * XR CHEST 1VW PORTABLE (05/21/2024 12:25 [...] DATE/TIME OF EXAM: 05/21/2024 12:25 AM, LOCATION [facility] INDICATION: R07.9: Chest pain, unspecified type ADDITIONAL CLINICAL INFORMATION: Ordering Provider Reason For Exam: SOB Technologist Note: Additional: COMPARISON: None. FINDINGS: There is no focal consolidation, pleural effusion, or pneumothorax. Bilateral emphysematous changes. The cardiomediastinal silhouette is normal. The visible bony thorax is intact. Procedure Note Miguel Swift MD - 05/21/2024 PROCEDURE: XR CHEST 1VW PORTABLE, DATE/TIME OF EXAM: 05/21/2024 12:25AM, LOCATION [facility] INDICATION: R07.9: Chest pain, unspecified type ADDITIONAL [...] 10 <=14 ng/L 05/21/2024 12:51 AM CDT [facility] Blood BLOOD SPECIMEN / Unknown Venipuncture / Unknown 05/20/2024 11:59 PM CDT 05/21/2024 12:13 AM CDT Marcelino Nye MD LAB - CHEMISTRY [place] MAN [facility] Organization Address City/State/ZIP Co de Phone Number [facility] [address] [place] [address] [phone] * (ABNORMAL) CBC W AUTO DIFFERENTIAL (05/20/2024 [...] Nye MD LAB - HEMATOLOGY ORD ERABLES [facility] [address] [place] [phone], [facility] [phone] * (ABNORMAL) COMPREHENSIVE METABOLIC PANEL (05/20/2024 11:59 [...] 05/20/2024 11:59 PM T 05/21/2024 12:13 AM [facility] Marcelino Nye MD LAB - CHEMISTRY [place] [facility] Organization Address City/State/ZIP Co de Phone Number [facility] [address] [place] [phone], [facility] [phone] Care Teams Leaf Stripper Relationship Specialty Start Date End Date Pernell Pratt MD [address] [facility] [address] [place] [address] PCP - General Internal Medicine 05/21/24
[2024-12-01] MEDS: SODIUM CHLORIDE 0.9% IV 2,000 ML 999 ML IV CONT (03:49)
[2024-12-01] MEDS: ONDANSETRON INJ 4 MG/2 ML VIAL IV PUSH (03:49)
--- NOTE | 2024-12-01 03:53 | ED.GENADULT ---
HPI - General Adult General Chief complaint: Nausea/Vomiting/Diarrhea Stated complaint: n/v/d, Time Seen by Provider: 12/01/24 02:56 History of Present Illness HPI narrative: This is a pleasant 74-year-old female presenting ED with chief complaint of nausea vomiting diarrhea x1 day. Symptoms started yesterday at 5:00 a.m.. She has been having palpitations as well. No fevers, chest pain difficulty breathing, abdominal pain or urinary symptoms. Patient was triaged as shortness of breath but she is denying any difficulty breathing to me. Related Data Home Medications ?Medication ?Instructions ?Recorded ?Confirmed ?Last Taken ?Type cholecalciferol (vitamin D3) 125 125 mcg PO DAILY 05/06/24 09/19/24 09/18/24 09:00 History mcg (5,000 unit) tablet (Vitamin D3) insulin glargine U-300 conc 300 28 unit subcut DAILY 05/06/24 09/19/24 09/18/24 09:00 History unit/mL (3 mL) subcutaneous pen (Toujeo Max U-300 SoloStar) diltiazem HCl 120 mg 120 mg PO DAILY 06/10/24 09/19/24 09/18/24 09:00 History tablet,extended release 24 hr apixaban 5 mg tablet (Eliquis) 5 mg PO Q12H 09/19/24 09/19/24 09/18/24 21:00 History atorvastatin 40 mg tablet 40 mg PO HS 09/19/24 09/19/24 09/18/24 21:00 History sotalol 80 mg tablet 80 mg PO Q12H 09/19/24 09/19/24 09/18/24 21:00 History Allergies Allergy/AdvReac Type Severity Reaction Status Date / Time No Known Allergies Allergy Verified 11/30/24 22:06 [facility] Past Medical History Medical History Atrial flutter Bradycardia Rectal bleeding Colon polyps Non-ST elevation myocardial infarction (NSTEMI) 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 History of colonoscopy with polypectomy Family History Family History Sibling Diabetes mellitus Father Cerebrovascular accident, Onset Age: 72 Diabetes mellitus Social History Social History Social History: Surrogate medical decision maker: Shu Mercado, daughter. Code status: Full code. Smoking packs per day: 10 Smoking cigarettes per day: 200.0 Years smoked: 50 Smoking pack-years: 500.00 Smoking status: Former smoker Additional smoking assessment comments: quit May 2023 Alcohol intake: never Substance use: never Substance use type: does not use Do You Feel Safe in your Home?: Yes Lack of Transportation: No Lack of Food: Never True Current Housing: I Have Housing Concerned About Future Housing: No Difficulty Paying Gas/Electric Bills: No Difficulty Paying for Meds: No Currently Unemployed: No Education: High School Diploma/GED Difficulty w/ Childcare or Family Care: No Spiritual care concerns: No Exam Narrative: APPEARANCE: No apparent distress. Head: atraumatic. EYES: EOMI, NOSE: Atraumatic NECK: Trachea midline RESPIRATORY: No increased rate of breathing clear to auscultation CARDIOVASCULAR: RRR, no peripheral edema ABDOMINAL: Non-distended nontender, no CVA tenderness MUSCULOSKELETAl: No obvious deformities NEURO: Alert. Moving 4/4 extremities SKIN:: Warm, dry. Normal color PSYCHIATRIC: Normal affect Course Vital Signs Vital signs: Vital Signs Temperature 98.6 F 11/30/24 22:03 Pulse Rate 70 11/30/24 22:03 Respiratory Rate 15 11/30/24 22:03 Blood Pressure 95/56 L 11/30/24 22:03 Pulse Oximetry 100 11/30/24 22:03 Temperature 98.6 F 11/30/24 22:03 Pulse Rate 72 12/01/24 06:19 Respiratory Rate 14 12/01/24 06:19 Blood Pressure 112/52 L 12/01/24 06:19 Pulse Oximetry 94 12/01/24 06:19 Oxygen Delivery Room Air 12/01/24 02:40 Medical Decision Making MDM Narrative Medical decision making narrative: -Course: 74-year-old female presenting with nausea vomiting diarrhea x1 day. Physical exam is unremarkable. Patient given fluid resuscitation and antiemetics. Laboratory studies consistent with dehydration. Patient received 2 L of fluid. We attempted to ambulate the patient and she is still dizzy and unstable on her feet. She is elderly and lives alone. Patient will be placed in observation for fluid resuscitation for dehydration. Ua w/ 3-5 rbc, 6-10 wbc. neg leuk esterase/nitrites. asymptomatic. will await culture results. -DDX includes but is not limited to: Gastroenteritis, influenza, COVID, viral syndrome, Independent EKG interpretation: Rhythm [sinus], Rate [70], [place] -[normal], [place] -[normal], QRS [narrow], QTC [normal], T waves -[negative for concerning inversions], ST Segments - [Negative for concerning elevations] Final interpretations: Sinus rhythm with nonspecific T-wave inversions. Compared to old EKGs from September 2024 is unchanged Vital Signs Vital Signs: Vital Signs Temperature 98.6 F 11/30/24 22:03 Pulse Rate 70 11/30/24 22:03 Respiratory Rate 15 11/30/24 22:03 Blood Pressure 95/56 L 11/30/24 22:03 Pulse Oximetry 100 11/30/24 22:03 Temperature 98.6 F 11/30/24 22:03 Pulse Rate 72 12/01/24 06:19 Respiratory Rate 14 12/01/24 06:19 Blood Pressure 112/52 L 12/01/24 06:19 Pulse Oximetry 94 12/01/24 06:19 Oxygen Delivery Room Air 12/01/24 02:40 Lab Data 11/30/24 22:14 11/30/24 22:14 Labs: Lab Results 11/30/24 12/01/24 12/01/24 Range/Units 22:14 02:28 03:52 WBC 7.4 (4.5-10.0) K/mm3 RBC 5.06 (4.2-5.4) M/mm3 Hgb 14.1 (12.0-15.0) g/dL Hct 42.6 (37.0-47.0) % MCV 84.2 (80-100) fl MCH 27.9 (26-34) pg MCHC 33.1 (32-36) g/dl RDW 14.7 H (11.5-14.5) % Plt Count 232 (150-375) k/mm3 MPV 11.5 H (7.4-10.4) fl Immature Gran % (Auto) 0.3 (0-0.5) % Neut % (Auto) 81.0 H (45.5-73.1) % Lymph % (Auto) 10.6 L (18.3-44.2) % [place] % (Auto) 7.5 (2.6-8.5) % Eos % (Auto) 0.1 (0-4.4) % Baso % (Auto) 0.5 (0.2-1.2) % Lymph # (Auto) 0.79 L (0.9-3.2) K/mm3 [place] # (Auto) 0.6 (0.1-0.6) K/mm3 Eos # (Auto) 0.0 (0-0.3) K/mm3 Baso # (Auto) 0.0 (0.0-0.1) K/mm3 Abs Immat Gran (auto) 0.02 (0.00-0.031) K/mm3 Absolute Neuts (auto) 6.0 (1.3-6.7) K/mm3 Absolute Nucleated RBC 0.000 (0.0-0.012) K/mm3 Nucleated RBC % 0.0 (0.0-0.2) % Sodium 136 L (137-145) mmol/L Potassium 4.2 (3.4-5.0) mmol/L Chloride 101 (98-107) mmol/L Carbon Dioxide 20 L (22-30) mmol/L Anion Gap 15 H (4-12) mmol/L BUN 21 H D (7-17) mg/dL Creatinine 0.87 (0.7-1.0) mg/dL Estim Creat Clear Calc Not Reportable Estimated GFR > 60 (59 - ) Glucose 160 H (65-110) mg/dL POC Capillary Glucose 134 H (65-105) mg/dl Calcium 9.7 (8.4-10.2) mg/dL Total Bilirubin 1.3 (0.2-1.3) mg/dL AST 26 (14-36) U/L ALT 17 (6-35) U/L Alkaline Phosphatase 97 (38-126) U/L Total Protein 8.0 (6.3-8.2) g/dL Albumin 4.4 (3.5-5.1) g/dL Lipase 22 L (23-300) U/L Urine Color Dark yellow (Yellow) Urine Appearance Clear (Clear) Urine pH 5.0 (5.0-9.0) Ur Specific [place] 1.042 H (1.001-1.035) Urine Protein 1+ H (Negative) mg/dL Urine Glucose (UA) 3+ H (Negative) mg/dL Urine Ketones 1+ H (Negative) mg/dL Ur Blood (Man) Negative (Negative) Urine Nitrate Negative (Negative) Urine Bilirubin Negative (Negative) Urine Urobilinogen 0.2 (<2.0) mg/dL Add Ur Microanalysis Reviewed Leukocyte Esterase Rfl Negative (Negative) LAUREN/UL Urine RBC 3-5 H (0-2) /hpf Urine WBC 6-10 H (0-3) /hpf Ur Squamous Epith Cells Occasional (Few) /hpf Urine Bacteria 4+ H /hpf Urine Casts 6-10 Hyaline Casts Present (None) /lpf Influenza A (RT-PCR) Negative (Negative) Influenza B (RT-PCR) Negative (Negative) RSV (RT-PCR) Negative (Negative) SARS-CoV-2 RNA (RT-PCR) Negative (Negative) Discharge Plan Discharge Clinical Impression: Nausea & vomiting, Diarrhea, Acute dehydration Patient Disposition: Still a Patient Condition: Stable Instructions: Acute Nausea and Vomiting (ED) Additional Instructions: Please make sure you are drinking plenty of fluids. Use Zofran for nausea. If you continue to have persistent nausea vomiting diarrhea, developed weakness, or if your condition is getting worse I want you to return to the ED for re-evaluation. Patient Language: Slovak Prescriptions: No Action diltiazem HCl 120 mg tablet extended release 24 hr 120 mg PO DAILY cholecalciferol (vitamin D3) [Vitamin D3] 125 mcg (5,000 unit) Tablet 125 mcg PO DAILY insulin glargine U-300 conc [Toujeo Max U-300 SoloStar] 300 unit/mL (3 mL) insulin pen 28 unit subcut DAILY atorvastatin 40 mg tablet 40 mg PO HS Rx Instructions: TAKE 1 TABLET BY MOUTH EVERY DAY sotalol 80 mg tablet 80 mg PO Q12H Eliquis 5 mg tablet 5 mg PO Q12H Rx Instructions: TAKE 1 TABLET BY MOUTH TWICE A DAY ketoconazole 2 % cream 1 applic topical BID Qty: 60 0RF insulin aspart U-100 [Novolog FlexPen U-100 Insulin] 100 unit/mL (3 mL) insulin pen 1 sliding scale dose subcut TIDWMEAL Qty: 15 3RF Rx Instructions: 150-200 3 units 201-250 6 units 251-300 9 units 301-350 12 units 350-400 15 units pantoprazole 40 mg tablet,delayed release (DR/EC) 40 mg PO DAILY Qty: 90 3RF (DME) pen needle, diabetic [BD Shraddha 2nd Gen Pen Needle] 32 gauge x 5/32 needle See Rx Instructions .ROUTE .COMPLEX Qty: 100 3RF Dose Instruction: DIRECTED TO INJECT WITH INSULIN 3 TIMES DAILY Rx Instructions: DIRECTED TO INJECT WITH INSULIN 3 TIMES DAILY alendronate 70 mg tablet See Rx Instructions .ROUTE .COMPLEX Qty: 12 2RF Dose Instruction: TAKE 1 TABLET BY MOUTH ONCE PER WEEK IN THE MORNING, AT LEAST 30 MINUTES BEFORE FIRST FOOD, BEVERAGE, OR MED OF THE DAY Rx Instructions: TAKE 1 TABLET BY MOUTH ONCE PER WEEK IN THE MORNING, AT LEAST 30 MINUTES BEFORE FIRST FOOD, BEVERAGE, OR MED OF THE DAY (DME) lancets [facility]et[facility] See Rx Instructions .ROUTE .COMPLEX Qty: 300 3RF Dose Instruction: CHECK BLOOD SUGAR THREE TIMES A DAY Rx Instructions: CHECK BLOOD SUGAR THREE TIMES A DAY Jardiance 25 mg tablet 25 mg PO DAILY Qty: 90 2RF Follow-up/Referrals: Pernell Pratt MD [Primary Care Provider] -
[2024-12-01 04:23] LABS: Add Urine Microscopic? YES; Appearance Urine Clear (Clear); Bacteria Urine 4+ /hpf; Bilirubin Urine Negative (Negative); Blood Urine Negative (Negative); Color Urine Dark Yellow (Yellow); Glucose Urine UA 3+ mg/dL (Negative); Hyaline Casts Urine Present /lpf; Ketones Urine 1+ mg/dL (Negative); Leukocyte Esterase Ur Negative LEU/UL (Negative); Need Manual Microscopic Reviewed; Nitrate Urine Negative (Negative); Protein Urine 1+ mg/dL (Negative); Specific Grav Ur 1.042 (1.001-1.035); Squamous Epithelial Cell Urine Occasional /hpf (Few); Urobilinogen Urine 0.2 mg/dL (<2.0)
[2024-12-01 04:37] LABS: Influenza A QL RT-PCR Negative (Negative); Influenza B QL RT-PCR Negative (Negative); RSV RNA, RT-PCR Negative (Negative); SARS-CoV-2 RNA PCR Negative (Negative)
--- NOTE | 2024-12-01 06:35 | PC.NURSE ---
Patient to be ambulated per EDP VORB. Patient ambulated to hallway with unsteady gait. EDP notified.
--- NOTE | 2024-12-01 08:07 | P.HP_ITS ---
H&P: HPI History of Present Illness Date/Time: 12/01/24 08:07 Chief Complaint: Abdomen pain, nausea vomiting diarrhea Narrative: This is a pleasant 74-year-old female with history of AFib, insulin-dependent diabetes, hyperlipidemia, hypertension, present ED with a chief complaint of nausea vomiting diarrhea. Patient has been having nausea vomiting diarrhea since yesterday. Patient also has palpitation. Patient denies fever, chills, headache, focal weakness, chest pain abdomen pain, dysuria. Upon arrival to ED, patient was afebrile, blood pressure low 95/56, CBC unremarkable, chemistry showed elevated BUN creatinine ratio 21/0.87, hyponatremia 136, EKG showed sinus rhythm, T-wave inverted to V2 to V6 and lateral wall, but no dynamic change from previous EKG. Chest x-ray does not show acute cardiopulmonary issues. CT chest shows no pulmonary embolism. Respiratory pathogen PCR negative [facility] Past Medical History Medical History Atrial flutter Bradycardia Rectal bleeding Colon polyps Non-ST elevation myocardial infarction (NSTEMI) 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 History of colonoscopy with polypectomy Family History Family History Sibling Diabetes mellitus Father Cerebrovascular accident, Onset Age: 72 Diabetes mellitus Social History Social History Social History: Surrogate medical decision maker: Shu Mercado, daughter. Code status: Full code. Smoking packs per day: 10 Smoking cigarettes per day: 200.0 Years smoked: 50 Smoking pack-years: 500.00 Smoking status: Former smoker Tobacco type: cigarettes Smoking end date: 05/14/24 Additional smoking assessment comments: quit May 2023 Alcohol intake: never Substance use: never Substance use type: does not use Do You Feel Safe in your Home?: Yes Lack of Transportation: No Lack of Food: Never True Current Housing: I Have Housing Concerned About Future Housing: No Difficulty Paying Gas/Electric Bills: No Difficulty Paying for Meds: No Currently Unemployed: No Education: High School Diploma/GED Difficulty w/ Childcare or Family Care: No Spiritual care concerns: No Meds Home Medications and Allergies Home Medications ?Medication ?Instructions ?Recorded ?Confirmed ?Type insulin aspart U-100 100 unit/mL 1 sliding scale dose subcut 02/17/24 12/01/24 Rx (3 mL) subcutaneous pen (Novolog TIDWMEAL #15 mL FlexPen U-100 Insulin aspart) cholecalciferol (vitamin D3) 125 125 mcg PO DAILY 05/06/24 12/01/24 History mcg (5,000 unit) tablet (Vitamin D3) insulin glargine U-300 conc 300 28 unit subcut DAILY 05/06/24 12/01/24 History unit/mL (3 mL) subcutaneous pen (Toujeo Max U-300 SoloStar) diltiazem HCl 120 mg 120 mg PO DAILY 06/10/24 12/01/24 History tablet,extended release 24 hr pantoprazole 40 mg tablet,delayed 40 mg PO DAILY #90 tabs 06/22/24 12/01/24 Rx release pen needle, diabetic 32 gauge x #100 ea 08/25/24 12/01/24 Rx 5/32 (BD Shraddha 2nd Gen Pen Needle) apixaban 5 mg tablet (Eliquis) 5 mg PO Q12H 09/19/24 12/01/24 History atorvastatin 40 mg tablet 40 mg PO HS 09/19/24 12/01/24 History sotalol 80 mg tablet 80 mg PO Q12H 09/19/24 12/01/24 History alendronate 70 mg tablet See Rx Instructions .Route 10/20/24 12/01/24 Rx .COMPLEX #12 tabs lancets (Microlet Lancet) #300 ea 10/22/24 12/01/24 Rx empagliflozin 25 mg tablet 25 mg PO DAILY #90 tabs 11/04/24 12/01/24 Rx (Jardiance) Allergies Allergy/AdvReac Type Severity Reaction Status Date / Time No Known Allergies Allergy Verified 11/30/24 22:06 Vital Signs Vital Signs - 24 hr 11/30/24 22:03 12/01/24 02:22 12/01/24 02:25 Temperature 98.6 F Pulse Rate 70 69 69 Respiratory Rate 15 20 Blood Pressure 95/56 L 98/50 L Pulse Oximetry 100 97 Oxygen Delivery 12/01/24 02:40 12/01/24 04:29 12/01/24 06:19 Temperature Pulse Rate 68 72 Respiratory Rate 16 14 Blood Pressure 111/44 L 112/52 L Pulse Oximetry 94 94 94 Oxygen Delivery Room Air H&P: Results Labs Labs: Short CBC 11/30/24 Range/Units 22:14 WBC 7.4 (4.5-10.0) K/mm3 Hgb 14.1 (12.0-15.0) g/dL Hct 42.6 (37.0-47.0) % Plt Count 232 (150-375) k/mm3 BMP 11/30/24 22:14 Sodium 136 L Potassium 4.2 Chloride 101 Carbon Dioxide 20 L BUN 21 H D Creatinine 0.87 Glucose 160 H Calcium 9.7 Liver Function 11/30/24 Range/Units 22:14 Total Bilirubin 1.3 (0.2-1.3) mg/dL AST 26 (14-36) U/L ALT 17 (6-35) U/L Alkaline Phosphatase 97 (38-126) U/L Albumin 4.4 (3.5-5.1) g/dL Urine 12/01/24 Range/Units 03:52 Urine Color Dark yellow (Yellow) Urine Appearance Clear (Clear) Urine pH 5.0 (5.0-9.0) Ur Specific [place] 1.042 H (1.001-1.035) Urine Protein 1+ H (Negative) mg/dL Urine Glucose (UA) 3+ H (Negative) mg/dL Assessment and Plan Assessment and plan (1) Acute gastroenteritis: Code(s): K52.9 - Noninfective gastroenteritis and colitis, unspecified Status: Acute (2) Hypotension due to hypovolemia: Code(s): E86.1 - Hypovolemia Status: Acute (3) Dehydration: Code(s): E86.0 - Dehydration Status: Acute (4) Hyponatremia: Code(s): E87.1 - Hypo-osmolality and hyponatremia Status: Acute (5) HTN (hypertension): Qualifiers: Hypertension type: essential hypertension Qualified Code(s): I10 - Essential (primary) hypertension Code(s): I10 - Essential (primary) hypertension Status: Acute (6) Atrial fib/flutter, transient: Code(s): I48.91 - Unspecified atrial fibrillation; I48.92 - Unspecified atrial flutter Status: Acute (7) HLD (hyperlipidemia): Qualifiers: Hyperlipidemia type: mixed hyperlipidemia Qualified Code(s): E78.2 - Mixed hyperlipidemia Code(s): E78.5 - Hyperlipidemia, unspecified Status: Acute Plan Acute gastroenteritis Patient is afebrile, white blood cell within normal limit Possible due to very infection Received fluid resuscitation in the ED Continue lactated Ringer 100 mL/hour Hypovolemic hypotension, hyponatremia Patient has a general weakness, lightheadedness Likely secondary to dehydration and poor oral intake of electrolyte Continue normal saline IV Follow-up BMP Paroxysmal AFib Continue Eliquis 5 mg b.i.d. p.o., Hold Cardizem because of hypotension Continue sotalol 80 mg q.12 hours p.o. Hyperlipidemia Continue Lipitor 40 mg daily p.o. Type 2 diabetes Hold Jardiance because of hypertension Continue Lantus 20 unit daily Start insulin sliding scale a.c. and q.h.s.
[2024-12-01] MEDS: LACTATED RINGERS 1,000 ML 100 ML IV CONT (08:22)
--- NOTE | 2024-12-01 10:16 | ADMGEN ---
This patient, Mayte Mercado, was admitted to Virtual Bed 3rd Floor-3. Patient/family oriented to hospital policies and general routines including ID bracelet, bed and alarms, visiting hours, pain management, procedures, bathroom and other care routines, personal items, smoking policy, room service/diet, and visiting hours. Information on how to activate the Rapid Response Team has been discussed. Patient/Family are encouraged to report perceived risks to care and to ask questions if they do not understand what they are told or what they should do.
--- NOTE | 2024-12-01 10:55 | PC.NURSE ---
This patient, Mayte Mercado, was admitted to [facility] Surg Room 306-01. Patient/family oriented to hospital policies and general routines including ID bracelet, bed and alarms, visiting hours, pain management, procedures, bathroom and other care routines, personal items, smoking policy, room service/diet, and visiting hours. Information on how to activate the Rapid Response Team has been discussed. Patient/Family are encouraged to report perceived risks to care and to ask questions if they do not understand what they are told or what they should do.
--- NOTE | 2024-12-01 11:19 | PC.NURSE ---
Patient has a heart monitor on.
[2024-12-01] MEDS: SOTALOL HCL 80 MG TABLET PO ×2 (12:39→21:02)
[2024-12-01] MEDS: APIXABAN 5 MG TABLET PO ×2 (12:44→21:03)
[2024-12-01 12:46] LABS: Glucose Point of Care 153 mg/dl (65-105)
[2024-12-01] MEDS: INSULIN ASPART (*BKC) 100 UNITS/ML SUB-Q (12:46)
[2024-12-01] MEDS: INSULIN GLARGINE (*BKC) 100 UNITS/ML 16 UNITS SUB-Q (13:10)
[2024-12-01 17:26] LABS: Glucose Point of Care 102 mg/dl (65-105)
[2024-12-01] MEDS: ATORVASTATIN 40 MG TABLET PO (21:03)
[2024-12-01 21:59] LABS: Glucose Point of Care 142 mg/dl (65-105)
[2024-12-02] VITALS (10 sets, daily range): BP systolic 84–119; BP diastolic 49–86; PULSE 74–132; RESP 18–28; TEMP 36.3–36.8; O2SAT 95–100
[2024-12-02 08:11] LABS: Glucose Point of Care 103 mg/dl (65-105)
--- NOTE | 2024-12-02 08:54 | PM.IMPN ---
Progress Note: A&P Assessment and Plan (1) Acute gastroenteritis: Code(s): K52.9 - Noninfective gastroenteritis and colitis, unspecified Status: Acute (2) Hypotension due to hypovolemia: Code(s): E86.1 - Hypovolemia Status: Acute (3) Dehydration: Code(s): E86.0 - Dehydration Status: Acute (4) Hyponatremia: Code(s): E87.1 - Hypo-osmolality and hyponatremia Status: Acute (5) HTN (hypertension): Qualifiers: Hypertension type: essential hypertension Qualified Code(s): I10 - Essential (primary) hypertension Code(s): I10 - Essential (primary) hypertension Status: Acute (6) Atrial fib/flutter, transient: Code(s): I48.91 - Unspecified atrial fibrillation; I48.92 - Unspecified atrial flutter Status: Acute (7) HLD (hyperlipidemia): Qualifiers: Hyperlipidemia type: mixed hyperlipidemia Qualified Code(s): E78.2 - Mixed hyperlipidemia Code(s): E78.5 - Hyperlipidemia, unspecified Status: Acute Plan Acute gastroenteritis Patient is afebrile, white blood cell within normal limit Possible due to very infection Received fluid resuscitation in the ED on lactated Ringer 100 mL/hour Patient has 1 loose stool today 12/02 Hypovolemic hypotension, hyponatremia Patient has a general weakness, lightheadedness Likely secondary to dehydration and poor oral intake of electrolyte Received fluid resuscitation Follow-up BMP Blood pressure became stable 12/02 Paroxysmal AFib Continue Eliquis 5 mg b.i.d. p.o., Hold Cardizem because of soft BP Continue sotalol 80 mg q.12 hours p.o. now pt has afib rvr, start metoprolol 5 mg IV push Consult can runner for evaluation treatment Chest pain Patient had a sudden onset chest pain, patient feels heaviness, patient also has shortness breath associated with chest pain EKG showed AFib RVR, TV neurosurgeon precordial lead, lead 1 and aVL Troponin negative Provide aspirin 325 mg once Consult can runner for evaluation treatment Hyperlipidemia Continue Lipitor 40 mg daily p.o. Type 2 diabetes Hold Jardiance because of hypertension Continue Lantus 20 unit daily Start insulin sliding scale a.c. and q.h.s. Subjective Date/time seen: 12/02/24 08:54 Interval history: I saw examined patient today. Patient had a sudden onset chest pain, palpitation after receiving the a message about a relative's . Patient has a pressure-like chest pain, and also has a chest tightness. Patient denies lightheadedness, abdomen pain, nausea vomiting. Patient has 1 loose stool. EKG showed AFib RVR T-wave inversion precordial lead and lateral leads. Troponin -negative, 0.021 Exam Narrative: GENERAL: Pleasant, in no acute distress. Well-nourished. - EYES: EOMI. Anicteric. - HENT: Moist mucous membranes. - LUNGS: Clear to auscultation bilaterally, no wheezing, rhonchi, or rales. - CARDIOVASCULAR: Irregular irregular rhythm, tachycardia No murmur. No JVD. - ABDOMEN: Soft, non-tender and non-distended. No palpable masses. - EXTREMITIES: No edema. Peripheral pulses 2+. Non-tender. - NEUROLOGIC: No focal neurological deficits. CN II-XII grossly intact. - PSYCHIATRIC: Awake, Alert and oriented x 3. Appropriate mood and affect. - SKIN: No rashes or lesions. Warm. - LYMPH: No cervical lymphadenopathy. Objective Data Vital Signs Vital Signs: Vital Signs - 24 hr 12/01/24 10:47 12/01/24 11:05 12/01/24 11:30 Temperature 97.8 F Pulse Rate 73 63 Respiratory Rate 20 16 Blood Pressure 106/51 L 99/52 L Pulse Oximetry 98 96 Oxygen Delivery Room Air 12/01/24 12:39 12/01/24 14:00 12/01/24 21:02 Temperature 97.9 F Pulse Rate 72 71 76 Respiratory Rate 16 Blood Pressure 115/53 L Pulse Oximetry 95 Oxygen Delivery 12/01/24 22:00 12/02/24 06:00 Temperature 98.2 F 97.8 F Pulse Rate 64 74 Respiratory Rate 18 18 Blood Pressure 101/47 L 109/53 L Pulse Oximetry 96 95 Oxygen Delivery Intake/Output Intake/Output: Intake & Output 11/29/24 11/30/24 12/01/24 12/02/24 23:59 23:59 23:59 23:59 Intake Total 3237 100 Balance 3237 100 Meds/Results Medications: Active Medications Generic Name Dose Route Start Last Admin Trade Name Freq PRN Reason Stop Dose Admin Apixaban 5 mg 12/01/24 11:05 12/01/24 21:03 Apixaban 5 Mg Tablet PO 5 mg Q12HR RA Administration Atorvastatin Calcium 40 mg 12/01/24 21:00 12/01/24 21:03 Atorvastatin 40 Mg Tablet PO 40 mg HS RA Administration Dextrose 12.5 gm 12/01/24 11:52 Dextrose 50% 25 Gm/50 Ml Syringe IV PUSH PRN PRN Hypoglycemia Protocol Glucagon 1 mg 12/01/24 11:52 Glucagon For Inj 1 Mg Vial IM PRN PRN Hypoglycemia Protocol Glucose 15 gm 12/01/24 11:52 Glucose Oral Gel 15 Gm Of Glucse In 37.5 Gm Tube PO PRN PRN Hypoglycemia Protocol Dextrose 1,000 mls @ 100 mls/hr 12/01/24 11:52 Dextrose 5% 1,000 Ml IVPB PRN PRN Hypoglycemia Protocol Insulin Aspart 0 units 12/01/24 12:00 12/01/24 17:38 Insulin Aspart (*Bkc) 100 Units/Ml SUB-Q Not Given TIDWM [facility] Insulin Glargine 16 units 12/01/24 09:00 12/01/24 13:10 Insulin Glargine (*Bkc) 100 Units/Ml SUB-Q 16 units DAILY RA Administration Ondansetron HCl 4 mg 12/01/24 06:56 Ondansetron Inj 4 Mg/2 Ml Vial IV PUSH Q4H PRN Nausea Pantoprazole Sodium 40 mg 12/02/24 09:00 Pantoprazole 40 Mg Tablet PO DAILY [facility] Sotalol HCl 80 mg 12/01/24 11:05 12/01/24 21:02 Sotalol Hcl 80 Mg Tablet PO 80 mg Q12HR RA Administration Labs Labs: Laboratory Results - last 24 hr 12/01/24 12/01/24 12/01/24 12:43 16:52 21:50 POC Capillary Glucose 153 H 102 142 H 12/02/24 08:07 POC Capillary Glucose 103
--- NOTE | 2024-12-02 08:56 | P.DS_ITS ---
DS: Summary Time Spent with Patient Time attestation: Total time spent providing and/or coordinating discharge services: DS: Data Data Completed and Pending Labs on day of discharge: Labs from last 24 hours 12/02/24 12/01/24 12/01/24 08:07 21:50 16:52 POC Capillary Glucose 103 142 H 102 12/01/24 12:43 POC Capillary Glucose 153 H Discharge Plan Discharge Patient Language: Vietnamese Discharge Medications: No Action diltiazem HCl 120 mg tablet extended release 24 hr 120 mg PO DAILY cholecalciferol (vitamin D3) [Vitamin D3] 125 mcg (5,000 unit) Tablet 125 mcg PO DAILY insulin glargine U-300 conc [Toujeo Max U-300 SoloStar] 300 unit/mL (3 mL) insulin pen 28 unit subcut DAILY atorvastatin 40 mg tablet 40 mg PO HS Rx Instructions: TAKE 1 TABLET BY MOUTH EVERY DAY sotalol 80 mg tablet 80 mg PO Q12H Eliquis 5 mg tablet 5 mg PO Q12H Rx Instructions: TAKE 1 TABLET BY MOUTH TWICE A DAY insulin aspart U-100 [Novolog FlexPen U-100 Insulin] 100 unit/mL (3 mL) insulin pen 1 sliding scale dose subcut TIDWMEAL Qty: 15 3RF Rx Instructions: 150-200 3 units 201-250 6 units 251-300 9 units 301-350 12 units 350-400 15 units pantoprazole 40 mg tablet,delayed release (DR/EC) 40 mg PO DAILY Qty: 90 3RF (DME) pen needle, diabetic [BD Shraddha 2nd Gen Pen Needle] 32 gauge x 5/32 needle See Rx Instructions .ROUTE .COMPLEX Qty: 100 3RF Dose Instruction: DIRECTED TO INJECT WITH INSULIN 3 TIMES DAILY Rx Instructions: DIRECTED TO INJECT WITH INSULIN 3 TIMES DAILY alendronate 70 mg tablet See Rx Instructions .ROUTE .COMPLEX Qty: 12 2RF Dose Instruction: TAKE 1 TABLET BY MOUTH ONCE PER WEEK IN THE MORNING, AT LEAST 30 MINUTES BEFORE FIRST FOOD, BEVERAGE, OR MED OF THE DAY Patient Comments: takes on Saturday Rx Instructions: TAKE 1 TABLET BY MOUTH ONCE PER WEEK IN THE MORNING, AT LEAST 30 MINUTES BEFORE FIRST FOOD, BEVERAGE, OR MED OF THE DAY (DME) lancets [Microlet Lancet] Misc See Rx Instructions .ROUTE .COMPLEX Qty: 300 3RF Dose Instruction: CHECK BLOOD SUGAR THREE TIMES A DAY Rx Instructions: CHECK BLOOD SUGAR THREE TIMES A DAY Jardiance 25 mg tablet 25 mg PO DAILY Qty: 90 2RF Date of admission: 12/01/24 06:56 Primary Care Provider: Pernell Pratt Admitting Provider: Ingrid Gallardo Attending physician on admission: Ingrid Gallardo Condition: Stable
[2024-12-02] MEDS: SOTALOL HCL 80 MG TABLET PO ×2 (09:57→20:36)
[2024-12-02] MEDS: APIXABAN 5 MG TABLET PO ×2 (09:57→20:36)
[2024-12-02] MEDS: PANTOPRAZOLE 40 MG TABLET PO (09:58)
[2024-12-02] MEDS: INSULIN GLARGINE (*BKC) 100 UNITS/ML 16 UNITS SUB-Q (10:00)
[2024-12-02 10:26] LABS: Hematocrit 38.7 % (37.0-47.0); Hemoglobin 12.3 g/dL (12.0-15.0); Mean Corpuscular HGB Conc 31.8 g/dl (32-36); Mean Corpuscular Hemoglobin 27.8 pg (26-34); Mean Corpuscular Volume 87.4 fl (80-100); Mean Platelet Volume 11.4 fl (7.4-10.4); Platelet Count Result 186 k/mm3 (150-375); Red Blood Count 4.43 M/mm3 (4.2-5.4); Red Cell Distribution Width 14.7 % (11.5-14.5); White Blood Count 5.6 K/mm3 (4.5-10.0)
[2024-12-02 10:41] LABS: Anion Gap 7 mmol/L (4-12); Blood Urea Nitrogen 15 mg/dL (7-17); Calcium 8.2 mg/dL (8.4-10.2); Carbon Dioxide 24 mmol/L (22-30); Chloride 110 mmol/L (98-107); Estimated Glomerular Filt Rate > 60; Glucose 97 mg/dL (65-110); Potassium 3.7 mmol/L (3.4-5.0); Sodium 141 mmol/L (137-145)
[2024-12-02 11:36] LABS: Glucose Point of Care 116 mg/dl (65-105)
--- NOTE | 2024-12-02 12:05 | ECG_ITS ---
Test Date: 2024-12-02 12:28:43 Measurements Intervals [place] Rate: 124 P: 0 TN: 0 QRS: -7 QRSD: 75 T: 179 QT: 357 QTc: 514 Interpretive Statements ATRIAL FIBRILLATION WITH RAPID VENTRICULAR RESPONSE VENTRICULAR PREMATURE COMPLEX POSSIBLE RIGHT VENTRICULAR CONDUCTION DELAY LEFT VENTRICULAR HYPERTROPHY WITH ST-T CHANGE T WAVE ABNORMALITY IN ANTEROLATERAL LEADS- CONSIDER ISCHEMIA BASELINE WANDER- V3 ABNORMAL ECG Compared to ECG 11/30/2024 22:04:49 SINUS RHYTHM NO LONGER PRESENT Electronically Signed On 12-02-2024 13:29:22 RETIREMENT OFFICER by Clem Peters D.O.
[2024-12-02] MEDS: ASPIRIN 325 MG TABLET PO (12:20)
[2024-12-02 12:39] LABS: Troponin I 0.021 ng/mL (0.000-0.034)
--- NOTE | 2024-12-02 12:44 | PC.NURSE ---
Notified Dr. Kirkpatrick via telephone about patient's complaint of chest pain. MD coming to assess patient.
[2024-12-02 16:53] LABS: Glucose Point of Care 107 mg/dl (65-105)
[2024-12-02 17:02] LABS: Troponin I 0.028 ng/mL (0.000-0.034)
[2024-12-02] MEDS: METOPROLOL TARTRATE INJ 5 MG/5 ML VIAL IV PUSH (17:08)
--- NOTE | 2024-12-02 17:28 | PC.NURSE ---
Pt c/o difficulty breathing approx 1115. Pt 02 sat 100 on room air. Pt family member had passed. Comforted pt, reassured her, she's breathing well and oxygenating well. Approximately 1200, pt c/o pressure on upper chest/esophagus/distal neck area. Called provider and requested trop, EKG. Provider agreed; also 325 asa. Pt placed on tele. EKG showed afib RVR with ischemia; metoprolol IV given. HR down from 130s to 100s. PT feeling better after 20-30 mins.
--- NOTE | 2024-12-02 18:49 | ECG_ITS ---
Test Date: 2024-12-02 19:13:50 Measurements Intervals [place] Rate: 116 P: 0 WI: 0 QRS: -11 QRSD: 102 T: 175 QT: 349 QTc: 485 Interpretive Statements ATRIAL FIBRILLATION WITH RAPID VENTRICULAR RESPONSE LEFT VENTRICULAR HYPERTROPHY WITH ST-T CHANGE T WAVE ABNORMALITY IN ANTEROLATERAL LEADS- CONSIDER ISCHEMIA BASELINE ARTIFACT- I, II, III, AVR, AVF ABNORMAL ECG Compared to ECG 12/02/2024 12:28:43 NO SIGNIFICANT CHANGE Electronically Signed On 12-03-2024 05:56:02 HOPPER ATTENDANT by Clem Peters D.O.
[2024-12-02] MEDS: NITROGLYCERIN SL 0.4 MG TABLET SUBLINGUAL (18:59)
[2024-12-02] MEDS: HYDROmorphone HCL INJ (*CRX) 1 MG/ML SYR IV PUSH (18:59)
--- NOTE | 2024-12-02 20:26 | PC.NURSE ---
Pt c/o chest pain/heaviness; like an elephant sitting on it . Pt feels hot, diaphoretic, dizzy, light-headed again. Notified provider at 1845 who ordered 1mg dilaudid IVP one time dose and 0.4 nitro SL one time dose. MD given vitals (see vitals sign intervention); RN questioned BP with meds; provider felt BP would hold with this choice of meds. EKG ordered, as well as cardio consulted. Call initiated to cardiology exchange. Report given to night RN.
[2024-12-02] MEDS: ATORVASTATIN 40 MG TABLET PO (20:36)
[2024-12-02] MEDS: SODIUM CHLORIDE 0.9% IV 500 ML IV CONT (20:37)
[2024-12-02 21:07] LABS: Glucose Point of Care 127 mg/dl (65-105)
[2024-12-02] MEDS: LACTATED RINGERS 500 ML 999 ML IV CONT (23:34)
[2024-12-03] VITALS (14 sets, daily range): BP systolic 83–129; BP diastolic 49–75; PULSE 54–62; RESP 16–20; TEMP 36.2–36.8; O2SAT 95–99
[2024-12-03 08:04] LABS: Glucose Point of Care 87 mg/dl (65-105)
--- NOTE | 2024-12-03 08:35 | PM.CNCAR ---
Assessment and Plan Assessment and plan (1) Atrial fib/flutter, transient: Code(s): I48.91 - Unspecified atrial fibrillation; I48.92 - Unspecified atrial flutter Status: Acute Assessment and Plan: History of paroxysmal atrial fibrillation and flutter being followed by EP at [place]. Had AF with RVR yesterday but has returned to sinus rhythm Continue sotalol 80mg q12h Continue anticoagulation with apixaban 5mg q12h Follow up with EP as scheduled OK for discharge from my standpoint (2) Hypertension: Qualifiers: Hypertension type: primary hypertension Qualified Code(s): I10 - Essential (primary) hypertension Code(s): I10 - Essential (primary) hypertension Status: Chronic Assessment and Plan: At goal. Continue current medical regimen without change (3) Hyperlipidemia: Code(s): E78.5 - Hyperlipidemia, unspecified Status: Acute Assessment and Plan: Continue statin (4) Chest pain: Code(s): R07.9 - Chest pain, unspecified Status: Acute Assessment and Plan: Atypical chest pain related to tachycardia. She is known to not have any obstructive CAD by coronary angiogram in 2023. History of Present Illness History of Present Illness Consult date/time: 12/03/24 08:35 Requesting physician: Mika Kirkpatrick MD Consult reason: atrial fibrillation Reason For Visit: Dehydration Narrative: Mayte Calix is a 74 year old female with paroxysmal atrial fib/flutter, apical hypertrophic cardiomyopathy, hypertension, hyperlipidemia, type 2 diabetes mellitus who presented to [place] [facility] because of nausea and vomiting. Cardiology is consulted for atrial fibrillation with rapid ventricular response. Patient states she felt palpitations and mild chest discomfort while she was in rapid atrial fibrillation. According to her report she feels palpitations frequently, about every other day on average. She has been seen by an client integration manager, Dr. Zapata at [place] and is currently wearing a mobile monitoring coordinator to assess AF burden. She converted to sinus rhythm last night just before midnight and remains in sinus rhythm now. She does not have any active complaints at the time of my evaluation. Review of Systems Review of Systems: All systems reviewed & are unremarkable except as noted in HPI and below PMFSH Past Medical History Medical History Atrial flutter Bradycardia Rectal bleeding Colon polyps Non-ST elevation myocardial infarction (NSTEMI) 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 History of colonoscopy with polypectomy Family History Family History Sibling Diabetes mellitus Father Cerebrovascular accident, Onset Age: 72 Diabetes mellitus Social History Social History Social History: Surrogate medical decision maker: Shu Mercado, daughter. Code status: Full code. Smoking packs per day: 10 Smoking cigarettes per day: 200.0 Years smoked: 50 Smoking pack-years: 500.00 Smoking status: Former smoker Tobacco type: cigarettes Smoking end date: 05/14/24 Additional smoking assessment comments: quit May 2023 Alcohol intake: never Substance use: never Substance use type: does not use Do You Feel Safe in your Home?: Yes Lack of Transportation: No Lack of Food: Never True Current Housing: I Have Housing Concerned About Future Housing: No Difficulty Paying Gas/Electric Bills: No Difficulty Paying for Meds: No Currently Unemployed: No Education: High School Diploma/GED Difficulty w/ Childcare or Family Care: No Spiritual care concerns: No Meds Home Medications and Allergies Home Medications ?Medication ?Instructions ?Recorded ?Confirmed ?Type insulin aspart U-100 100 unit/mL 1 sliding scale dose subcut 02/17/24 12/01/24 Rx (3 mL) subcutaneous pen (Novolog TIDWMEAL #15 mL FlexPen U-100 Insulin aspart) cholecalciferol (vitamin D3) 125 125 mcg PO DAILY 05/06/24 12/01/24 History mcg (5,000 unit) tablet (Vitamin D3) insulin glargine U-300 conc 300 28 unit subcut DAILY 05/06/24 12/01/24 History unit/mL (3 mL) subcutaneous pen (Toujeo Max U-300 SoloStar) diltiazem HCl 120 mg 120 mg PO DAILY 06/10/24 12/01/24 History tablet,extended release 24 hr pantoprazole 40 mg tablet,delayed 40 mg PO DAILY #90 tabs 06/22/24 12/01/24 Rx release pen needle, diabetic 32 gauge x #100 ea 08/25/24 12/01/24 Rx 5/32 (BD Shraddha 2nd Gen Pen Needle) apixaban 5 mg tablet (Eliquis) 5 mg PO Q12H 09/19/24 12/01/24 History atorvastatin 40 mg tablet 40 mg PO HS 09/19/24 12/01/24 History sotalol 80 mg tablet 80 mg PO Q12H 09/19/24 12/01/24 History alendronate 70 mg tablet See Rx Instructions .Route 10/20/24 12/01/24 Rx .COMPLEX #12 tabs lancets (Microlet Lancet) #300 ea 10/22/24 12/01/24 Rx empagliflozin 25 mg tablet 25 mg PO DAILY #90 tabs 11/04/24 12/01/24 Rx (Jardiance) Allergies Allergy/AdvReac Type Severity Reaction Status Date / Time No Known Allergies Allergy Verified 11/30/24 22:06 Vital Signs Vital Signs - 24 hr 12/02/24 09:57 12/02/24 12:00 12/02/24 14:00 Temperature 36.6 C 36.8 C Pulse Rate 74 132 H 109 H Respiratory Rate 28 H 18 Blood Pressure 119/86 118/56 L Pulse Oximetry 100 95 Oxygen Delivery 12/02/24 16:00 12/02/24 17:08 12/02/24 20:00 Temperature Pulse Rate 110 H 132 H Respiratory Rate Blood Pressure Pulse Oximetry Oxygen Delivery Room Air 12/02/24 20:00 12/02/24 20:36 12/02/24 21:15 Temperature 36.3 C L Pulse Rate 112 H 116 H 117 H Respiratory Rate 18 Blood Pressure 84/58 L Pulse Oximetry 97 Oxygen Delivery 12/02/24 22:31 12/03/24 00:00 12/03/24 00:24 Temperature Pulse Rate 61 Respiratory Rate Blood Pressure 87/49 L 84/63 L Pulse Oximetry Oxygen Delivery 12/03/24 00:25 12/03/24 04:00 12/03/24 05:46 Temperature 36.2 C L Pulse Rate 55 L 57 L Respiratory Rate 16 Blood Pressure 83/59 L 116/55 L Pulse Oximetry 95 Oxygen Delivery 12/03/24 08:00 Temperature 36.7 C Pulse Rate 58 L Respiratory Rate 18 Blood Pressure 100/49 L Pulse Oximetry 96 Oxygen Delivery Exam Const: General: comfortable, no acute distress, alert and awake Orientation/consciousness: patient oriented x3 HENMT: Head: normal to inspection Eyes: General: appearance normal, both eyes and all related structures Pupils: Equal, round and reactive pupils present Neck: Neck: normal visual inspection, supple and no JVD Carotids: normal carotid upstroke Resp: Effort & Inspection: normal respiratory effort Auscultation: clear to auscultation bilaterally Cardio: Rate: regular rate Rhythm: regular rhythm Heart sounds: S1 normal heart sound present, S2 normal heart sound present and no murmurs GI: Auscultation: normal bowel sounds Skin: General skin exam: normal color Neuro: General: patient oriented x3 Cranial nerves: Yes Equal, round and reactive pupils present Extrem: General: normal to inspection Psych: Appearance: grossly normal Mental Status: mental status grossly normal Results Labs and Meds 12/02/24 10:06 12/02/24 10:06 Lab results: Cardiac Enzymes 12/02/24 12/02/24 Range/Units 12:09 16:32 Troponin I 0.021 0.028 D (0.000-0.034) ng/mL CBC 12/02/24 Range/Units 10:06 WBC 5.6 (4.5-10.0) K/mm3 RBC 4.43 (4.2-5.4) M/mm3 Hgb 12.3 (12.0-15.0) g/dL Hct 38.7 (37.0-47.0) % Plt Count 186 (150-375) k/mm3 Comprehensive Metabolic Panel 12/02/24 Range/Units 10:06 Sodium 141 (137-145) mmol/L Potassium 3.7 (3.4-5.0) mmol/L Chloride 110 H (98-107) mmol/L Carbon Dioxide 24 (22-30) mmol/L BUN 15 D (7-17) mg/dL Creatinine 0.55 L (0.7-1.0) mg/dL Glucose 97 (65-110) mg/dL Calcium 8.2 L (8.4-10.2) mg/dL Intake and Output 12/02/24 12/03/24 12/03/24 23:59 07:59 15:59 Intake Total 500 400 Balance 500 400 Intake: IV 500 Sodium Chloride 0.9% IV 500 ml 500 @ 500 mls/hr IV CONT .Q1H ONE Rx#:[id number] Oral 400 Other: # Unmeasured Voids 4 1
--- NOTE | 2024-12-03 08:55 | PM.IMPN ---
Progress Note: A&P Assessment and Plan (1) Acute gastroenteritis: Code(s): K52.9 - Noninfective gastroenteritis and colitis, unspecified Status: Acute (2) Hypotension due to hypovolemia: Code(s): E86.1 - Hypovolemia Status: Acute (3) Dehydration: Code(s): E86.0 - Dehydration Status: Acute (4) Hyponatremia: Code(s): E87.1 - Hypo-osmolality and hyponatremia Status: Acute (5) HTN (hypertension): Qualifiers: Hypertension type: essential hypertension Qualified Code(s): I10 - Essential (primary) hypertension Code(s): I10 - Essential (primary) hypertension Status: Acute (6) Atrial fib/flutter, transient: Code(s): I48.91 - Unspecified atrial fibrillation; I48.92 - Unspecified atrial flutter Status: Acute (7) HLD (hyperlipidemia): Qualifiers: Hyperlipidemia type: mixed hyperlipidemia Qualified Code(s): E78.2 - Mixed hyperlipidemia Code(s): E78.5 - Hyperlipidemia, unspecified Status: Acute Plan Acute gastroenteritis Patient is afebrile, white blood cell within normal limit Possible due to very infection Received fluid resuscitation in the ED on lactated Ringer 100 mL/hour Patient has 1 loose stool today 12/02 Hypovolemic hypotension, hyponatremia Patient has a general weakness, lightheadedness Likely secondary to dehydration and poor oral intake of electrolyte Received fluid resuscitation Follow-up BMP Blood pressure became stable 12/02 Paroxysmal AFib Continue Eliquis 5 mg b.i.d. p.o., Hold Cardizem because of soft BP Continue sotalol 80 mg q.12 hours p.o. now pt has afib rvr, start metoprolol 5 mg IV push Consult manufacturing supervisor 2nd shift for evaluation treatment Chest pain Patient had a sudden onset chest pain, patient feels heaviness, patient also has shortness breath associated with chest pain EKG showed AFib RVR, T-wave inverted precordial lead, lead 1 and aVL Troponin negative Provide aspirin 325 mg once Consult manufacturing supervisor 2nd shift for evaluation treatment Hyperlipidemia Continue Lipitor 40 mg daily p.o. Type 2 diabetes Hold Jardiance because of hypertension Continue Lantus 20 unit daily Start insulin sliding scale a.c. and q.h.s. Subjective Date/time seen: 12/03/24 08:55 Interval history: I saw examined patient today. Patient denies chest pain palpitation today.. Patient still has general weakness abdomen pain, nausea vomiting. Patient has 1 loose stool. EKG showed AFib RVR T-wave inversion precordial lead and lateral leads. Troponin -negative, 0.021 Exam Narrative: GENERAL: Pleasant, in no acute distress. Well-nourished. - EYES: EOMI. Anicteric. - HENT: Moist mucous membranes. - LUNGS: Clear to auscultation bilaterally, no wheezing, rhonchi, or rales. - CARDIOVASCULAR: Irregular irregular rhythm, tachycardia No murmur. No JVD. - ABDOMEN: Soft, non-tender and non-distended. No palpable masses. - EXTREMITIES: No edema. Peripheral pulses 2+. Non-tender. - NEUROLOGIC: No focal neurological deficits. CN II-XII grossly intact. - PSYCHIATRIC: Awake, Alert and oriented x 3. Appropriate mood and affect. - SKIN: No rashes or lesions. Warm. - LYMPH: No cervical lymphadenopathy. Objective Data Vital Signs Vital Signs: Vital Signs - 24 hr 12/02/24 09:57 12/02/24 12:00 12/02/24 14:00 Temperature 97.8 F 98.3 F Pulse Rate 74 132 H 109 H Respiratory Rate 28 H 18 Blood Pressure 119/86 118/56 L Pulse Oximetry 100 95 Oxygen Delivery 12/02/24 16:00 12/02/24 17:08 12/02/24 20:00 Temperature Pulse Rate 110 H 132 H Respiratory Rate Blood Pressure Pulse Oximetry Oxygen Delivery Room Air 12/02/24 20:00 12/02/24 20:36 12/02/24 21:15 Temperature 97.4 F L Pulse Rate 112 H 116 H 117 H Respiratory Rate 18 Blood Pressure 84/58 L Pulse Oximetry 97 Oxygen Delivery 12/02/24 22:31 12/03/24 00:00 12/03/24 00:24 Temperature Pulse Rate 61 Respiratory Rate Blood Pressure 87/49 L 84/63 L Pulse Oximetry Oxygen Delivery 12/03/24 00:25 12/03/24 04:00 12/03/24 05:46 Temperature 97.2 F L Pulse Rate 55 L 57 L Respiratory Rate 16 Blood Pressure 83/59 L 116/55 L Pulse Oximetry 95 Oxygen Delivery 12/03/24 08:00 Temperature 98.1 F Pulse Rate 58 L Respiratory Rate 18 Blood Pressure 100/49 L Pulse Oximetry 96 Oxygen Delivery Intake/Output Intake/Output: Intake & Output 11/30/24 12/01/24 12/02/24 12/03/24 23:59 23:59 23:59 23:59 Intake Total 3237 1080 400 Balance 3237 1080 400 Meds/Results Medications: Active Medications Generic Name Dose Route Start Last Admin Trade Name Freq PRN Reason Stop Dose Admin Apixaban 5 mg 12/01/24 11:05 12/02/24 20:36 Apixaban 5 Mg Tablet PO 5 mg Q12HR RA Administration Atorvastatin Calcium 40 mg 12/01/24 21:00 12/02/24 20:36 Atorvastatin 40 Mg Tablet PO 40 mg HS RA Administration Dextrose 12.5 gm 12/01/24 11:52 Dextrose 50% 25 Gm/50 Ml Syringe IV PUSH PRN PRN Hypoglycemia Protocol Glucagon 1 mg 12/01/24 11:52 Glucagon For Inj 1 Mg Vial IM PRN PRN Hypoglycemia Protocol Glucose 15 gm 12/01/24 11:52 Glucose Oral Gel 15 Gm Of Glucse In 37.5 Gm Tube PO PRN PRN Hypoglycemia Protocol Dextrose 1,000 mls @ 100 mls/hr 12/01/24 11:52 Dextrose 5% 1,000 Ml IVPB PRN PRN Hypoglycemia Protocol Insulin Aspart 0 units 12/01/24 12:00 12/03/24 08:31 Insulin Aspart (*Bkc) 100 Units/Ml SUB-Q Not Given [facility] Insulin Glargine 16 units 12/01/24 09:00 12/02/24 10:00 Insulin Glargine (*Bkc) 100 Units/Ml SUB-Q 16 units DAILY RA Administration Ondansetron HCl 4 mg 12/01/24 06:56 Ondansetron Inj 4 Mg/2 Ml Vial IV PUSH Q4H PRN Nausea Pantoprazole Sodium 40 mg 12/02/24 09:00 12/02/24 09:58 Pantoprazole 40 Mg Tablet PO 40 mg DAILY RA Administration Sotalol HCl 80 mg 12/01/24 11:05 12/02/24 20:36 Sotalol Hcl 80 Mg Tablet PO 80 mg Q12HR RA Administration Labs Labs: Laboratory Results - last 24 hr 12/02/24 12/02/24 12/02/24 10:06 11:32 12:09 WBC 5.6 RBC 4.43 Hgb 12.3 Hct 38.7 MCV 87.4 MCH 27.8 MCHC 31.8 L RDW 14.7 H Plt Count 186 MPV 11.4 H Sodium 141 Potassium 3.7 Chloride 110 H Carbon Dioxide 24 Anion Gap 7 BUN 15 D Creatinine 0.55 L Estim Creat Clear Calc Not Reportable Estimated GFR > 60 Glucose 97 POC Capillary Glucose 116 H Calcium 8.2 L Troponin I 0.021 12/02/24 12/02/24 12/02/24 16:32 16:39 19:42 WBC RBC Hgb Hct MCV MCH MCHC RDW Plt Count MPV Sodium Potassium Chloride Carbon Dioxide Anion Gap BUN Creatinine Estim Creat Clear Calc Estimated GFR Glucose POC Capillary Glucose 107 H 127 H Calcium Troponin I 0.028 D 12/03/24 07:58 WBC RBC Hgb Hct MCV MCH MCHC RDW Plt Count MPV Sodium Potassium Chloride Carbon Dioxide Anion Gap BUN Creatinine Estim Creat Clear Calc Estimated GFR Glucose POC Capillary Glucose 87 Calcium Troponin I
[2024-12-03] MEDS: SOTALOL HCL 80 MG TABLET PO ×2 (09:20→20:38)
[2024-12-03] MEDS: INSULIN GLARGINE (*BKC) 100 UNITS/ML 16 UNITS SUB-Q (09:20)
[2024-12-03] MEDS: APIXABAN 5 MG TABLET PO ×2 (09:20→20:37)
[2024-12-03] MEDS: PANTOPRAZOLE 40 MG TABLET PO (09:20)
[2024-12-03 11:35] LABS: Glucose Point of Care 107 mg/dl (65-105)
[2024-12-03 16:53] LABS: Glucose Point of Care 116 mg/dl (65-105)
[2024-12-03] MEDS: ATORVASTATIN 40 MG TABLET PO (20:38)
[2024-12-03 22:49] LABS: Glucose Point of Care 130 mg/dl (65-105)
[2024-12-04] VITALS (9 sets, daily range): BP systolic 121–140; BP diastolic 55–64; PULSE 48–56; RESP 16–20; TEMP 35.9–36.8; O2SAT 96–98
[2024-12-04 07:53] LABS: Glucose Point of Care 72 mg/dl (65-105)
[2024-12-04] MEDS: SOTALOL HCL 80 MG TABLET PO (08:22)
[2024-12-04] MEDS: PANTOPRAZOLE 40 MG TABLET PO (08:22)
[2024-12-04] MEDS: APIXABAN 5 MG TABLET PO (08:22)
[2024-12-04] MEDS: INSULIN GLARGINE (*BKC) 100 UNITS/ML 16 UNITS SUB-Q (08:26)
--- NOTE | 2024-12-04 08:46 | PM.IMPN ---
Progress Note: A&P Assessment and Plan (1) Acute gastroenteritis: Code(s): K52.9 - Noninfective gastroenteritis and colitis, unspecified Status: Acute (2) Hypotension due to hypovolemia: Code(s): E86.1 - Hypovolemia Status: Acute (3) Dehydration: Code(s): E86.0 - Dehydration Status: Acute (4) Hyponatremia: Code(s): E87.1 - Hypo-osmolality and hyponatremia Status: Acute (5) HTN (hypertension): Qualifiers: Hypertension type: essential hypertension Qualified Code(s): I10 - Essential (primary) hypertension Code(s): I10 - Essential (primary) hypertension Status: Acute (6) Atrial fib/flutter, transient: Code(s): I48.91 - Unspecified atrial fibrillation; I48.92 - Unspecified atrial flutter Status: Acute (7) HLD (hyperlipidemia): Qualifiers: Hyperlipidemia type: mixed hyperlipidemia Qualified Code(s): E78.2 - Mixed hyperlipidemia Code(s): E78.5 - Hyperlipidemia, unspecified Status: Acute Plan Acute gastroenteritis Patient is afebrile, white blood cell within normal limit Possible due to very infection Received fluid resuscitation in the ED on lactated Ringer 100 mL/hour Patient has 1 loose stool today 12/02 Hypovolemic hypotension, hyponatremia Patient has a general weakness, lightheadedness Likely secondary to dehydration and poor oral intake of electrolyte Received fluid resuscitation Follow-up BMP Blood pressure became stable 12/02 Paroxysmal AFib Continue Eliquis 5 mg b.i.d. p.o., Hold Cardizem because of soft BP Continue sotalol 80 mg q.12 hours p.o. now pt has afib rvr, start metoprolol 5 mg IV push Consult direct care worker for evaluation treatment Chest pain Patient had a sudden onset chest pain, patient feels heaviness, patient also has shortness breath associated with chest pain EKG showed AFib RVR, T-wave inverted precordial lead, lead 1 and aVL Troponin negative Provide aspirin 325 mg once Consult direct care worker for evaluation treatment Hyperlipidemia Continue Lipitor 40 mg daily p.o. Type 2 diabetes Hold Jardiance because of hypertension Continue Lantus 20 unit daily Start insulin sliding scale a.c. and q.h.s. Subjective Date/time seen: 12/04/24 08:46 Interval history: 74-year-old female with history of AFib, insulin-dependent diabetes, hyperlipidemia, hypertension, present ED with a chief complaint of nausea vomiting diarrhea. Patient has been having nausea vomiting diarrhea since yesterday. Patient also has palpitation. Found to gastroenteritis Exam Narrative: GENERAL: Pleasant, in no acute distress. Well-nourished. - EYES: EOMI. Anicteric. - HENT: Moist mucous membranes. - LUNGS: Clear to auscultation bilaterally, no wheezing, rhonchi, or rales. - CARDIOVASCULAR: Irregular irregular rhythm, tachycardia No murmur. No JVD. - ABDOMEN: Soft, non-tender and non-distended. No palpable masses. - EXTREMITIES: No edema. Peripheral pulses 2+. Non-tender. - NEUROLOGIC: No focal neurological deficits. CN II-XII grossly intact. - PSYCHIATRIC: Awake, Alert and oriented x 3. Appropriate mood and affect. - SKIN: No rashes or lesions. Warm. - LYMPH: No cervical lymphadenopathy. Objective Data Vital Signs Vital Signs: Vital Signs - 24 hr 12/03/24 09:20 12/03/24 09:20 12/03/24 09:20 Temperature Pulse Rate 60 57 L Respiratory Rate Blood Pressure Pulse Oximetry Oxygen Delivery Room Air 12/03/24 12:00 12/03/24 14:00 12/03/24 16:00 Temperature 98.2 F 97.3 F L Pulse Rate 55 L 57 L 62 Respiratory Rate 18 18 Blood Pressure 123/61 126/75 Pulse Oximetry 99 98 Oxygen Delivery 12/03/24 16:00 12/03/24 20:00 12/03/24 20:00 Temperature Pulse Rate 58 L 57 L Respiratory Rate Blood Pressure Pulse Oximetry Oxygen Delivery Room Air 12/03/24 20:38 12/03/24 22:00 12/03/24 22:03 Temperature 97.1 F L Pulse Rate 56 L 54 L Respiratory Rate 20 Blood Pressure 129/52 L Pulse Oximetry 98 98 Oxygen Delivery Room Air 12/04/24 00:00 12/04/24 04:00 12/04/24 06:00 Temperature 98.2 F Pulse Rate 56 L 52 L 53 L Respiratory Rate 18 Blood Pressure 125/56 L Pulse Oximetry 96 Oxygen Delivery 12/04/24 08:20 12/04/24 08:22 Temperature Pulse Rate 51 L 51 L Respiratory Rate 16 Blood Pressure 124/59 L Pulse Oximetry 98 Oxygen Delivery Intake/Output Intake/Output: Intake & Output 12/01/24 12/02/24 12/03/24 12/04/24 23:59 23:59 23:59 23:59 Intake Total 3237 1080 1250 300 Balance 3237 1080 1250 300 Meds/Results Medications: Active Medications Generic Name Dose Route Start Last Admin Trade Name Freq PRN Reason Stop Dose Admin Apixaban 5 mg 12/01/24 11:05 12/04/24 08:22 Apixaban 5 Mg Tablet PO 5 mg Q12HR RA Administration Atorvastatin Calcium 40 mg 12/01/24 21:00 12/03/24 20:38 Atorvastatin 40 Mg Tablet PO 40 mg HS RA Administration Dextrose 12.5 gm 12/01/24 11:52 Dextrose 50% 25 Gm/50 Ml Syringe IV PUSH PRN PRN Hypoglycemia Protocol Glucagon 1 mg 12/01/24 11:52 Glucagon For Inj 1 Mg Vial IM PRN PRN Hypoglycemia Protocol Glucose 15 gm 12/01/24 11:52 Glucose Oral Gel 15 Gm Of Glucse In 37.5 Gm Tube PO PRN PRN Hypoglycemia Protocol Dextrose 1,000 mls @ 100 mls/hr 12/01/24 11:52 Dextrose 5% 1,000 Ml IVPB PRN PRN Hypoglycemia Protocol Insulin Aspart 0 units 12/01/24 12:00 12/04/24 08:12 Insulin Aspart (*Bkc) 100 Units/Ml SUB-Q Not Given TIDWM [facility] Insulin Glargine 16 units 12/01/24 09:00 12/04/24 08:26 Insulin Glargine (*Bkc) 100 Units/Ml SUB-Q 16 units DAILY RA Administration Ondansetron HCl 4 mg 12/01/24 06:56 Ondansetron Inj 4 Mg/2 Ml Vial IV PUSH Q4H PRN Nausea Pantoprazole Sodium 40 mg 12/02/24 09:00 12/04/24 08:22 Pantoprazole 40 Mg Tablet PO 40 mg DAILY RA Administration Sotalol HCl 80 mg 12/01/24 11:05 12/04/24 08:22 Sotalol Hcl 80 Mg Tablet PO 80 mg Q12HR RA Administration Labs Labs: Laboratory Results - last 24 hr 12/03/24 12/03/24 12/03/24 11:27 16:46 21:49 POC Capillary Glucose 107 H 116 H 130 H 12/04/24 07:42 POC Capillary Glucose 72
[2024-12-04 12:03] LABS: Glucose Point of Care 84 mg/dl (65-105)
--- NOTE | 2024-12-04 14:32 | P.DS_ITS ---
DS: Admitting Diagnosis Discharge Date 12/04/2024 Admitting Diagnosis Gastroenteritis DS: Discharge Diagnosis Discharge Diagnosis (1) Acute gastroenteritis: Code(s): K52.9 - Noninfective gastroenteritis and colitis, unspecified Status: Acute (2) Hypotension due to hypovolemia: Code(s): E86.1 - Hypovolemia Status: Acute (3) Dehydration: Code(s): E86.0 - Dehydration Status: Acute (4) Hyponatremia: Code(s): E87.1 - Hypo-osmolality and hyponatremia Status: Acute (5) HTN (hypertension): Qualifiers: Hypertension type: essential hypertension Qualified Code(s): I10 - Essential (primary) hypertension Code(s): I10 - Essential (primary) hypertension Status: Acute (6) Atrial fib/flutter, transient: Code(s): I48.91 - Unspecified atrial fibrillation; I48.92 - Unspecified atrial flutter Status: Acute (7) HLD (hyperlipidemia): Qualifiers: Hyperlipidemia type: mixed hyperlipidemia Qualified Code(s): E78.2 - Mixed hyperlipidemia Code(s): E78.5 - Hyperlipidemia, unspecified Status: Acute Plan Acute gastroenteritis Patient is afebrile, white blood cell within normal limit Possible due to very infection Received fluid resuscitation in the ED on lactated Ringer 100 mL/hour Patient has 1 loose stool today 12/02 Hypovolemic hypotension, hyponatremia Patient has a general weakness, lightheadedness Likely secondary to dehydration and poor oral intake of electrolyte Received fluid resuscitation Follow-up BMP Blood pressure became stable 12/02 Encouraged oral hydration Orthostatics negative Will discharge on meclizine for dizziness Paroxysmal AFib Continue Eliquis 5 mg b.i.d. p.o., Hold Cardizem because of soft BP Continue sotalol 80 mg q.12 hours p.o. now pt has afib rvr, start metoprolol 5 mg IV push Consult metallurgical lab technician for evaluation treatment Chest pain Patient had a sudden onset chest pain, patient feels heaviness, patient also has shortness breath associated with chest pain EKG showed AFib RVR, T-wave inverted precordial lead, lead 1 and aVL Troponin negative Provide aspirin 325 mg once Consult metallurgical lab technician for evaluation treatment Continue home medication Hyperlipidemia Continue Lipitor 40 mg daily p.o. Type 2 diabetes Hold Jardiance because of hypertension Continue Lantus 20 unit daily Start insulin sliding scale a.c. and q.h.s. DS: Summary Hospital Course Reason for hospitalization: Gastroenteritis Hospital Course: 74-year-old female with history of AFib, insulin-dependent diabetes, hyperlipidemia, hypertension, present ED with a chief complaint of nausea vomiting diarrhea. Patient was found to be acutely dehydrated from gastroenteritis likely from a viral infection no antibiotics indicated. Patient complained of palpitations and chest pain while she was in hospital was seen by Cardiology with recommendation to continue home medications and follow- up outpatient with EP. Today her orthostatics were negative, she was encouraged oral hydration and meclizine. Patient was restarted on home medications. Status at Discharge Functional status at discharge: independent ambulation Time Spent with Patient Time attestation: Total time spent providing and/or coordinating discharge services: Exam Narrative: GENERAL: Pleasant, in no acute distress. Well-nourished. - EYES: EOMI. Anicteric. - HENT: Moist mucous membranes. - LUNGS: Clear to auscultation bilateral ly, no wheezing, rhonchi, or rales. - CARDIOVASCULAR: Irregular irregular r hythm, tachycardia No murmur. No JVD. - ABDOMEN: Soft, non-tender and non-dist ended. No palpable masses. - EXTREMITIES: No edema. Peripheral puls es 2+. Non-tender. - NEUROLOGIC: No focal neurological defi cits. CN II-XII grossly intact. - PSYCHIATRIC: Awake, Alert and oriented x 3. Appropriate mood and affect. - SKIN: No rashes or lesions. Warm. - LYMPH: No cervical lymphadenopathy. DS: Data Data Completed and Pending Labs on day of discharge: Labs from last 24 hours 12/04/24 12/04/24 12/03/24 11:55 07:42 21:49 POC Capillary Glucose 84 72 130 H 12/03/24 16:46 POC Capillary Glucose 116 H Discharge Plan Discharge Attending physician on discharge: Mika Kirkpatrick Consulting providers: Rita Clarke Discharging Clinician: Mika Kirkpatrick Anticipated Discharge Date/Time: 12/04/24 14:50 Patient Disposition: Home, Self-Care Activity: no shower and may shower Diet: as tolerated and diabetic Discharge Instructions: Discharge instructions: Take medications as prescribed New medications prescribed: Meclizine for dizziness Encourage oral intake, use to drink at least 2 L of water a day You are activity as tolerated Monitor blood pressures Avoid social areas, you wear a mask when in social settings Encouraged to continue with yearly vaccinations Return to the emergency department if he developed sudden shortness of breath, chest pain, nausea, vomiting, upset stomach or intractable diarrhea Return to the emergency department if you develop fever greater than 101.5 Follow-up with: Your primary care physician within 1-2 weeks for post hospitalization check up Thank you for [facility] for your healthcare needs Patient Instructions: Antibiotic Form, Apixaban (By mouth), Dehydration (DC), Gastroenteritis (DC) Patient Language: Andorran Stand Alone Forms: General Discharge Information Follow-up/Referrals: Pernell Pratt MD [Primary Care Provider] - (see PCP in one week ) Discharge Medications: New meclizine 25 mg tablet 25 mg PO BID PRN (Reason: dizziness) Qty: 10 0RF Continued diltiazem HCl 120 mg tablet extended release 24 hr 120 mg PO DAILY cholecalciferol (vitamin D3) [Vitamin D3] 125 mcg (5,000 unit) Tablet 125 mcg PO DAILY atorvastatin 40 mg tablet 40 mg PO HS Rx Instructions: TAKE 1 TABLET BY MOUTH EVERY DAY sotalol 80 mg tablet 80 mg PO Q12H Eliquis 5 mg tablet 5 mg PO Q12H Rx Instructions: TAKE 1 TABLET BY MOUTH TWICE A DAY insulin aspart U-100 [Novolog FlexPen U-100 Insulin] 100 unit/mL (3 mL) insulin pen 1 sliding scale dose subcut TIDWMEAL Qty: 15 3RF Rx Instructions: 150-200 3 units 201-250 6 units 251-300 9 units 301-350 12 units 350-400 15 units pantoprazole 40 mg tablet,delayed release (DR/EC) 40 mg PO DAILY Qty: 90 3RF (DME) pen needle, diabetic [BD Shraddha 2nd Gen Pen Needle] 32 gauge x 5/32 needle See Rx Instructions .ROUTE .COMPLEX Qty: 100 3RF Dose Instruction: DIRECTED TO INJECT WITH INSULIN 3 TIMES DAILY Rx Instructions: DIRECTED TO INJECT WITH INSULIN 3 TIMES DAILY alendronate 70 mg tablet See Rx Instructions .ROUTE .COMPLEX Qty: 12 2RF Dose Instruction: TAKE 1 TABLET BY MOUTH ONCE PER WEEK IN THE MORNING, AT LEAST 30 MINUTES BEFORE FIRST FOOD, BEVERAGE, OR MED OF THE DAY Patient Comments: takes on Saturday Rx Instructions: TAKE 1 TABLET BY MOUTH ONCE PER WEEK IN THE MORNING, AT LEAST 30 MINUTES BEFORE FIRST FOOD, BEVERAGE, OR MED OF THE DAY (DME) lancets [Microlet Lancet] Misc See Rx Instructions .ROUTE .COMPLEX Qty: 300 3RF Dose Instruction: CHECK BLOOD SUGAR THREE TIMES A DAY Rx Instructions: CHECK BLOOD SUGAR THREE TIMES A DAY Jardiance 25 mg tablet 25 mg PO DAILY Qty: 90 2RF Changed insulin glargine U-300 conc [Toujeo Max U-300 SoloStar] 300 unit/mL (3 mL) insulin pen 16 unit subcut DAILY Qty: 6 0RF Date of admission: 12/01/24 06:56 Primary Care Provider: Pernell Pratt Admitting Provider: Ingrid Gallardo Attending physician on admission: Ingrid Gallardo Condition: Stable Hospitalist MIPS Heart Failure (Exclusion) Patient has history of Heart Transplant or Left Ventricular Assistive Device?: No IF YES, STOP HERE Heart Failure (Qualifier) Patient has current or prior documentation of LVEF less than or equal to 40%, or mod/servere depressed LVSF?: No IF NO, STOP HERE
== END 2024-12-04 16:30 | disposition home or self-care (01) ==
LOC: ANHED 12-01 06:35 → ANH3MEDSUR 12-02 08:57
PROVIDERS: Admitting Provider Internal Medicine; Emergency Provider Emergency Medicine; PCP Emergency Medicine; Visit Provider Hospitalist
DX: K52.9 Noninfective gastroenteritis and colitis, unspecified (principal); E86.1 Hypovolemia; E86.0 Dehydration; E87.1 Hypo-osmolality and hyponatremia; R07.89 Other chest pain; Z87.891 Personal history of nicotine dependence; I10 Essential (primary) hypertension; M81.0 Age-related osteoporosis without current pathological fracture; I48.91 Unspecified atrial fibrillation; I48.92 Unspecified atrial flutter; E11.9 Type 2 diabetes mellitus without complications; Z79.4 Long term (current) use of insulin; Z79.01 Long term (current) use of anticoagulants; E78.2 Mixed hyperlipidemia; Z20.822 Contact with and (suspected) exposure to COVID-19
CPT/HCPCS: 36415; 80048; 80053; 81001; 82948; 83690; 84484; 85025; 85027; 87086; 87637; 93005; 96361; 96374; 96375; 96376; 99285; A9270; G0378; J1171; J1815; J2405; J7030; J7040; J7120

== ENCOUNTER 2024-12-10 10:30 | Outpatient (RCR) | payer OTHER, MEDICAID, SELFPAY | END 2025-01-18 10:16 | disposition home or self-care (01) | LOC: ANHDMC 10:30 | PROVIDERS: PCP Emergency Medicine; Visit Provider Emergency Medicine | DX: E11.40 Type 2 diabetes mellitus with diabetic neuropathy, unspecified (principal); Z79.4 Long term (current) use of insulin; Z71.89 Other specified counseling | CPT/HCPCS: G0108 ==

== ENCOUNTER 2024-12-11 07:36 | Outpatient (CLI) | payer OTHER, MEDICAID, SELFPAY ==
[2024-12-11 08:12] LABS: Alanine Aminotransferase 23 U/L (6-35); Albumin Level 3.9 g/dL (3.5-5.1); Alkaline Phosphatase 83 U/L (38-126); Anion Gap 11 mmol/L (4-12); Aspartate Amino Transferase 28 U/L (14-36); Bilirubin,Total 0.7 mg/dL (0.2-1.3); Blood Urea Nitrogen 11 mg/dL (7-17); Carbon Dioxide 24 mmol/L (22-30); Chloride 107 mmol/L (98-107); Cholesterol 137 mg/dL (0-200); Estimated Glomerular Filt Rate > 60; Glucose 106 mg/dL (65-110); HDL Direct 46 mg/dL; Potassium 4.1 mmol/L (3.4-5.0); Sodium 142 mmol/L (137-145); Triglycerides 72 mg/dL (<150)
[2024-12-11 08:23] LABS: LDL Cholesterol Direct 65 mg/dL
[2024-12-11 09:12] LABS: Vitamin D 25 Hydroxy 62.2 ng/mL
[2024-12-11 09:20] LABS: Creatinine Urine 59.9 mg/dL
[2024-12-11 09:25] LABS: MALB Creatinine Ratio 79.1 mg/g (0-30); Microalbumin Urine Random 47.4 mg/L (0-16.7)
== END 2024-12-11 07:37 | disposition home or self-care (01) ==
PROVIDERS: PCP Emergency Medicine; Visit Provider Emergency Medicine
DX: E78.5 Hyperlipidemia, unspecified (principal); E11.9 Type 2 diabetes mellitus without complications; E55.9 Vitamin D deficiency, unspecified
CPT/HCPCS: 36415; 80053; 80061; 82043; 82306; 83036

== ENCOUNTER 2025-03-10 07:59 | Outpatient (CLI) | payer OTHER, MEDICAID, SELFPAY ==
--- OUTSIDE RECORDS SUMMARY | 2025-03-10 08:02 | XMS_ITS | CONTINUITY OF CARE DOCUMENT ---
Author Name delores estrella Address Unknown Organization [facility] Address [address] [place] [address] Phone [phone] Care Team Providers Care Produce Assistant Name Role Phone Kacie Patel MD Unavailable [phone] VIDAL MALIK MD Unavailable [phone] VIDAL MALIK MD Unavailable [phone] PROBLEMS Condition Status Date Provider Notes ABNORMAL STRESS TEST active Kacie Patel MD PALPITATIONS active Kacie Patel MD NUMBNESS, HANDS S/P TRIGGER FINGERS active Kacie Patel MD DEPRESSION active Kacie Patel MD ENCOUNTERS Date Type Provider Location Encounter Diag nosis - In-person encounter Office Visit Kacie Patel MD [place] [facility] - In-person encounter Office Visit Kacie Patel MD [place] [facility] ABNORMAL STRESS TESTPALPITATIONSNUMBNESS , HANDS S/P TRIGGER FINGERSDEPRESSION VITAL SIGNS Date Observation Value Provider blood pressure, diastolic 73 mm[Hg] James Navas RN blood pressure, systolic 121 mm[Hg] Jaiden Navas RN pulse rate 91 /min Jaiden Navas RN oxygen saturation, oximetry 100 % Jaiden Navas RN respiratory rate E&M 16 /min Jaiden fleming RN weight E&M 128 [lb_av] Jaiden Navas RN blood pressure, diastolic 80 mm[Hg] James Navas RN blood pressure, systolic 120 mm[Hg] Jaiden Navas RN pulse rate 70 /min Jaiden Navas RN oxygen saturation, oximetry 99 % Jaiden Navas RN respiratory rate E&M 20 /min Jaiden fleming RN weight E&M 130 [lb_av] Jaiden Navas RN HISTORY OF MEDICATION USE Medication Status Instructions Dates Provider Indications Com ments CYMBALTA 30 MG ORAL CAPSULE DELAYED RELEASE PARTICLES active po at night Kacie Patel MD FAMOTIDINE 20 MG ORAL TABLET completed ONE TAB TWICE DAILY - Jaiden Navas RN MP NAPROXEN SODIUM TABS completed one tab twice daily after meals - Jaiden Navas RN GABAPENTIN 100 MG TABS completed ONE TAB.three times DAILY - Jaiden Navas RN SOCIAL HISTORY Date Observation Value Provider social history reviewed E&M reviewed Jaiden Navas RN number of children 4 children Kacie Patel MD smoking/tobacco cess ation, patient education and counseling yes Kacie Patel MD drug use none Kacie Patel MD social history E&M Marital Statu s: L oj alone E thnicity: Job Status: Disabled C hildren: 4 children Kacie Patel MD social history reviewed E&M reviewed Jaiden Navas RN physical exercise, f requency, days per week no [employer] caffeine use, averag e drinks per day yes [employer] alcohol use, average drinks per day none [employer] smoking status Smoker [employer] MENTAL STATUS Date Observation Value Provider assessment of judgme nt and insight E&M Alert and oriented to time, place and person. Mood and affect are normal. Jaiden Navas RN assessment of judgme nt and insight E&M Alert and oriented to time, place and person. Mood and affect are normal. Jaiden Navas RN INSURANCE PROVIDERS Payer name Policy type / Coverage type [place] red green party [employer] Medicaid 1 [id number] TREATMENT PLAN Date Name Performer office visit:Recent myoview show ed normal perfusion. Kacie Patel MD office visit:Recent holter was u nremarkable. Kacie Patel MD office visit Kacie Greenberg office visit Kacie Greenberg office visit:Start l cymbalta 30 mg po at night. O rders: C omplete Echo (CPT-93833) H olter Monitor 24 Hr (CPT-28643) Kacie Patel MD office visit:Recent myoview perfusion is normal. The likelihood of significant CAD is low. O rders: C omplete Echo (CPT-69419) H olter Monitor 24 Hr (CPT-95557) Kacie Patel MD office visit: O rders: C omplete Echo (CPT-22435) H olter Monitor 24 Hr (CPT-80091) Kacie Patel MD office visit:Needs H olter B P today: 120/80 Prior BP: / () N uclear Stress Findings: fix inferoapical defect secondary to diaphragmatic attenuation n orm lvsf e f 71 (04/26/2005) Orders: C omplete Echo (CPT-11042) H olter Monitor 24 Hr (CPT-42470) Kacie Patel MD Date Name Holter Monitor 24 Hr Complete Echo HISTORY OF PROCEDURES Procedure Date Procedure Name Provider Procedure Notes S tatus EKG Kacie Patel MD complet ed
--- OUTSIDE RECORDS SUMMARY | 2025-03-10 08:02 | XMS_ITS | Clinical Summary ---
Author Organization [facility] [employer] Address [address] [place] [address] Care Team Providers Care Stator Tester Name Role Phone Pernell Pratt MD Primary Care Provider [phone] Source Comments [facility] [employer],non-owned Affiliates and Associated Physician Practices is amultiple site organization consisting of ambulatory clinics and hospital sitesin [place], [place], [place] and [place]. This disclosure is being madepursuant to the Care Everywhere program and may not contain all information available regarding this patient. Last updated 18.[employer] [facility] Allergies No known active allergies Medications * Be aware that medications may not be up to date on this document. Alwaysverify current medications with the patient. sotalol (Betapace) 80 MG tablet Take 1 (one) tablet by mouth 2 times daily Active apixaban (Eliquis) 5 MG tablet Take 1 (one) tablet by mouth 2 times daily Active atorvastatin (Lipitor) 40 MG tablet Take 1 (one) tablet by mouth at bedtime Active insulin glargine (Lantus/Semglee ) 100 units/mL pen Inject 28 (twenty eight) Units subcutaneously every morning Active losartan (Cozaar) 50 MG tablet Take 1 (one) tablet by mouth once daily Active acetaminophen (Tylenol) 325 MG tabletIndicatio ns:Chest pain, unspecified type Take 2 (two) tablets by mouth every 6 hours as needed Maximum allowable Acetaminophen amount = 4 Grams (4000 mg) / 24 hours. 05/21/20 24 Active pantoprazole EC (Protonix) 40 MG tablet TAKE ONE TABLET BY MOUTH ONCE DAILY 30 tablet 05/21/20 24 08/08/2 025 Active isosorbide mononitrate CR 24hr (Imdur) 30 MG tablet TAKE ONE TABLET BY MOUTH ONCE DAILY 30 tablet 05/21/20 24 025 Active Active Problems Problem Noted Date Diagnosed [...] at Not on file Legal Sex Female 10:47 PM CDT Gender Identity Not on file [...] 10:54 PM CDT Height 149.9 cm (4' 11) 05/20/2024 10:54 PM CDT Body Mass Index [...] - COLON CA SCREENING 1950 MAMMOGRAM 1950 MEDICARE AWV 12 MONTHS 1950 HEPATITIS C SCREENING 01/04/1969 DTAP/TDAP/TD VACCINES (1 - Tdap) 1970 PNEUMOCOCCAL VACCINE 50+ (1 of 2 - PCV) 1970 ZOSTER VACCINE (1 of 2) 2001 Respiratory Syncytial Virus (RSV) Vaccine Pt: or over 60 yrs (1 - Risk 60-74 years 1-dose series) 2011 DIABETES RETINOPATHY SCREENING 05/21/2024 DIABETES-FOOT EXAM WITH MONOFILAMENT 05/21/2024 COVID-19 VACCINE (1 - 2023-2 5 season) 2024 DEPRESSION SCREENING 10/14/2024 DIABETES - URINE PROTEIN SCREENING 10/14/2024 DIABETES-HGB A1C 11/21/2024 05/21/2024 DIABETES-SERUM CREATININE 05/21/20252023, 05/20/2024 INFLUENZA VACCINE (Season Ended) 2025 HEPATITIS B VACCINE Aged Out No longe r eligible based on patient's age to complete this topic HIB VACCINE Aged Out No longer eligi ble based on patient's age to complete this topic HPV VACCINE Aged Out No longer eligi ble based on patient's age to complete this topic MENINGOCOCCAL (Group B) VACCINE SHARED DECISION-MAKING Aged Out No longer eligible based on patient's age to complete this topic MENINGOCOCCAL GROUPS A/C/Y/W VACCINE Aged Out No longer eligible b [...] A1c 7.2(H) <=5.6 % 05/21/2024 10:10 AM [facility] Estimated Average Glucose 160 mg/dL 05/21/2024 10:10 AM CDT [facility] Comment: HbA1c Interpretation: Normal : < 5.7% Pre-diabetes: 5.7-6.4% Diabetes: Equal to or greater than 6.5% Test results diagnostic of diabetes should be repeated for confirmation. Treatment target values recommended by ADA and other clinical organizations should be used to evaluate metabolic control in patients. Reference: [place] Diabetes Association, Standards of Care in Diabetes [...] CDT Richard Velazco PA-C LAB - CHEMISTRY ORDERABLE S Final Result [facility] [address] [place] [address], [facility] [phone] * (ABNORMAL) BASIC METABOLIC PANEL (CALCIUM TOTAL) (05/21/2024 4:13 AM CDT) BUN 12 7 - 26 mg/dL 05/21/2024 5:06 AM [facility] Creatinine 0.58 0.56 - 0.96 mg/dL 05/21/2024 5:06 AM [facility] Sodium 141 136 - 145 mmol/L 05/21/2024 5:06 AM [facility] Potassium 4.0 3.5 - 4.5 mmol/L 05/21/2024 5:06 AM [facility] Chloride 112(H) 98 - 107 mmol/L 05/21/2024 5:06 AM [facility] CO2 21(L) 22 - 29 mmol/L 05/21/2024 5:06 AM [facility] Glucose 80 70 - 115 mg/dL 05/21/2024 5:06 AM [facility] Calcium 9.4 8.4 - 10.2 mg/dL 05/21/2024 5:06 AM [facility] Anion Gap 8 6 - 16 05/21/2024 5:06 AM CDT [facility] BUN/Creatinine Ratio 21 7 - 23 05/21/2024 5:06 AM T [facility] Osmolality Calculated 291 275 - 295 mOsm/kg 05/21/2024 5:06 AM CDT [facility] eGFR by CKD-EPI >90 >=90 mL/min/1.7 3 m2 05/21/2024 5:06 AM T [facility] Blood BLOOD SPECIMEN / Unknown Venipuncture / Unknown 05/21/2024 4:13 AM CDT 05/21/2024 4:23 AM CDT Richard Velazco PA-C LAB - CHEMISTRY ORDERABLE S Final Result [facility] [address] [place] [address], [facility] [phone] from Last 3 Months or Most Recently Relevant to Health Maintenance Insurance [address] [place] [address] [employer] [place] Advance Directives * Full Code (Latest Code Status on File) Date Activated Date Inactivated Comments 05/21/2024 3:32 AM 05/21/2024 9:36 PM Care Teams Stator Tester Relationship Specialty Start Date End Date Pernell Pratt MD [address] [place] [id number] PCP - General Internal Medicine 05/21/24
--- OUTSIDE RECORDS SUMMARY | 2025-03-10 08:02 | XMS_ITS | Encounter Summary ---
Author Organization [facility] Address [address] [place] [address] Phone Care Team Providers Care Certified Dental Assistant Name Role Phone Pernell Pratt MD Primary Care Provide r Encounter Details Date Type Department Care Team (Late st Contact Info) Description 03/09/2025 Results Follow-Up [facility] Cardiology [address] [facility] Advanced Medicine 8th [place] [address] [place] [address] Anine Macias, TOPHER [address] [facility] [address] [place] [address] ECG 12 lead Social History Tobacco Use Types Packs/Day Years Used Date Smoking Tobacco: Former Cigarettes 0.4 59.6 1 964 - 05/17/2023 Passive Smoke Exposure: Past Smokeless Tobacco: Never Comments:Smoking History Pac ks/day: 0.5 Packs Alcohol Use Standard Drinks/Week Comments No 0 (1 standard drink = 0.6 oz pur e alcohol) AUDIT-C Answer Date Recorded Q1: How often do you have a drink containing alcohol? Never 02/05/2025 Q2: How many drinks containi ng alcohol do you have on a typical day when you are drinking? Patient does not drink Q3: How often do you have si x or more drinks on one occasion? Never 02/05/2025 Personal Safety Answer Date Recorded Have you ever been in or are you currently in a harmful physical or emotional relationship or is someone making you feel afraid or unsafe? Denies 02/08/2025 Comments Unknown Sex and Gender Information Value Date Recorded Sex Assigned at Not on file Legal Sex Female 1:58 AM CONDUIT BENDER Gender Identity Not on file Sexual Orientation Not on file documented as of this encounter Plan of Treatment Not on file documented as of this encounter Visit Diagnoses Not on filedocumented in this encounter Care Teams Certified Dental Assistant Relationship Specialty Start Date End Date Pernell Pratt MD [address] [place] [address] PCP - General 09/11/12 documented as of this encounter
--- OUTSIDE RECORDS SUMMARY | 2025-03-10 08:02 | XMS_ITS | Encounter Summary ---
Author Organization [facility] Address [address] [facility] [address] [place] [address] Phone Care Team Providers Care Meat Team Member Name Role Phone Pernell Pratt MD Primary Care Provide r Reason for Visit * Consultation (Routine) - Authorized Specialty Diagnoses / Procedures Referred By Contac t Referred To Contact Cardiology Diagnoses Cardiomyopathy, hypertrophic (HCC) Encounter for monitoring sotalol therapy Pernell Pratt MD [address] [place] [address] Phone: tel: fax: Pernell Durant MD [address] [facility] [address] [place] [address] Phone: tel: fax: Referral ID Status Reason Start Date Expiration Date Visits Requested Visits Authorized [id number] Authorized Specialty Services Required 10/21/2024 10/21/2025 12 12 Encounter Details Date Type Department Care Team (Late st Contact Info) Description 03/09/2025 1:00 PM CDT Office Visit [facility] Cardiology [address] [facility] Medicine 8th [place] [address] [place] [id number] Annie Macias, TOPHER [address] [facility] [address] [place] [address] Typical atrial flutter (HCC) (Primary Dx); SVT (supraventricular tachycardia); Atrial tachycardia Social History Tobacco Use Types Packs/Day Years [...] on file Legal Sex 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 Gender Identity Not on file Sexual Orientation Not on file documented as of this encounter Last Filed Vital Signs Vital Sign Reading Time Taken Comments Blood Pressure 123/80 03/09/2025 1:27 PM CDT Pulse 74 03/09/2025 1:27 PM CDT Temperature - - Respiratory Rate - - Oxygen Saturation 98% 03/09/2025 1:27 PM CDT Inhaled Oxygen Concentration - - Weight 54.4 kg (120 lb) 03/09/2025 1:27 PM CDT Height 147.3 cm (4' 10) 03/09/2025 1:27 PM CDT Body Mass Index 25.08 03/09/2025 1:27 PM CDT documented in this encounter Patient Instructions * Patient Instructions* Annie Macias NP - 03/09/2025 1:00 PM CDT Continue sotalol and Eliquis documented in this encounter Ordered Prescriptions Prescription Sig Dispense Quantity Refills Last Filled Start Date End Date Eliquis 5 mg tabletIndications:O ther (complete free text reason below),VTE Prophylaxis,SVT's Take 1 tablet (5 mg total) by mouth 2 (two) times a day 180 tablet 3 03/09/2025 documented in this encounter Progress Notes * Annie Macias, TOPHER - 03/09/2025 1:00 PM CDT Electrophysiology Return Office Visit Patient Name: Mayte Mercado Date of : 1950 Date of Visit: 03/09/2025 CHIEF COMPLAINT: Atrial tachycardia Mayte Mercado is a 75 y.o. woman who presents today at the [facility] at [facility] in [place] for follow up. The patient's vc++ developer is Dr. Jose Luis Zapata. 75 year old woman with a history of apical hypertrophic cardiomyopathy, and recurrent palpitations. Patient has a history of apical HCM for which she follows with [facility] drying frame operator, Dr. Durant. Shehas a history of AF RVR (hospitalized at [place] in 2022) and started on sotalol and eliquis (no EKG to confirm afib), SVT (hospitalized at [place] in 09/2024), as well as PVCs for which she was started on beta blockers until she developed bradycardia and sinus pauses. She has had multiple ED visits for palpitations and chest pain. Monitoring has revealed a regular narrow complex tachycardia. P waves were difficult to discern. SVT ablation was planned. She was holding her sotalol, diltiazem and eliquis in preparation for the procedure, last doses on 02/05/24. On 02/07, at 2200 she began having chest pain and palpitations similar to her prior episodes. She presented to the [facility] ED and was found to be in SVT with HR 130s, BP 141/97. The day prior to ablation, she presented with SVT, which responded to metoprolol. She is referred for EP study and ablation. She underwent successful ablation of 4 left atrial tachycardias on 02/08/2025. Sotalol was continuedgiven the risk of recurrent arrhythmias and atrial fibrillation. She presents today in follow up. She feels well. She denies recurrent palpitations and exertional dyspnea has improved. No near syncope or syncope. She denies bleeding concerns on Eliquis. CURRENT MEDICATIONS: Current Outpatient Medications: acetaminophen (TYLENOL) 325 mg tablet alendronate (FOSAMAX) 70 mg tablet atorvastatin (LIPITOR) 40 mg tablet BD Shraddha 2nd Gen Pen Needle 32 gauge x /32 needle cholecalciferol, vitamin D3, (D3-5000 ORAL) Contour Next Test Strips strip diclofenac sodium (VOLTAREN) 1 % gel dilTIAZem XR 120 mg 24 hr capsule empagliflozin (JARDIANCE) 10 mg tablet insulin aspart (NovoLOG) 100 unit/mL vial for injection pantoprazole DR (PROTONIX) 40 mg EC tablet sotaloL (BETAPACE) 80 mg tablet TOUJEO MAX 300 unit/mL (3 mL) pen for injection UNABLE TO FIND Eliquis 5 mg tablet PHYSICAL EXAMINATION: Vitals: 03/09/25 1327 BP: 123/80 BP Location: Left arm Pulse: 74 SpO2: 98% Weight: 54.4 kg (120 lb) Height: 147.3 cm (4' 10) GENERAL: Alert and oriented, well-nourished, in no acute distress. HEENT: Mucous membranes are moist. Sclera anicteric. LUNGS: Normal effort and respiratory rate. Lungs clear to auscultation bilaterally. HEART: Normal rate, regular rhythm. No murmurs, rubs, or gallops. ABDOMEN: Soft, non-tender, and non-distended. NEUROLOGIC/PSYCH: Alert and oriented x4. Calm and appropriate affect. Grossly normal bilateral motor function and sensation. VASCULAR: Extremities warm and well-perfused. All pulses intact. No edema. No JVD. SKIN: No rashes LABORATORY/DIAGNOSTICS: No results found for: INR, APTT No results found for: TROPONINI, CKTOTAL, CKMB, CKMBINDEX, BNP, NTPROBNP No results found for: TSH, J9ECNED, A5CFQEF, FREET4, THYROIDAB Lab Results Component Value Date POCCHOL 120 01/30/2024 POCTRIG 109 01/30/2024 POCHDL 43 01/30/2024 POCLDL 55 01/30/2024 SCRLDL 73 05/31/2021 02/07/2025: Cr 0.63, eGFR >90 EKG 03/09/2025 : Atrial rhythm, QTc 452 ms EP Procedure 02/08/2025: Conclusions: Successful ablation of 4 left atrial tachycardias. Follow-up and Recommendations: Bedrest Telemetry Resume sotalol, given the risk of recurrent arrhythmias, and atrial fibrillation. IMPRESSION AND PLAN: Atrial tachycardia -Symptomatic atrial tachycardia s/p successful ablation of 4 left atrial tachycardias on 02/08/2025 -She is doing well post ablation without recurrence of atrial arrhythmias -Continue sotalol and Eliquis given the risk of recurrent arrhythmias and atrial fibrillation. -Renal function and QT interval stable, QTc 452 ms -EKG and BMP every 6 months for monitoring of side effects/toxicities of high risk medication sotalol -Continue Eliquis for stroke risk reduction We will plan to see her back 2 months, however we would be happy to see her sooner if needed. BREANNA Elaine- CC: Pernell Pratt MD [address] [facility] [address] documented in this encounter Miscellaneous Notes * Assessment & Plan Note - Annie Macias NP - 03/09/2025 1:50 PM CDT Associated Problem(s): Atrial tachycardia -Symptomatic atrial tachycardia s/p successful ablation of 4 left atrial tachycardias on 02/08/2025 -She is doing well post ablation without recurrence of atrial arrhythmias -Continue sotalol and Eliquis given the risk of recurrent arrhythmias and atrial fibrillation. -Renal function and QT interval stable, QTc 452 ms -EKG and BMP every 6 months for monitoring of side effects/toxicities of high risk medication sotalol -Continue Eliquis for stroke risk reduction documented in this encounter Plan of Treatment Not on file documented as of this encounter Procedures Procedure Name Priority Date/Time Associated Diagnosis Comments ECG 12-LEAD Routine 03/09/2025 1:23 PM CDT Typical atrial flutter (HCC) documented in this encounter Results * ECG 12 lead (03/09/2025 1:23 PM CDT) Annie Macias TENTERING MACHINE FEEDER ECG ORDERABLES Edited Re sult - Final documented in this encounter Visit Diagnoses Diagnosis Typical atrial flutter (HCC)- Primary SVT (supraventricular tachycardia) Other specified cardiac dysrhythmias Atrial tachycardia Other specified cardiac dysrhythmias documented in this encounter Discontinued Medications Medication Sig Discontinue Reason Start Date End Da te Eliquis 5 mg tabletIndications:Other (complete free text reason below),VTE Prophylaxis,SVT's Take 1 tablet (5 mg total) by mouth 2 (two) times a day Reorder 01/08/2024 03/09/2025 documented as of this encounter Care Teams Meat Team Member Relationship Specialty Start Date End Date Pernell Pratt MD [address] [place] [address] PCP - General 09/11/12 documented as of this encounter
--- OUTSIDE RECORDS SUMMARY | 2025-03-10 08:02 | XMS_ITS | Clinical Summary ---
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 Sundays Active insulin aspart (NovoLOG) 100 unit/mL vial for injectionIndicat ions:type 2 diabetes mellitus Inject under the skin 3 (three) times a day before meals Sliding scale per provider instructions 01/27/20 24 Active diclofenac sodium (VOLTAREN) 1 % gelIndications:P ain Apply 2 g topically as needed (pain) Active cholecalciferol, vitamin D3, (D3-5000 ORAL)Indications :supplement Take 1 tablet by mouth every morning Active TOUJEO MAX 300 unit/mL (3 mL) pen for injectionIndicat ions:type 2 diabetes mellitus Inject 16 Units under the skin every morning 04/23/20 24 Active acetaminophen (TYLENOL) 325 mg tabletIndication s:Pain Take 2 tablets (650 mg total) by mouth every 6 (six) hours as needed for pain Active pantoprazole DR (PROTONIX) 40 mg EC tabletIndication s:Treatment of Non-Bleeding Gastric Disorder Take 1 tablet (40 mg total) by mouth every morning 05/21/20 24 Active sotaloL (BETAPACE) 80 mg tablet Take 1 tablet (80 mg total) by mouth 2 (two) times a day 180 tablet 2 11/03/19 25 Active Contour Next Test Strips strip TEST THREE TIMES DAILY NEEDED 07/29/20 Active BD Shraddha 2nd Gen Pen Needle 32 gauge x 5/32 needle USE DIRECTED TO INJECT WITH INSULIN 3 TIMES DAILY 09/30/20 24 Active empagliflozin (JARDIANCE) 10 mg tabletIndication s:type 2 diabetes mellitus Take 1 tablet (10 mg total) by mouth every morning 11/04/19 25 Active dilTIAZem XR 120 mg 24 hr capsule TAKE 1 CAPSULE BY MOUTH EVERY DAY 90 capsule 2 01/30/20 Active UNABLE TO FINDIndications: pain supplement Take 2 each by mouth with lunch Med Name: [place] XL Active Eliquis 5 mg tabletIndication s:Other (complete free text reason below),VTE Prophylaxis,SVT' s Take 1 tablet (5 mg total) by mouth 2 (two) times a day 180 tablet 3 03/09/20 Active Eliquis 5 mg tabletIndication s:Other (complete free text reason below),VTE Prophylaxis,SVT' s Take 1 tablet (5 mg total) by mouth 2 (two) times a day 01/08/20 24 025 Discontin ued(Reord er) Active Problems Problem Noted Date Diagnosed Date Atrial tachycardia 03/09/2025 Assessment & Plan (03/09/2025 1:50 PM CDT): -Symptomatic atrial tachycardia s/p successful ablation of [...] sotalol -Continue Eliquis for stroke risk reduction Type 2 diabetes mellitus with hyperlipidemia Assessment & Plan (02/09/2025 10:04 AM CDT): Home regimen includes insulin and Jardiance. - s/p SSI, resume home meds on dc Assessment & Plan (02/08/2025 3:51 PM CDT): Home regimen includes insulin and Jardiance. - We will start on sliding scale for now > can add mealtime and long-acting depending on blood sugars. HLD (hyperlipidemia) 02/08/2025 Assessment & Plan (02/09/2025 10:04 AM CDT): - Continue statin Assessment & Plan (02/08/2025 3:51 PM CDT): Continue statin SVT (supraventricular tachycardia) 11/04/2024 Assessment & Plan (02/09/2025 10:04 AM CDT): Presented with chest pain and palpitations with tachycardia. Evaluation with SVT. Troponins mildly up 9 > 19 > 23 > 27 likely from demand with tachycardia. EP service consulted. - S/p SVT ablation 02/08, admitted for overnight observation. Tele with some AT that improved and no s/s reported by pt. Per EP, not uncommon given severity of LA scarring - continue sotalol, diltiazem, Eliquis - EP f/u 03/09 Assessment & Plan (02/08/2025 3:51 PM CDT): Presented with chest pain and palpitations with tachycardia. Evaluation with SVT. Troponins mildly up 9 > 19 > 23 > 27 likely from demand with tachycardia. EP service consulted. - Plan for ablation today - Post procedure observation on 3500 - Telemetry Typical atrial flutter 05/28/2024 Assessment & Plan (02/09/2025 10:04 AM CDT): - continue sotalol, diltiazem and Eliquis [per EP Assessment & Plan (02/08/2025 3:52 PM CDT): Takes sotalol, diltiazem and Eliquis at home. - Holding all these meds since 02/04 for procedure. - Discuss with cards about timing of resumption Encounter for monitoring sotalol therapy 024 Resolved Problems Problem Noted Date Diagnosed Date Resolved Date Cardiomyopathy, hypertrophic 03/27/2017 02/08/2025 Assessment & Plan (02/08/2025 3:51 PM CDT): On diltiazem Encounters Date Type Department Care Team Description 03/09/2025 1:00 PM CDT Office Visit [facility] Cardiology [address] [place] [address] 8th [place] [address] [place] [address] Annie Macias NP Typical atrial flutter (HCC) (Primary Dx); SVT (supraventricular tachycardia); Atrial tachycardia 03/09/2025 Results Follow-Up [facility] Cardiology [address] [place] [address] [place] [address] Annie Macias NP ECG 12 lead 02/08/2025 2:20 PM CDT - 02/08/2025 6:35 PM CDT Surgery [facility] Electrophysiology Lab [address] [place] [address] Moe Zapata MD PhD ABLATION SUPRAVENTRICULAR TACHYCARDIA (SVT) [address]244 02/08/2025 2:11 PM CDT Anesthesia Event [facility] Electrophysiology Lab [address] [place] [address] Georgina Clark MD Yu, Jaclyn Yanjie, MD 02/07/2025 11:38 PM CDT - 02/09/2025 11:14 AM CDT Hospital Encounter [address] [address] Rivka Acosta MD Zhao, Maria A Cm MD PhD Carly Crum MD Cardiomyopathy, hypertrophic (HCC) [I42.2] (Primary Dx); SVT (supraventricular tachycardia); Non-ischemic cardiomyopathy (HCC) Discharge Disposition: Discharge to home or self care 02/05/2025 9:30 AM CDT Pre-Admission Testing [facility] [address] [place] [address] SVT (supraventricular tachycardia) 01/20/2025 2:00 PM CDT Office Visit [facility] Cardiology [address] [place] [address] Enid Barboza NP Cardiomyopathy, hypertrophic (HCC) (Primary Dx); SVT (supraventricular tachycardia) 12/24/2024 Telephone [facility] Cardiology [address] [facility] Medicine 8th [place] [address] [place] [address] Moe Zapata MD PhD from Last 3 Months Surgical History Surgery Date Site/Laterality Comments CARDIAC CATHETERIZATION 10/14/2023 - 10/13/2024 CARDIAC ELECTROPHYSIOLOGY PROCEDURE 02/08/2025 N/A Procedure: ABLATION SUPRAVENTRICULAR TACHYCARDIA (SVT) 32685; Surgeon: Moe Zapata MD PhD; Location: [facility] EP LAB; Service: Cardiovascular; Laterality: N/A; Medical devices from this surgery are in the Medical Devices section. CARDIAC ELECTROPHYSIOLOGY PROCEDURE 02/08/2025 N/A Procedure: POST DRUG PROGRAM STIM AND PACING (+) [id number]; Surgeon: Moe Zapata MD PhD; Location: [facility] EP LAB; Service: Cardiovascular; Laterality: N/A; Medical devices from this surgery are in the Medical Devices section. 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 Gender Identity Not on file Sexual Orientation Not on file Obstetrics History Last Filed Vital Signs Vital Sign Reading Time Taken Comments Blood Pressure 123/80 03/09/2025 1:27 PM CDT Pulse 74 03/09/2025 1:27 PM CDT Temperature 36.5 C (97.7 F) 02/09/2025 8:30 AM CDT Respiratory Rate 16 02/09/2025 8:30 AM CDT Oxygen Saturation 98% 03/09/2025 1:27 PM CDT Inhaled Oxygen Concentration - - Weight 54.4 kg (120 lb) 03/09/2025 1:27 PM CDT Height 147.3 cm (4' 10) 03/09/2025 1:27 PM CDT Body Mass Index 25.08 03/09/2025 1:27 PM CDT Plan of Treatment Health Maintenance Due Date Last Done Comments Albumin Creatinine Ratio, Urine 1950 Breast Cancer Screening-Mammogram 1950 Colon Cancer Screening-Colonoscopy 1950 Depression Screening 1950 Hepatitis C Screening 1950 Osteoporosis Screening-Bone Density Scan 1950 Dilated Eye Exam 1950 Foot Exam 1950 DTaP/Tdap/Td Vaccine (1 - Tdap) 1962 Hepatitis B Screening 1969 Pneumococcal vaccine 65+ (1 of 2 - PCV) 1970 Lung Cancer Screening 2001 Zoster Vaccine (1 of 2) 2001 Well Visit 65+ 01/10/2016 Covid-19 Vaccine (3 - 2023-2 5 season) 2024 01/19/2021, 12/29/2020 Hemoglobin A1C 11/21/2024 05/21/2024 Lipid Panel 01/29/2025 01/30/2024, 04/0 03/2023, 05/31/2021, Additional history exists Influenza Vaccine (Season Ended) 2025 eGFR 02/07/2026 02/07/2025, 02/05/2025 Fall Risk Assessment 02/09/2026 02/09/2025 Medical Devices Implanted Type Area Child Care Aide Device Identifier Shelf Expiration Date Model / Serial / Lot [employer] Device Closure Vascade Od5 Fr Femoral Artery [id number] - [id number] - [id number] Implanted:Qty: 1 on 02/08/2025 by Moe Zapata MD PhD at [facility] Vascular Closure Device [employer] 11/11/2026 [id number] / [id number] / [id number] [employer] Vascade Mvp 6-12fr Venous Closure [id number] - [id number] - [id number] Implanted:Qty: 1 on 02/08/2025 by Moe Zapata MD PhD at [facility] Vascular Closure Device [employer] 12/10/2026 [id number] [id number] / [id number] / [id number] [employer] Vascade Mvp 6-12fr Venous Closure [id number] - [id number] - [id number] Implanted:Qty: 1 on 02/08/2025 by Moe Zapata MD PhD at [facility] Vascular Closure Device [employer] 11/23/2026 [id number] [id number] / [id number] / [id number] [employer] Device Vascular Closure Vascade Mvp Xl 10-12fr Venous Strl [id number] - [id number] - [id number] Implanted:Qty: 1 on 02/08/2025 by Moe Zapata MD PhD at [facility] Vascular Closure Device [employer] 11/11/2026 [id number] / [id number] / [id number] Procedures Procedure Name Priority Date/Time Associated Diagnosis Comments ECG 12-LEAD Routine 03/09/2025 1:23 PM CDT Typical atrial flutter (HCC) POCT GLUCOSE DEVICE Routine 02/09/2025 8 :32 AM CDT POCT GLUCOSE DEVICE Routine 02/09/2025 4 :01 AM CDT POCT GLUCOSE DEVICE Routine 02/09/2025 1 2:17 AM CDT POCT GLUCOSE DEVICE Routine 02/08/2025 8 :03 PM CDT POST DRUG PROGRAM STIM AND PACING Routine 02/08/2025 7:26 PM CDT SVT (supraventricular tachycardia) ABLATION SUPRAVENTRICULAR TACHYCARDIA TREATMENT (SVT) Routine 02/08/2025 7:26 PM CDT SVT (supraventricular tachycardia) POCT ACTIVATED CLOTTING TIME, HIGH RANGE Routine 02/08/2025 6:57 PM CDT POCT GLUCOSE DEVICE Routine 02/08/2025 6 :20 PM CDT POCT ACTIVATED CLOTTING TIME, HIGH RANGE Routine 02/08/2025 6:18 PM CDT POCT ACTIVATED CLOTTING TIME, HIGH RANGE Routine 02/08/2025 5:40 PM CDT POCT ACTIVATED CLOTTING TIME, HIGH RANGE Routine 02/08/2025 5:03 PM CDT POCT GLUCOSE DEVICE Routine 02/08/2025 2 :05 PM CDT POCT GLUCOSE DEVICE Routine 02/08/2025 1 1:21 AM CDT POCT GLUCOSE DEVICE Routine 02/08/2025 7 :35 AM CDT POCT KETONE, BLOOD Routine 02/08/2025 7: 34 AM CDT [facility] ILL/INJURED PATIENT INIT 30-74 MIN Routine 02/08/2025 5:56 AM CDT ECG 12-LEAD Routine 02/08/2025 5:55 AM CDT TROPONIN I HIGH-SENSITIVITY 6-HOUR Timed 02/08/2025 5:44 AM CDT TROPONIN I HIGH-SENSITIVITY 4-HOUR Timed 02/08/2025 3:57 AM CDT ECG 12-LEAD Routine 02/08/2025 3:48 AM CDT POCT GLUCOSE DEVICE Routine 02/08/2025 3 :30 AM CDT CRITICAL RESULT CALLBACK CARDIO CHEM Timed 02/08/2025 1:48 AM CDT CALCIUM, IONIZED Routine 02/08/2025 1:48 AM CDT TROPONIN I HIGH-SENSITIVITY 2-HOUR Timed 02/08/2025 1:48 AM CDT XR CHEST PA LATERAL 2 VIEWS ED 02/08/2025 12:22 AM CDT ECG 12-LEAD STAT 02/08/2025 12:20 AM CDT POCT GLUCOSE DEVICE Routine 02/07/2025 1 1:58 PM CDT MAGNESIUM STAT 02/07/2025 11:48 PM CDT PHOSPHORUS STAT 02/07/2025 11:48 PM CDT EGFR STAT 02/07/2025 11:48 PM CDT DIFFERENTIAL AUTO STAT 02/07/2025 11: 48 PM CDT TROPONIN I HIGH-SENSITIVITY SERIES (BASELINE, 2HR, 4HR, 6HR) STAT 02/07/2025 11:48 PM CDT COMPREHENSIVE METABOLIC PANEL STAT 02/07/2025 11:48 PM CDT CBC WITH AUTO DIFFERENTIAL STAT 02/07/2025 11:48 PM CDT EGFR Routine 02/05/2025 11:41 AM CDT SVT (supraventricular tachycardia) BASIC METABOLIC PANEL Routine 02/05/2025 11:41 AM CDT SVT (supraventricular tachycardia) CBC WITHOUT DIFFERENTIAL Routine 025 11:41 AM CDT SVT (supraventricular tachycardia) URINALYSIS AND REFLEX TO MICROSCOPIC Routine 02/05/2025 11:41 AM CDT SVT (supraventricular tachycardia) POCT LIPID PANEL Routine 01/30/2024 1:10 PM CDT Lipid screening from Last 3 Months or Most Recently Relevant to Health Maintenance Results * ECG 12 lead (03/09/2025 1:23 PM CDT) us Annie Macias INVOICE CONTROL CLERK ECG ORDERABLES Edited Re sult - Final * POCT glucose (02/09/2025 8:32 AM CDT) Glucose, POC 105 70 - 199 mg/dL Blood 02/09/2025 8:32 AM CDT 02/09/2025 8:32 AM CDT us Carly Crum MD LAB POCT ORDERABLES - DEV ICE Final Result [facility] Department [place] [address] * POCT glucose (02/09/2025 4:01 AM CDT) Glucose, POC 153 70 - 199 mg/dL Blood 02/09/2025 4:01 AM CDT 02/09/2025 4:01 AM CDT Carly Crum MD LAB POCT ORDERABLES - DEV ICE Final Result Performing Organization Address [facility] Co de Phone Number [facility] [place] [address] * POCT glucose (02/09/2025 12:17 AM CDT) Glucose, POC 181 70 - 199 mg/dL Blood 02/09/2025 12:1 7 AM CDT 02/09/2025 12:17 AM CDT Maria A Kirkpatrick MD PhD LAB POCT ORDERABLES - DEVIC E Final Result Performing Organization Address [facility] de Phone Number [facility] [place] [address] * POCT glucose (02/08/2025 8:03 PM CDT) Glucose, POC 91 70 - 199 mg/dL Blood 02/08/2025 8:03 PM CDT 02/08/2025 8:03 PM CDT Maria A Kirkpatrick MD PhD LAB POCT ORDERABLES - DEVIC E Final Result Performing Organization Address [facility] [place] [address] * ABLATION SUPRAVENTRICULAR TACHYCARDIA TREATMENT (SVT), POST DRUG PROGRAM STIM AND PACING (02/08/2025 7:26 PM CDT) Anatomical Region Laterality Modality X-Ray Angiograph y Narrative 02/08/2025 7:46 PM CDT [facility] Cardiac Electrophysiology Laboratory [facility] Electrophysiology Procedure Report Electrophysiology Study and Ablation for Supraventricular Tachycardia Procedure Date: 02/08/2025 Patient Name: Mayte Mercado Date of : 1950 Operators: Olimpia Pickens M.D. Caleb A. Norton, MD Tabitha Lobo, MD Indications: Paroxysmal supraventricular tachycardia Procedures: Transseptal Catheterization 3-D Electroanatomic Mapping LA/Coronary sinus mapping/pacing Catheter Ablation for SVT Patient History: 75 year old woman with a history of apical hypertrophic cardiomyopathy, and recurrent palpitations. Patient has a history of apical HCM for which she follows with [facility] herpetologist, Dr. Durant. She has a history of afibRVR (hospitalized at [place] in 2022) and started on sotalol and eliquis (no EKG to confirm afib), SVT (hospitalized at [place] in 09/2024), as well as PVCs for [...] her prior episodes. She presented to the [facility] ED and was found to be in SVT with HR 130s, BP 141/97. The day prior to ablation, she presented with SVT, which responded to metoprolol. She is referred for EP study and ablation. We've discussed the procedure and the risks, benefits, and alternatives. I've answered the patients' questions. She says she understands and wishes to proceed. Start Time: 15:02 Finish Time: 19:09 Location: [facility] 8 Fluoroscopy Time: 14.5 min; 326 mGy Contrast administered: 0 ml Estimated Blood Loss: 15 ml Procedure: After informed consent was obtained, the patient was brought to the EP laboratory in a fasting, nonsedated state. Peripheral IV access was established. Prophylactic antibiotics were administered prior to incision. Continuous ECG, blood pressure, and pulse oximetry monitoring were initiated. Cardioversion patch electrodes were placed on the patient's chest and back. A grounding patch was applied to the skin, as were electrocardiogram monitoring electrodes. Monitored anesthesia care was provided by the Anesthesia Service. The right and left femoral veins were accessed using the modified Seldinger technique. Sheath and catheters used as follows: RFV: 8 Fr sheath Catheters: Sasha Quadripolar High Right Atrium HD Grid RA/LA Tacticath SE D-F curve Irrigated Ablation catheter LA RFV: 5 Fr/10 Fr sheath Catheter: Sasha Quadripolar RVA ICE catheter RA/RV LFV: 7 Fr sheath Catheter: Inquiry Deflectable Decapolar Coronary sinus LFV: 7 Fr sheath Catheter: CRD-2 HIs Intracardiac echocardiography was performed to guide transseptal puncture and to guide catheter manipulatioin, in addition to monitor for the development of complications. Transseptal catheterization was performed with ICE and fluoroscopy guidance using an Agilis sheath, a BRK1 needle, and a SafeSept needle. Heparin was given in boluses to maintain ACT > 300 seconds throughout the left heart portion of the procedure and during use of the HD Grid catheter. An extensive electroanatomic map of the left atrium, left atrial apppendage,pulmonary veins, and right atrium was created using the USMD mapping system. Radiofrequency energy (30-40 W) was used for ablation. After completion of the procedure, catheters were removed. Protamine was administered. Hemostasis was achieved with the aid of the [employer]iva Vascade system. Findings: The rhythm at the outset was sinus. Sinus node function was normal. His-Purkinje conduction was normal. Retrograde VA conduction was concentric and decremental. SVT was induced with burst pacing. Analysis indicated that the mechanism of the tachyarrhythmia was atrial tachycardia, due to AV dissociation seen with V pacing. Initially there was right to left activation of the CS; however, this transformed into a left to right mechanism before it could be mapped. The initial tachycardia was not seen again. 2. A map of the LA revealed scattered extensive scarring. The activation suggested a focal source at the anteromedial base of the left atrial appendage. Ablation here terminated the tachycardia in less than three seconds, and it was not seen again. 3. With atrial extrastimuli, another left sided atrial tachycardia was induced. It was mapped to the anterolateral base of the appendage. More ablation was required, but the tachycardia was terminated. 4. With pacing, a third atrial tachycardia was induced. Its source was mapped to the lateral base of the appendage, but posterior to tachycardia 3. Extensive ablation was required, and the tachycardia slowed and terminated. 5. AT 4 was replaced by a much slower tachycardia (80-90 bpm) that was mapped to just posterior to AT 4, on the posterior aspect of the ridge at the level of the veins' coryna. Ablation here eventually terminated the tachycardia. No sustained SVT was subsequently induced with burst pacing, and single extrastimuli. Complications: There were no complications immediately apparent. Conclusions: Successful ablation of 4 left atrial tachycardias. Follow-up and Recommendations: Bedrest Telemetry Resume sotalol, given the risk of recurrent arrhythmias, and atrial fibrillation. I was present during the entire procedure and personally composed and confirmed this report. Olimpia Pickens M.D. assistant department manager [facility] in [place] Moe Zapata MD PhD CV ELECTROPHYSIOLOG Y PROCS Final Result * (ABNORMAL) POC Activated Clotting Time, High Range (02/08/2025 6:57 PM CDT) [facility] ACT 375(H) 87 - 138 sec POC Performer [id number] [facility] POC Device Number [id number] [facility] Blood 02/08/2025 6:57 PM CDT 02/08/2025 6:57 PM CDT Result [facility] Carly Crum MD LAB BLOOD ORDERABLES Romina turner Result [facility] Department [place] [address] * POCT glucose (02/08/2025 6:20 PM CDT) [facility] Glucose, POC 86 70 - 199 mg/dL Blood 02/08/2025 6:20 PM CDT 02/08/2025 6:20 PM CDT Result [facility] Carly Crum MD LAB POCT ORDERABLES - DEV ICE Final Result Performing Organization Address [facility] [place] [address] * (ABNORMAL) POC Activated Clotting Time, High Range (02/08/2025 6:18 PM CDT) ACT 355(H) 87 - 138 sec POC Performer [id number] [facility] POC Device Number [id number] [facility] Blood 02/08/2025 6:18 PM CDT 02/08/2025 6:18 PM CDT Carly Crum MD LAB BLOOD ORDERABLES Romina l Result Performing Organization Address [facility] [place] [address] * (ABNORMAL) POC Activated Clotting Time, High Range (02/08/2025 5:40 PM CDT) ACT 372(H) 87 - 138 sec POC Performer [id number] [facility] POC Device Number [id number] [facility] Blood 02/08/2025 5:40 PM CDT 02/08/2025 5:40 PM CDT Carly Crum MD LAB BLOOD ORDERABLES Romina l Result Performing Organization Address [facility] Co de Phone Number [facility] [place] [address] * (ABNORMAL) POC Activated Clotting Time, High Range (02/08/2025 5:03 PM CDT) ACT 357(H) 87 - 138 sec POC Performer [id number] [facility] POC Device Number [id number] [facility] Blood 02/08/2025 5:03 PM CDT 02/08/2025 5:03 PM CDT Carly Crum MD LAB BLOOD ORDERABLES Romina l Result Performing Organization Address [facility] Co de Phone Number [facility] [address] * POCT glucose (02/08/2025 2:05 PM CDT) Glucose, POC 116 70 - 199 mg/dL Blood 02/08/2025 2:05 PM CDT 02/08/2025 2:05 PM CDT Maria A Kirkpatrick MD PhD LAB POCT ORDERABLES - DEVIC E Final Result Performing Organization Address [facility] Phone Number [facility] [address] * POCT glucose (02/08/2025 11:21 AM CDT) Glucose, POC 131 70 - 199 mg/dL Blood 02/08/2025 11:2 1 AM CDT 02/08/2025 11:21 AM CDT Maria A Kirkpatrick MD PhD LAB POCT ORDERABLES - DEVIC E Final Result Performing Organization Address [facility] Co de Phone Number [facility] [address] * POCT glucose (02/08/2025 7:35 AM CDT) Glucose, POC 154 70 - 199 mg/dL Blood 02/08/2025 7:35 AM CDT 02/08/2025 7:35 AM CDT Maria A Kirkpatrick MD PhD LAB POCT ORDERABLES - DEVIC E Final Result Performing Organization Address [facility] Co de Phone Number [facility] [address] * POCT ketone, blood (02/08/2025 7:34 AM CDT) Beta-Hydroxybut yrate, POC 0.1 0.0 - 0.5 mmol/L Blood 02/08/2025 7:34 AM CDT 02/08/2025 7:34 AM CDT us Maria A Kirkpatrick MD PhD LAB POCT ORDERABLES - DEVIC E Final Result [facility] Department [place] [address] * [place] [facility] ILL/INJURED PATIENT INIT 30-74 MIN (02/08/2025 5:56 AM CDT) Narrative Rivka Acosta MD - 02/08/2025 5:56 AM CDT Rivka Acosta MD 02/08/2025 5:57 AM Critical Care Performed by: Rivka Acosta MD Authorized by: Rivka Acosta MD Critical care provider statement: As reflected in the history, physical exam, orders, notes, and/or MDM, I was personally present while the patient was critically ill and provided critical care services for 60 minutes, excluding time involved in separately billable procedures. Critical care was necessary to treat or prevent imminent or life-threatening deterioration of the following condition(s): unstable vital signs atrial fibrillation and tachy/ani arrhythmic event Critical care was time spent by me providing the following: resuscitation with fluids, serial laboratory checks, serial bedside patient exams, interpretation of bedside monitors, imaging, and arterial/venous lab draws, continuous pulse oximetry and continuous telemetry initiation of rate controlling agent glycemic control supplemental oxygen active repletion of electrolytes magnesium infusion I provided emergent necessary critical care medicine services to this patient. I ordered and reviewed test results and/or imaging studies. I spent time discussing the management of this critically ill patient with consultants and the medical staff. I spent time documenting in the medical record. us Rivka Acosta MD IN CLINIC/BEDSIDE ORDERABLE S Final Result * ECG 12-LEAD (02/08/2025 5:55 AM CDT) Narrative [facility] - 02/08/2025 5:55 AM CDT Rivka Acosta MD 02/08/2025 5:56 AM ECG 12 lead Date/Time: 02/08/2025 5:55 AM Performed by: Rivka Acosta MD Authorized by: Dash Heaton MD Rate: ECG rate: 59 ECG rate assessment: tachycardic Rhythm: Rhythm: sinus bradycardia Other findings: Other findings: prolonged qTc interval Previous ECG: Previous ECG: Compared to current Date of previous EC02/08/2025 Comparison ECG info: Lower rate Interpretation: Interpretation: No acute injury pattern Procedure Note Rivka Acosta MD - 02/08/2025 5:55 AM CDT Procedure ECG 12 lead Date/Time: 02/08/2025 5:55 AM Performed by: Rivka Acosta MD Authorized by: Dash Heaton MD Rate: ECG rate: 59 ECG rate assessment: tachycardic Rhythm: Rhythm: sinus bradycardia Other findings: Other findings: prolonged qTc interval Previous ECG: Previous ECG: Compared to current Date of previous EC02/08/2025 Comparison ECG info: Lower rate Interpretation: Interpretation: No acute injury pattern Rivka Acosta MD 02/08/25 0556 Dash Heaton MD ECG ORDERABLES Final R esult [facility] * (ABNORMAL) Troponin I high-sensitivity 6-hour (02/08/2025 5:44 AM CDT) Trop I hs 27(H) <=17 ng/L Comment: Interpretive Data For further hscTnI resources including the diagnostic algorithm and an aid in interpretation, copy and paste this link: https://bjhlab.testcatalog.org/show/hsTrop-1 Current Interpretive Data last revised 2020. Trop I hs delta 18 ng/L [facility] Trop I hs interp Equivocal [facility] Blood 02/08/2025 5:44 AM CDT 02/08/2025 6:32 AM CDT Kervin Ren MD LAB BLOOD ORDERABLES Final Res ult Performing Organization Address [facility] de Phone Number [facility] [place] [address] * (ABNORMAL) Troponin I high-sensitivity 4-hour (02/08/2025 3:57 AM CDT) Trop I hs 23(H) <=17 ng/L Comment: Interpretive Data For further hscTnI resources including the diagnostic algorithm and an aid in interpretation, copy and paste this link: https://bjhlab.testcatalog.org/show/hsTrop-1 Current Interpretive Data last revised 2020. Trop I hs delta 14 ng/L [facility] Trop I hs interp Equivocal [facility] Blood 02/08/2025 3:57 AM CDT 02/08/2025 4:01 AM CDT Kervin Ren MD LAB BLOOD ORDERABLES Final Res ult Performing Organization Address [facility] de Phone Number [facility] [place] [address] * (ABNORMAL) ECG 12-LEAD (02/08/2025 3:48 AM CDT) Narrative [facility] - 02/08/2025 3:48 AM CDT Rivka Acosta MD 02/08/2025 7:37 AM ECG 12 lead Date/Time: 02/08/2025 3:48 AM Performed by: Dash Heaton MD Authorized by: Dash Heaton MD Rate: ECG rate: 134 ECG rate assessment: tachycardic Rhythm: Rhythm: SVT Ectopy: Ectopy: none QRS: QRS axis: Normal ST segments: ST segments: Non-specific T waves: T waves: non-specific Previous ECG: Previous ECG: Compared to current Date of previous EC02/08/2025 Comparison ECG info: SVT Similarity: No change Interpretation: Interpretation: abnormal Recommended Follow-up: Recommended follow up: cardiac workup us Dash Heaton MD ECG ORDERABLES Final R esult Performing Organization Address [facility] Co de Phone Number [facility] * POCT glucose (02/08/2025 3:30 AM CDT) Glucose, POC 141 70 - 199 mg/dL Blood 02/08/2025 3:30 AM CDT 02/08/2025 3:30 AM CDT us Rivka Acosta MD LAB POCT ORDERABLES - DEVIC E Final Result Performing Organization Address [facility] de Phone Number [facility] Department [place] [address] * (ABNORMAL) Troponin I high-sensitivity 2-hour (02/08/2025 1:48 AM CDT) Pathologist [facility] Trop I hs 19(H) <=17 ng/L Comment: Interpretive Data For further hscTnI resources including the diagnostic algorithm and an aid in interpretation, copy and paste this link: https://bjhlab.testcatalog.org/show/hsTrop-1 Current Interpretive Data last revised 2020. Trop I hs delta 10(C) ng/L [facility] Trop I hs interp Significa nt(C) [facility] Blood 02/08/2025 1:48 AM CDT 02/08/2025 2:12 AM CDT us Kervin Ren MD LAB BLOOD ORDERABLES Final Res ult Performing Organization Address [facility] Co de Phone Number [facility] [address] * Critical result callback Cardio chemistry (02/08/2025 1:48 AM CDT) Date Notified [id number] Time Notified 255 [facility] Test name Trop I hs 2hr d [facility] Called/Read Back Dash [facility] Credentials MD [facility] Called By BRITTANY [facility] Blood 02/08/2025 1:48 AM CDT 02/08/2025 2:12 AM CDT us Kervin Ren MD LAB BLOOD ORDERABLES Final Res ult [facility] Department [place] [address] * Calcium, ionized (02/08/2025 1:48 AM CDT) Calcium, Ionized 4.57 4.50 - 5.10 mg/dL Blood 02/08/2025 1:48 AM CDT 02/08/2025 1:55 AM CDT us Dash Heaton MD LAB BLOOD ORDERABLES Fi nal Result Performing Organization Address [facility] Co de Phone Number [facility] Department [place] [address] * XR Chest Pa Lateral 2 Views (02/08/2025 12:22 AM CDT) Anatomical Region Laterality Modality Body, Chest N/A Computed Radiogr aphy 02/08/2025 12:4 5 AM CDT Impressions 02/08/2025 2:13 PM CDT No available comparison. Atelectasis/scarring of the right lung base. No consolidation, pleural effusion, or pneumothorax. Normal heart size and mediastinal contours. Dictated by: Osorio Anaya MD PHD The radiology attending physician has personally reviewed this study, and had reviewed and/or edited this written report and agrees with it. Electronically signed by: Perry Alex M.D. Narrative 02/08/2025 2:13 PM CDT EXAMINATION: 2 view chest radiograph Procedure Note Perry Alex MD - 02/08/2025 EXAMINATION: 2 view chest radiograph IMPRESSION: No available comparison. Atelectasis/scarring of the right lung base. No consolidation, pleural effusion, or pneumothorax. Normal heart size and mediastinal contours. Dictated by: Osorio Anaya MD PHD The radiology attending physician has personally reviewed this study, and had reviewed and/or edited this written report and agrees with it. Electronically signed by: Perry Alex M.D. us Rivka Acosta MD IMG XR PROCEDURES Final Res ult * ECG 12-LEAD (02/08/2025 12:20 AM CDT) Narrative [facility] - 02/08/2025 12:20 AM CDT Rivka Acosta MD 02/08/2025 12:30 AM ECG 12 lead Date/Time: 02/08/2025 12:20 AM Performed by: Rivka Acosta MD Authorized by: Randee Saba MD Rate: ECG rate: 130 ECG rate assessment: tachycardic Rhythm: Rhythm: sinus tachycardia QRS: QRS intervals: Normal Conduction: Conduction: abnormal Abnormal conduction: 1st degree ST segments: ST segments: Non-specific T waves: T waves: non-specific Other findings: Other findings: prolonged qTc interval Previous ECG: Previous ECG: Compared to current Date of previous EC01/26/2024 Interpretation: Interpretation: No significant change Procedure Note Rivka Acosta MD - 02/08/2025 12:20 AM CDT Procedure ECG 12 lead Date/Time: 02/08/2025 12:20 AM Performed by: Rivka Acosta MD Authorized by: Randee Saba MD Rate: ECG rate: 130 ECG rate assessment: tachycardic Rhythm: Rhythm: sinus tachycardia QRS: QRS intervals: Normal Conduction: Conduction: abnormal Abnormal conduction: 1st degree ST segments: ST segments: Non-specific T waves: T waves: non-specific Other findings: Other findings: prolonged qTc interval Previous ECG: Previous ECG: Compared to current Date of previous EC01/26/2024 Interpretation: Interpretation: No significant change Rivka Acosta MD 02/08/25 0030 us Rivka Acosta MD ECG ORDERABLES Final Resul t Performing Organization Address City/[facility]/ZIP Co de Phone Number [facility] * POCT glucose (02/07/2025 11:58 PM CDT) [facility] Glucose, POC 188 70 - 199 mg/dL Blood 02/07/2025 11:5 8 PM CDT 02/07/2025 11:58 PM CDT Notinfile Unknown LAB POCT ORDERABLES - DEVICE F inal Result Performing Organization Address [facility] de Phone Number [facility] Department [place] [address] * Troponin I high-sensitivity series (baseline, 2hr, 4hr, 6hr) (02/07/2025 11:48 PM CDT) [facility] Trop I hs 9 <=17 ng/L Comment: Interpretive Data For further hscTnI resources including the diagnostic algorithm and an aid in interpretation, copy and paste this link: https://bjhlab.testcatalog.org/show/hsTrop-1 Current Interpretive Data last revised 2020. Blood 02/07/2025 11:4 8 PM CDT 02/08/2025 12:00 AM CDT Rivka Acosta MD LAB BLOOD ORDERABLES Final Result Performing Organization Address [facility] Co de Phone Number [facility] [place] [address] * eGFR (02/07/2025 11:48 PM CDT) [facility] eGFR >90 >=60 mL/min/1. 73 m2 Comment: Interpretive Data Reference Interval Normal >/= 90 mL/min/1.73m2 Mildly decreased* 60 - 89 mL/min/1.73m2 Mildly to moderately decreased 45 - 59 mL/min/1.73m2 Moderately to severely decreased 30 - 44 mL/min/1.73m2 Severely decreased 15 - 29 mL/min/1.73m2 Kidney Failure < 15 mL/min/1.73m2 *Relative to young adult level Estimated glomerular filtration rate is determined by the 2020 CKD-EPI equation recommended by the National Kidney Foundation (A Unifying Approach to GFR Estimation: Recommendations of the NKF-ASK Task Force on Reassessing the Inclusion of Race in Diagnosing Kidney Disease, JASN 2020). The CKD-EPI equation should not be used for patients with unstable renal function and has not been validated in children and those over 70. Current interpretive data was last reviewed 2021. Blood 02/07/2025 11:4 8 PM CDT 02/08/2025 Rivka Acosta MD LAB BLOOD ORDERABLES Final Result [facility] Department [place] [address] * (ABNORMAL) Differential, auto (02/07/2025 11:48 PM CDT) Neutrophil abs 3.43 1.50 - 6.50 K/cumm Imm gran abs 0.01 0.00 - 0.10 K/cumm [facility] Lymphocyte abs 2.17 0.80 - 3.30 K/cumm [facility] Monocyte abs 0.83(H) 0.20 - 0.80 K/cumm [facility] Eosinophil abs 0.11 0.00 - 0.50 K/cumm [facility] Basophil abs 0.04 0.00 - 0.10 K/cumm [facility] Neutrophil pct 52.0 % [facility] Comment: Interpretive Data Percent cell count reference ranges are not reported, since discordance with absolute values may lead to misinterpretation of CBC data. Current Interpretive Data was last revised on 2018. Imm gran pct 0.2 % [facility] Comment: Interpretive Data Percent cell count reference ranges are not reported, since discordance with absolute values may lead to misinterpretation of CBC data. Current Interpretive Data was last revised on 2018. Lymphocyte pct 32.9 % [facility] Comment: Interpretive Data Percent cell count reference ranges are not reported, since discordance with absolute values may lead to misinterpretation of CBC data. Current Interpretive Data was last revised on 2018. Monocyte pct 12.6 % [facility] Comment: Interpretive Data Percent cell count reference ranges are not reported, since discordance with absolute values may lead to misinterpretation of CBC data. Current Interpretive Data was last revised on 2018. Eosinophil pct 1.7 % [facility] Comment: Interpretive Data Percent cell count reference ranges are not reported, since discordance with absolute values may lead to misinterpretation of CBC data. Current Interpretive Data was last revised on 2018. Basophil pct 0.6 % [facility] Comment: Interpretive Data Percent cell count reference ranges are not reported, since discordance with absolute values may lead to misinterpretation of CBC data. Current Interpretive Data was last revised on 2018. Blood 02/07/2025 11:4 8 PM CDT 02/08/2025 12:00 AM CDT us Rivka Acosta MD LAB BLOOD ORDERABLES Final Result [facility] Department [place] [address] * CBC with auto differential (02/07/2025 11:48 PM CDT) WBC 6.59 3.80 - 9.90 K/cumm Hgb 12.6 11.9 - 15.5 g/dL [facility] Hct 38.7 35.6 - 45.5 % [facility] Plt 222 150 - 400 K/cumm [facility] MPV 11.6 9.1 - 12.3 fL [facility] RBC 4.64 3.90 - 5.20 M/cumm [facility] MCV 83.4 81.3 - 96.4 fL [facility] MCH 27.2 27.1 - 33.3 pg [facility] MCHC 32.6 32.3 - 35.7 g/dL [facility] RDW CV 14.3 11.1 - 14.9 % [facility] RDW SD 42.8 35.7 - 48.1 fL [facility] NRBC abs 0.00 0.00 - 0.01 K/cumm [facility] Blood Venous blood specimen / Unknown 02/07/2025 11:48 PM CDT 02/08/2025 12:00 AM CDT Rivka Acosta MD LAB BLOOD ORDERABLES Final Result Performing Organization Address City/[facility]/ZIP Co de Phone Number [facility] [address] * Phosphorus (02/07/2025 11:48 PM CDT) Phosphorus, pl 2.9 2.3 - 4.5 mg/dL Blood 02/07/2025 11:4 8 PM CDT 02/08/2025 Rivka Acosta MD LAB BLOOD ORDERABLES Final Result Performing Organization Address City/[facility] Co de Phone Number [facility] [place] [address] * Magnesium (02/07/2025 11:48 PM CDT) Magnesium 1.9 1.4 - 2.5 mg/dL Blood 02/07/2025 11:4 8 PM CDT 02/08/2025 Rivka Acosta MD LAB BLOOD ORDERABLES Final Result [facility] [place] [address] * (ABNORMAL) Comprehensive metabolic panel (02/07/2025 11:48 PM CDT) Sodium 141 135 - 145 mmol/L Potassium, pl 3.9 3.3 - 4.9 mmol/L [facility] Comment:Hemolyzed; Potassium value may be falsely elevated by as much as 0.3-0.5 mmol/L. Suggest redraw and reanalysis. Chloride 104 97 - 110 mmol/L [facility] CO2 23 22 - 32 mmol/L [facility] Anion gap 14 2 - 15 mmol/L [facility] BUN 17 6 - 25 mg/dL [facility] Creatinine 0.63 0.60 - 1.10 mg/dL [facility] Glucose 206(H) 70 - 199 mg/dL [facility] Comment: Interpretive Data Fasting glucose >/= 126 mg/dl is diagnostic for diabetes. Fasting is defined as no caloric intake for at least 8 hours. Fasting glucose between 100 mg/dl to 125 mg/dl is diagnostic of prediabetes. In a patient with classic symptoms of hyperglycemia or hyperglycemic crisis, a random glucose >/= 200 mg/dl is diagnostic for diabetes. In the absence of unequivocal hyperglycemia, results should be confirmed by repeat testing. The classification and Diagnosis of Diabetes Diabetes Care 202; 46: S19-S40. Current interpretive data was last revised 2022. Calcium 9.5 8.5 - 10.3 mg/dL [facility] Bilirubin, total 0.3 0.1 - 1.2 mg/dL [facility] Protein, pl 7.1 6.5 - 8.5 g/dL [facility] Albumin 3.8 3.5 - 5.0 g/dL [facility] Alk phos 86 40 - 130 Units/L [facility] ALT 18 7 - 45 Units/L [facility] AST 30 10 - 45 Units/L [facility] Comment:Hemolyzed; result ma y be falsely elevated Blood 02/07/2025 11:4 8 PM CDT 02/08/2025 12:00 AM CDT Rivka Acosta MD LAB BLOOD ORDERABLES Final Result Performing Organization Address City/State/[facility] de Phone Number [facility] Department [place] [address] * eGFR (02/05/2025 11:41 AM CDT) eGFR >90 >=60 mL/min/1. 73 m2 Comment: Interpretive Data Reference Interval Normal >/= 90 mL/min/1.73m2 Mildly decreased* 60 - 89 mL/min/1.73m2 Mildly to moderately decreased 45 - 59 mL/min/1.73m2 Moderately to severely decreased 30 - 44 mL/min/1.73m2 Severely decreased 15 - 29 mL/min/1.73m2 Kidney Failure < 15 mL/min/1.73m2 *Relative to young adult level Estimated glomerular filtration rate is determined by the 2020 CKD-EPI equation recommended by the National Kidney Foundation (A Unifying Approach to GFR Estimation: Recommendations of the NKF-ASK Task Force on Reassessing the Inclusion of Race in Diagnosing Kidney Disease, JASN 2020). The CKD-EPI equation should not be used for patients with unstable renal function and has not been validated in children and those over 70. Current interpretive data was last reviewed 2021. Blood 02/05/2025 11:4 1 AM CDT 02/05/2025 12:50 PM CDT Moe Zapata MD PhD LAB BLOOD ORDERABLE S Final Result Performing Organization Address [facility] de Phone Number [facility] Department [place] [address] * (ABNORMAL) Urinalysis reflex to microscopic (02/05/2025 11:41 AM CDT) Color, ur Straw Yellow Clarity, ur Clear Clear [facility] Specific gravity, ur 1.026 1.003 - 1.030 [facility] pH, urine 6.0 [facility] Comment: Interpretive Data U rine pH is affected by diet, medications, systemic acid-base disturbances, and renal tubular function. pH may affect urinary stone formation. For example, urine pH below 6.0 may help reduce the tendency for calcium phosphate stones and pH greater than 6.0 may reduce the tendency for uric acid stone formation. Source: [facility] Current Interpretive Data was last revised on 2017 Protein, ur ql Negative Negative [facility] Glucose, ur ql 4+(A) Negative [facility] Ketones, ur Negative Negative [facility] Bilirubin, ur Negative Negative [facility] Blood, ur Negative Negative [facility] Urobilinogen, ur <2.0 <2.0 mg/dL [facility] Nitrite, ur Negative Negative [facility] Leukocyte esterase, ur Negative Negative [facility] UA reflex comment Reflex conditions for microscopic UA not met. [facility] Urine 02/05/2025 11:4 1 AM CDT 02/05/2025 12:43 PM CDT us Moe Zapata MD PhD LAB URINE ORDERABLE S Final Result [facility] Department [place] [address] * (ABNORMAL) CBC without differential (02/05/2025 11:41 AM CDT) WBC 10.35(H) 3.80 - 9.90 K/cumm Hgb 13.4 11.9 - 15.5 g/dL [facility] Hct 41.2 35.6 - 45.5 % [facility] Plt 263 150 - 400 K/cumm [facility] MPV 11.7 9.1 - 12.3 fL [facility] RBC 4.96 3.90 - 5.20 M/cumm [facility] MCV 83.1 81.3 - 96.4 fL [facility] MCH 27.0(L) 27.1 - 33.3 pg [facility] MCHC 32.5 32.3 - 35.7 g/dL [facility] RDW CV 14.1 11.1 - 14.9 % [facility] RDW SD 42.9 35.7 - 48.1 fL [facility] NRBC abs 0.00 0.00 - 0.01 K/cumm [facility] Blood 02/05/2025 11:4 1 AM CDT 02/05/2025 12:50 PM CDT Moe Zapata MD PhD LAB BLOOD ORDERABLE S Final Result Performing Organization Address City/[facility]/ZIP Co de Phone Number [facility] Department [place] [address] * Basic metabolic panel (02/05/2025 11:41 AM CDT) [facility] Sodium 140 135 - 145 mmol/L Potassium, pl 4.2 3.3 - 4.9 mmol/L [facility] Chloride 103 97 - 110 mmol/L [facility] CO2 26 22 - 32 mmol/L [facility] Anion gap 11 2 - 15 mmol/L [facility] BUN 17 6 - 25 mg/dL [facility] Creatinine 0.65 0.60 - 1.10 mg/dL [facility] Glucose 126 70 - 199 mg/dL [facility] Comment: Interpretive Data Fasting glucose >/= 126 mg/dl is diagnostic for diabetes. Fasting is defined as no caloric intake for at least 8 hours. Fasting glucose between 100 mg/dl to 125 mg/dl is diagnostic of prediabetes. In a patient with classic symptoms of hyperglycemia or hyperglycemic crisis, a random glucose >/= 200 mg/dl is diagnostic for diabetes. In the absence of unequivocal hyperglycemia, results should be confirmed by repeat testing. The classification and Diagnosis of Diabetes Diabetes Care 202; 46: S19-S40. Current interpretive data was last revised 2022. Calcium 9.5 8.5 - 10.3 mg/dL [facility] Blood 02/05/2025 11:4 1 AM CDT 02/05/2025 12:50 PM CDT Moe Zapata MD PhD LAB BLOOD ORDERABLE S Final Result Performing Organization Address [facility]/ZIP Co de Phone Number [facility] Department [place] [address] * POCT lipid panel (01/30/2024 1:10 PM [...] Most Recently Relevant to Health Maintenance Insurance [facility] Member Subscriber Plan / Payer (Ef fective 2011-Present) Name:Jess Mayte Relation to Subscriber:Self Name:Jess Mayte Payer ID:[id number] (NAIC) Type:MEDICARE RISK OTHER Address: [address] [facility] Advance Directives For more information, please contact: [phone] Documents on File Type Date Recorded Patient Supervisor Drawing Expl anation ADVANCE DIRECTIVE 02/12/2025 6:36 PM POWER OF ASSURANCE SPECIALIST-MEDICAL * Full Code (Latest Code Status on File) Date Activated Date Inactivated Comments 02/08/2025 7:09 PM 02/09/2025 3:14 PM 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
--- OUTSIDE RECORDS SUMMARY | 2025-03-10 08:02 | XMS_ITS | Referral Summary ---
Author Organization [facility] [address] Address [address] [place] [address] Care Team Providers Care Glass Novelty Maker Name Role Phone Pernell Pratt MD Primary Care Provide r Encounters Date Type Department Care Team Description 03/09/2025 Results Follow-Up [facility] Cardiology [address] [facility] Medicine 8th [place] [address] [place] [address] Annie Macias NP ECG 12 lead 03/09/2025 1:00 PM CDT Office Visit [facility] Cardiology [address] [facility] 8th [place] [address] [place] [address] Annie Macias NP Typical atrial flutter (HCC) (Primary Dx); SVT (supraventricular tachycardia); Atrial tachycardia 02/07/2025 11:38 PM CDT - 02/09/2025 11:14 AM CDT Hospital Encounter [facility] [address] [place] [address] Rivka Acosta MD Zhao, Diana Yi, MD PhD Carly Crum MD Cardiomyopathy, hypertrophic (HCC) [I42.2] (Primary Dx); SVT (supraventricular tachycardia); Non-ischemic cardiomyopathy (HCC) Discharge Disposition: Discharge to home or self care 02/08/2025 2:20 PM CDT - 02/08/2025 6:[address] [facility] Electrophysiology Lab [address] [place] [address] Moe Zapata MD PhD ABLATION SUPRAVENTRICULAR TACHYCARDIA (SVT) 12112 02/08/2025 2:11 PM CDT Anesthesia Event [facility] Electrophysiology Lab [address] [place] [address] Georgina Clark MD Yu, Jaclyn Yanjie, MD 02/05/2025 9:30 AM CDT Pre-Admission Testing [facility] ([facility]) [address] [place] [address] SVT (supraventricular tachycardia) 01/20/2025 2:00 PM CDT Office Visit [facility] Cardiology [address] [place] [address] Enid Barboza NP Cardiomyopathy, hypertrophic (HCC) (Primary Dx); SVT (supraventricular tachycardia) 12/24/2024 Telephone [facility] Cardiology [address] [facility] Advanced Medicine 8th [place] [address] [place] [address] Moe Zapata MD PhD from Last 3 Months Allergies No known [...] THREE TIMES DAILY NEEDED 07/29/20 24 Active BD Shraddha 2nd Gen Pen Needle 32 gauge x /32 needle USE DIRECTED TO INJECT WITH INSULIN 3 TIMES DAILY 09/30/20 24 Active empagliflozin (JARDIANCE) 10 mg tabletIndication s:type 2 diabetes mellitus Take 1 tablet (10 mg total) by mouth every morning 11/04/19 25 Active dilTIAZem XR 120 mg 24 hr capsule TAKE 1 CAPSULE BY MOUTH EVERY DAY 90 capsule 2 01/30/20 25 Active UNABLE TO FINDIndications: pain supplement Take 2 each by mouth with lunch Med Name: Chester XL Active Eliquis 5 mg tabletIndication s:Other (complete free text reason below),VTE Prophylaxis,SVT' s Take 1 tablet (5 mg total) by mouth 2 (two) times a day 180 tablet 3 03/09/20 25 Active Eliquis 5 mg tabletIndication s:Other (complete [...] Plan (02/08/2025 3:51 PM CDT): On diltiazem Social History Tobacco Use Types Packs/Day Years [...] on file Legal Sex 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 Gender Identity Not on file Sexual Orientation [...] 03/09/2025 1:27 PM CDT Plan of Treatment Not on file Medical Devices Implanted Type Area Nurses' Registry Director Device Identifier Shelf Expiration Date Model / Serial / Lot [employer] Device Closure Vascade Od5 Fr Femoral Artery [id number] - [id number] - [id number] Implanted:Qty: 1 on 02/08/2025 by Moe Zapata MD PhD at [facility] Vascular Closure Device [employer] 11/11/2026 [id number] [id number] / [id number] / [id number] [employer] Vascade Mvp 6-12fr Venous Closure [id number] - [id number] - [id number] Implanted:Qty: 1 on 02/08/2025 by Moe Zapata MD PhD at [facility] Vascular Closure Device [employer] 12/10/2026 [id number] 0U / [id number] / [id number] [employer] Vascade Mvp 6-12fr Venous Closure [id number] - [id number] - [id number] Implanted:Qty: 1 on 02/08/2025 by Moe Zapata MD PhD at [facility] Vascular Closure Device [employer] 11/23/2026 [id number]-[id number] 0U / [id number] / [id number] [employer] Device Vascular Closure Vascade Mvp Xl 10-12fr Venous Strl [id number] - [id number] - [id number] Implanted:Qty: 1 on 02/08/2025 by Moe Zapata MD PhD at [facility] Vascular Closure Device [employer] 11/11/2026 [id number] / [id number] / [id number] Procedures Procedure Name Priority Date/Time Associated [...] BLOOD Routine 02/08/2025 7: 34 AM CDT HI CRITICAL CARE ILL/INJURED PATIENT INIT 30-74 MIN [...] (03/09/2025 1:23 PM CDT) us Annie Macias DISTRESSER ECG ORDERABLES Edited Re sult - Final * POCT glucose (02/09/2025 8:32 AM CDT) Glucose, POC 105 70 - 199 mg/dL Blood 02/09/2025 8:32 AM CDT 02/09/2025 8:32 AM CDT us Carly Crum MD LAB POCT ORDERABLES - DEV ICE Final Result [facility] Department [place] [address] * POCT glucose (02/09/2025 4:01 AM CDT) Glucose, POC 153 70 - 199 mg/dL Blood 02/09/2025 4:01 AM CDT 02/09/2025 4:01 AM CDT Carly Crum MD LAB POCT ORDERABLES - DEV ICE Final Result Performing Organization Address City/[facility] Co de Phone Number [facility] [place] [employer] [place] [address] * POCT glucose (02/09/2025 12:17 AM CDT) Glucose, POC 181 70 - 199 mg/dL Blood 02/09/2025 12:1 7 AM CDT 02/09/2025 12:17 AM CDT Maria A Kirkpatrick MD PhD LAB POCT ORDERABLES - DEVIC E Final Result Performing Organization Address City/[facility] Co de Phone Number [facility] [place] [address] * POCT glucose (02/08/2025 8:03 PM CDT) Glucose, POC 91 70 - 199 mg/dL Blood 02/08/2025 8:03 PM CDT 02/08/2025 8:03 PM CDT Maria A Kirkpatrick MD PhD LAB POCT ORDERABLES - DEVIC E Final Result Performing Organization Address [facility] Co de Phone Number [facility] [place] [place] [address] * ABLATION SUPRAVENTRICULAR TACHYCARDIA TREATMENT (SVT), POST DRUG PROGRAM STIM AND PACING (02/08/2025 7:26 PM CDT) Anatomical Region Laterality Modality X-Ray Angiograph y Narrative 02/08/2025 7:46 PM CDT [facility] Cardiac Electrophysiology Laboratory [facility] Electrophysiology Procedure Report Electrophysiology Study and Ablation [...] apical HCM for which she follows with [facility] educational technology specialist, Dr. Durant. She has a history of afibRVR (hospitalized at [place] in 2022) and started on sotalol and eliquis (no EKG to confirm afib), SVT (hospitalized at [place] in 09/2024), as well as PVCs for [...] her prior episodes. She presented to the [facility] ED and was found to [...] Start Time: 15:02 Finish Time: 19:09 Location: [facility] Fluoroscopy Time: 14.5 min; 326 mGy Contrast [...] and right atrium was created using the [employer] mapping system. Radiofrequency energy (30-40 W) was [...] and confirmed this report. Olimpia Pickens M.D. contract officer [facility] in [place] Moe Zapata MD PhD CV ELECTROPHYSIOLOG Y PROCS Final Result * (ABNORMAL) POC Activated Clotting Time, High Range (02/08/2025 6:57 PM CDT) [facility] ACT 375(H) 87 - 138 sec POC Performer [id number] [facility] POC Device Number [id number] [facility] Blood 02/08/2025 6:57 PM CDT 02/08/2025 6:57 PM CDT Carly Crum MD LAB BLOOD ORDERABLES Romina turner Result [facility] [place] [address] * POCT glucose (02/08/2025 6:20 PM CDT) [facility] Glucose, POC 86 70 - 199 mg/dL Blood 02/08/2025 6:20 PM CDT 02/08/2025 6:20 PM CDT Carly Crum MD LAB POCT ORDERABLES - DEV ICE Final Result Performing Organization Address [facility] Co de Phone Number [facility] [place] [address] * (ABNORMAL) POC Activated Clotting Time, High Range (02/08/2025 6:18 PM CDT) ACT 355(H) 87 - 138 sec POC Performer [id number] [facility] POC Device Number [id number] [facility] Blood 02/08/2025 6:18 PM CDT 02/08/2025 6:18 PM CDT Carly Crum MD LAB BLOOD ORDERABLES Romina l Result Performing Organization Address [facility] Co de Phone Number [facility] Department [place] [employer] [place] [address] * (ABNORMAL) POC Activated Clotting Time, High Range (02/08/2025 5:40 PM CDT) ACT 372(H) 87 - 138 sec POC Performer [id number] [facility] POC Device Number [id number] [facility] Blood 02/08/2025 5:40 PM CDT 02/08/2025 5:40 PM CDT Result [facility] Carly Crum MD LAB BLOOD ORDERABLES Roimna l Result Performing Organization Address [facility] Co de Phone Number [facility] [place] [address] * (ABNORMAL) POC Activated Clotting Time, High Range (02/08/2025 5:03 PM CDT) ACT 357(H) 87 - 138 sec POC Performer [id number] [facility] POC Device Number [id number] [facility] Blood 02/08/2025 5:03 PM CDT 02/08/2025 5:03 PM CDT Carly Crum MD LAB BLOOD ORDERABLES Romian l Result Performing Organization Address [facility] Co de Phone Number [facility] [place] [address] * POCT glucose (02/08/2025 2:05 PM CDT) Glucose, POC 116 70 - 199 mg/dL Blood 02/08/2025 2:05 PM CDT 02/08/2025 2:05 PM CDT Maria A Kirkpatrick MD PhD LAB POCT ORDERABLES - DEVIC E Final Result Performing Organization Address [facility] Co de Phone Number [facility] [place] [address] * POCT glucose (02/08/2025 11:21 AM CDT) Glucose, POC 131 70 - 199 mg/dL Blood 02/08/2025 11:2 1 AM CDT 02/08/2025 11:21 AM CDT Maria A Kirkpatrick MD PhD LAB POCT ORDERABLES - DEVIC E Final Result Performing Organization Address [facility] Co de Phone Number [facility] [place] [address] * POCT glucose (02/08/2025 7:35 AM CDT) Glucose, POC 154 70 - 199 mg/dL Blood 02/08/2025 7:35 AM CDT 02/08/2025 7:35 AM CDT Maria A Kirkpatrick MD PhD LAB POCT ORDERABLES - DEVIC E Final Result Performing Organization Address [facility] Co de Phone Number [facility] Department [place] [address] * POCT ketone, blood (02/08/2025 7:34 AM CDT) Beta-Hydroxybut yrate, POC 0.1 0.0 - 0.5 mmol/L Blood 02/08/2025 7:34 AM CDT 02/08/2025 7:34 AM CDT us Maria A Kirkpatrick MD PhD LAB POCT ORDERABLES - DEVIC E Final Result Performing Organization Address [facility] Co de Phone Number [facility] [place] [address] * HI CRITICAL CARE ILL/INJURED PATIENT INIT 30-74 MIN [...] 12-LEAD (02/08/2025 5:55 AM CDT) Narrative [facility] - 02/08/2025 5:55 AM CDT Rivka Acosta [...] injury pattern Rivka Acosta MD 02/08/25 0556 us Dash Heaton MD ECG ORDERABLES Final R esult [facility] * (ABNORMAL) Troponin I high-sensitivity 6-hour (02/08/2025 5:44 AM CDT) Trop I hs 27(H) <=17 ng/L Comment: Interpretive Data For further hscTnI resources including the diagnostic algorithm and an aid in interpretation, copy and paste this link: https://bjhlab.testcatalog.org/show/hsTrop-1 Current Interpretive Data last revised 2020. Trop I hs delta 18 ng/L [facility] Trop I hs interp Equivocal [facility] Blood 02/08/2025 5:44 AM CDT 02/08/2025 6:32 AM CDT Kervin Ren MD LAB BLOOD ORDERABLES Final Res ult Performing Organization Address [facility] de Phone Number [facility] [place] [address] * (ABNORMAL) Troponin I high-sensitivity 4-hour (02/08/2025 3:57 AM CDT) Trop I hs 23(H) <=17 ng/L Comment: Interpretive Data For further hscTnI resources including the diagnostic algorithm and an aid in interpretation, copy and paste this link: https://bjhlab.testcatalog.org/show/hsTrop-1 Current Interpretive Data last revised 2020. Trop I hs delta 14 ng/L [facility] Trop I hs interp Equivocal [facility] Blood 02/08/2025 3:57 AM CDT 02/08/2025 4:01 AM CDT us Kervin Ren MD LAB BLOOD ORDERABLES Final Res ult Performing Organization Address [facility] de Phone Number [facility] Department [place] [address] * (ABNORMAL) ECG 12-LEAD (02/08/2025 3:48 AM CDT) Narrative [facility] - 02/08/2025 3:48 AM CDT Rivka Acotsa MD 02/08/2025 7:37 AM ECG 12 lead [...] ORDERABLES Final R esult Performing Organization Address [facility] de Phone Number [facility] * POCT glucose (02/08/2025 3:30 AM CDT) Glucose, POC 141 70 - 199 mg/dL Blood 02/08/2025 3:30 AM CDT 02/08/2025 3:30 AM CDT Rivka Acosta MD LAB POCT ORDERABLES - DEVIC E Final Result Performing Organization Address [facility] de Phone Number [facility] Department [place] [address] * (ABNORMAL) Troponin I high-sensitivity 2-hour (02/08/2025 1:48 AM CDT) [facility] Trop I hs 19(H) <=17 ng/L Comment: Interpretive Data For further hscTnI resources including the diagnostic algorithm and an aid in interpretation, copy and paste this link: https://bjhlab.testcatalog.org/show/hsTrop-1 Current Interpretive Data last revised 2020. Trop I hs delta 10(C) ng/L [facility] Trop I hs interp Significa nt(C) [facility] Blood 02/08/2025 1:48 AM CDT 02/08/2025 2:12 AM CDT us Kervin Ren MD LAB BLOOD ORDERABLES Final Res ult Performing Organization Address [facility] de Phone Number [facility] [place] [address] * Critical result callback Cardio chemistry (02/08/2025 1:48 AM CDT) Date Notified [id number] Time Notified 255 [facility] Test name Edgar I hs 2hr d [facility] Called/Read Back Dash GUE[facility] Credentials MD [facility] Called By BRITTANY [facility]UE[facility]A [facility] Blood 02/08/2025 1:48 AM CDT 02/08/2025 2:12 AM CDT us Kervin Ren MD LAB BLOOD ORDERABLES Final Res ult [facility] Department [place] [address] * Calcium, ionized (02/08/2025 1:48 AM CDT) Calcium, Ionized 4.57 4.50 - 5.10 mg/dL Blood 02/08/2025 1:48 AM CDT 02/08/2025 1:55 AM CDT us Dash Heaton MD LAB BLOOD ORDERABLES Fi nal Result Performing Organization Address [facility]/ZIP Co de Phone Number [facility] Department [place] [address] * XR Chest Pa Lateral 2 Views [...] 12-LEAD (02/08/2025 12:20 AM CDT) Narrative [facility] - 02/08/2025 12:20 AM CDT Rivka Acosta [...] significant change Rivka Acosta MD 02/08/25 0030 Rivka Acosta MD ECG ORDERABLES Final Resul t Performing Organization Address [facility] de Phone Number [facility] * POCT glucose (02/07/2025 11:58 PM CDT) Pathologist [facility] Glucose, POC 188 70 - 199 mg/dL Blood 02/07/2025 11:5 8 PM CDT 02/07/2025 11:58 PM CDT Result [facility] Notinfile Unknown LAB POCT ORDERABLES - DEVICE F inal Result Performing Organization Address [facility] de Phone Number [facility] Department [place] [address] * Troponin I high-sensitivity series (baseline, 2hr, 4hr, 6hr) (02/07/2025 11:48 PM CDT) [facility] Trop I hs 9 <=17 ng/L Comment: Interpretive Data For further hscTnI resources including the diagnostic algorithm and an aid in interpretation, copy and paste this link: https://bjhlab.testcatalog.org/show/hsTrop-1 Current Interpretive Data last revised 2020. Blood 02/07/2025 11:4 8 PM CDT 02/08/2025 12:00 AM CDT Rivka Acosta MD LAB BLOOD ORDERABLES Final Result Performing Organization Address [facility] de Phone Number [facility] Department [place] [address] * eGFR (02/07/2025 11:48 PM CDT) [facility] eGFR >90 >=60 mL/min/1. 73 m2 Comment: [...] Blood 02/07/2025 11:4 8 PM CDT 02/08/2025 us Rivka Acosta MD LAB BLOOD ORDERABLES Final Result [facility] Department [place] [address] * (ABNORMAL) Differential, auto (02/07/2025 11:48 PM CDT) [facility] Neutrophil abs 3.43 1.50 - 6.50 K/cumm Imm gran abs 0.01 0.00 - 0.10 K/cumm [facility] Lymphocyte abs 2.17 0.80 - 3.30 K/cumm [facility] Monocyte abs 0.83(H) 0.20 - 0.80 K/cumm [facility] Eosinophil abs 0.11 0.00 - 0.50 K/cumm [facility] Basophil abs 0.04 0.00 - 0.10 K/cumm [facility] Neutrophil pct 52.0 % [facility] Comment: Interpretive Data Percent cell count reference ranges are not reported, since discordance with absolute values may lead to misinterpretation of CBC data. Current Interpretive Data was last revised on 2018. Imm gran pct 0.2 % [facility] Comment: Interpretive Data Percent cell count reference ranges are not reported, since discordance with absolute values may lead to misinterpretation of CBC data. Current Interpretive Data was last revised on 2018. Lymphocyte pct 32.9 % [facility] Comment: Interpretive Data Percent cell count reference ranges are not reported, since discordance with absolute values may lead to misinterpretation of CBC data. Current Interpretive Data was last revised on 2018. Monocyte pct 12.6 % [facility] Comment: Interpretive Data Percent cell count reference ranges are not reported, since discordance with absolute values may lead to misinterpretation of CBC data. Current Interpretive Data was last revised on 2018. Eosinophil pct 1.7 % [facility] Comment: Interpretive Data Percent cell count reference ranges are not reported, since discordance with absolute values may lead to misinterpretation of CBC data. Current Interpretive Data was last revised on 2018. Basophil pct 0.6 % [facility] Comment: Interpretive Data Percent cell count reference ranges are not reported, since discordance with absolute values may lead to misinterpretation of CBC data. Current Interpretive Data was last revised on 2018. Blood 02/07/2025 11:4 8 PM CDT 02/08/2025 12:00 AM CDT us Rivka Acosta MD LAB BLOOD ORDERABLES Final Result [facility] Department [place] [address] * CBC with auto differential (02/07/2025 11:48 PM CDT) WBC 6.59 3.80 - 9.90 K/cumm Hgb 12.6 11.9 - 15.5 g/dL [facility] Hct 38.7 35.6 - 45.5 % [facility] Plt 222 150 - 400 K/cumm [facility] MPV 11.6 9.1 - 12.3 fL [facility] RBC 4.64 3.90 - 5.20 M/cumm [facility] MCV 83.4 81.3 - 96.4 fL [facility] MCH 27.2 27.1 - 33.3 pg [facility] MCHC 32.6 32.3 - 35.7 g/dL [facility] RDW CV 14.3 11.1 - 14.9 % [facility] RDW SD 42.8 35.7 - 48.1 fL [facility] NRBC abs 0.00 0.00 - 0.01 K/cumm [facility] Blood Venous blood specimen / Unknown 02/07/2025 11:48 PM CDT 02/08/2025 12:00 AM CDT Rivka Acosta MD LAB BLOOD ORDERABLES Final Result Performing Organization Address City/[facility]/ZIP Co de Phone Number [facility] Department [place] [address] * Phosphorus (02/07/2025 11:48 PM CDT) Phosphorus, pl 2.9 2.3 - 4.5 mg/dL Blood 02/07/2025 11:4 8 PM CDT 02/08/2025 Rivka Acosta MD LAB BLOOD ORDERABLES Final Result [facility] [place] [address] * Magnesium (02/07/2025 11:48 PM CDT) Magnesium 1.9 1.4 - 2.5 mg/dL Blood 02/07/2025 11:4 8 PM CDT 02/08/2025 Rivka Acosta MD LAB BLOOD ORDERABLES Final Result [facility] Department [place] [address] * (ABNORMAL) Comprehensive metabolic panel (02/07/2025 11:48 PM CDT) Sodium 141 135 - 145 mmol/L Potassium, pl 3.9 3.3 - 4.9 mmol/L [facility] Comment:Hemolyzed; Potassium value may be falsely elevated by as much as 0.3-0.5 mmol/L. Suggest redraw and reanalysis. Chloride 104 97 - 110 mmol/L [facility] CO2 23 22 - 32 mmol/L [facility] Anion gap 14 2 - 15 mmol/L [facility] BUN 17 6 - 25 mg/dL [facility] Creatinine 0.63 0.60 - 1.10 mg/dL [facility] Glucose 206(H) 70 - 199 mg/dL [facility] Comment: Interpretive Data Fasting glucose >/= [...] classification and Diagnosis of Diabetes Diabetes Care 2021; 46: S19-S40. Current interpretive data was last revised 2022. Calcium 9.5 8.5 - 10.3 mg/dL [facility] Bilirubin, total 0.3 0.1 - 1.2 mg/dL [facility] Protein, pl 7.1 6.5 - 8.5 g/dL [facility] Albumin 3.8 3.5 - 5.0 g/dL [facility] Alk phos 86 40 - 130 Units/L [facility] ALT 18 7 - 45 Units/L [facility] AST 30 10 - 45 Units/L [facility] Comment:Hemolyzed; result ma y be falsely elevated Blood 02/07/2025 11:4 8 PM CDT 02/08/2025 12:00 AM CDT us Rivka Acosta MD LAB BLOOD ORDERABLES Final Result Performing Organization Address [facility] Co de Phone Number [facility] [place] [address] * eGFR (02/05/2025 11:41 AM CDT) eGFR [...] 1 AM CDT 02/05/2025 12:50 PM CDT us Moe Zapata MD PhD LAB BLOOD ORDERABLE S Final Result Performing Organization Address [facility] Co de Phone Number [facility] Department [place] [address] * (ABNORMAL) Urinalysis reflex to microscopic (02/05/2025 11:41 AM CDT) Color, ur Straw Yellow Clarity, ur Clear Clear [facility] Specific gravity, ur 1.026 1.003 - 1.030 [facility] pH, urine 6.0 [facility] Comment: Interpretive Data U rine pH is affected by diet, medications, systemic acid-base disturbances, and renal tubular function. pH may affect urinary stone formation. For example, urine pH below 6.0 may help reduce the tendency for calcium phosphate stones and pH greater than 6.0 may reduce the tendency for uric acid stone formation. Source: [facility] Current Interpretive Data was last revised on 2017 Protein, ur ql Negative Negative [facility] Glucose, ur ql 4+(A) Negative [facility] Ketones, ur Negative Negative [facility] Bilirubin, ur Negative Negative [facility] Blood, ur Negative Negative [facility] Urobilinogen, ur <2.0 <2.0 mg/dL [facility] Nitrite, ur Negative Negative [facility] Leukocyte esterase, ur Negative Negative [facility] UA reflex comment Reflex conditions for microscopic UA not met. [facility] Urine 02/05/2025 11:4 1 AM CDT 02/05/2025 12:43 PM CDT Moe Zapata MD PhD LAB URINE ORDERABLE S Final Result [facility] Department [place] [address] * (ABNORMAL) CBC without differential (02/05/2025 11:41 AM CDT) WBC 10.35(H) 3.80 - 9.90 K/cumm Hgb 13.4 11.9 - 15.5 g/dL [facility] Hct 41.2 35.6 - 45.5 % [facility] Plt 263 150 - 400 K/cumm [facility] MPV 11.7 9.1 - 12.3 fL [facility] RBC 4.96 3.90 - 5.20 M/cumm [facility] MCV 83.1 81.3 - 96.4 fL [facility] MCH 27.0(L) 27.1 - 33.3 pg [facility] MCHC 32.5 32.3 - 35.7 g/dL [facility] RDW CV 14.1 11.1 - 14.9 % [facility] RDW SD 42.9 35.7 - 48.1 fL [facility] NRBC abs 0.00 0.00 - 0.01 K/cumm [facility] Blood 02/05/2025 11:4 1 AM CDT 02/05/2025 12:50 PM CDT Moe Zapata MD PhD LAB BLOOD ORDERABLE S Final Result Performing Organization Address City/[facility]/ZIP Co de Phone Number [facility] Department [place] [address] * Basic metabolic panel (02/05/2025 11:41 AM CDT) Pathologist [facility] Sodium 140 135 - 145 mmol/L Potassium, pl 4.2 3.3 - 4.9 mmol/L [facility] Chloride 103 97 - 110 mmol/L [facility] CO2 26 22 - 32 mmol/L [facility] Anion gap 11 2 - 15 mmol/L [facility] BUN 17 6 - 25 mg/dL [facility] Creatinine 0.65 0.60 - 1.10 mg/dL [facility] Glucose 126 70 - 199 mg/dL [facility] Comment: Interpretive Data Fasting glucose >/= [...] classification and Diagnosis of Diabetes Diabetes Care 2021; 46: S19-S40. Current interpretive data was last revised 2022. Calcium 9.5 8.5 - 10.3 mg/dL [facility] Blood 02/05/2025 11:4 1 AM CDT 02/05/2025 12:50 PM CDT Moe Zapata MD PhD LAB BLOOD ORDERABLE S Final Result Performing Organization Address City/[facility]/ZIP Co de Phone Number [facility] Department [place] [address] * POCT lipid panel (01/30/2024 1:10 PM CDT) Cholesterol, POC 120 mg/dL HDL, POC 43 mg/dL Triglycerides, POC 109 mg/dL LDL Cholesterol POC 55 mg/dL Chol/HDL Ratio, POC 1.3 Non-HDL Cholesterol, POC 77 mg/dL Cholesterol Total, POC 120 mg/dL Capillary blood 01/30/2024 1:10 PM CDT us Pernell Durant MD POINT OF CARE TEST ORDER LEAH Edited Result - Final from Last 3 Months or Most Recently Relevant to Health Maintenance Insurance [address] [place] [address] [facility] Member Subscriber Plan / Payer (Ef fective 2011-Present) Name:Mayte Mercado Relation to Subscriber:Self Name:Jess Mayte Payer ID:[id number] (NAIC) Type:MEDICARE RISK OTHER Address: [address] [facility] Advance Directives For more information, please contact: [phone] Documents on File Type Date Recorded 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
[2025-03-10 08:42] LABS: Hemoglobin A1C 7.2 % (<5.7)
[2025-03-10 08:49] LABS: Alanine Aminotransferase 21 U/L (6-35); Albumin Level 4.3 g/dL (3.5-5.1); Alkaline Phosphatase 71 U/L (38-126); Anion Gap 8 mmol/L (4-12); Aspartate Amino Transferase 36 U/L (14-36); Bilirubin,Total 0.6 mg/dL (0.2-1.3); Blood Urea Nitrogen 17 mg/dL (7-17); Calcium 9.3 mg/dL (8.4-10.2); Carbon Dioxide 27 mmol/L (22-30); Chloride 106 mmol/L (98-107); Cholesterol 163 mg/dL (0-200); Estimated Glomerular Filt Rate > 60; Glucose 99 mg/dL (65-110); HDL Direct 71 mg/dL; Potassium 4.1 mmol/L (3.4-5.0); Sodium 141 mmol/L (137-145); Triglycerides 74 mg/dL (<150)
[2025-03-10 08:59] LABS: LDL Cholesterol Direct 57 mg/dL
[2025-03-10 09:18] LABS: Vitamin D 25 Hydroxy 60.7 ng/mL
[2025-03-10 09:20] LABS: Creatinine Urine 74.1 mg/dL
[2025-03-10 09:24] LABS: MALB Creatinine Ratio 78.5 mg/g (0-30); Microalbumin Urine Random 58.2 mg/L (0-16.7)
== END 2025-03-10 08:00 | disposition home or self-care (01) ==
LOC: ANHLAB 08:00
PROVIDERS: PCP Emergency Medicine; Visit Provider Emergency Medicine
DX: E11.9 Type 2 diabetes mellitus without complications (principal); E78.5 Hyperlipidemia, unspecified; E55.9 Vitamin D deficiency, unspecified
CPT/HCPCS: 36415; 80053; 80061; 82043; 82306; 83036

== ENCOUNTER 2025-04-14 12:14 | Emergency (ER) | payer OTHER, MEDICAID, SELFPAY ==
--- NOTE | 2025-04-14 12:23 | ED.SKABFB ---
HPI - Skin/Abscess/Foreign Bdy General Chief complaint: Skin/Abscess/Foreign Body Stated complaint: Rash Time Seen by Provider: 04/14/25 12:25 Source: patient Mode of arrival: ambulatory Limitations: no limitations History of Present Illness HPI narrative: Mayte is a 75-year-old female patient presenting to the clinic today with complaints of a painful vesicular rash on her chest/left axilla/arm. She reports rash started yesterday. Denies any fevers, chills, body aches. Has not taken any medications or applied any topical medications to help alleviate her symptoms Related Data Home Medications ?Medication ?Instructions ?Recorded ?Confirmed ?Last Taken ?Type cholecalciferol (vitamin D3) 125 125 mcg PO DAILY 05/06/24 03/17/25 11/30/24 History mcg (5,000 unit) tablet (Vitamin D3) diltiazem HCl 120 mg 120 mg PO DAILY 06/10/24 03/17/25 11/30/24 History tablet,extended release 24 hr atorvastatin 40 mg tablet 40 mg PO HS 09/19/24 03/17/25 11/30/24 History sotalol 80 mg tablet 80 mg PO Q12H 09/19/24 03/17/25 11/30/24 History Allergies Allergy/AdvReac Type Severity Reaction Status Date / Time No Known Allergies Allergy Verified 04/14/25 12:17 Review of Systems Review of Systems: Pertinent positives per HPI. Patient denies any fever, chills, headache, visual changes, dizziness, cough, runny nose, sore throat, shortness of breath, chest pain, palpitations, nausea, vomiting, diarrhea, constipation, abdominal pain, or any urinary issues. 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 History of colonoscopy with polypectomy Family History Family History Sibling Diabetes mellitus Father Cerebrovascular accident, Onset Age: 72 Diabetes mellitus Social History Social History Social History: Surrogate medical decision maker: Shu Mercado, daughter. Code status: Full code. Smoking packs per day: 10 Smoking cigarettes per day: 200.0 Years smoked: 50 Smoking pack-years: 500.00 Smoking status: Former smoker Tobacco type: cigarettes Smoking end date: 05/14/24 Additional smoking assessment comments: quit May 2023 Alcohol intake: never Substance use: never Substance use type: does not use Do You Feel Safe in your Home?: Yes Lack of Transportation: No Lack of Food: Never True Current Housing: I Have Housing Concerned About Future Housing: No Difficulty Paying Gas/Electric Bills: No Difficulty Paying for Meds: No Currently Unemployed: YES Education: Decline to Answer Difficulty w/ Childcare or Family Care: No Spiritual care concerns: No Comments At the time of my signature, I reviewed and agree with the nursing past medical, surgical, social, and family history. There is no relevant family history pertinent to the patient complaint. Exam Narrative: General: Well-developed, well nourished, in no apparent distress Head: Normocephalic, atraumatic. Cardio: Regular rate and rhythm, s1 and s2 normal, no murmur appreciated. Resp: Clear to auscultation bilaterally, no rhonchi, rales, wheezing or rubs. Integumentary: [place], warm, and dry, painful, red raised erythema based rash with cluster of vesicular lesions to the left chest, left axilla, and left upper arm Course Course Emergency Course: Portions of this record may have been created with voice recognition software. Level of Care: Express Care Visit Vital Signs Vital signs: Vital Signs Temperature 36.6 C 04/14/25 12:25 Pulse Rate 75 04/14/25 12:25 Respiratory Rate 14 04/14/25 12:25 Blood Pressure 117/72 04/14/25 12:25 Pulse Oximetry 100 04/14/25 12:25 Oxygen Delivery Room Air 04/14/25 12:25 Temperature 36.6 C 04/14/25 12:25 Pulse Rate 75 07/02/25 12:25 Respiratory Rate 14 04/14/25 12:25 Blood Pressure 117/72 04/14/25 12:25 Pulse Oximetry 100 04/14/25 12:25 Oxygen Delivery Room Air 04/14/25 12:25 Vital signs reviewed MDM - Skin/Abscess/Foreign Bdy MDM Narrative Medical decision making narrative: At the time of visit patient is resting comfortably on the exam table. Patient appears to be nontoxic. Plan: I suspect patient has herpes zoster. Prescription for Valtrex was sent to the pharmacy. Supportive measures were discussed with the patient and they voiced understanding discharge instructions and agrees to treatment plan. Return precautions reviewed Differential Diagnosis Differential diagnosis: Likely abscess of skin or subcutaneous tissue, viral exanthem, dermatophytosis, urticaria, herpes zoster, allergic reaction to drug, cellulitis, eczema, insect bites, impetigo and contact dermatitis Discharge Plan Discharge Clinical Impression: Herpes zoster Qualifiers: Herpes zoster complications: without complications Qualified Code(s): B02.9 - Zoster without complications Patient Disposition: Home Condition: Stable Instructions: Antibiotic Form, Shingles (ED) Additional Instructions: I suspect you have shingles. Take acyclovir as prescribed May apply lidocaine patch to the affected area to help alleviate pain May take Tylenol/Motrin as needed for pain Keep area covered if draining You are considered contagious until they scabbed over Avoid being around anyone who is immunocompromised, not vaccinated against chickenpox, or person's Follow-up with your primary care doctor in 5-7 days if symptoms persist or sooner if symptoms worsen Patient Language: Chinese Prescriptions: New valacyclovir [Valtrex] 1 gram tablet 1,000 mg PO Q8H 7 Days Qty: 21 0RF No Action diltiazem HCl 120 mg tablet extended release 24 hr 120 mg PO DAILY cholecalciferol (vitamin D3) [Vitamin D3] 125 mcg (5,000 unit) Tablet 125 mcg PO DAILY atorvastatin 40 mg tablet 40 mg PO HS Rx Instructions: TAKE 1 TABLET BY MOUTH EVERY DAY sotalol 80 mg tablet 80 mg PO Q12H meclizine 25 mg tablet 25 mg PO BID PRN (Reason: dizziness) Qty: 10 0RF pantoprazole 40 mg tablet,delayed release (DR/EC) 40 mg PO DAILY Qty: 90 3RF (DME) pen needle, diabetic [BD Shraddha 2nd Gen Pen Needle] 32 gauge x 5/32 needle See Rx Instructions .ROUTE .COMPLEX Qty: 100 3RF Dose Instruction: DIRECTED TO INJECT WITH INSULIN 3 TIMES DAILY Rx Instructions: DIRECTED TO INJECT WITH INSULIN 3 TIMES DAILY alendronate 70 mg tablet See Rx Instructions .ROUTE .COMPLEX Qty: 12 2RF Dose Instruction: TAKE 1 TABLET BY MOUTH ONCE PER WEEK IN THE MORNING, AT LEAST 30 MINUTES BEFORE FIRST FOOD, BEVERAGE, OR MED OF THE DAY Patient Comments: takes on Saturday Rx Instructions: TAKE 1 TABLET BY MOUTH ONCE PER WEEK IN THE MORNING, AT LEAST 30 MINUTES BEFORE FIRST FOOD, BEVERAGE, OR MED OF THE DAY (DME) lancets [Microlet Lancet] Misc See Rx Instructions .ROUTE .COMPLEX Qty: 300 3RF Dose Instruction: CHECK BLOOD SUGAR THREE TIMES A DAY Rx Instructions: CHECK BLOOD SUGAR THREE TIMES A DAY Jardiance 25 mg tablet 25 mg PO DAILY Qty: 90 2RF Eliquis 5 mg tablet See Rx Instructions .ROUTE .COMPLEX Qty: 60 5RF Dose Instruction: TAKE 1 TABLET BY MOUTH TWICE A DAY Rx Instructions: TAKE 1 TABLET BY MOUTH TWICE A DAY insulin lispro [Humalog KwikPen Insulin] 100 unit/mL insulin pen See Rx Instructions subcut .COMPLEX Qty: 15 3RF Rx Instructions: subcutaneously; SLIDING SCALE DOSE SUBCUTANEOUSLY 3 TIMES PER DAY WITH MEALS: BLOOD SUGAR 150-200 3 UNITS, BLOOD SUGAR: 201-250 6 UNITS, BLOOD SUGAR: 251-300 9 UNITS, BLOOD SUGAR: 301-350 12 UNITS BLOOD SUGAR: 350-400 15 UNITS insulin glargine U-300 conc [Toujeo Max U-300 SoloStar] 300 unit/mL (3 mL) insulin pen 16 unit subcut DAILY Qty: 6 3RF Follow-up/Referrals: Pernell Pratt MD [Primary Care Provider] - Time of Disposition: 12:30 Quality NIHSS Nursing Documentation ED NIHSS nursing documentation: reviewed/agree
[2025-04-14 12:25] VITALS: BP 117/72; PULSE 75; RESP 14; TEMP 36.6; O2SAT 100
== END 2025-04-14 12:37 | disposition home or self-care (01) ==
PROVIDERS: Emergency Provider Nurse Practitioner Family; PCP Emergency Medicine
DX: B02.9 Zoster without complications (principal); Z87.891 Personal history of nicotine dependence; I10 Essential (primary) hypertension; E78.5 Hyperlipidemia, unspecified; E11.9 Type 2 diabetes mellitus without complications; Z79.4 Long term (current) use of insulin; Z79.84 Long term (current) use of oral hypoglycemic drugs; M81.0 Age-related osteoporosis without current pathological fracture; I48.91 Unspecified atrial fibrillation; I48.92 Unspecified atrial flutter; I25.2 Old myocardial infarction; Z79.01 Long term (current) use of anticoagulants
CPT/HCPCS: 99213; G0463

== ENCOUNTER 2025-06-18 08:10 | Outpatient (CLI) | payer OTHER, MEDICAID, SELFPAY ==
--- OUTSIDE RECORDS SUMMARY | 2025-06-18 08:15 | XMS_ITS | Clinical Summary ---
Author Organization [facility] [address] Address [address] [place] [address] Care Team Providers Care Livestock Breeder Name Role Phone Pernell Pratt MD Primary [...] before meals Sliding scale per provider instructions 4 Active diclofenac sodium (VOLTAREN) 1 % gelIndications:P ain Apply 2 g topically as needed (pain) Active cholecalciferol, vitamin D3, (D3-5000 ORAL)Indications :supplement Take 1 tablet by mouth every morning Active TOUJEO MAX 300 unit/mL (3 mL) pen for injectionIndicat ions:type 2 diabetes mellitus Inject 16 Units under the skin every morning 4 Active acetaminophen (TYLENOL) 325 mg tabletIndication s:Pain Take 2 tablets (650 mg total) by mouth every 6 (six) hours as needed for pain Active pantoprazole DR (PROTONIX) 40 mg EC tabletIndication s:Treatment of Non-Bleeding Gastric Disorder Take 1 tablet (40 mg total) by mouth every morning 4 Active sotaloL (BETAPACE) 80 mg tablet Take 1 tablet (80 mg total) by mouth 2 (two) times a day 180 tablet 2 5 Active Contour Next Test Strips strip TEST THREE TIMES DAILY NEEDED 4 Active BD Shraddha 2nd Gen Pen Needle 32 gauge x 5/32 needle USE DIRECTED TO INJECT WITH INSULIN 3 TIMES DAILY 4 Active empagliflozin (JARDIANCE) 10 mg tabletIndication s:type 2 diabetes mellitus Take 1 tablet (10 mg total) by mouth every morning 5 Active dilTIAZem XR 120 mg 24 hr capsule TAKE 1 CAPSULE BY MOUTH EVERY DAY 90 capsule 2 5 Active UNABLE TO FINDIndications: pain supplement Take 2 each by mouth with lunch Med Name: [place] XL Active Eliquis 5 mg tabletIndication s:Other (complete free text reason below),VTE Prophylaxis,SVT' s Take 1 tablet (5 mg total) by mouth 2 (two) times a day 180 tablet 3 5 Active Active Problems Problem Noted Date Diagnosed [...] Plan (02/08/2025 3:51 PM CDT): On diltiazem Surgical History Surgery Date Site/Laterality Comments CARDIAC CATHETERIZATION 10/14/2023 - 10/13/2024 CARDIAC ELECTROPHYSIOLOGY PROCEDURE 02/08/2025 N/A Procedure: ABLATION SUPRAVENTRICULAR TACHYCARDIA (SVT) 11752; Surgeon: Moe Zapata MD PhD; Location: [facility]; Service: Cardiovascular; Laterality: N/A; Medical devices from this surgery are in the Medical Devices section. 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 Gender Identity Not on file Sexual Orientation [...] 03/2023, 05/31/2021, Additional history exists Influenza Vaccine (#1) 2025 eGFR 02/07/2026 02/07/2025, 02/05/2025 Fall Risk Assessment 02/09/2026 02/09/2025 Medical Devices Implanted Type Area User Experience Designer Device Identifier Shelf Expiration Date Model / Serial / Lot [employer] Device Closure Vascade Od5 Fr Femoral Artery [id number] - [id number] - [id number] Implanted:Qty: 1 on 02/08/2025 by Moe Zapata MD PhD at [facility] Vascular Closure Device [employer] 11/11/2026 [id number] / [id number] / [id number] [employer] Vascade Mvp 6-12fr Venous Closure [id number] - [id number] - [id number] Implanted:Qty: 1 on 02/08/2025 by Moe Zapata MD PhD at [facility] Vascular Closure Device [employer] 12/10/2026 [id number] [id number] / [id number] / [id number] [employer] Vascade Mvp 6-12fr Venous Closure [id number] - [id number] - [id number] Implanted:Qty: 1 on 02/08/2025 by Moe Zapata MD PhD at [facility] Vascular Closure Device [employer] 11/23/2026 [id number]-[id number] [id number] / [id number] / [id number] [employer] Device Vascular Closure Vascade Mvp Xl 10-12fr Venous Strl [id number] - [id number] - [id number] Implanted:Qty: 1 on 02/08/2025 by Moe Zapata MD PhD at [facility] Vascular Closure Device [employer] 11/11/2026 [id number] / [id number] / [id number] Procedures Procedure Name Priority Date/Time Associated Diagnosis Comments EGFR STAT 02/07/2025 11:48 PM CDT POCT LIPID PANEL Routine 01/30/2024 1:10 PM CDT Lipid screening from Last 3 Months or Most Recently Relevant to Health Maintenance Results * eGFR (02/07/2025 11:48 PM CDT) eGFR >90 >=60 mL/min/1. 73 m2 [...] Acosta MD LAB BLOOD ORDERABLES Final Result [facility] Department [place] [address] * POCT lipid panel (01/30/2024 1:10 PM CDT) Cholesterol, POC 120 mg/dL HDL, POC 43 mg/dL Triglycerides, POC 109 mg/dL LDL Cholesterol POC 55 mg/dL Chol/HDL Ratio, POC 1.3 Non-HDL Cholesterol, POC 77 mg/dL Cholesterol Total, POC 120 mg/dL Capillary blood 01/30/2024 1 :10 PM CDT us Pernell Durant MD POINT OF CARE TEST ORDER LEAH Edited Result - Final from Last 3 Months or Most Recently Relevant to Health Maintenance Insurance [address] [place] [address] [facility] IDMT [facility] Advance Directives For more information, please contact: [phone] Documents on File Type Date Recorded Patient Nurses Assistant Expl anation ADVANCE DIRECTIVE 02/12/2025 6:36 PM POWER OF CLIENT SALES AND SERVICE OFFICER-MEDICAL * Full Code (Latest Code Status on File) Date Activated Date Inactivated Comments 02/08/2025 7:09 PM 02/09/2025 3:14 PM Care Teams Livestock Breeder Relationship Specialty Start Date End Date Pernell Pratt MD [address] [place] [address] PCP - General 09/11/12
--- OUTSIDE RECORDS SUMMARY | 2025-06-18 08:15 | XMS_ITS | Encounter Summary ---
Author Organization [facility] Healthcare Address [address] [place] [address] Care Team Providers Care Extension Service Agent Name Role Phone Pernell Pratt MD Primary Care Provide r Encounter Details Date Type Department Care Team (Late st Contact Info) Description 09/19/2024 Orders Only [facility] [place] Health Information Management [address] [place] [id number] Scanning, Provider Social History Tobacco Use Types Packs/Day Years Used Date Smoking Tobacco: Former Cigarettes Smokeless Tobacco: Never Comments:Smoking History Pac ks/day: 0.5 Packs Alcohol Use Standard Drinks/Week Comments No 0 (1 standard drink = 0.6 oz pur e alcohol) Comments Unknown Sex and Gender Information Value Date Recorded Sex Assigned at Not on file 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 Gender Identity Not on file Sexual Orientation Not on file documented as of this encounter Plan of Treatment Not on file documented as of this encounter Procedures Procedure Name Priority Date/Time Associated Diagnosis Comments SCAN - RADIOLOGY/IMAGING 09/19/2024 documented in this encounter Results * SCAN - RADIOLOGY/IMAGING (09/19/2024) Anatomical Region Laterality Modality Other us Provider Scanning Edited Result - Final documented in this encounter Visit Diagnoses Not on filedocumented in this encounter Care Teams Extension Service Agent Relationship Specialty Start Date End Date Pernell Pratt MD [address] [place] [address] PCP - General 09/11/12 documented as of this encounter
--- OUTSIDE RECORDS SUMMARY | 2025-06-18 08:15 | XMS_ITS | Clinical Summary ---
Author Organization [facility] Address [address] [place] [address] Care Team Providers Care Meter Installer Name Role Phone Unavailable Primary Care Provider [...] 1 - Tdap) 1970 Mammogram Screening 1991 Pneumococcal Vaccine: 50+ Ye ars (1 of 1 - PCV) 2001 Zoster Vaccines (1 of 2) 2001 Dexa Scan (General) 01/10/2016 COVID-19 Vaccine (2023-2 5 season) 2025 RSV Immunization or 60+ Years (1 - [...]
[2025-06-18 09:03] LABS: MALB Creatinine Ratio 18.9 mg/g (0-30)
[2025-06-18 09:10] LABS: Hemoglobin A1C 7.2 % (<5.7)
[2025-06-18 09:12] LABS: Alanine Aminotransferase 17 U/L (6-35); Albumin Level 4.2 g/dL (3.5-5.1); Alkaline Phosphatase 96 U/L (38-126); Anion Gap 8 mmol/L (4-12); Aspartate Amino Transferase 32 U/L (14-36); Bilirubin,Total 0.8 mg/dL (0.2-1.3); Blood Urea Nitrogen 15 mg/dL (7-17); Calcium 9.6 mg/dL (8.4-10.2); Carbon Dioxide 26 mmol/L (22-30); Chloride 105 mmol/L (98-107); Cholesterol 160 mg/dL (0-200); Estimated Glomerular Filt Rate > 60; Glucose 123 mg/dL (65-110); HDL Direct 58 mg/dL; Potassium 4.1 mmol/L (3.4-5.0); Sodium 139 mmol/L (137-145); Total Protein 7.5 g/dL (6.3-8.2); Triglycerides 110 mg/dL (<150)
== END 2025-06-18 08:11 | disposition home or self-care (01) ==
LOC: ANHLAB 08:11
PROVIDERS: PCP Emergency Medicine; Visit Provider Emergency Medicine
DX: E78.5 Hyperlipidemia, unspecified (principal); E55.9 Vitamin D deficiency, unspecified; E11.9 Type 2 diabetes mellitus without complications
CPT/HCPCS: 36415; 80053; 80061; 82043; 82306; 83036

== ENCOUNTER 2025-08-19 08:18 | Outpatient (CLI) | payer OTHER, MEDICAID, SELFPAY ==
[2025-08-19 09:19] LABS: Anion Gap 8 mmol/L (4-12); Blood Urea Nitrogen 13 mg/dL (7-17); Calcium 8.9 mg/dL (8.4-10.2); Carbon Dioxide 26 mmol/L (22-30); Chloride 106 mmol/L (98-107); Estimated Glomerular Filt Rate > 60; Glucose 135 mg/dL (65-110); Potassium 4.0 mmol/L (3.4-5.0); Sodium 140 mmol/L (137-145)
--- OUTSIDE RECORDS SUMMARY | 2025-08-19 17:07 | XMS_ITS ---
Author Name Zheng Quinones DO Address [address] [facility] [place] [address] Phone [phone] Organization [facility] Care Team Providers Care Lawn Maintenance Worker Name Role Phone Zheng Quinones Unavailable [phone] [facility] Tier 1 RN (VIRI), Cheryl rice Unavailable Pernell Durant Unavailable [phone] PERNELL CARIAS Unavailable [phone] Reason for Referral Not Available Allergies, adverse reactions, alerts No known allergies History of medication use Medication Class Instructions Start Date End Date Alendronate Sodium 70 mg Tab 1 tablet or ally weekly 30 minutes before the first food, beverage or medicine of the day with plain water 2024-10-20 No Data Available dilTIAZem ER 120 mg Cap ER 24hr TAKE 1 CAPSULE BY MOUTH EVERY DAY 2025-01-29 No Data Available Sotalol 80 mg Tab TAKE 1 TABLET BY NOÉ TH 2 TIMES A DAY. 2024-11-03 No Data Available Eliquis 5 mg Tab TAKE 1 TABLET BY NOÉ TH TWICE A DAY 2024-12-14 No Data Available Jardiance 25 mg Tab TAKE 1 TABLET BY NOÉ TH EVERY DAY 2024-11-04 No Data Available Toujeo Max SoloStar 300 UNIT/ML Solution Pen-injector INJECT 16 UNITS (0.0533 ML) UNDER THE SKIN ONCE DAILY 2025-03-12 No Data Available HumaLOG KwikPen 100 UNIT/ML Solution Pen-injector PLEASE SEE ATTACHED FOR DETAILED DIRECTIONS 2025-03-10 No Data Available Pantoprazole Sodium 40 mg Tab delayed rel TAKE 1 TABLET BY MOUTH EVERY DAY 2024-06-22 No Data Available Atorvastatin Calcium 40 mg Tab TAKE 1 TABLET BY MOUTH EVERY DAY 2024-07-27 No Data Available Vitamin D3 125 MCG (5000 UT) Cap 1 capsule orally daily 2025-07-16 No Data Available Problem List Problem Status Onset Date Resolved Date Synopsis Osteoporosis without current pathological fracture Active 2025-07-16 N/A N/A Paroxysmal a-fib Active 2025-07-16 N/A N/A History of paroxysmal supraventricular tachycardia Active 2025-07-16 N/A s/p atrial ablation February 2025 Diabetes mellitus, with long-term current use of insulin Active 2025-07-16 N/A N/A GERD (gastroesophageal reflu x disease) Active 2025-07-16 N/A N/A History of tobacco abuse Active 2025-07-16 N/A 50 Pack year history; Quit in 2022 Hypertrophic cardiomyopathy Active 2025-07-16 N/A Cardiac MRI in Nov 2024:IMPRESSION:1. 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 LVEF 63%. 2. 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 The LGE involves <10% of the left ventricle myocardium. Encounters Encounters Type Facility Date of Service Diagnosis/Co mplaint Home visit for evaluation and management of new patient requiring medically appropriate examination and moderate level of medical decision making. If using time, at least 60 minutes total time on [facility] [place] 07/16/2025 Paroxysmal atrial fibrillationType 2 diabetes mellitus without complicationsLong term (current) use of insulinPersonal history of other diseases of the circulatory systemOther hypertrophic cardiomyopathyAge-related osteoporosis without current pathological fractureGastro-esophageal reflux disease without esophagitisPersonal history of nicotine dependence Home visit for evaluation and management of new patient requiring medically appropriate examination and moderate level of medical decision making. If using time, at least 60 minutes total time on [facility] [place] 07/16/2025 Type 2 diabetes eliezer itus without complications Home visit for evaluation and management of new patient requiring medically appropriate examination and moderate level of medical decision making. If using time, at least 60 minutes total time on [facility] [place] 07/16/2025 Type 2 diabetes eliezer itus without complicationsBody mass index (BMI) 24.0-24.9, adult Vital Signs Date of Collection Vitals 2025-07-16 08:00:00 Height - 147.32 cmWe ight - 52.21 kgBody Mass Index (BMI) - 24.06 kg/m2BP Diastolic - 59.0 mm[Hg]BP Systolic - 136.0 mm[Hg]Heart Rate - 52.0 /minRespiratory Rate - 16.0 /minO2 % BldC Oximetry - 99.0 % Social History Social History Social History Observation Description Effec tive Time Current Smoking Status Former smoker 6 Sex Female History of Procedures Procedures Service Procedure code Service date Servicing provider Phone# Home visit for evaluation and management of new patient requiring medically appropriate examination and moderate level of medical decision making. If using time, at least 60 minutes [place] on enco [address] 2025-07-16 No Data Available No Data Availa ble Most recent systolic blood pressure 130 -139 mm Hg 3075F 2025-07-16 No Data Available No Data Availa ble Most recent dystolic blood pressure <80 mm Hg 3078F 2025-07-16 No Data Available No Data Availa ble Functional Status Functional Category Effective Dates walks around with no assisti ve devices in the home, but has them around if needed 2025-07-16 Mental Status Status Date no cognitive concerns 2025-07-16 Assessments Date of Service Assessments 2025-07-16 08:00:00 Paroxysmal a-fib - c ontrolledDiabetes mellitus, with long- term current use of insulin - controlledHistory of paroxysmal supraventricular tachycardia - controlledHypertrophic cardiomyopathy - controlledOsteoporosis without current pathological fracture - controlledGERD (gastroesophageal reflux disease) - controlledHistory of tobacco abuse - controlled Plan of Care Date of Service Plans 2025-07-16 08:00:00 No need for PH servi geni at this time.Sounds to be in nsr today. Continue sotalol and diltiazem at current dosesEliquis continues for stroke preventionContinue to f/u with [facility] cardiology and [facility] EP at q 6 mo basisReviewed her glucose log in great detail. She does an excellent job keeping track of her readings 4 times per day.Continue Toujeo and Aspart at current doses. She expressed come concern over occasional highs. We discussed how the overall trend is showing good control and how her A1c of 7.2% supports this as well.Managed by PCP. continue to f/u q 3 months with monitoring A1cs/p atrial ablation February 2025seemingly much better controlled nowContinue sotalol at current dose for maintenanceContinue to f/u with EPCardiac MRI in Nov 2024:IMPRESSION:1. 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 LVEF 63%. 2. 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 The LGE involves <10% of the left ventricle myocardium.Monitor for symptoms and f/u with cardiology as scheduledContinue alendronate weeklycontinue PPI daily50 Pack year history; Quit in pplauded quittingMonitor for development of any pulmonary symptomsShe remains hesitant to get her flu shot Goals Date Goal 2025-07-16 Encouraged flu shot 2025-07-16 Discussed continuing insulins at current doses and continue to monitor blood glucose as she is doing 2025-07-16 Follow up with PCP e very 3 months Health Concerns Date Concern 2025-07-16 Your patient, Santos Luke ( 52) has been enrolled in [facility] Home is care by a physician and/or advanced practice provider in-home or virtual as an extension of your primary care. We also have registered nurses, pharmacists, community health workers, and social workers that assist with your patient as needed. Please note that your patient will remain attributed to you. If you have any questions, please reach out directly to our team at the phone number above. We will be setting up care conferences with your practice if you want to attend those or we can set up individual care conferences at a more convenient time. Mayte Mercado is being seen today through our [facility] program to complete a comprehensive exam. Privacy Practices were agreed upon and signed. This visit is to assist with complex patient care and assist your team in closing any care gaps. Today the following gaps/needs have been identified:Acute concerns addressed today: questions about Diabetes and insulin use 2025-07-16 Medication Changes: None 2025-07-16 Follow Up Recommenda tions: Keep follow ups as scheduledsees PCP q 3 monthssees ship's electronic warfare officer q 6 months 2025-07-16 Medicationsmanaged o n her ownuses pill technical planner 2025-07-16 SW7lbyf last few mon ths decrease in ToujeoNow taking 16 glarginetakes SSI of aspart TID - usually 3-9 unitsshe keeps great care of diabetes log - reviewed in detailAM glucose normally 100-110bedtime glucose higher has been 180s-190slast A1c is 7.2% per her reportseeing music educator in the pastdenies any lowsshe is concerned about her slight elevated readings in the eveninggets blood work done about every 3 months, next will be in September 2025-10-03 Routinedeclines flu shot - states she never gets sickdenies any issues with high costs of meds 2025-07-16 Cardiac issuesAtrial tachycardia, mostly AF, plus h/o SVThad SVT ablation in February 2025Still has palpations occasionally at night; maybe about 1x per weekworse with stress from family 2025-07-16 Had shingles in Augu stright T4 areastill has some residual neuropathic pain but improving
--- OUTSIDE RECORDS SUMMARY | 2025-08-19 17:07 | XMS_ITS | Encounter Summary ---
Author Organization [facility] Address [address] [place] [address] Phone Care Team Providers Care District Captain Name Role Phone Pernell Pratt MD Primary Care Provide r Encounter Details Date Type Department Care Team (Late st Contact Info) Description 07/22/2025 Results Follow-Up [facility] Medicine Cardiology [address] [facility] Advanced Medicine 8th [place] [address] [place] [address] Moe Zapata MD PhD [address] [facility] [address] [place] [address] ECG 12 lead, Extended/Custodial Holter Patch (>48 hours up to 7 days) Social History Tobacco Use Types Packs/Day Years [...] on file 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
--- OUTSIDE RECORDS SUMMARY | 2025-08-19 17:07 | XMS_ITS | Encounter Summary ---
Author Organization [facility] Address [address] [place] [address] Phone Care Team Providers Care Regulatory Auditor Name Role Phone Pernell Pratt MD Primary Care Provide r Encounter Details Date Type Department Care Team (Late st Contact Info) Description 08/05/2025 Telephone [facility] Medicine Cardiology [address] [facility] Advanced Medicine 8th [place] [address] [place] [id number] Moe Zapata MD PhD [address] [facility] [address] [place], [place] [id number] Social History Tobacco Use Types Packs/Day Years [...] on file 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 Notified by [employer] that patients monitor results show 75 pauses, the longest lasting 4.3seconds. This episode occurred on 07-23-25 at 0457 am. Cari at [facility] states report should be available for review. * Telephone Encounter - Shyla Maloney - 08/05/2025 11:55 AM CDT [employer] calling to speak with a nurse in regards to reporting a critical EKG report on this pt. documented in this encounter Plan of Treatment Not on file documented as of this encounter Visit Diagnoses Not on filedocumented in this encounter Care Teams Regulatory Auditor Relationship Specialty Start Date End Date Pernell Pratt MD [address] [place] [address] PCP - General 09/11/12 documented as of this encounter
--- OUTSIDE RECORDS SUMMARY | 2025-08-19 17:07 | XMS_ITS | Clinical Summary ---
Author Organization [facility] [address] Address [address] [place] [address] Care Team Providers Care Flat Folding Machine Operator Name Role Phone Pernell Pratt MD Primary Care Provide r Allergies No known active allergies Medications atorvastatin (LIPITOR) 40 mg tabletIndicatio ns:hyperlipidem ia Take 1 tablet (40 mg total) by mouth nightly Active alendronate (FOSAMAX) 70 mg tabletIndicatio ns:Post-[place] symone Osteoporosis Take 1 tablet (70 mg total) by mouth every 7 days Take in the morning with a full glass of water, on an empty stomach, and do not take anything else by mouth or lie down for the next 30 min. Sundays Active insulin aspart (NovoLOG) 100 unit/mL vial for injectionIndica tions:type 2 diabetes mellitus Inject under the skin 3 (three) times a day before meals Sliding scale per provider instructions 01/27/20 24 Active diclofenac sodium (VOLTAREN) 1 % gelIndications: Pain Apply 2 g topically as needed (pain) Active cholecalciferol , vitamin D3, (D3-5000 ORAL)Indication s:supplement Take 1 tablet by mouth every morning Active TOUJEO MAX 300 unit/mL (3 mL) pen for injectionIndica tions:type 2 diabetes mellitus Inject 16 Units under the skin every morning 04/23/20 24 Active acetaminophen (TYLENOL) 325 mg tabletIndicatio ns:Pain Take 2 tablets (650 mg total) by mouth every 6 (six) hours as needed for pain Active pantoprazole DR (PROTONIX) 40 mg EC tabletIndicatio ns:Treatment of Non-Bleeding Gastric Disorder Take 1 tablet (40 mg total) by mouth every morning 05/21/20 Active Contour Next Test Strips strip TEST THREE TIMES DAILY NEEDED 07/29/20 Active BD Shraddha 2nd Gen Pen Needle 32 gauge x 32 needle USE DIRECTED TO INJECT WITH INSULIN 3 TIMES DAILY 09/30/20 Active empagliflozin (JARDIANCE) 10 mg tabletIndicatio ns:type 2 diabetes mellitus Take 1 tablet (10 mg total) by mouth every morning 11/04/19 Active dilTIAZem XR 120 mg 24 hr capsule TAKE 1 CAPSULE BY MOUTH EVERY DAY 90 capsule 2 01/30/20 Active UNABLE TO FINDIndications :pain supplement Take 2 each by mouth with lunch Med Name: Cecil XL Active Eliquis 5 mg tabletIndicatio ns:Other (complete free text reason below),VTE Prophylaxis,SVT 's Take 1 tablet (5 mg total) by mouth 2 (two) times a day 180 tablet 3 03/09/20 Active sotaloL (BETAPACE) 80 mg tablet TAKE 1 TABLET BY MOUTH 2 TIMES A DAY. 180 tablet 2 07/28/20 Active sotaloL (BETAPACE) 80 mg tablet Take 1 tablet (80 mg total) by mouth 2 (two) times a day 180 tablet 2 11/03/19 25 2024 Discontinued Active Problems Problem Noted Date Diagnosed Date [...] Encounters Date Type Department Care Team Description 08/05/2025 Telephone [facility] 8th [place] [address] [place] [address] Moe Zapata MD PhD 07/27/2025 8:15 AM CDT Office Visit [facility] [address] [place] [address] Pernell Durant MD SVT (supraventricular tachycardia) (Primary Dx); Encounter for monitoring sotalol therapy; Typical atrial flutter (HCC); Need for lipid screening 07/22/2025 Results Follow-Up [facility] [address] [place] [address] [place] [address] [place] [address] Moe Zapata MD PhD ECG 12 lead, Extended/Group Home Holter Patch (>48 hours up to 7 days) 07/21/2025 4:30 PM CDT Office Visit [facility] [address] [place] [address] [place] [address] [place] [address] Moe Zapata MD PhD Typical atrial flutter (HCC) (Primary Dx); Ectopic atrial tachycardia; Palpitations; High risk medication use 07/21/2025 3:45 PM CDT Ancillary Procedure [facility] [address] [place] [address] [place] [address] [place] [address] Ectopic atrial tachycardia; Palpitations from Last 3 Months Surgical History Surgery Date Site/Laterality Comments CARDIAC CATHETERIZATION 10/14/2023 - 10/13/2024 CARDIAC ELECTROPHYSIOLOGY PROCEDURE 02/08/2025 N/A Procedure: ABLATION SUPRAVENTRICULAR TACHYCARDIA (SVT) [id number]; Surgeon: Moe Zapata MD PhD; Location: [facility]; Service: Cardiovascular; Laterality: N/A; Medical devices from this surgery are in the Medical Devices section. CARDIAC ELECTROPHYSIOLOGY PROCEDURE 02/08/2025 N/A Procedure: POST DRUG PROGRAM STIM AND PACING (+) [id number]; Surgeon: Moe Zapata MD PhD; Location: [facility]; Service: Cardiovascular; Laterality: N/A; Medical devices from this surgery are in the Medical Devices section. 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 Gender Identity Not on file Sexual Orientation Not on file Last Filed Vital Signs Vital Sign Reading Time Taken Comments Blood Pressure 126/66 07/27/2025 8:14 AM CDT Pulse 55 07/27/2025 8:14 AM CDT Temperature 36.5 C (97.7 F) 02/09/2025 8:30 AM CDT Respiratory Rate 16 02/09/2025 8:30 AM CDT Oxygen Saturation 98% 07/27/2025 8:14 AM CDT Inhaled Oxygen Concentration - - Weight 53.5 kg (118 lb) 07/27/2025 8:14 AM CDT Height 147.3 cm (4' 10) 07/27/2025 8:14 AM CDT Body Mass Index 24.66 07/27/2025 8:14 AM CDT Plan of Treatment Health Maintenance Due [...] of 2) 2001 Well Visit 65+ 01/10/2016 Hemoglobin A1C 11/21/2024 05/21/2024 Covid-19 Vaccine (3 - 2024-2 6 season) 2025 01/19/2021, 12/29/2020 Influenza Vaccine (#1) 2025 eGFR 02/07/2026 02/07/2025, 02/05/2025 Fall Risk Assessment 02/09/2026 02/09/2025 Lipid Panel 07/27/2026 07/27/2025, 01/12, 01/17/2023, Additional history exists Medical Devices Implanted Type Area Arboreal Scientist Device Identifier Shelf Expiration Date Model / Serial / Lot [employer] Device Closure Vascade Od5 Fr Femoral Artery [id number] - [id number] - [id number] Implanted:Qty: 1 on 02/08/2025 by Moe Zapata MD PhD at [facility] Vascular Closure Device [employer] 11/11/2026 [id number] / [id number] / [id number] [employer] Vascade Mvp 6-12fr Venous Closure [id number] - [id number] - [id number] Implanted:Qty: 1 on 02/08/2025 by Moe Zapata MD PhD at [facility] Vascular Closure Device [employer] 12/10/2026 [id number] [id number] / [id number] / [id number] [employer] Vascade Mvp 6-12fr Venous Closure [id number] - [id number] - [id number] Implanted:Qty: 1 on 02/08/2025 by Moe Zapata MD PhD at [facility] Vascular Closure Device [employer] 11/23/2026 [id number] [id number] / [id number] / [id number] [employer] Device Vascular Closure Vascade Mvp Xl 10-12fr Venous Strl [id number] - [id number] - [id number] Implanted:Qty: 1 on 02/08/2025 by Moe Zapata MD PhD at [facility] Vascular Closure Device [employer] 11/11/2026 [id number] / [id number] / [id number] Procedures Procedure Name Priority Date/Time Associated Diagnosis Comments POCT LIPID PANEL Routine 07/27/2025 9:56 AM CDT Need for lipid screening EXTENDED/SHELTER HOLTER PATCH (>48 HOURS UP TO 7 DAYS) Routine 07/21/2025 5:14 PM CDT Ectopic atrial tachycardia Palpitations ECG 12-LEAD Routine 07/21/2025 4:37 PM CDT Typical atrial flutter (HCC) EGFR STAT 02/07/2025 11:48 PM CDT from Last 3 Months or Most Recently Relevant to Health Maintenance Results * POCT lipid panel (07/27/2025 9:56 AM CDT) Cholesterol, POC 128 <200 MG/DL HDL, POC 51 >=40 mg/dL Triglycerides, POC 94 <=149 mg/dL LDL Cholesterol POC 58 <=129 mg/dL Chol/HDL Ratio, POC 1.1 NONE Non-HDL Cholesterol, POC 77 NONE mg/dL Cholesterol Total, POC 128 30 - 199 mg/dL Capillary blood 07/27/2025 9 :56 AM CDT us Pernell Durant MD POINT OF CARE TEST ORDER LEAH Final Result * Extended/Group Home Holter Patch (>48 hours up to 7 days) (07/21/2025 5:14 PM CDT) Anatomical Region Laterality Modality Electrocardiogra phy 07/21/2025 5:11 PM CDT Narrative 08/05/2025 6:[address] [facility] [place] [address] HOLTER MONITOR Patient Name: SHANDA MERCADO : 1950 (75y 6m) Sex: F Study Date: 07/21/2025 05:11:45 PM Ht(Inch): Wt(Lb): BSA: Tech: Location: [facility] Order Provider: MOE ZAPATA BMI: Ref Provider: MOE ZAPATA PROCEDURES: Holter Report: EXTENDED/SHELTER HOLTER PATCH (>48 HOURS UP TO 7 DAYS) [[id number]]. Enrollment Period: 2025-07-21 00:00:00 through 2025-07-28 00:00:00. Location: [facility]. INDICATIONS: I47.19 Other supraventricular tachycardia and R00.2 Palpitations. FINDINGS: Holter Data: Min Rate: 22 BPM Min Rate Timestamp: 2025-07-23 07:43:05 Bradycardia (% of study): 81 Max Rate: 114 BPM Max Rate Timestamp: 2025-07-27 09:42:05 Tachycardia (% of study): 0 Mean Rate: 49 BPM AFib (% of study): 0 Singlets (PACs): 6274 events Couplets (PACs): 26 events Total (PACs): 75726 events Singlets (PVCs): 756 events Couplets (PVCs): 4 events Total (VE): 771 events Runs (VT): 0 events Total beats: 264044 SIGNIFICANT PAUSES: 75 >3 sec Protocol: Recording Duration (Ordered): [id number] Recording Duration (Actual): 370519.88 SUMMARY: *The predominant rhythm was Sinus. *The Maximum Heart Rate recorded was 114 bpm, 07/27 09:42:05, the Minimum Heart Rate recorded was 22 bpm, 07/23 07:43:05, and the Average Heart Rate was 49 bpm. *The study included 75 Pauses. The Longest Pause was 4.3s, 07/23 04:57:41. *There were 771 VE beats with a burden of <1 %. *There were 20,883 SVE beats with a burden of 4 %. There were 4 occurrences of Supraventricular Tachycardia with the Fastest episode 114 bpm, 07/27 09:42:05, and the Longest episode 9 beats, 07/24 12:00:05. *Other rhythms in this study include: Junctional Escape Rhythm, Ventricular Run. *There were 0 Patient Triggers.;. CONCLUSIONS: 1. *The predominant rhythm was Sinus. *The Maximum Heart Rate recorded was 114 bpm, 07/27 09:42:05, the Minimum Heart Rate recorded was 22 bpm, 07/23 07:43:05, and the Average Heart Rate was 49 bpm. *The study included 75 Pauses. The Longest Pause was 4.3s, 07/23 04:57:41. *There were 771 VE beats with a burden of <1 %. *There were 20,883 SVE beats with a burden of 4 %. There were 4 occurrences of Supraventricular Tachycardia with the Fastest episode 114 bpm, 07/27 09:42:05, and the Longest episode 9 beats, 07/24 12:00:05. *Other rhythms in this study include: Junctional Escape Rhythm, Ventricular Run. *There were 0 Patient Triggers.;. 2. I have reviewed the PDF and all the ECG strips. I agree with the interpretations as detailed in the report 3. The PDF can be found in the Epic Patient chart. Please go to the Cardiology tab, click on the holter or event exam. Scroll to bottom where the ORDER LEVEL Documents reside and click the blue link to the pdf. Electronically Signed By: Deyvi Cisse Jr., M.D. 08/05/2025 6:01:22 PM CDT Procedure Note Deyvi Cisse MD PhD - 08/05/2025 [facility] Card[facility] [place] [address] [place] [address] HOLTER MONITOR Patient Name: SHANDA MERCADO : 1950 (75y 6m) Sex: F Study Date: 07/21/2025 05:11:45 PM Ht(Inch): Wt(Lb): BSA: Tech: Location: [facility] Order Provider: MOE ZAPATA BMI: Ref Provider: MOE ZAPATA PROCEDURES: Holter Report: EXTENDED/SHELTER HOLTER PATCH (>48 HOURS UP TO 7 DAYS)[[id number]]. Enrollment Period: 2025-07-21 00:00:00 through 2025-07-28 00:00:00. Location: [facility]. INDICATIONS: I47.19 Other supraventricular tachycardia and R00.2 Palpitations. FINDINGS: Holter Data: Min Rate: 22 BPM Min Rate Timestamp: 2025-07-23 07:43:05 Bradycardia (% of study): 81 Max Rate: 114 BPM Max Rate Timestamp: 2025-07-27 09:42:05 Tachycardia (% of study): 0 Mean Rate: 49 BPM AFib (% of study): 0 Singlets (PACs): 6274 events Couplets (PACs): 26 events Total (PACs): 17915 events Singlets (PVCs): 756 events Couplets (PVCs): 4 events Total (VE): 771 events Runs (VT): 0 events Total beats: 648222 SIGNIFICANT PAUSES: 75 >3 sec Protocol: Recording Duration (Ordered): [id number] Recording Duration (Actual): 566961.88 SUMMARY: *The predominant rhythm was Sinus. *The Maximum Heart Raterecorded was 114 bpm, 07/27 09:42:05, the Minimum Heart Rate recorded was 22 bpm, 07/1007:43:05, and the Average Heart Rate was 49 bpm. *The study included 75 Pauses. The LongestPause was 4.3s, 07/23 04:57:41. *There were 771 VE beats with a burden of <1 %. *Therewere 20,883 SVE beats with a burden of 4 %. There were 4 occurrences of SupraventricularTachycardia with the Fastest episode 114 bpm, 07/27 09:42:05, and the Longest episode 9beats, 07/24 12:00:05. *Other rhythms in this study include: Junctional Escape Rhythm,Ventricular Run. *There were 0 Patient Triggers.;. CONCLUSIONS: 1. *The predominant rhythm was Sinus. *The Maximum Heart Rate recorded svl832 bpm, 07/27 09:42:05, the Minimum Heart Rate recorded was 22 bpm, 07/23 07:43:05, andthe Average Heart Rate was 49 bpm. *The study included 75 Pauses. The Longest Pausewas 4.3s, 07/23 04:57:41. *There were 771 VE beats with a burden of <1 %. *There were20,883 SVE beats with a burden of 4 %. There were 4 occurrences of SupraventricularTachycardia with the Fastest episode 114 bpm, 07/27 09:42:05, and the Longest episode 9 beats,07/24 12:00:05. *Other rhythms in this study include: Junctional Escape Rhythm,Ventricular Run. *There were 0 Patient Triggers.;. 2. I have reviewed the PDF and all the ECG strips. I agree with theinterpretations as detailed in the report 3. The PDF can be found in the Epic Patient chart. Please go to theCardiology tab, click on the holter or event exam. Scroll to bottom where the ORDER LEVELDocuments reside and click the blue link to the pdf. Electronically Signed By: Deyvi Cisse Jr., M.D. 08/05/2025 6:01:22 PM CDT Moe Zapata MD PhD [facility] CARDIAC SERVICES PROCEDURES Final Result * ECG 12 lead (07/21/2025 4:37 PM CDT) Moe Zapata MD PhD ECG ORDERABLES Cleve daron Result - Final * eGFR (02/07/2025 11:48 PM CDT) eGFR [...] of Race in Diagnosing Kidney Disease, JASN 202). The CKD-EPI equation should not be used for patients with unstable renal function and has not been validated in children and those over 70. Current interpretive data was last reviewed 2021. Blood 02/07/2025 11:4 8 PM CDT 02/08/2025 Rivka Acosta MD LAB BLOOD ORDERABLES Final Result [facility] Department [place] [address] from Last 3 Months or Most Recently Relevant to Health Maintenance Insurance [address] [place] [address] [facility] IDMS [facility] Advance Directives For more information, please contact: [phone] Documents on File Type Date Recorded Patient Engineer Specialist Expl anation ADVANCE DIRECTIVE 02/12/2025 6:36 PM POWER OF INTERPERSONAL COMMUNICATIONS PROFESSOR-MEDICAL * Full Code (Latest Code Status on File) Date Activated Date Inactivated Comments 02/08/2025 7:09 PM 02/09/2025 3:14 PM Care Teams Flat Folding Machine Operator Relationship Specialty Start Date End Date Pernell Pratt MD [address] [place] [address] PCP - General 09/11/12
--- OUTSIDE RECORDS SUMMARY | 2025-08-19 17:07 | XMS_ITS | Clinical Summary ---
Author Organization [facility] Address [address] [place] [address] Care Team Providers Care Bending Frame Operator Name Role Phone Pernell Pratt MD Primary Care Provider [phone] Source Comments [facility],non-owned Affiliates and Associated Physician Practices is amultiple site organization consisting of ambulatory clinics and hospital sitesin [place], [place], [place] and [place]. This disclosure is being madepursuant to the Care Everywhere program and may not contain all information available regarding this patient. Last updated 18.[employer] [facility] Allergies No known active allergies Medications * [...] MOUTH ONCE DAILY 30 tablet 05/21/20 24 Active isosorbide mononitrate CR 24hr (Imdur) 30 MG tablet TAKE ONE TABLET BY MOUTH ONCE DAILY 30 tablet 05/21/20 24 Active Active Problems Problem Noted Date Diagnosed [...] SCREENING 05/21/2024 DIABETES-FOOT EXAM WITH MONOFILAMENT 05/21/2024 DEPRESSION SCREENING 10/14/2024 DIABETES - URINE PROTEIN SCREENING 10/14/2024 DIABETES-HGB A1C 11/21/2024 05/21/2024 DIABETES-SERUM CREATININE 05/21/20252023, 05/20/2024 COVID-19 VACCINE ( - 2023-2 5 season) 2025 INFLUENZA VACCINE (#1) 2025 HEPATITIS B VACCINE Aged Out No [...] 7.2(H) <=5.6 % 05/21/2024 10:10 AM CDT [facility] Estimated Average Glucose 160 mg/dL 05/21/2024 10:10 AM CDT [facility] Comment: HbA1c Interpretation: Normal : < 5.7% Pre-diabetes: 5.7-6.4% Diabetes: Equal to or greater than 6.5% Test results diagnostic of diabetes should be repeated for confirmation. Treatment target values recommended by ADA and other clinical organizations should be used to evaluate metabolic control in patients. Reference: [place] Diabetes Association, Standards of Care in Diabetes [...] LAB - CHEMISTRY ORDERABLE S Final Result [address] [address], [facility] [phone] * (ABNORMAL) BASIC METABOLIC PANEL (CALCIUM TOTAL) (05/21/2024 4:13 AM CDT) BUN 12 7 - 26 mg/dL 05/21/2024 5:06 AM [facility] Creatinine 0.58 0.56 - 0.96 mg/dL 05/21/2024 5:06 AM [facility] Sodium 141 136 - 145 mmol/L 05/21/2024 5:06 AM [facility] Potassium 4.0 3.5 - 4.5 mmol/L 05/21/2024 5:06 AM [facility] Chloride 112(H) 98 - 107 mmol/L 05/21/2024 5:06 AM [facility] CO2 21(L) 22 - 29 mmol/L 05/21/2024 5:06 AM [facility] Glucose 80 70 - 115 mg/dL 05/21/2024 5:06 AM [facility] Calcium 9.4 8.4 - 10.2 mg/dL 05/21/2024 5:06 AM [facility] Anion Gap 8 6 - 16 05/21/2024 5:06 AM CDT [facility] BUN/Creatinine Ratio 21 7 - 23 05/21/2024 5:06 AM CDT [facility] Osmolality Calculated 291 275 - 295 [...] Result [facility] [address] [place] [address], [facility] [phone] from Last 3 Months or Most Recently Relevant to Health Maintenance Insurance [address] [place] [address] [employer] [place] [place] Advance Directives * Full Code (Latest Code Status on File) Date Activated Date Inactivated Comments 05/21/2024 3:32 AM 05/21/2024 9:36 PM Care Teams Bending Frame Operator Relationship Specialty Start Date End Date Pernell Pratt MD [address] [id number] PCP - General Internal Medicine 05/21/24
--- OUTSIDE RECORDS SUMMARY | 2025-08-19 17:07 | XMS_ITS | Clinical Summary ---
Author Organization [facility] Address [address] [place] [address] Care Team Providers Care Sewage Treatment Plant Operator Name Role Phone Unavailable Primary Care Provider [...] 2001 Dexa Scan (General) 01/10/2016 COVID-19 Vaccine (2024-2 6 season) 2025 Influenza Adult (#1) 2025 RSV Immunization or 60+ Years (1 - 1-dose 75+ series) 2026 Hepatitis A Vaccines Aged Out No long er eligible based on patient's age to complete this topic Meningococcal B Vaccine Aged Out No l onger eligible based on patient's age to complete this topic Meningococcal Vaccine Aged Out No mahi nathalie eligible based on patient's age to complete this topic RSV Immunizations Under 20 Months Aged Out No longer eligible based on patient's age to complete this topic
--- OUTSIDE RECORDS SUMMARY | 2025-08-19 17:07 | XMS_ITS | Encounter Summary ---
Author Organization [facility] Healthcare Address [address] [place] [address] Care Team Providers Care Hospital Pharmacist Name Role Phone Pernell Pratt MD Primary Care Provide r Encounter Details Date Type Department Care Team (Late st Contact Info) Description 09/19/[address] 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
== END 2025-08-19 08:19 | disposition home or self-care (01) ==
PROVIDERS: PCP Emergency Medicine
DX: Z51.81 Encounter for therapeutic drug level monitoring (principal); Z79.899 Other long term (current) drug therapy
CPT/HCPCS: 36415; 80048

== ENCOUNTER 2025-09-06 08:53 | Outpatient (CLI) | payer OTHER, MEDICAID, SELFPAY ==
--- NOTE | ~2025-09-06 | MM_ITS ---
EXAMINATION: MM screening cuate BI w michelle HISTORY: Screening TECHNIQUE: Craniocaudal and mediolateral oblique 3-D tomosynthesis images were obtained and synthetic 2-D images were generated. CAD analysis was submitted and interpreted. COMPARISON: Comparison to multiple prior studies sequentially, with oldest reviewed study dated 09/12/2018. BREAST PARENCHYMAL COMPOSITION: Not dense: There are scattered areas of fibroglandular density. FINDINGS: There is no evidence of suspicious mass, calcification, or architectural distortion to suggest malignancy in either breast. There has been no suspicious interval change. IMPRESSION: 1. No mammographic evidence of malignancy. 2. Recommend routine screening mammography in one year. BI-RADS Category 1: Negative Reviewed, dictated and finalized at location O. R TECHNICIAN
--- OUTSIDE RECORDS SUMMARY | 2025-09-06 09:30 | XMS_ITS ---
Author Name Zheng Quinones DO Address [address] [place] [address] Phone [phone] Organization [facility] Care Team Providers Care Director Of Logistics Name Role Phone Zheng Quinones Unavailable [phone] [facility] Tier 1 RN (VIRI), Cheryl rice Unavailable Pernell Durant Unavailable [phone] PERNELL CARIAS Unavailable [phone] Reason for Referral Not Available Allergies, adverse [...] least 60 minutes total time on enco [email or web address] [place] 07/16/2025 Paroxysmal atrial fibrillationType 2 diabetes mellitus with hyperglycemiaLong term (current) use of insulinPersonal history of other diseases of the circulatory systemOther hypertrophic cardiomyopathyAge-related osteoporosis without current pathological fractureGastro-esophageal reflux disease without esophagitisPersonal history of nicotine dependenceBody mass index (BMI) 24.0-24.9, adult Home visit for evaluation and management of new patient requiring medically appropriate examination and moderate level of medical decision making. If using time, at least 60 minutes total time on en[facility] [place] 07/16/2025 Other hypertrophic cardiomyopathy Home visit for evaluation and management of new patient requiring medically appropriate examination and moderate level of medical decision making. If using time, at least 60 minutes total time on enco [email or web address] [place] 07/16/2025 Other hypertrophic cardiomyopathy Vital Signs Date of Collection Vitals 2025-07-16 08:00:00 Height - 147.32 cmWe ight - 52.21 kgBody Mass Index (BMI) - 24.06 kg/m2BP Diastolic - 59.0 mm[Hg]BP Systolic - 136.0 mm[Hg]Heart Rate - 52.0 /minRespiratory Rate - 16.0 /minO2 % BldC Oximetry - 99.0 % Social History Social History Social History Observation Description Effec tive Time Current Smoking Status Former smoker 2025-08-15 4 Sex Female History of Procedures Procedures Service Procedure code Service date Servicing provider Phone# Home visit for evaluation and management of new patient requiring medically appropriate examination and moderate level of medical decision making. If using time, at least 60 minutes total time on enco [id number] 2025-07-16 No Data Available No Data Availa [...] continues for stroke preventionContinue to f/u with [facility] cardiology and [facility] EP at q 6 mo basisReviewed her [...] ( 52) has been enrolled in [facility]. [facility] is care by a physician and/or [...] is being seen today through our [facility] program to complete a comprehensive exam. 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
--- OUTSIDE RECORDS SUMMARY | 2025-09-06 09:31 | XMS_ITS | Clinical Summary ---
Author Organization [facility] [employer] Address [address] [place] [address] Care Team Providers Care Medical Delivery Driver Name Role Phone Pernell Pratt MD Primary Care Provider [phone] Source Comments [facility] [employer],non-owned Affiliates and Associated Physician Practices is amultiple site organization consisting of ambulatory clinics and hospital sitesin [place], [place], [place] and [place]. This disclosure is being madepursuant to the Care Everywhere program and may not contain all information available regarding this patient. Last updated 18.[employer]obi [employer] Allergies No known active allergies Medications * [...] 50+ (1 of 2 - PCV) 1970 Respiratory Syncytial Virus (RSV) Vaccine Pt: or over 60 yrs (1 - Risk 50-74 years 1-dose series) 2001 ZOSTER VACCINE (1 of 2) 2001 DIABETES RETINOPATHY SCREENING 05/21/2024 DIABETES-FOOT EXAM WITH MONOFILAMENT 05/21/2024 DEPRESSION SCREENING 10/14/2024 DIABETES - URINE PROTEIN SCREENING 10/14/2024 DIABETES-HGB A1C 11/21/2024 05/21/2024 DIABETES-SERUM CREATININE 05/21/20252023, 05/20/2024 COVID-19 VACCINE (2024-2 6 season) 2025 INFLUENZA VACCINE (#1) 2025 HEPATITIS [...] 7.2(H) <=5.6 % 05/21/2024 10:10 AM CDT [facility] Estimated Average Glucose 160 mg/dL 05/21/2024 10:10 AM CDT [facility] Comment: HbA1c Interpretation: Normal : < 5.7% Pre-diabetes: 5.7-6.4% Diabetes: Equal to or greater than 6.5% Test results diagnostic of diabetes should be repeated for confirmation. Treatment target values recommended by ADA and other clinical organizations should be used to evaluate metabolic control in patients. Reference: [place] Diabetes Association, Standards of Care in Diabetes [...] LAB - CHEMISTRY ORDERABLE S Final Result [address] [address], [facility] [phone] * (ABNORMAL) BASIC METABOLIC PANEL (CALCIUM TOTAL) (05/21/2024 4:13 AM CDT) BUN 12 7 - 26 mg/dL 05/21/2024 5:06 AM [facility] Creatinine 0.58 0.56 - 0.96 mg/dL 05/21/2024 5:06 AM [facility] Sodium 141 136 - 145 mmol/L 05/21/2024 5:06 AM [facility] Potassium 4.0 3.5 - 4.5 mmol/L 05/21/2024 5:06 AM [facility] Chloride 112(H) 98 - 107 mmol/L 05/21/2024 5:06 AM [facility] CO2 21(L) 22 - 29 mmol/L 05/21/2024 5:06 AM [facility] Glucose 80 70 - 115 mg/dL 05/21/2024 5:06 AM [facility] Calcium 9.4 8.4 - 10.2 mg/dL 05/21/2024 5:06 AM [facility] Anion Gap 8 6 - 16 05/21/2024 5:06 AM CDT [facility] BUN/Creatinine Ratio 21 7 - 23 05/21/2024 5:06 AM CDT [facility] Osmolality Calculated 291 275 - 295 mOsm/kg 05/21/2024 5:06 AM CDT [facility] eGFR by CKD-EPI >90 >=90 mL/min/1.7 3 m2 05/21/2024 5:06 AM T [facility] Blood BLOOD SPECIMEN / Unknown Venipuncture / Unknown 05/21/2024 4:13 AM CDT 05/21/2024 4:23 AM CDT Richard Velazco PA-C LAB - CHEMISTRY ORDERABLE S Final Result [facility] [address] [place] [address], [facility] [phone] from Last 3 Months or Most Recently Relevant to Health Maintenance Insurance [address] [place] [address] [employer] [place] [place] Advance Directives * Full Code (Latest Code Status on File) Date Activated Date Inactivated Comments 05/21/2024 3:32 AM 05/21/2024 9:36 PM Care Teams Medical Delivery Driver Relationship Specialty Start Date End Date Pernell Pratt MD [address] [phone] PCP - General Internal Medicine 05/21/24
--- OUTSIDE RECORDS SUMMARY | 2025-09-06 09:31 | XMS_ITS | Encounter Summary ---
Author Organization [facility] Address [address] [place] [address] Phone Care Team Providers Care Rail Transit Operator Name Role Phone Pernell Pratt MD Primary Care Provide r Encounter Details Date Type Department Care Team (Late st Contact Info) Description 07/22/2025 Results Follow-Up [facility] Medicine Cardiology [address] [facility] 8th [place] [address] [place] [address] Moe Zapata MD PhD [address] [facility] [address] [place] [address] ECG 12 lead, Extended/Correction Holter Patch (>48 hours up to 7 [...] on file Legal Sex Female 1:58 AM CLIENT SERVICE PROFESSIONAL Gender Identity Not on file Sexual Orientation Not on file documented as of this encounter Miscellaneous Notes * Result Encounter Note - Rita Farley RN - 08/23/2025 11:24 AM CLIENT SERVICE PROFESSIONAL Patient scheduled for PM implant 11-22-24. Reports having frequent episodes of dizziness / lightheadedness. NT SERVICE PROFESSIONAL documented in this encounter Plan of Treatment Upcoming Encounters Date Type Department Care Team (Latest Contact Info) Description 11/22/2025 8:30 AM CLIENT SERVICE PROFESSIONAL Hospital Encounter [facility] Electrophysiology Lab [address] [place] [address] Moe Zapata MD PhD [address] [address] Sinus pause 11/22/2025 8:30 AM CLIENT SERVICE PROFESSIONAL - 11/22/2025 11:23 AM CLIENT SERVICE PROFESSIONAL Surgery [facility] Electrophysiology Lab [address] [place] [address] Moe Zapata MD PhD [address] [address] IMPLANT DUAL CHAMBER PPM SYSTEM W/ DUAL ELECTRODES (GEN AND LEADS, NEW OR REPLACE) [id number] documented as of this encounter Visit Diagnoses Not on filedocumented in this encounter Care Teams Rail Transit Operator Relationship Specialty Start Date End Date Pernell Pratt MD [address] [place] [address] PCP - General 09/11/12 documented as of this encounter
--- OUTSIDE RECORDS SUMMARY | 2025-09-06 09:31 | XMS_ITS | Clinical Summary ---
Author Organization [facility] [address] Address [address] [place] [address] Care Team Providers Care Match Marker Name Role Phone Pernell Pratt MD Primary [...] total) by mouth every morning 4 Active Contour Next Test Strips strip TEST THREE TIMES DAILY NEEDED 4 Active BD Shraddha 2nd Gen Pen Needle 32 gauge x needle USE DIRECTED TO INJECT WITH INSULIN [...] each by mouth with lunch Med Name: Sandpoint XL Active Eliquis 5 mg tabletIndication s:Other (complete free text reason below),VTE Prophylaxis,SVT' s Take 1 tablet (5 mg total) by mouth 2 (two) times a day 180 tablet 3 5 Active sotaloL (BETAPACE) 80 mg tablet TAKE 1 TABLET BY MOUTH 2 TIMES A DAY. 180 tablet 2 5 Active Active Problems Problem Noted Date Diagnosed Date Sinus pause 08/20/2025 Atrial tachycardia 03/09/2025 Assessment & Plan (03/09/2025 [...] Type Department Care Team Description 08/05/2025 Telephone [facility] 8th [place] [address] [place] [address] Moe Zapata MD PhD 07/27/2025 8:15 AM CDT Office Visit [facility] Cardiology [address] [facility] [address] [place] [address] Pernell Durant MD SVT (supraventricular tachycardia) (Primary Dx); Encounter for monitoring sotalol therapy; Typical atrial flutter (HCC); Need for lipid screening 07/22/2025 Results Follow-Up [facility] Cardiology [address] [place] [address] [place] [address] [place] [address] Moe Zapata MD PhD ECG 12 lead, Extended/Jail Holter Patch (>48 hours up to 7 days) 07/21/2025 4:30 PM CDT Office Visit [facility] Cardiology [address] [place] [address] [place] [address] [place] [address] Moe Zapata MD PhD Typical atrial flutter (HCC) (Primary Dx); Ectopic atrial tachycardia; Palpitations; High risk medication use 07/21/2025 3:45 PM CDT Ancillary Procedure [facility] Cardiology [address] [place] [address] [place] [address] [place] [address] Ectopic atrial tachycardia; Palpitations from Last 3 Months Surgical History Surgery Date Site/Laterality Comments CARDIAC CATHETERIZATION 10/14/2023 - 10/13/2024 CARDIAC ELECTROPHYSIOLOGY PROCEDURE 02/08/2025 N/A Procedure: ABLATION SUPRAVENTRICULAR TACHYCARDIA (SVT) 91141; Surgeon: Moe Zapata MD PhD; Location: [facility] EP LAB; Service: Cardiovascular; Laterality: N/A; Medical devices from this surgery are in the Medical Devices section. CARDIAC ELECTROPHYSIOLOGY PROCEDURE 02/08/2025 N/A Procedure: POST DRUG PROGRAM STIM AND PACING (+) 48542; Surgeon: Moe Zapata MD PhD; Location: [facility] EP LAB; Service: Cardiovascular; Laterality: N/A; [...] on file Legal Sex Female 1:58 AM TIRE WRAPPER Gender Identity Not on file Sexual Orientation [...] 07/27/2025 8:14 AM CDT Plan of Treatment Upcoming Encounters Date Type Department Care Team (Latest Contact Info) Description 11/22/2025 8:30 AM TIRE WRAPPER Hospital Encounter [facility] Electrophysiology Lab 1 [place] [address] Moe Zapata MD PhD [address] [address] Sinus pause 11/22/2025 8:30 AM TIRE WRAPPER - 11/22/2025 11:23 AM TIRE WRAPPER Surgery [facility] Electrophysiology Lab 1 [place] [address] Moe Zapata MD PhD [address] [facility] [address] [place] [address] IMPLANT DUAL CHAMBER PPM SYSTEM W/ DUAL ELECTRODES (GEN AND LEADS, NEW OR REPLACE) [address] Health Maintenance Due Date Last Done Comments [...] 07/27/2026 07/27/2025, 01/12, 01/17/2023, Additional history exists Goals Goal Patient Goal Type Associated Problems Recent Progress Patient-Stated? Author Autogenerat ed Goal Care Plan Autogenerated Problem No [employer]i [employer] Implanted Type Area Developer Prover Mechanical Device Identifier Shelf Expiration Date Model / Serial / Lot [employer] Device Closure Vascade Od5 Fr Femoral Artery [id number] - [id number] - [id number] Implanted:Qty: 1 on 02/08/2025 by Moe Zapata MD PhD at [facility] Vascular Closure Device [employer] 11/11/2026 [id number] [id number] / [id number] / [id number] [employer] Vascade Mvp 6-12fr Venous Closure [id number] - [id number] - [id number] Implanted:Qty: 1 on 02/08/2025 by Moe Zapata MD PhD at [facility] Vascular Closure Device [employer] 12/10/2026 [id number] 0U / [id number] / [id number] [employer] Vascade Mvp 6-12fr Venous Closure [id number] - [id number] - [id number] Implanted:Qty: 1 on 02/08/2025 by Moe Zapata MD PhD at [facility] Vascular Closure Device [employer] 11/23/2026 [id number]-[id number] 0U / [id number] / [id number] [employer] Device Vascular Closure Vascade Mvp Xl 10-12fr Venous Strl [id number] - [id number] - [id number] Implanted:Qty: 1 on 02/08/2025 by Moe Zapata MD PhD at [facility] Vascular Closure Device [employer] 11/11/2026 [id number] / [id number] / [id number] Procedures Procedure Name Priority Date/Time Associated Diagnosis Comments POCT LIPID PANEL Routine 07/27/2025 9:56 AM CDT Need for lipid screening EXTENDED/ASSISTED HOLTER PATCH (>48 HOURS UP TO 7 [...] CARE TEST ORDER LEAH Final Result * Extended/Jail Holter Patch (>48 hours up to 7 days) (07/21/2025 5:14 PM CDT) Anatomical Region Laterality Modality Electrocardiogra phy 07/21/2025 5:11 PM CDT Narrative 08/05/2025 6:02 PM CDT [facility] Cardiac [place] [address] [place] [address] HOLTER MONITOR Patient Name: SHANDA MERCADO : 1950 (75y 6m) Sex: F Study Date: 07/21/2025 05:11:45 PM Ht(Inch): Wt(Lb): BSA: Tech: Location: [facility] Order Provider: MOE ZAPATA BMI: Ref Provider: MOE ZAPATA PROCEDURES: Holter Report: EXTENDED/ASSISTED HOLTER PATCH (>48 HOURS UP TO 7 DAYS) [CAR79]. Enrollment Period: 2025-07-21 00:00:00 through 2025-07-28 00:00:00. Location: [facility]. INDICATIONS: I47.19 Other supraventricular tachycardia and R00.2 Palpitations. FINDINGS: Holter Data: Min Rate: 22 BPM Min Rate Timestamp: 2025-07-23 07:43:05 Bradycardia (% of study): 81 Max Rate: 114 BPM Max Rate Timestamp: 2025-07-27 09:42:05 Tachycardia (% of study): 0 Mean Rate: 49 BPM AFib (% of study): 0 Singlets (PACs): 6274 events Couplets (PACs): 26 events Total (PACs): 79136 events Singlets (PVCs): 756 events Couplets (PVCs): 4 events Total (VE): 771 events Runs (VT): 0 events Total beats: 269922 SIGNIFICANT PAUSES: 75 >3 sec Protocol: Recording Duration (Ordered): [id number] Recording Duration (Actual): 121118.88 SUMMARY: *The predominant rhythm was Sinus. *The [...] Note Deyvi Cisse MD PhD - 08/05/2025 [facility] Cardiac [place] [address] [place] [address] HOLTER MONITOR Patient Name: SHANDA MERCADO : 1950 (75y 6m) Sex: F Study Date: 07/21/2025 05:11:45 PM Ht(Inch): Wt(Lb): BSA: Tech: Location: [facility] Order Provider: MOE ZAPATA BMI: Ref Provider: MOE ZAPATA PROCEDURES: Holter Report: EXTENDED/ASSISTED HOLTER PATCH (>48 HOURS UP TO 7 DAYS)[CAR79]. Enrollment Period: 2025-07-21 00:00:00 through 2025-07-28 00:00:00. Location: [facility]. INDICATIONS: I47.19 Other supraventricular tachycardia and R00.2 Palpitations. FINDINGS: Holter Data: Min Rate: 22 BPM Min Rate Timestamp: 2025-07-23 07:43:05 Bradycardia (% of study): 81 Max Rate: 114 BPM Max Rate Timestamp: 2025-07-27 09:42:05 Tachycardia (% of study): 0 Mean Rate: 49 BPM AFib (% of study): 0 Singlets (PACs): 6274 events Couplets (PACs): 26 events Total (PACs): 27207 events Singlets (PVCs): 756 events Couplets (PVCs): 4 events Total (VE): 771 events Runs (VT): 0 events Total beats: 173006 SIGNIFICANT PAUSES: 75 >3 sec Protocol: Recording Duration (Ordered): 607012 Recording Duration (Actual): 373906.88 SUMMARY: *The predominant rhythm was Sinus. *The [...] was Sinus. *The Maximum Heart Rate recorded [id number] bpm, 07/27 09:42:05, the Minimum Heart Rate [...] MD LAB BLOOD ORDERABLES Final Result [facility] [address] [facility] Department [place] [address] from Last 3 Months or Most Recently Relevant to Health Maintenance Additional Health Concerns Active Problems Noted Date Diagnosed Date Autogenerated Problem 08/20/2025 Insurance [facility] Member Subscriber Plan / Payer (Ef fective 2011-Present) Name:Jess Shanda Relation to Subscriber:Self Name:Jess Shanda Payer ID:[id number] (NAIC) Type:MEDICARE RISK OTHER Address: [address] [facility] [address] [place] [address] Advance Directives For more information, please contact: [phone] Documents on File Type Date Recorded Patient Drying Tunnel Operator Expl anation ADVANCE DIRECTIVE 02/12/2025 6:36 PM POWER OF FIELD CROP FARMING SUPERVISOR-MEDICAL * Full Code (Latest Code Status on File) Date Activated Date Inactivated Comments 02/08/2025 7:09 PM 02/09/2025 3:14 PM Care Teams Match Marker Relationship Specialty Start Date End Date Pernell Pratt MD [address] [place] [address] PCP - General 09/11/12
--- OUTSIDE RECORDS SUMMARY | 2025-09-06 09:31 | XMS_ITS | Encounter Summary ---
Author Organization [facility] Healthcare Address [address] [place] [address] Care Team Providers Care Rip Sawyer Name Role Phone Pernell Pratt MD Primary Care Provide r Encounter Details Date Type Department Care Team (Late st Contact Info) Description 09/19/2024 Orders Only [facility] Health Information Management [address] [place] [address] Scanning, Provider Social History Tobacco Use Types Packs/Day Years Used Date Smoking Tobacco: Former Cigarettes Smokeless Tobacco: Never Comments:Smoking History Pac ks/day: 0.5 Packs Alcohol Use Standard Drinks/Week Comments No 0 (1 standard drink = 0.6 oz pur e alcohol) Comments Unknown Sex and Gender Information Value Date Recorded Sex Assigned at Not on file Legal Sex Female 1:58 AM CHIPS SCREEN TENDER Gender Identity Not on file Sexual Orientation Not on file documented as of this encounter Functional Status * BP Location Answer Date of Assessment Author Left arm 09/22/2024 1:12 PM CHIPS SCREEN TENDER Sony Jenkins MA * BP Location Answer Date of Assessment Author Left arm 09/22/2024 1:12 PM Sony Fortune MA documented as of this encounter Plan of Treatment Upcoming Encounters Date Type Department Care Team (Latest Contact Info) Description 11/22/2025 8:30 AM CHIPS SCREEN TENDER Hospital Encounter [facility] Electrophysiology Lab 1 [place] [address] Moe Zapata MD PhD [address] [address] Sinus pause 11/22/2025 8:30 AM CHIPS SCREEN TENDER - 11/22/2025 11:23 AM CHIPS SCREEN TENDER Surgery [facility] Electrophysiology Lab 1 [facility] [place] [address] Moe Zapata MD PhD [address] [facility] [address] [place] [address] IMPLANT DUAL CHAMBER PPM SYSTEM W/ DUAL ELECTRODES (GEN AND LEADS, NEW OR REPLACE) [id number] documented as of this encounter Procedures Procedure Name Priority Date/Time Associated Diagnosis Comments SCAN - RADIOLOGY/IMAGING 09/19/2024 documented in this encounter Results * SCAN - RADIOLOGY/IMAGING (09/19/2024) Anatomical Region Laterality Modality Other us Provider Scanning Edited Result - Final documented in this encounter Visit Diagnoses Not on filedocumented in this encounter Care Teams Rip Sawyer Relationship Specialty Start Date End Date Pernell Pratt MD [address] [place] [address] PCP - General 09/11/12 documented as of this encounter
--- OUTSIDE RECORDS SUMMARY | 2025-09-06 09:31 | XMS_ITS | Clinical Summary ---
Author Organization [facility] Address [address] [place] [address] Care Team Providers Care Cutting Torch Operator Name Role Phone Unavailable Primary Care [...]
== END 2025-09-06 08:54 | disposition home or self-care (01) ==
LOC: ANHFOHIMG 08:54
PROVIDERS: PCP Emergency Medicine; Visit Provider Emergency Medicine
DX: Z12.31 Encounter for screening mammogram for malignant neoplasm of breast (principal)
CPT/HCPCS: 77063; 77067